=== PATIENT | female | born 1975 | race Hispanic/Latino ===

== ENCOUNTER 2019-11-17 19:01 | Inpatient (IN) | payer SELFPAY ==
--- NOTE | 2019-11-17 20:33 | RAD REPORT ---
EXAM DESCRIPTION: RAD - Chest Single View - 11/17/2019 8:23 pm CLINICAL HISTORY: Cough;Chest pain COMPARISON: None TECHNIQUE: AP portable chest image was obtained 11/17/2019 8:23 pm . FINDINGS: Lung volumes are relatively low. Scattered airspace opacities are present in both lung fie lds sparing each apex. Central vasculature is prominent. Heart size is upper normal. Small bilateral pleural effusions are evident. No acute bony abnormality seen. No acute aortic findings suspected. IMPRESSION: Scattered bilateral airspace opacities are present suspicious for pneumonia including CO VID-19 pneumonia. Patient has pleural effusions and vascular engorgement as well. Failure or volume overload are possib le but lesser considerations.
[2019-11-17] MEDS ORDERED: dexAMETHasone 10 MG/ML VIAL ONE (21:00)
[2019-11-17] MEDS ORDERED: CEFTRIAXONE/SWI 1gm 1 GM/10 ML SYR ONE (21:01)
[2019-11-17] MEDS ORDERED: AZITHROMYCIN 500 MG INJ IVPB ONE (21:01)
[2019-11-17] MEDS ORDERED: NA CHLORIDE 0.9% 250 ML ONE (21:01)
--- OUTSIDE RECORDS SUMMARY | 2019-11-17 21:06 | XMS REPORT | Continuity of Care Document ---
:1975 Author Organization [facility] t Address [address] [place] [address] Care Team Providers Name Role Phone Keila Bernstein Attending Clinician Problems This patient has no known problems. Allergies, Adverse Reactions, Alerts This patient has no known allergies or adverse reactions. Medications This patient has no known medications. Procedures This patient has no known procedures. Encounters Start End Encounter Admission Attending Care Care Encounter Source Date/Time Date/Time Type Type Clinicians Facility Department ID 2019-10-21 2019-10-21 Office ANT Villanueva [id number] 10:06:31 10:33:05 Visit Reynold Pedraza TEAM LEADER/RESEARCH PSYCHOLOGIST [id number] [facility] [id number] MATERNAL [id number] & CHILD [address] [place] [address] Results This patient has no known results.
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
--- OUTSIDE RECORDS SUMMARY | 2019-11-17 21:06 | XMS REPORT | Summary of Care ---
:1975 Author Organization [facility] Address [address] [place] [address] Care Team Providers Name Role Phone Ed Lopez DIONTE Primary Care Provider Reason for Visit Reason Comments NURSE VISIT DEPO Encounter Details Date Type Department Care Team Description 10/21/2019 Nurse Visit [facility]- [place] Villanueva R, MANGLE CATCHER [address] [place] [address] [facility] [place] [facility] [address] [facility] contracep tion ([address] Dx) [place] [address] Allergies No Known Allergiesdocumented as of this encounter (statuses as of 10/21/2019) Medications Medication Sig Dispensed Refills Start Date End Date Status clotrimazole 1 % Insert 1 Applicator 1 Tube 0 05/06/2019 Active vaginal into vagina at creamIndications: bedtime. Vaginal yeast infection Hospital, Clinic, or Other Ordered Dose Route Frequency Start Date End Date Status Facility Administered Medication medroxyPROGESTERone 150 mg IM [id number] 05/06/2019 0 Active (DEPO-PROVERA) injection 150 mgIndications: [...] infection 07/29/2017 02/12/2018 GDM (gestational diabetes mellitus) 07/15/201706/2019 Vaginal bleeding in patient at less than [...] Gestational diabetes mellitus, antepartum 09/29/2015 06/17/2017 Liveborn infant, of avilez , born in hospital by [...] without hematuria 02/14/2015 015 Overview: [facility] for ea rly usg and [...] examination 05/19/2013 02/14/2015 Overview: ICD10 Diagnosis Term Monotype Mechanic Utility Rubella immune 05/19/2013 02/14/2015 Lump or mass in breast 05/19/2013 03/11/2015 Overview: [facility]: /[id number]. Bilateral USG and m ammogram. USG- 1.1cm [...] Travel End No recent travel history available. COVID-19 Exposure Response Date Recorded In the last month, have you been in contact with No / Unsure 10/21/2019 10:17 AM CDT someone who was confirmed or suspected to have Coronavirus / COVID-19? documented as of this encounter Last Filed Vital Signs Vital Sign Reading Time Taken Comments Blood Pressure 137/88 10/21/2019 9:43 AM CDT Pulse 74 10/21/2019 9:43 AM CDT Temperature 36.6 C (97.8 F) 10/21/2019 9:43 AM CDT Respiratory Rate 16 10/21/2019 9:43 AM CDT Oxygen Saturation - - Inhaled Oxygen Concentration - - Weight 63.2 kg (139 lb 7 oz) 10/21/2019 9:43 AM CDT Height 152.4 cm (5') 10/21/2019 9:43 AM CDT Body Mass Index 27.23 10/21/2019 9:43 AM CDT documented in this encounter Progress Notes Gaurav Chávez RN - 10/21/2019 9:00 AM CDT44 year old female has been identified by and name. Verbal consent has been obtained by patientto have an injection of Depo Provera, as ordered by the provider. Date of last Depo Provera injection: 07/29/2019 Last WWE: 05/06/2019 Encounter Diagnosis: v25.49 The site was cleaned with an alcohol swab and given intramuscularly (IM) in the left deltoid. A band aid dressing was then applied to the injection site. The patient tolerated the procedure well . Advised patient on Calcium intake 500-1200 mg daily. ED warnings given. Patient to return to clinic in 12 weeks for next Depo. Patient verbalized understanding. GAURAV CHÁVEZ RN 10/21/2019 10:36 AM documented in this encounter Plan of Treatment Date Type Specialty Care Team Description 10/21/2019 Office Visit [facility] Reynold Villanueva, Vaginal yeast infection (Primary Dx); MANGLE CATCHER Screening examination for venereal disea [address] [place] [address] [phone] 01/13/2020 Office Visit [facility], [facility] Room 01/13/2020 Nurse Visit [facility] Visit, [facility] Nurse Health Maintenance Due Date Last Done Comments [...] this topic documented as of this encounter Results Not on filedocumented in this encounter Visit Diagnoses Diagnosis Encounter for Depo-Provera contraception - Primary Surveillance of other previously prescri bed contraceptive method documented in this encounter Administered Medications Medication Order MAR Action Action Date Dose Rate Site medroxyPROGESTERone Given 10/21/2019 10:35 150 mg Left Deltoid-IM (DEPO-PROVERA) injection 150 AM CDT mg 150 mg, Intramuscular, [id number], 4 doses, First dose on Traci 05/06/19 at 1015, Last dose on Traci 01/13/20 at 1015, Routine Given 07/29/2019 9:16 AM CDT 150 mg Left Deltoid-IM Given 05/06/2019 10:36 AM 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
[2019-11-17] MEDS ORDERED: IPRATROPIUM BROM 0.5MG/2.5ML ONE (21:07)
[2019-11-17] MEDS ORDERED: ALBUTEROL 2.5 MG/3 ML NEB SOL ONE (21:07)
--- OUTSIDE RECORDS SUMMARY | 2019-11-17 21:07 | XMS REPORT | Summary of Care ---
:1975 Author Organization [facility] Address [address] [place] [address] Care Team Providers Name Role Phone [facility] Provider Reason for Visit Reason Comments BLANKET WASHER problem Encounter Details Date Type Department Care Team Description 10/21/2019 Office Visit [facility]- Reynold Villanueva, [place] ginal yeast infection (Primary Dx); [facility] Screening examination for venereal disea se [address] [facility] [address] [place], [place] [phone] Allergies No Known Allergiesdocumented as of this encounter (statuses as of 10/21/2019) Medications Medication Sig Dispensed Refills Start Date End Date Status clotrimazole 1 % Insert 1 1 Tube 0 05/06/2019 Ac tive vaginal Applicator into creamIndications: vagina at bedtime. Vaginal yeast infection Miscellaneous Medical QHS X 7days 0 10/21/2019 Active Supply MiscIndications: Vaginal yeast infection Hospital, Clinic, or Other Ordered Dose Route Frequency Start Date End Date Status Facility Administered Medication medroxyPROGESTERone 150 mg IM [id number] 05/06/2019 0 Active (DEPO-PROVERA) injection 150 mgIndications: [...] without hematuria 02/14/2015 015 Overview: [facility]; ROR sent for ea rly usg and [...] examination 05/19/2013 02/14/2015 Overview: ICD10 Diagnosis Term Student Services Counselor Utility Rubella immune 05/19/2013 02/14/2015 Lump or mass in breast 05/19/2013 03/11/2015 Overview: [facility]: /[id number]. Bilateral USG and m ammogram. USG- 1.1cm fibroadenoma in the right breast is probably benign. F/U shayla mogram and USG in 6 months is recommended. Anemia 05/19/2013 05/19/2013 Family history of diabetes mellitus 05/19/20130 11/2014 Hemorrhoids 03/11/2015 documented as of this encounter [...] Time Taken Comments Blood Pressure 137/88 10/21/2019 10:18 AM CDT Pulse 74 10/21/2019 10:18 AM CDT Temperature 36.6 C (97.8 F) 10/21/2019 10:18 AM CDT Respiratory Rate 16 10/21/2019 10:18 AM CDT Oxygen Saturation - - Inhaled Oxygen Concentration - - Weight 63.2 kg (139 lb 7 oz) 10/21/2019 10:18 AM CDT Height 152.4 cm (5') 10/21/2019 10:18 AM CDT Body Mass Index 27.23 10/21/2019 10:18 AM CDT documented in this encounter Progress Notes Reynold Villanueva, RETIREMENT ADMINISTRATOR - 10/21/2019 1:45 PM CDT Chief complaint: Chief Complaint Patient presents with BLANKET WASHER problem HPI Patient complains of vaginal itching on and off for months. Patient report she tried OTC creams but with no relief. Patient is on Angelito Provera for BCM and is happy with method. Patient denies current or past physical, sexual or emotional abuse.] Histories OB History Para Term AB Living 8 6 5 1 2 6 SAB TAB Ectopic Multiple Live Births 2 1 6 # Outcome Date GA Lbr Sujit/2nd Weight Sex Delivery Anes PTL Lv 8A 8B Term 01/21/18 38w4d 5 lb 8.9 oz (2.52 kg) F VAGINAL EPI SANGEETHA Comments: Maternal Age: 42; :8; Parity:6 Mother's Blood Type:A pos Baby's Blood Type:not applicable Maternal Serological Test:normal Maternal Group B Strep Screening: positive Adequate Treatment: no Complications:yes - Gestational Diabetes 7 09/09/15 36w6d 4 lb 9.1 oz (2.072 kg) F VAGINAL EPI SANGEETHA 6 2012 11w0d 5 2010 9w0d 4 Term 01/17/07 40w0d 8 lb (3.629 kg) M NORMAL SPONT EPI N SANGEETHA 3 Term 01/21/01 40w0d 6 lb 9.8 oz (3 kg) M NORMAL SPONT EPI N SANGEETHA 2 Term 12/02/96 40w0d 8 lb 4.3 oz (3.75 kg) F NORMAL SPONT None Y SANGEETHA 1 Term 11/07/94 40w0d 7 lb (3.175 kg) M NORMAL SPONT EPI N SANGEETHA Past Medical History: Diagnosis Date Abnormal maternal glucose tolerance, antepartum 02/16/2015 Anemia resolved Bacterial vaginosis 05/29/2015 Blood transfusion, without reported diagnosis 12/02/1996 was given blood, but had a reaction to it-with childbirth Diabetes mellitus 2014 GDM Hemorrhoids Other depression 09/09/2017 Thrombocytopenia 01/22/2018 Family History Problem Relation Age of Onset Diabetes Mother Arthritis NoFHx Asthma NoFHx defects NoFHx Breast Cancer NoFHx Colon Cancer NoFHx Ovarian Cancer NoFHx Uterine Cancer NoFHx Depression NoFHx Cancer NoFHx Genetic NoFHx Heart NoFHx High cholesterol NoFHx Hypertension NoFHx Mental retardation NoFHx Neurological NoFHx Osteoporosis NoFHx Psychiatry NoFHx Other - see comments NoFHx Family Status Relation Name Status Mo (Not Specified) NoFHx (Not Specified) Past Surgical History: Procedure Laterality Date FACIAL LACERATION REPAIR lac above L eye sutured w/o anesthesia INSERT CERVICAL DILATOR 09/09/2015 Social History Socioeconomic History Marital status: Single Spouse name: Not on file Number of children: Not on file Years of education: Not on file Highest education level: Not on file Occupational History Not on file Social Needs Financial resource strain: Not on file Food insecurity: Worry: Not on file Inability: Not on file Transportation needs: Medical: Not on file Non-medical: Not on file Tobacco Use Smoking status: Former Smoker Smokeless tobacco: Never Used Substance and Sexual Activity Alcohol use: No Alcohol/week: 0.0 standard drinks Drug use: No Sexual activity: Yes Partners: Male control/protection: Injection Comment: last sexual intercourse 04/22/2019 Lifestyle Physical activity: Days per week: Not on file Minutes per session: Not on file Stress: Not on file Relationships Social connections: Talks on phone: Not on file Gets together: Not on file Attends confucianism service: Not on file Active member of club or organization: Not on file Attends meetings of clubs or organizations: Not on file Relationship status: Not on file Intimate partner violence: Fear of current or ex partner: Not on file Emotionally abused: Not on file Physically abused: Not on file Forced sexual activity: Not on file Other Topics Concern Not on file Social History Narrative Pt denies current or past physical, sexual or emotional abuse. Pt states she feels safe at home. Pt lives with family. Social History Substance and Sexual Activity Sexual Activity Yes Partners: Male control/protection: Injection Comment: last sexual intercourse 04/22/2019 Labs Labs are pending. Radiology No new radiology. Allergies Augustina has No Known Allergies. Medications Augustina has a current medication list which includes the following prescription(s): miscellaneous medical supply and clotrimazole, and the following Facility-Administered Medications: medroxyprogesterone. Review of Systems Genitourinary: Positive for vaginal bleeding. Vaginal itching BP 137/88 (BP Location: Right arm, Patient Position: Sitting, BP CUFF SIZE: Adult Medium) | Pulse 74 | Temp 36.6 C (97.8 F) (Oral) | Resp 16 | Ht 5' (1.524 m) | Wt 139 lb 7 oz (63.2 kg) | LMP10/17/2019 (Approximate) | BMI 27.23 kg/m Pregravid BMI: Could not be calculated Physical Exam Vagina:Vaginal discharge found. Patient on menses, bleeding noted Assessment/Plan Vaginal yeast infection (primary encounter diagnosis) Comment: see HPI Plan: Miscellaneous Medical Supply Misc Screening examination for venereal disease Comment: no test done since 2018 Plan: GC & CHLAMYDIA AMPLIFIED ASSAY Return to clinic in 05/2020 for WWE or PRN. Discussed treatment options. Medications as ordered. Reviewed patient instructions and provided printed copy. This visit did not involve counseling and coordination that comprised more than 50% of the visit time. EAMON Smith 10/21/2019 10:36 AM documented in this encounter Plan of Treatment Date Type Specialty Care Team Description 01/13/2020 Office Visit [facility], [facility] Room 01/13/2020 Nurse Visit [facility] Visit, [facility] Nurse Name Type Priority Associated Diagnoses Order S chedule GC & CHLAMYDIA AMPLIFIED LAB Routine Screening examin ation for Ordered: 10/21/2019 ASSAY venereal disease Health Maintenance Due Date Last Done Comments [...] filedocumented in this encounter Visit Diagnoses Diagnosis Vaginal yeast infection - Primary Candidiasis of vulva and vagina Screening examination for venereal disea se documented in this encounter Insurance Payer Benefit Plan / Subscriber ID Effective Dates Phone Addre ss Type Group [facility] FAMILY FAMILY PLANNING [id number] 2019-Pres [place] [employer] Agency PLANNING ISAI ISAI 0-100% ent [id number] [place] [address] documented as of this encounter Advance Directives Name Relationship Healthcare Agent Communication Relationship Julianne Bradford Child Primary healthcare agent "
--- OUTSIDE RECORDS SUMMARY | 2019-11-17 21:07 | XMS REPORT | Summary of Care ---
:1975 Author Organization [facility] Address [address] [place] [address] Care Team Providers Name Role Phone Jessica Ed [facility] Primary Care Provider Reason for Visit Reason Comments SCOOP FILLER problem Encounter Details Date Type Department Care Team Description 10/21/2019 Office Visit [facility]- Reynold Villanueva, [place] ginal yeast infection (Primary Dx); [facility] Screening examination for venereal disea se [address] [facility] [address] [place], [place] [phone] Allergies No Known Allergiesdocumented as of this [...] Facility Administered Medication medroxyPROGESTERone 150 mg IM [id number] 05/06/2019 0 Active (DEPO-PROVERA) injection 150 mgIndications: [...] without hematuria 02/14/2015 015 Overview: [facility] sent for ea rly usg and [...] examination 05/19/2013 02/14/2015 Overview: ICD10 Diagnosis Term 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 Bilateral USG and m ammogram. USG- 1.1cm [...] in this encounter Progress Notes Reynold Villanueva, SOUND EDITOR - 10/21/2019 1:45 PM CDT Chief complaint: Chief Complaint Patient presents with SCOOP FILLER problem HPI Patient complains of vaginal itching [...] file Gets together: Not on file Attends mormonism service: Not on file Active member of [...] Effective Dates Phone Addre ss Type Group [facility] FAMILY FAMILY PLANNING [id number] 2019-Pres [place] [employer] Agency PLANNING ISAI ISAI 0-100% ent [id number] [place] [address] documented as of this encounter Advance Directives Name Relationship Healthcare Agent Communication Relationship Julianne Bradford Child Primary healthcare agent "
--- OUTSIDE RECORDS SUMMARY | 2019-11-17 21:08 | XMS REPORT | Summary of Care ---
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 Screening examination for venereal disea se [address] [facility] [address] [place], [place] [phone] Allergies No Known Allergiesdocumented as of this [...] Facility Administered Medication medroxyPROGESTERone 150 mg IM [id number] 05/06/2019 0 Active (DEPO-PROVERA) injection 150 mgIndications: [...] without hematuria 02/14/2015 015 [facility] ROR sent for ea rly usg [...] examination 05/19/2013 02/14/2015 Overview: ICD10 Diagnosis Term Family Life Counselor Utility Rubella immune 05/19/2013 02/14/2015 Lump or mass in breast 05/19/2013 03/11/2015 Overview: [facility]: /[id number]. Bilateral USG and m ammogram. USG- 1.1cm [...] in this encounter Progress Notes Reynold Villanueva, DEVELOPMENT ARCHITECT - 10/21/2019 1:45 PM CDT Chief complaint: Chief Complaint Patient presents with CLINICAL INFORMATION SYSTEMS DIRECTOR problem HPI Patient complains of vaginal itching [...] file Gets together: Not on file Attends buddhist service: Not on file Active member of [...] Celeste Nurse Name Type Priority Associated Diagnoses Date/Ti me GC & CHLAMYDIA LAB Routine Screening examination for 10/21/2019 10:51 AM CDT AMPLIFIED ASSAY venereal disease Health Maintenance Due Date [...] Effective Dates Phone Addre ss Type Group [facility] FAMILY FAMILY PLANNING [id number] 2019-[place] LOAIZA Agency PLANNING ISAI ISAI 0-100% ent [id number] [place] [address] documented as of this encounter Advance Directives Name Relationship Healthcare Agent Communication Relationship Julianne Bradford Child Primary healthcare agent "
--- NOTE | 2019-11-17 21:20 | RAD REPORT ---
EXAM DESCRIPTION: CT - Chest For Pe Angio - 11/17/2019 9:03 pm CLINICAL HISTORY: Pain;SOB COMPARISON: Chest Single View dated 11/17/2019 TECHNIQUE: Dynamically enhanced 3 mm thick images of the chest were obtained during administration o f approximately 150mL Isovue 370 IV contrast. Coronal and oblique MIP reconstruction images were gene rated and reviewed. Exam utilizes a protocol to evaluate the pulmonary arterial tree. All CT scans are performed using dose optimization technique as appropriate and may include automated exposure control or mA/KV adjustment according to patient size. FINDINGS: No pulmonary emboli are identified. The aorta as imaged shows no acute or suspicious finding. No pericardial thickening or effusion. Ground-glass airspace opacification is scattered in all lobes. This is more peripheral than central i n distribution. This is a pattern commonly described in COVID-19 pneumonia. No pleural effusion or pl eural thickening. No mediastinal or hilar suspicious masses. No chest wall mass. Left axillary lymphadenopathy is prese nt most likely reactive. Largest lymph node is 14 mm. Limited abdomen imaging shows hepatomegaly with pronounced fatty infiltration. Liver is only partiall y imaged. IMPRESSION: No pulmonary emboli identified. Bilateral ground-glass opacification throughout all lobes, more peripheral than central, and without associated mass or cavitation. This lung parenchymal pattern is the most commonly described COVID-19 pneumonia pattern. Hepatomegaly and diffuse fatty infiltration of a partially imaged liver.
[2019-11-17] MEDS ORDERED: NA CHLORIDE 0.9% 1,000 ML ONE (22:48)
[2019-11-17 23:19] LABS: Absolute Lymphocytes (CBC) 0.8 K/uL (0.7-4.9); Basophils % 0.1 % (0-1.3); Hematocrit 36.9 % (36.0-45.0); Lymphocytes % 10.3 % (15.3-44.8); MPV 11.6 fL (7.6-11.3); RBC Red Blood Cell Count 3.99 M/uL (3.86-4.86)
[2019-11-17 23:54] LABS: BUN Blood Urea Nitrogen 6 mg/dL (7-18); Bicarbonate 21 mmol/L (21-32); Glucose Level 172 mg/dL (74-106); Potassium 3.1 mmol/L (3.5-5.1); Sodium Level 138 mmol/L (136-145)
[2019-11-18 00:03] LABS: Blood Morphology Comment NOT SEEN (NOT SEEN); Platelet Estimate ADEQ
[2019-11-18 00:18] LABS: NT PRO-BNP < 5 pg/mL (<125)
[2019-11-18] MEDS ORDERED: ACETAMINOPHEN 500 MG TAB PO PRN (00:33)
[2019-11-18] MEDS ORDERED: ONDANSETRON 4 MG/2 ML VIAL IV PRN (00:33)
--- NOTE | 2019-11-18 00:34 | ER ---
Nurse's Notes [facility] Name: Augustina Coe Age: 44 yrs Sex: Female : 1975 Arrival Date: 11/17/2019 Time: 19:02 Bed 30 Private MD: Diagnosis: Pneumonia, unspecified organism Presentation: 11/16 19:06 Chief complaint: Patient states: Cough, SOB, Chest tightness and body aches x 4 days. ca1 Coronavirus screen: Surgical mask placed on patient. Patient moved to private room, placed in contact and droplet isolation with eye protection until further assessment. Patient reports a cough. Patient reports shortness of breath or difficulty breathing. Patient denies measured and/or subjective temperature greater than 100.4F prior to today's visit. Patient denies travel on a cruise ship or to a country the [facility] currently lists as an affected area. Patient denies contact with known and/or suspected case of COVID-19. Tested negative for Covid-19 last week. Ebola Screen: Patient negative for fever greater than or equal to 101.5 degrees Fahrenheit, and additional compatible Ebola Virus Disease symptoms Patient denies exposure to infectious person. Patient denies travel to an Ebola-affected area in the 21 days before illness onset. No symptoms or risks identified at this time. Initial Sepsis Screen: Does the patient meet any 2 criteria? No. Patient's initial sepsis screen is negative. Does the patient have a suspected source of infection? No. Patient's initial sepsis screen is negative. Risk Assessment: Do you want to hurt yourself or someone else? Patient reports no desire to harm self or others. Onset of symptoms was November 17, 2019. 19:06 Method Of Arrival: Ambulatory ca1 19:06 Acuity: KAR 3 ca1 Triage Assessment: 19:31 General: Appears comfortable, Behavior is calm, cooperative. Respiratory: Reports rv shortness of breath at rest Onset: The symptoms/episode began/occurred gradually, the patient has mild shortness of breath. 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 - Social history:: Smoking status: Patient denies any tobacco usage or history of. Screenin:31 Abuse screen: Denies threats or abuse. Denies injuries from another. Nutritional rv screening: No deficits noted. Tuberculosis screening: No symptoms or risk factors identified. Fall Risk None identified. Assessment: 19:30 General: Appears comfortable, Behavior is calm, cooperative. Pain: Denies pain. Neuro: rv Level of Consciousness is awake, alert, obeys commands, Oriented to person, place, time, situation. Cardiovascular: Patient's skin is warm and dry. Rhythm is sinus tachycardia. Respiratory: Airway is patent Respiratory effort is even, unlabored, Breath sounds are coarse bilaterally. Derm: Skin is intact. 20:19 Reassessment: Patient appears in no apparent distress at this time. Patient and/or mg2 family updated on plan of care and expected duration. Pain level reassessed. Patient is alert, oriented x 3, equal unlabored respirations, skin warm/dry/pink. 21:00 Reassessment: PATIENT MOVED TO ROOM 30. rv 23:00 Reassessment: Patient and/or family updated on plan of care and expected duration. Pain rv level reassessed. Patient is alert, oriented x 3, equal unlabored respirations, skin warm/dry/pink. Patient states feeling better. Respiratory: Airway is patent Respiratory pattern is tachypnea Breath sounds are coarse bilaterally. Vital Signs: 19:06 BP 126 / 81; Pulse 105; Resp 20; Temp 98.4(TE); Pulse Ox 97% on R/A; Weight 68.04 kg ca1 (R); Height 5 ft. 2 in. (157.48 cm) (R); 19:57 BP 112 / 78; Pulse 102; Resp 25; Pulse Ox 97% on R/A; rv 20:30 BP 120 / 82; Pulse 101; Resp 25; Pulse Ox 97% on R/A; rv 21:41 BP 112 / 76; Pulse 122; Resp 23; Pulse Ox 98% on Nebulizer Mask; rv 22:30 BP 108 / 72; Pulse 105; Resp 30; Pulse Ox 96% on R/A; rv 23:00 BP 96 / 58; Pulse 102; Resp 27; Pulse Ox 96% on R/A; rv 23:30 BP 95 / 57; Pulse 102; Resp 22; Pulse Ox 95% on R/A; rv 11/17 00:00 BP 101 / 59; Pulse 97; Resp 22; Pulse Ox 96% on R/A; rv 01:00 BP 95 / 62; Pulse 91; Resp 27; Temp 98(O); Pulse Ox 96% ; rv 11/16 19:06 Body Mass Index 27.44 (68.04 kg, 157.48 cm) ca1 ED Course: 11/16 19:02 Patient arrived in ED. bp1 19:08 Triage completed. ca1 19:09 Balta Sotomayor RN is Primary Nurse. rv 19:09 Arm band placed on right wrist. ca1 19:10 Melanie Glover [facility]NP-C [facility]. kb 19:10 Phillip Ogden MD is Attending Physician. kb 19:30 COVID-19 Sent. rv 19:31 Patient has correct armband on for positive identification. Placed in gown. Bed in low rv position. Call light in reach. equipment monitor phototypesetting on. Pulse ox on. NIBP on. 20:23 Chest Single View XRAY In Process Unspecified. EDMS 20:55 Inserted saline lock: 20 gauge in right antecubital area, using aseptic technique. rv Blood collected. 20:55 Initial lab(s) drawn, by me, sent to lab. First set of blood cultures drawn by me. rv 21:04 CT Chest For PE Angio In Process Unspecified. EDMS 21:07 Second set of blood cultures drawn by me. rv 21:28 Notified Nurse Practitioner and/or Physician Crossbar Frame Wirer of a critical lab result(s), D sg Dimer 524. 11/17 00:03 Notified Nurse Practitioner and/or Physician Crossbar Frame Wirer of a critical lab result(s), sg Bands of 19 %. 00:33 Ang Page MD is Hospitalizing Provider. kb 01:27 No provider procedures requiring assistance completed. IV is patent, with fluids rv infusing freely, with good blood return, Patient admitted, IV remains in place. 07:49 Primary Nurse role handed off by Balta Sotomayor RN sv Administered Medications: 11/16 21:15 Drug: Decadron - Dexamethasone 6 mg Route: IVP; Site: right antecubital; rv 22:59 Follow up: Response: No adverse reaction rv 21:16 Drug: DuoNeb (3:1) (2.5 mg - 0.5 mg) 3 ml Route: Nebulizer; rv 22:59 Follow up: Response: No adverse reaction rv 21:16 Drug: Rocephin 1 grams Route: IV; Rate: calculated rate; Site: right antecubital; rv 21:20 Follow up: IV Status: Completed infusion rv :16 Drug: Zithromax 500 mg Route: IVPB; Infused Over: 1 hrs; Site: right antecubital; rv 22:59 Follow up: IV Status: Completed infusion; IV Intake: 250ml rv 22:59 Drug: NS 0.9% 500 ml Route: IV; Rate: bolus; Site: right antecubital; rv 23:30 Follow up: IV Status: Completed infusion; IV Intake: 500ml rv 11/17 01:08 Not Given (Physician Discretion): NS 0.9% with KCl 40 mEq/L 1000 ml IV at 125 ml/hr rv continuous 01:08 Drug: NS 0.9% with KCl 20 mEq/L 1000 ml Route: IV; Rate: 125 ml/hr; Site: right rv antecubital; 01:27 Follow up: IV Status: Infusion continued upon admission rv Intake: 11/16 22:59 IV: 250ml; Total: 250ml. rv 23:30 IV: 500ml; Total: 750ml. rv Outcome: 11/17 00:33 Decision to Hospitalize by Provider. kb 01:27 Admitted to ER Hold. Please see [facility] for further documentation. rv 01:27 Condition: good 01:27 Instructed on the need for admit. 09:12 Patient left the ED. eb Signatures: Dispatcher [employer] EDMS Melanie Glover, GLADYS ACCOUNTING OFFICER-Fátima Nicole RN RN sv Gay, Steven, RN RN sg Botello, Elizabeth Alberto Germain RN RN [facility] Balta Sotomayor RN RN Rosemary Barton RN [facility] Marilyn Solomon Corrections: (The following items were deleted from the chart) 11/16 21:17 21:17 Reassessment: PATIENT MOVED TO ROOM 30. rv rv 23:00 19:30 Respiratory: Airway is patent Respiratory effort is even, unlabored, Breath rv sounds are clear bilaterally. rv
--- NOTE | 2019-11-18 00:34 | EDPHYS ---
Physician Documentation [facility] Name: Augustina Coe Age: 44 yrs Sex: Female : 1975 Arrival Date: 11/17/2019 Time: 19:02 Bed 30 Private MD: ED Physician Phillip Ogden HPI: 11/16 20:22 This 44 yrs old Female presents to ER via Ambulatory with complaints of kb Breathing Difficulty, Cough. 20:22 The patient or guardian reports cough, that is constant, described as moderate, kb difficulty breathing. Onset: The symptoms/episode began/occurred 4 day(s) ago. Severity of symptoms: At their worst the symptoms were moderate, in the emergency department the symptoms are unchanged. Modifying factors: The symptoms are alleviated by nothing, the symptoms are aggravated by nothing. Associated signs and symptoms: Pertinent positives: chest pain, Pertinent negatives: diarrhea, ear ache, fever, nausea, rhinorrhea, sore throat, vomiting. The patient has not experienced similar symptoms in the past. The patient has not recently seen a physician. Pt reports "a lot of cough" that causes shortness of breath. States she has been coughing so much that it is now causing pain to her chest. . 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 - Social history:: Smoking status: Patient denies any tobacco usage or history of. ROS: 20:21 Constitutional: Negative for fever, chills, and weight loss, ENT: Negative for injury, kb pain, and discharge, Neck: Negative for injury, pain, and swelling, Abdomen/GI: Negative for abdominal pain, nausea, vomiting, diarrhea, and constipation, MS/Extremity: Negative for injury and deformity, Skin: Negative for injury, rash, and discoloration, Neuro: Negative for headache, weakness, numbness, tingling, and seizure. 20:21 Cardiovascular: Positive for chest pain, with cough, Negative for edema, orthopnea, palpitations, paroxysmal nocturnal dyspnea. 20:21 Respiratory: Positive for cough, shortness of breath, Negative for dyspnea on exertion, hemoptysis, orthopnea, pleurisy, sputum production, wheezing. Exam: 20:21 Constitutional: This is a well developed, well nourished patient who is awake, alert, kb and in no acute distress. Head/Face: Normocephalic, atraumatic. Chest/axilla: Normal chest wall appearance and motion. Nontender with no deformity. No lesions are appreciated. Cardiovascular: Regular rate and rhythm with a normal S1 and S2. No gallops, murmurs, or rubs. Normal PMI, no JVD. No pulse deficits. Respiratory: Lungs have equal breath sounds bilaterally, clear to auscultation and percussion. No rales, rhonchi or wheezes noted. No increased work of breathing, no retractions or nasal flaring. Abdomen/GI: Soft, non-tender, with normal bowel sounds. No distension or tympany. No guarding or rebound. No evidence of tenderness throughout. Skin: Warm, dry with normal turgor. Normal color with no rashes, no lesions, and no evidence of cellulitis. MS/ Extremity: Pulses equal, no cyanosis. Neurovascular intact. Full, normal range of motion. Neuro: Awake and alert, GCS 15, oriented to person, place, time, and situation. Cranial nerves II-XII grossly intact. Motor strength 5/5 in all extremities. Sensory grossly intact. Cerebellar exam normal. Normal gait. 20:21 ECG was reviewed by the Attending Physician. kb Vital Signs: 19:06 BP 126 / 81; Pulse 105; Resp 20; Temp 98.4(TE); Pulse Ox 97% on R/A; Weight 68.04 kg ca1 (R); Height 5 ft. 2 in. (157.48 cm) (R); 19:57 BP 112 / 78; Pulse 102; Resp 25; Pulse Ox 97% on R/A; rv 20:30 BP 120 / 82; Pulse 101; Resp 25; Pulse Ox 97% on R/A; rv 21:41 BP 112 / 76; Pulse 122; Resp 23; Pulse Ox 98% on Nebulizer Mask; rv 22:30 BP 108 / 72; Pulse 105; Resp 30; Pulse Ox 96% on R/A; rv 23:00 BP 96 / 58; Pulse 102; Resp 27; Pulse Ox 96% on R/A; rv 23:30 BP 95 / 57; Pulse 102; Resp 22; Pulse Ox 95% on R/A; rv 11/17 00:00 BP 101 / 59; Pulse 97; Resp 22; Pulse Ox 96% on R/A; rv 01:00 BP 95 / 62; Pulse 91; Resp 27; Temp 98(O); Pulse Ox 96% ; rv 11/16 19:06 Body Mass Index 27.44 (68.04 kg, 157.48 cm) ca1 MDM: 11/16 19:10 Patient medically screened. kb 20:19 Data reviewed: vital signs, nurses notes. Data interpreted: Pulse oximetry: on room air kb is 97 %. Interpretation: normal. 11/17 00:32 Counseling: I had a detailed discussion with the patient and/or guardian regarding: the kb historical points, exam findings, and any diagnostic results supporting the discharge/admit diagnosis, lab results, radiology results, the need for further work-up and treatment in the hospital. Physician consultation: Ang Page MD was contacted at 00:32, regarding admission, to the medical/surgical unit. patient's condition, and will see patient shortly. 11/16 19:15 Order name: COVID-19; Complete Time: 07:07 kb 11/16 20:37 Order name: CBC with Diff; Complete Time: 00:04 kb 11/16 20:37 Order name: Basic Metabolic Panel; Complete Time: 00:25 kb 11/16 20:37 Order name: Blood Culture Adult (2) kb 11/16 20:39 Order name: D-Dimer; Complete Time: 21:32 kb 11/16 20:53 Order name: NT PRO-BNP; Complete Time: 00:25 EDNH 11/16 23:21 Order name: Manual Differential; Complete Time: 00:04 EDNH 11/16 23:43 Order name: CREATININE WHOLE BLOOD; Complete Time: 23:44 EDMS 11/17 00:39 Order name: C-Reactive Protein EDMS 11/17 00:39 Order name: Comprehensive Metabolic Panel EDNH 11/17 00:39 Order name: Ferritin EDMS 11/17 00:39 Order name: Lactate; Complete Time: 07:07 EDMS 11/17 00:39 Order name: Lactic Dehydrogenase EDNH 11/16 19:15 Order name: Chest Single View XRAY; Complete Time: 20:35 kb 11/17 00:39 Order name: Lipid Profile EDMS 11/17 00:39 Order name: Magnesium EDMS 11/17 00:39 Order name: Procalcitonin EDMS 11/17 00:40 Order name: CBC with Automated Diff; Complete Time: 07:07 EDMS 11/17 00:40 Order name: D-Dimer; Complete Time: 07:07 EDMS 11/17 00:40 Order name: Hemoglobin A1c EDMS 11/17 00:40 Order name: NT PRO-BNP EDMS 11/17 00:40 Order name: Phosphorus EDNH 11/17 00:40 Order name: Troponin I EDNH 11/17 05:13 Order name: Urine Dipstick--Ancillary (enter results) 11/17 05:13 Order name: Urine --Ancillary (enter results) 11/17 06:38 Order name: Urinalysis EDNH 11/17 06:41 Order name: Urine --Ancillary; Complete Time: 07:07 EDMS 11/17 06:41 Order name: Urine Dipstick-Ancillary; Complete Time: 07:07 EDMS 11/17 07:25 Order name: Urine Microscopic Only EDNH 11/16 19:15 Order name: EKG; Complete Time: 19:16 kb 11/16 19:15 Order name: EKG - Nurse/Tech; Complete Time: 19:30 kb 11/16 20:37 Order name: IV Start; Complete Time: 21:16 kb 11/16 20:39 Order name: CT Chest For PE Angio; Complete Time: 21:24 kb 11/17 00:36 Order name: Regular EDMS EC/15 20:21 Rate is 104 beats/min. Rhythm is regular. QRS [place] is Normal. [place] interval is normal at kb 128 msec. QRS interval is normal at 82 msec. QT interval is normal at 324 msec. Administered Medications: 21:15 Drug: Decadron - Dexamethasone 6 mg Route: IVP; Site: right antecubital; rv 22:59 Follow up: Response: No adverse reaction rv 21:16 Drug: DuoNeb (3:1) (2.5 mg - 0.5 mg) 3 ml Route: Nebulizer; rv 22:59 Follow up: Response: No adverse reaction rv 21:16 Drug: Rocephin 1 grams Route: IV; Rate: calculated rate; Site: right antecubital; rv 21:20 Follow up: IV Status: Completed infusion rv 21:16 Drug: Zithromax 500 mg Route: IVPB; Infused Over: 1 hrs; Site: right antecubital; rv 22:59 Follow up: IV Status: Completed infusion; IV Intake: 250ml rv 22:59 Drug: NS 0.9% 500 ml Route: IV; Rate: bolus; Site: right antecubital; rv 23:30 Follow up: IV Status: Completed infusion; IV Intake: 500ml rv 11/17 01:08 Not Given (Physician Discretion): NS 0.9% with KCl 40 mEq/L 1000 ml IV at 125 ml/hr rv continuous 01:08 Drug: NS 0.9% with KCl 20 mEq/L 1000 ml Route: IV; Rate: 125 ml/hr; Site: right rv antecubital; 01:27 Follow up: IV Status: Infusion continued upon admission rv Disposition: 14:51 Co-signature as Attending Physician, Phillip Ogden MD. rn Disposition: 11/18/19 00:33 Hospitalization ordered by Ang Page for Observation. Preliminary diagnosis is Pneumonia, unspecified organism. - Bed requested for Telemetry/MedSurg (observation). - Status is Observation. eb - Condition is Stable. - Problem is new. - Symptoms are unchanged. Signatures: Dispatcher [employer] [facility] Melanie Glover, AUTOMATIC WHEEL LINE OPERATOR-C AUTOMATIC WHEEL LINE OPERATOR-Ckb Sarwat Jacques MD MD cha Nieto, Roman, MD MD rn Garcia, Cindy, RN RN cg Botello, Elizabeth eb Vicente, Ronaldo, RN RN rv AcobRosemary RN RN ca1 Corrections: (The following items were deleted from the chart) 11/16 20:53 20:48 PROBNP+C.LAB.BRZ ordered. [facility] 11/17 00:08 11/16 20:19 Counseling: I had a detailed discussion with the patient and/or guardian tamica regarding: the historical points, exam findings, and any diagnostic results supporting the discharge/admit diagnosis, radiology results, the need for outpatient follow up, a family practitioner, to return to the emergency department if symptoms worsen or persist or if there are any questions or concerns that arise at home, tamica 11/17 01:11 00:33 Hospitalization Ordered by Ang Page MD for Observation. Preliminary diagnosis is Pneumonia, unspecified organism. Bed requested for Telemetry/MedSurg (observation). Status is Observation. Condition is Stable. Problem is new. Symptoms are unchanged. kb 06:56 01:11 11/18/2019 00:33 Hospitalization Ordered by Ang Page MD for Observation. cg Preliminary diagnosis is Pneumonia, unspecified organism. Bed requested for [facility] ER HOLD. Status is Observation. Condition is Stable. Problem is new. Symptoms are unchanged. cg 09:12 06:56 11/18/2019 00:33 Hospitalization Ordered by Ang Page MD for Observation. eb Preliminary diagnosis is Pneumonia, unspecified organism. Bed requested for Telemetry/MedSurg (observation). Status is Observation. Condition is Stable. Problem is new. Symptoms are unchanged. cg
[2019-11-18] MEDS ORDERED: dexAMETHasone 10 MG/ML VIAL IV SCH (01:00)
[2019-11-18] MEDS ORDERED: NS KCL 20MEQ 1,000 ML IV ONE (01:10)
[2019-11-18 01:45] VITALS: O2SAT 97; BMI 12.4
[2019-11-18 06:23] LABS: Absolute Lymphocytes (CBC) 0.7 K/uL (0.7-4.9); Basophils % 0.3 % (0-1.3); Hematocrit 34.3 % (36.0-45.0); MPV 11.5 fL (7.6-11.3)
[2019-11-18 06:38] LABS: Urine Appearance CLEAR; Urine Bilirubin NEGATIVE (NEG); Urine Blood NEGATIVE (NEG); Urine Color YELLOW; Urine Glucose NEGATIVE (NEG); Urine Microscopic Reflex ORDER UMIC; Urine Protein TRACE (NEG); Urine Specific Gravity >=1.030 (1.005-1.030); Urine Urobilinogen 0.2 mg/dL (0.2-1.0)
[2019-11-18 06:40] LABS: Urine Blood NEGATIVE (NEG); Urine Glucose NEGATIVE (NEG); Urine Protein 1+ (NEG)
--- NOTE | 2019-11-18 07:24 | EKG ---
Test Date: 2019-11-17 Test Time: 19:26:50 Heading Repairer: RV MEASUREMENT RESULTS: Intervals: Rate: 104 GA: 128 QRSD: 82 QT: 324 QTc: 426 [place]: P: 3 GA: 128 QRS: 31 T: 1 INTERPRETIVE STATEMENTS: Sinus tachycardia Otherwise normal ECG No previous ECG available for comparison Electronically Signed On 11-18-19 07:22:56 CDT by Doc Guzman
[2019-11-18 07:25] LABS: Urine Bacteria <20 /HPF (<20); Urine Culture Reflex Order NOT NEEDED; Urine RBC NONE SEEN /HPF (NONE SEEN)
[2019-11-18 07:45] LABS: ALT/SGPT 54 U/L (12-78); AST/SGOT 28 U/L (15-37); Albumin 2.9 g/dL (3.4-5.0); Alkaline Phosphatase 70 U/L (45-117); BUN Blood Urea Nitrogen 7 mg/dL (7-18); Bicarbonate 22 mmol/L (21-32); Bilirubin Total 0.3 mg/dL (0.2-1.0); Ferritin 271.9 ng/mL (8-388); Glucose Level 212 mg/dL (74-106); HDL Cholesterol 31 mg/dL (40-60); LDL Cholesterol, Calculated 58 (<130); Magnesium 2.2 mg/dL (1.8-2.4); NT PRO-BNP 13 pg/mL (<125); Phosphorus 3.3 mg/dL (2.5-4.9); Potassium 3.6 mmol/L (3.5-5.1); Protein, Total 7.5 g/dL (6.4-8.2); Sodium Level 140 mmol/L (136-145); Troponin I < 0.02 ng/mL (0.0-0.045)
[2019-11-18] MEDS ORDERED: dexAMETHasone 4 MG/ML VIAL ONE (08:08)
[2019-11-18] MEDS ORDERED: ENOXAPARIN 40 MG/0.4 ML SQ ONE (08:09)
[2019-11-18] MEDS ORDERED: AZITHROMYCIN IV 250 MG in NA CHLORIDE 0.9% 250 ML IVPB SCH ×2 (09:00→21:00)
[2019-11-18] MEDS ORDERED: ENOXAPARIN 40 MG/0.4 ML SQ SCH (09:00)
[2019-11-18] MEDS ORDERED: ZINC SULFATE 220 MG CAP PO SCH (09:00)
[2019-11-18] MEDS ORDERED: dexAMETHasone 4 MG/ML VIAL IV SCH (09:00)
[2019-11-18] MEDS ORDERED: ASCORBIC ACID 500 MG TABLET PO SCH (09:00)
[2019-11-18] MEDS ORDERED: BENZONATATE 100 MG CAP PO PRN (12:06)
--- NOTE | 2019-11-18 12:22 | P.HP ---
Certification for Inpatient Patient admitted to: Inpatient With expected LOS: >2 Midnights Patient will require the following post-hospital care: None Practitioner: I am a practitioner with admitting privileges, knowledge of patient current condition, hospital course, and medical plan of care. Services: Services provided to patient in accordance with Admission requirements found in Title 42 Section 412.3 of the Code of Federal Regulations Patient History Date of Service: 11/18/19 Reason for admission: COVID-19 PNEUMONIA History of Present Illness: PATIENT IS A 44-YEAR-OLD FEMALE WHO CAME INTO THE EMERGENCY ROOM WITH SHORTNESS OF BREATH AND PERSISTENT COUGHING. PATIENT HAS BEEN HAVING FEVER, SHAKES, AND CHILLS. PATIENT HAD COVID TESTING DONE 1 WEEK PRIOR. AT THAT TIME HER TEST WAS NEGATIVE. SHE WAS STILL FEELING POORLY SO SHE CAME TO THE EMERGENCY ROOM YESTERDAY AFTERNOON. HER SYMPTOMS REVEALED BILATERAL PNEUMONIA. CT SCAN WAS SUGGESTED OF COVID-19 PNEUMONIA. AT THIS TIME, PATIENT WILL BE ADMITTED TO THE HOSPITAL FOR FURTHER EVALUATION. PATIENT WILL GET INFLAMMATORY MARKERS EVALUATED WELL. CONTINUE WITH ANTICOAGULATION ALONG WITH IV DEXAMETHASONE AND IVS ZITHROMYCIN. ALBUTEROL INHALER THE BEDSIDE. Allergies No Known Allergies Allergy (Unverified 11/18/19 07:18) Home Medications: NK [No Home Meds] 11/18/19 - Past Medical/Surgical History Has patient received pneumonia vaccine in the past: No Past Medical History: Patient denies medical history Past Surgical History: Patient denies surgical history - Family History Father Family History: Reviewed- Non-Contributory - Social History Smoking Status: Never smoker Place of Residence: Home Review of Systems 10-point ROS is otherwise unremarkable Physical Examination - Vital Signs Temperature: 98.0 F Blood Pressure: 104/66 Pulse: 96 Respirations: 19 Pulse Ox (%): 96 - Physical Exam General: Alert, In no apparent distress, Oriented x3 HEENT: Atraumatic, PERRLA, Mucous membr. moist/pink, EOMI, Sclerae nonicteric Neck: Supple, 2+ carotid pulse no bruit, No LAD, Without JVD or thyroid abnormality Respiratory: Normal air movement, Diminished, Expiratory wheezes, Rhonchi/gurgles Cardiovascular: Regular rate/rhythm, Normal S1 S2, Systolic murmur Gastrointestinal: Normal bowel sounds, Soft and benign, Non-distended, No tenderness Musculoskeletal: No clubbing, No swelling, No tenderness Integumentary: No rashes Neurological: Normal gait, Normal speech, Normal strength at 5/5 x4 extr, Normal tone, Sensation intact, Cranial nerves 3-12 intact, Normal affect Lymphatics: No axilla or inguinal lymphadenopathy - Studies Laboratory Data (last 24 hrs) 11/17/19 22:45: Sodium 138, Potassium 3.1 L, BUN 6 L, Creatinine 0.66, Glucose 172 H 11/17/19 22:45: WBC 7.8, Hgb 12.4, Hct 36.9, Plt Count 148 L Microbiology Data (last 24 hrs): 11/17/19 19:25 Nasopharnyx Coronavirus COVID-19 PCR - Final Assessment & Plan - Problems (Diagnosis) (1) Pneumonia due to COVID-19 virus Current Visit: Yes Status: Acute - Plan PLAN: 1. CHECK COVID-19 TEST RESULTS 2. DEXAMETHASONE 10 MG IVP DAILY 3. ZITHROMYCIN 250 MG IVPB DAILY 4. LOVENOX 40 MG SUBCU DAILY; IF HIGH RISK OF PE THEN WILL NEED TO DO FULL DOSE LOVENOX THERAPY 5. O2 PER PROTOCOL; HIGH-FLOW OXYGEN/BIPAP IF NECESSARY 6. CHECK LABS INCLUDING FERRITIN, CRP, D-DIMER, LACTIC ACID, LDH, PROCALCITONIN 7. GI PROPHYLAXIS Discharge Plan: Home Plan to discharge in: Greater than 2 days - Advance Directives Does patient have a Living Will: No Does patient have a Durable POA for Healthcare: No - Code Status/Comfort Care Code Status Assessed: Yes Code Status: Full Code Critical Care: No Time Spent Managing PTS Care (In Minutes): 45
--- NOTE | 2019-11-18 15:02 | P.DS ---
Admission Date: 11/18/19 Discharge Date: 11/18/19 Primary Care Provider: none Disposition: ROUTINE DISCHARGE Discharge Condition: GOOD Reason for Admission: COVID-19 PNEUMONIA Consultations: none Procedures: CT scan: FINDINGS: No pulmonary emboli are identified. The aorta as imaged shows no acute or suspicious finding. No pericardial thickening or effusion. Ground-glass airspace opacification is scattered in all lobes. This is more peripheral than central in distribution. This is a pattern commonly described in COVID-19 pneumonia. No pleural effusion or pleural thickening. No mediastinal or hilar suspicious masses. No chest wall mass. Left axillary lymphadenopathy is present most likely reactive. Largest lymph node is 14 mm. Limited abdomen imaging shows hepatomegaly with pronounced fatty infiltration. Liver is only partially imaged. IMPRESSION: No pulmonary emboli identified. Bilateral ground-glass opacification throughout all lobes, more peripheral than central, and without associated mass or cavitation. This lung parenchymal pattern is the most commonly described COVID-19 pneumonia pattern. Hepatomegaly and diffuse fatty infiltration of a partially imaged liver. Medical Problem list: Cough secondary to bilateral COVID-19 pneumonia DM Type 2, new diagnosis Brief History of Present Illness: 44-year-old female presented with cough. is positive for COVID. She came to the ER DN due to on control cough. CT scan revealed bilateral pneumonia.COVID suspected. Patient admitted for further evaluation. Hospital Course: Patient presented with cough. was positive for COVID. Patient evaluated in the emergency room. CT scan revealed bilateral pneumonia suspicious for COVID. Results are positive. Patient was monitored closely. Patient without significant shortness of breath. Room-air saturations within normal range. Patient has done well. Patient will be discharged home with prednisone 10 mg 1 pill twice daily for 7 days. Patient will also be provided Tessalon Perles 100 mg 3 times a day as needed for cough. Supplementation with vitamin-C, thiamine and zinc will be provided as well. Recommend quarantine at home for at least 14 days. Recommend CDC guidelines. Guidelines will be provided. Recommend to continue hand washing, face mask use and social distancing. Recommend follow up with PCP to further monitor and address. Health department will follow patient. Recommend to recheck testing in 14 days. Patient also found to have elevated blood sugar. A1c was 7.0. New diagnosis of diabetes noted. This was addressed in detail. Patient will be started on metformin 500 mg daily. Recommend to maintain blood sugars less 140 fasting and less than 200 after meals. Further adjustment in medication may be required. Recommend follow up with PCP to further address. 2000 ADA diet and diabetic ed ucation will be provided. Patient will need to buy a glucometer to monitor her blood sugars. Patient will be provided information on PCPs in the area to establish care and to further address. Vital Signs/Physical Exam: Temp Pulse Resp BP Pulse Ox 97.5 F 84 22 H 115/68 99 11/18/19 12:56 11/18/19 12:56 11/18/19 12:56 11/18/19 12:56 11/18/19 12:56 General: Alert, In no apparent distress, Oriented x3, Cooperative HEENT: Atraumatic Neck: Supple Respiratory: Clear to auscultation bilaterally, Normal air movement Cardiovascular: Normal pulses, Regular rate/rhythm Gastrointestinal: Normal bowel sounds, Soft and benign, Non-distended, No tenderness, No masses, No rebound, No guarding Integumentary: No tenderness/swelling, No erythema, No warmth, No cyanosis Neurological: Normal speech, Normal strength at 5/5 x4 extr, Normal tone, Normal affect Laboratory Data at Discharge: WBC 3.7 K/uL (4.3-10.9) L D 11/18/19 05:52 Hgb 11.6 g/dL (12.0-15.0) L 11/18/19 05:52 Hct 34.3 % (36.0-45.0) L 11/18/19 05:52 Plt Count 155 K/uL (152-406) 11/18/19 05:52 Sodium 140 mmol/L (136-145) 11/18/19 05:52 Potassium 3.6 mmol/L (3.5-5.1) 11/18/19 05:52 BUN 7 mg/dL (7-18) 11/18/19 05:52 Creatinine 0.59 mg/dL (0.55-1.3) 11/18/19 05:52 Glucose 212 mg/dL (74-106) H 11/18/19 05:52 Phosphorus 3.3 mg/dL (2.5-4.9) 11/18/19 05:52 Magnesium 2.2 mg/dL (1.8-2.4) 11/18/19 05:52 Total Bilirubin 0.3 mg/dL (0.2-1.0) 11/18/19 05:52 AST 28 U/L (15-37) 11/18/19 05:52 ALT 54 U/L (12-78) 11/18/19 05:52 Alkaline Phosphatase 70 U/L (45-117) 11/18/19 05:52 Troponin I < 0.02 ng/mL (0.0-0.045) 11/18/19 05:52 Triglycerides 53 mg/dL (<150) 11/18/19 05:52 Cholesterol 100 mg/dL (<200) 11/18/19 05:52 HDL Cholesterol 31 mg/dL (40-60) L 11/18/19 05:52 Cholesterol/HDL Ratio 3.23 11/18/19 05:52 Home Medications: Ascorbic Acid [Vitamin C*] 500 mg PO DAILY #30 tablet 11/18/19 Benzonatate [Tessalon Perle] 100 mg PO TID PRN #15 cap 11/18/19 Metformin HCl 500 mg PO DAILY #30 tablet 11/18/19 Zinc Sulfate [Zinc Sulfate*] 220 mg PO DAILY #30 cap 11/18/19 predniSONE [Deltasone*] 10 mg PO BID #14 tab 11/18/19 New Medications: predniSONE [Deltasone*] 10 mg PO BID #14 tab Metformin HCl 500 mg PO DAILY #30 tablet Benzonatate [Tessalon Perle] 100 mg PO TID PRN #15 cap PRN Reason: Cough Ascorbic Acid [Vitamin C*] 500 mg PO DAILY #30 tablet Zinc Sulfate [Zinc Sulfate*] 220 mg PO DAILY #30 cap Patient Discharge Instructions: 1. Recommend follow up with PCP in 1 week to follow up this hospitalization. 2. Patient presented with cough. was positive for COVID. Patient evaluated in the emergency room. CT scan revealed bilateral pneumonia suspicious for COVID. Results are positive. Patient was monitored closely. Patient without significant shortness of breath. Room-air saturations within normal range. Patient has done well. Patient will be discharged home with prednisone 10 mg 1 pill twice daily for 7 days. Patient will also be provided Tessalon Perles 100 mg 3 times a day as needed for cough. Supplementation with vitamin-C, thiamine and zinc will be provided as well. Recommend quarantine at home for at least 14 days. Recommend CDC guidelines. Guidelines will be provided. Recommend to continue hand washing, face mask use and social distancing. Recommend follow up with PCP to further monitor and address. Health department will follow patient. Recommend to recheck testing in 14 days. 3. Patient also found to have elevated blood sugar. A1c was 7.0. New diagnosis of diabetes noted. This was addressed in detail. Patient will be started on metformin 500 mg daily. Recommend to maintain blood sugars less 140 fasting and less than 200 after meals. Further adjustment in medication may be required. Recommend follow up with PCP to further address. 2000 ADA diet and diabetic education will be provided. Patient will need to buy a glucometer to monitor her blood sugars. Patient will be provided information on PCPs in the area to establish care and to further address. Diet: ADA Activity: Ad nohemy Time spent managing pt's care (in minutes): 55
[2019-11-18] MEDS ORDERED: GLUCERNA SHAKE 237 ML CAN PO SCH (21:00)
[2019-11-19 00:36] VITALS: BP 104/66; TEMP 98
== END 2019-11-18 17:30 | disposition home or self-care (01) | DRG 177 ==
LOC: ER 19:01 → ERHOLD 11-18 00:53 → 4TH 11-18 08:36
PROVIDERS: ADMIT Hospitalist; ATTEND Hospitalist
PROC: 8E0ZXY6 Isolation (ICD-10-PCS; principal; 2019-11-18)
DX: U07.1 COVID-19 (principal); J12.89 Other viral pneumonia; E11.9 Type 2 diabetes mellitus without complications
CPT/HCPCS: 36415; 71045; 71275; 80048; 80053; 80061; 81003; 81015; 81025; 82565; 82728; 83036; 83605; 83615; 83735; 83880; 84100; 84145; 84484; 85025; 85379; 86140; 87040; 93005; 96361; 96365; 96366; 96375; 99285; J0456; J0696; J1100; J1650; J7030; J7050; Q9967; U0002

== ENCOUNTER 2020-08-09 02:28 | Emergency (ER) | payer OTHER, SELFPAY ==
--- OUTSIDE RECORDS SUMMARY | 2020-08-09 02:31 | XMS REPORT | Continuity of Care Document ---
:1975 Author Organization [facility] t Address [address] [place] [address] Care Team Providers Name Role Phone Alfredito Snyder DO Attending Clinician Visit, Nurse Attending Clinician Unavailable Avinash KNUTSON, Lawrence Attending Clinician Problems This patient has no known problems. Allergies, Adverse Reactions, Alerts This patient has no known allergies or adverse reactions. Medications This patient has no known medications. Procedures This patient has no known procedures. Encounters Start End Encounter Admission Attending Care Care Encounter Source Date/Time Date/Time Type Type Clinicians Facility Department ID 2020-07-20 2020-07-20 Patient ANT Snyder [id number] 00:00:00 00:00:00 Outreach [facility] [id number] Alfredito [facility] [id number] [place] [id number] 2020-07-07 2020-07-07 Nurse Visit, [facility] [id number] 07:50:29 08:06:39 [facility] [id number] Nurse [facility] [id number] MATERNAL [id number] & CHILD 107 [facility] 2020-05-09 2020-05-09 Office ANT Da Silva [id number] 08:54:26 09:58:23 Visit Anamaria Bravo [employer]OTECTION OFFICER [id number] REGIONAL [id number] MATERNAL [id number] & CHILD 107 [facility] Results This patient has no known results.
[2020-08-09 05:07] LABS: Urine Blood Trace-intact (Negative); Urine Glucose Trace (Negative); Urine Protein 1+ (Negative); Urine Specific Gravity >=1.030 (1.005-1.030)
[2020-08-09] MEDS ORDERED: IBUPROFEN 400 MG TAB ONE (05:24)
[2020-08-09] MEDS ORDERED: IBUPROFEN 200 MG TAB PO ONE (05:24)
[2020-08-09] MEDS ORDERED: CIPROFLOXACIN HCL 500 MG TAB ONE (05:42)
[2020-08-09] MEDS ORDERED: CEFTRIAXONE 1000 MG/VIAL ONE (05:43)
[2020-08-09] MEDS ORDERED: WATER FOR INJ,STERILE 10 ML ONE (05:43)
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
== END 2020-08-09 06:38 | disposition home or self-care (01) ==
LOC: ER 02:28
DX: S00.80XA Unspecified superficial injury of other part of head, initial encounter (principal); S16.1XXA Strain of muscle, fascia and tendon at neck level, initial encounter; N39.0 Urinary tract infection, site not specified; V49.49XA Driver injured in collision with other motor vehicles in traffic accident, initial encounter; I95.9 Hypotension, unspecified
CPT/HCPCS: 70450; 72125; 81003; 96372; 99283

== ENCOUNTER 2020-09-30 13:01 | Emergency (ER) | payer SELFPAY ==
--- OUTSIDE RECORDS SUMMARY | 2020-09-30 13:03 | XMS REPORT | Continuity of Care Document ---
:1975 Author Organization [facility] t Address [address] [place] [address] Care Team Providers Name Role Phone Visit, Nurse Attending Clinician Unavailable Alfredito Snyder DO Attending Clinician Lawrence Conroy Attending Clinician Problems This patient has no known problems. Allergies, Adverse Reactions, Alerts This patient has no known allergies or adverse reactions. Medications This patient has no known medications. Procedures This patient has no known procedures. Encounters Start End Encounter Admission Attending Care Care Encounter Source Date/Time Date/Time Type Type Clinicians Facility Department ID 2020-09-29 2020-09-29 Nurse Visit, [facility] [id number] 09:52:51 10:25:[facility] [id number] Nurse [facility] [id number] MATERNAL [id number] & CHILD [address] [place] [address] 2020-07-20 2020-07-20 Patient ANT Snydre [id number] 00:00:00 00:00:00 [id number] Alfred[facility] [id number] PAVILLION [id number] 2020-07-07 2020-07-07 Nurse Visit, [facility] [id number] 07:50:29 08:06:39 Visit [facility] 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
[2020-09-30] MEDS ORDERED: HYDROCODONE/APAP 5/325 MG TAB ONE (13:57)
[2020-09-30] MEDS ORDERED: TETANUS & DIPHTHERIA TOX,ADULT 0.5 ML VIAL ONE (14:04)
[2020-09-30] MEDS ORDERED: LIDOCAINE 1% MPF 5 ML VIAL ONE (14:17)
--- NOTE | 2020-09-30 14:23 | ER ---
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 Bleeding ca1 controlled. Coronavirus screen: Client denies travel out of the [place] in the last 14 days. At this time, the client does not indicate any symptoms associated with coronavirus-19. Ebola Screen: Patient negative for fever greater than or equal to 101.5 degrees Fahrenheit, and additional compatible Ebola Virus Disease symptoms Patient denies exposure to infectious person. Patient denies travel to an Ebola-affected area in the 21 days before illness onset. No symptoms or risks identified at this time. Complicating Factors: There are no complicating factors for this patient. Initial Sepsis Screen: Does the patient meet any 2 criteria? No. Patient's initial sepsis screen is negative. Does the patient have a suspected source of infection? No. Patient's initial sepsis screen is negative. Risk Assessment: Do you want to hurt yourself or someone else? Patient reports no desire to harm self or others. Onset of symptoms was September 30, 2020. 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 Last tetanus immunization: unknown, Flu vaccine is not up to date. - Social history:: Smoking status: Patient denies any tobacco usage or history of. Screenin:21 Abuse screen: Denies threats or abuse. Denies injuries from another. Nutritional zb screening: No deficits noted. Tuberculosis screening: No symptoms or risk factors identified. Fall Risk None identified. Assessment: 13:50 General: Appears in no apparent distress. Behavior is anxious. Pain: Complains of pain zb in right hermosillo Pain does not radiate. Pain currently is 9 out of 10 on a pain scale. Quality of pain is described as throbbing, Pain began today Noted to be crying, grimacing, Also complains of no other associated symptoms. Neuro: Level of Consciousness is awake, alert, Oriented to person, place, time, situation. Cardiovascular: Patient's skin is warm and dry. Respiratory: Airway is patent. Derm: Skin is intact, is healthy with good turgor, Skin is dry, Skin is normal. Musculoskeletal: Circulation, motion, and sensation intact. Range of motion: intact in all extremities. Injury Description: Laceration sustained to right hermosillo is clean, 0.5 to 2.5 cm long, was sustained 2-4 hours ago. is bleeding a small amount. 14:22 Reassessment: Laceration repair completed. family remains at bedside. zb 14:41 Reassessment: d/c instructions given to patient and family. pt states she would like to zb be wheeled out. train crew member wheeled patient out. Vital Signs: 13:06 BP 123 / 81; Pulse 101; Resp 16 S; Temp 98(TE); Pulse Ox 99% on R/A; Weight 58.06 kg; ca1 Height 5 ft. 1 in. (154.94 cm) (R); Pain 9/10; 14:41 BP 121 / 80; Pulse 88; Resp 16; Pulse Ox 99% on R/A; zb 13:06 Body Mass Index 24.19 (58.06 kg, 154.94 cm) ca1 ED Course: 13:02 Patient arrived in ED. ds1 13:07 Triage completed. ca1 13:07 Arm band placed on right wrist. ca1 13:09 Fredo Finn NP is PHCP. pm1 13:09 Sarwat Jacques MD is Attending Physician. pm1 13:10 Adriana Hou RN is Primary Nurse. zb 13:47 Tib Fib Right XRAY In Process Unspecified. EDMS 14:20 Patient has correct armband on for positive identification. Bed in low position. Call zb light in reach. Adult w/ patient. Pulse ox on. NIBP on. Door closed. Noise minimized. 14:21 Assist provider with laceration repair on right hermosillo that was 2.5 cm. or less using zb sutures. Set up tray. Performed by Fredo Marinas DIAL MARKER Dressed with Neosporin, adryan Patient tolerated well. 14:32 Wound care: to laceration located on right hermosillo was dressed with Neosporin, band aid, mh5 Patient tolerated well. 14:41 Patient did not have IV access during this emergency room visit. zb Administered Medications: 13:51 Drug: [place] (HYDROcodone-acetaminophen) 5 mg-325 mg 1 tabs {Note: RASS 0.} Route: PO; zb 14:40 Follow up: Response: No adverse reaction; Marked relief of symptoms; Pain is decreased; zb RASS: Alert and Calm (0) 14:00 Drug: Tetanus-Diphtheria Toxoid Adult 0.5 ml {Night Custodian: Feebbo. Exp: zb 10/08/2021. Lot #: [id number]. } Route: IM; Site: right deltoid; 14:40 Follow up: Response: No adverse reaction zb Outcome: 14:22 Discharge ordered by . pm1 14:40 Discharged to home via wheelchair, with family. zb 14:40 Condition: good 14:40 Discharge instructions given to patient, Instructed on discharge instructions, follow up and referral plans. medication usage, Demonstrated understanding of instructions, follow-up care, medications, Prescriptions given X 1. 14:50 Patient left the ED. zb Signatures: Dispatcher [employer] EDMO Anastacia Martinez 1 Fredo Finn NP DIAL MARKER pm1 Sherley Downs 5 Rosemary Barton RN RN ca1 Brown, Zipporah, RN RN zb
--- NOTE | 2020-09-30 14:23 | EDPHYS ---
Physician Documentation [facility] Name: Augustina Coe Age: 45 yrs Sex: Female : 1975 Arrival Date: 09/30/2020 Time: 13:02 Bed 16 Private MD: ED Physician Sarwat Jacques HPI: 09/30 13:20 This 45 yrs old Female presents to ER via Wheelchair with complaints of pm1 Laceration To Leg. 13:20 The patient has a laceration related to: cooking, Broken carmen cookware, occurred at pm1 home, The injury was The broken handle from carmen pot cook mckeon dropped and cut her right hermosillo. 13:20 The laceration(s) is(are) located on the right hermosillo. Onset: The symptoms/episode pm1 began/occurred just prior to arrival. Associated signs and symptoms: The patient has no apparent associated signs or symptoms. The patient has not experienced similar symptoms in the past. The patient has not recently seen a physician. 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 Last tetanus immunization: unknown, Flu vaccine is not up to date. - Social history:: Smoking status: Patient denies any tobacco usage or history of. ROS: 13:20 Constitutional: Negative for fever, chills, and weight loss, Cardiovascular: Negative pm1 for chest pain, palpitations, and edema, Respiratory: Negative for shortness of breath, cough, wheezing, and pleuritic chest pain, Abdomen/GI: Negative for abdominal pain, nausea, vomiting, diarrhea, and constipation. 13:20 Neuro: Negative for headache, weakness, numbness, tingling, and seizure. 13:20 MS/extremity: Positive for laceration, of the right hermosillo, Negative for decreased range of motion, deformity. 13:20 Skin: Positive for laceration(s), of the right hermosillo. Exam: 13:20 Constitutional: This is a well developed, well nourished patient who is awake, alert, pm1 and in no acute distress. Head/Face: Normocephalic, atraumatic. 13:20 Eyes: Exam is negative for acute changes, Extraocular movements: intact throughout, Conjunctiva: normal, Corneas: no acute changes. 13:20 ENT: Mouth: no acute changes, Lips: normal, Oral mucosa: normal, pink and intact, moist. 13:20 Cardiovascular: Rate: normal, Rhythm: regular, Pulses: no pulse deficits are appreciated. 13:20 Respiratory: Exam negative for acute changes, respiratory distress, shortness of breath. 13:20 Skin: Appearance: normal except for affected area, injury, laceration(s), the wound is approximately 2 cm(s), of the right hermosillo, that can be described as clean, no foreign body, linear, without bleeding. 13:20 Neuro: Orientation: is normal, Mentation: is normal, Motor: is normal, moves all fours, Sensation: is normal, no obvious gross deficits. Vital Signs: 13:06 BP 123 / 81; Pulse 101; Resp 16 S; Temp 98(TE); Pulse Ox 99% on R/A; Weight 58.06 kg; ca1 Height 5 ft. 1 in. (154.94 cm) (R); Pain 9/10; 14:41 BP 121 / 80; Pulse 88; Resp 16; Pulse Ox 99% on R/A; zb 13:06 Body Mass Index 24.19 (58.06 kg, 154.94 cm) ca1 Laceration: 14:21 Wound Repair of 2cm ( 0.8in ) subcutaneous laceration to right hermosillo. Linear shaped.. pm1 Distal neuro/vascular/tendon intact. Anesthesia: Local anesthetic administered with 2 mls of 1% lidocaine. Wound prep: Extensive cleansing with hibiclenz by nurse, Wound irrigation with saline by nurse, Wound explored extensively, Copious irrigation. Skin closed with 6 4-0 Prolene using simple sutures and sterile technique. Dressed with Neosporin, 4x4's, Kerlix. Patient tolerated well. MDM: 13:12 Patient medically screened. pm1 13:25 Data reviewed: vital signs. Data interpreted: Pulse oximetry: on room air is 99 %. pm1 Interpretation: normal. 14:21 Counseling: I had a detailed discussion with the patient and/or guardian regarding: the pm1 historical points, exam findings, and any diagnostic results supporting the discharge/admit diagnosis, radiology results, the need for outpatient follow up, a family practitioner, to return to the emergency department if symptoms worsen or persist or if there are any questions or concerns that arise at home. 09/30 13:22 Order name: Tib Fib Right XRAY; Complete Time: 14:49 pm1 09/30 13:13 Order name: Prolene, Sutures; Complete Time: 14:17 pm1 09/30 13:13 Order name: Dressing - Wound; Complete Time: 14:17 pm1 09/30 13:13 Order name: Gloves, Sterile; Complete Time: 14:17 pm1 09/30 13:13 Order name: Setup Suture Tray; Complete Time: 14:17 pm1 Administered Medications: 13:51 Drug: [place] (HYDROcodone-acetaminophen) 5 mg-325 mg 1 tabs {Note: RASS 0.} Route: PO; zb 14:40 Follow up: Response: No adverse reaction; Marked relief of symptoms; Pain is decreased; zb RASS: Alert and Calm (0) 14:00 Drug: Tetanus-Diphtheria Toxoid Adult 0.5 ml {Svp: SCP Events. Exp: zb 10/08/2021. Lot #: [id number]. } Route: IM; Site: right deltoid; 14:40 Follow up: Response: No adverse reaction zb Disposition: 09/30/20 14:22 Discharged to Home. Impression: Laceration without foreign body, right lower leg. - Condition is Stable. - Discharge Instructions: Laceration Care, Adult. - Prescriptions for Keflex 500 mg Oral Capsule - take 1 capsule by ORAL route every 12 hours for 10 days; 20 capsule. - Medication Reconciliation Form, Thank You Letter, Antibiotic Education, Prescription Opioid Use form. - Follow up: Emergency Department; When: As needed; Reason: Worsening of condition. Follow up: Private Physician; When: 10 - 14 days; Reason: Recheck today's complaints, Continuance of care, Re-evaluation by your physician. - Problem is new. - Symptoms have improved. Addendum: 10/02/2020 07:13 Co-signature as Attending Physician, Sarwat Jacques MD I agree with the assessment and c dangelo plan of care. Signatures: Dispatcher [employer] Sarwat Serrato MD MD cha Marinas, Patrick, BACTERIOLOGIST SOIL BACTERIOLOGIST SOIL pm1 Acob, Rosemary, RN RN ca1 Brown, Adriana, RN RN zb Corrections: (The following items were deleted from the chart) 09/30 13:41 13:14 Tib Fib Left+RAD.RAD.BRZ ordered. EDPR EDMS 14:50 14:22 09/30/2020 14:22 Discharged to Home. Impression: Laceration without foreign body, zb right lower leg. Condition is Stable. Forms are Medication Reconciliation Form, Thank You Letter, Antibiotic Education, Prescription Opioid Use. Follow up: Emergency Department; When: As needed; Reason: Worsening of condition. Follow up: Private Physician; When: 10 - 14 days; Reason: Recheck today's complaints, Continuance of care, Re-evaluation by your physician. Problem is new. Symptoms have improved. pm1
--- NOTE | 2020-09-30 14:44 | RAD REPORT ---
EXAM DESCRIPTION: RAD - Tib Fib Right - 09/30/2020 1:47 pm CLINICAL HISTORY: Right leg pain FINDINGS: No fracture is seen. Anterior soft tissue laceration
[2020-09-30 14:57] VITALS: TEMP 98; O2SAT 99
[2020-09-30 14:58] VITALS: BP 121/80
== END 2020-09-30 14:50 | disposition home or self-care (01) ==
LOC: ER 13:01
PROC: 0HQKXZZ Repair Right Lower Leg Skin, External Approach (ICD-10-PCS; principal; 2020-09-30)
DX: S81.811A Laceration without foreign body, right lower leg, initial encounter (principal); W26.8XXA Contact with other sharp object(s), not elsewhere classified, initial encounter; Z23 Encounter for immunization
CPT/HCPCS: 90471; 90714; 99284

== ENCOUNTER 2022-03-16 20:57 | Emergency (ER) | payer SELFPAY ==
--- OUTSIDE RECORDS SUMMARY | 2022-03-16 21:03 | XMS REPORT | Continuity of Care Document ---
:1975 Author Organization [facility] t Address [address] [place] [address] Care Team Providers Name Role Phone Myriam Cornejo Primary Care Physician [phone] MYRIAM LOPEZ Attending Clinician Unavailable Visit, Celeste Nurse Attending Clinician Unavailable Myriam Cornejo Attending Clinician [phone] REYNOLD FRASER Attending Clinician Unavailable ALYSIA WORLEY Attending Clinician Unavailable ALYSIA WORLEY Attending Clinician Unavailable Provider, Celeste Temp Attending Clinician Unavailable Reynold Bernstein Attending Clinician ANAMARIA AVILA Attending Clinician Unavailable Pgy2 Attending Clinician Unavailable Ami Angel MD Attending Clinician AMI ANGEL Attending Clinician Unavailable Anamaria Conroy Attending Clinician Bhakti Talley MD Attending Clinician Daniella Vegas MD Attending Clinician Doctor Unassigned, [place] Attending Clinician Unavailable Jose Cruz Snyder DO Attending Clinician Ramin [facility] Resident Attending Clinician Unavailable Jose F SMITH, Chaitanya Attending Clinician [phone] Payers Payer Name Policy Type Policy Number Effective Date Expiration Date S [facility] [employer] [id number] 2022 ISAI 0-100% 00:00:00 Problems Condition Condition Condition Status Onset Resolution Last Treating Co mments Source Name Details Category Date Date Treatment Clinician Date 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 2-01 ity of 00:00: [place] [facility] Lichen of Lichen of Disease Active Uni vers skin skin 1-05 ity of 00:00: [place] [facility] Vulvar Vulvar Disease Active 2019-05 Univers itching itching 0-02 ity of 00:00: [place] [facility] Abnormal Abnormal Disease Active 2019-05 Unive rs appearance appearance 0-02 it y of of [place] [facility] Depot Depot Disease Active Univers contracept contracept 1- it y of ion ion 00:00: [place] [facility] Contracept Contracept Disease Active 2017-05 U michael tamera tamera 1-08 [place] [facility] History of History of Disease Active U michael depression depression 9-20 it y of 00:00: [place] [facility] Cervical Cervical Disease Active Unive rs polyp polyp 2-13 ity of 00:00: [place] [facility] Depo-Prove Depo-Prove Disease Active U michael ra ra 2-03 [place] of [place] [facility] Allergies, Adverse Reactions, Alerts Allergy Allergy Status Severity Reaction(s) Onset Inactive Treating Comm ents Source Name Type Date Date Clinician NO KNOWN Drug Active Univers ALLERGIE Class ity of S [facility] Social History Social Habit Start Date Stop Date Quantity Comments Source History SDOH University o f Alcohol Comment [place] [facility] ical [facility] History of Current smoker University of tobacco use [facility] Exposure to 2021-11-11 2021-11-21 Not sure University of SARS-CoV-2 00:00:00 13:30:00 [facility] (event) [place] Tobacco use and 2021-11-21 2021-11-21 Smokeless tobacco Un iversity of exposure 00:00:00 00:00:00 non-user [facility] Alcohol intake 2021-11-21 2021-11-21 Current drinker Unive rsity of 00:00:00 00:00:00 of alcohol [place] [facility] (finding) Branch History SDOH 2020-05-09 2020-05-09 2 University o f Alcohol Frequency 00:00:00 00:00:00 [place] M edical Branch History SDOH 2020-05-09 2020-05-09 1 University o f Alcohol Std 00:00:00 00:00:00 [place] [facility] Drinks Branch History SDOH 2020-05-09 2020-05-09 1 [place] o f Alcohol Binge 00:00:00 00:00:00 [place] [facility] al [facility] Sex [birth year] At [birth year] Universit y of 00:00:00 00:00:00 [facility] Smoking Status Start Date Stop Date Source Ex-smoker 2021-11-21 00:00:00 2021-11-21 [facility] [facility] Medical Branch Medications Ordered Filled Start Stop Current Ordering Indication Dosage Frequency Signature Comments Components Source Medication Medication Date Date Medication? Clinician (SIG) Name Name medroxyPROG 2021-05- Yes [id number] 150mg Univers ESTERone 007-31 ity of (DEPO-PROVE 15:45: 15:44 [facility]) syringe 00 :00 Medical 150 mg Branch medroxyPROG 2021-05- Yes [id number] 150mg 150 mg, Univers ESTERone 007-31 Intramuscu ity of (DEPO-PROVE 15:45: 15:44 [facility], [facility]) syringe 00 :00 [id number], Med ical 150 mg 2 doses, Branch First dose on Fri02/13/22 at 1045, Last dose on Fri05/08/22 at 1045, Routine Januvia 25 2021-0 No 1mg mg tablet 07-03 00:00: 00 Januvia 25 2021-0 No 1mg mg tablet 3- 00:00: 00 atorvastati 2021-0 No 1mg n 10 mg 3- tablet 00:00: 00 atorvastati 2021-0 No 1mg n 10 mg 3- tablet 00:00: 00 glipizide 2021-0 No 1mg 10 mg 2-28 tablet 00:00: 00 Dose 2021-0 No Unknown 2-28 00:00: 00 glipizide 2021-0 No 1mg 10 mg 2-28 tablet 00:00: 00 Dose 2022-0 No Unknown 2-28 00:00: 00 glipizide 2-0 No 1mg 10 mg 2-25 tablet 00:00: 00 glipizide 2-0 No 1mg 10 mg 2-25 tablet 00:00: 00 Nitrofurant 2-0 2- No [id number] 100mg Take 1 Univers oin&Nit. 06-12- capsule by ity of Macrocryst 00:00: 00:00 mouth 2 [place] as (MACROBID) 00 :00 (two) Medical 100 mg times Branch capsule daily. Nitrofurant 2-0 2021- No [id number] 100mg Take 1 Univers oin&Nit. 06-12- capsule by ity of Macrocryst 00:00: 00:00 mouth 2 [place] as (MACROBID) 00 :00 (two) Medical 100 mg times Branch capsule daily. medroxyPROG 2021-2022- No [id number] 150mg Univers ESTERone 06-06 ity of (DEPO-PROVE 16:15: 16:14 [facility]) 00 :00 Medical injection Branch 150 mg medroxyPROG 2021-2022- No [id number] 150mg 150 mg, Univers ESTERone 06-06 Intramuscu ity of (DEPO-PROVE 16:15: 16:14 [facility]) 00 :00 [id number], Medical injection 4 doses, Branch 150 mg First dose on Fri06/06/21 at 1015, Last dose on Fri02/13/22 at 1015, Routine medroxyPROG 2021-2022- No [id number] 150mg Univers ESTERone 06-06 ity of (DEPO-PROVE 16:15: 16:14 [facility]) 00 :00 Medical injection Branch 150 mg medroxyPROG 2021-2022- No [id number] 150mg 150 mg, Univers ESTERone 06-06 Intramuscu ity of (DEPO-PROVE 16:15: 16:14 [facility]) 00 :00 [id number], Medical injection 4 doses, Branch 150 mg First dose on Fri06/06/21 at 1015, Last dose on 10/12/22 at 1015, Routine medroxyPROG 2022- No [id number] 150mg Univers ESTERone 06-06 ity of (DEPO-PROVE 16:15: 16:14 [place] [facility]) 00 :00 Medical injection Branch 150 mg medroxyPROG 2022- No [id number] 150mg Univers ESTERone 06-06 ity of (DEPO-PROVE 16:15: 16:14 [place] [facility]) 00 :00 Medical injection Branch 150 mg Dose 2020-05 No Unknown 2-07 00:00: 00 Dose 2020-05 No Unknown 2-07 00:00: 00 Dose 2020-05 No Unknown 2-07 00:00: 00 Dose 2020-05 No Unknown 2-07 00:00: 00 clobetasoL 2020-05 Yes [id number] Apply to Univers 0.05 % 2-01 area(s) 2 ity of ointment 00:00: (two) [place] 00 times Medical daily. Branch clobetasoL 2020-05 Yes [id number] Apply to Univers 0.05 % 2-01 area(s) 2 ity of ointment 00:00: (two) [place] 00 times Medical daily. Branch clobetasoL 2020-05 Yes [id number] Apply to Univers 0.05 % 2-01 area(s) 2 ity of ointment 00:00: (two) [place] times Medical daily. Branch clobetasoL 2020-05 Yes [id number] Apply to Univers 0.05 % 2-01 area(s) 2 ity of ointment 00:00: (two) [place] times Medical daily. Branch glipizide 2020-05 No 1mg 10 mg 1-23 tablet 00:00: 00 Dose 2020-05 No Unknown 1-23 00:00: 00 glipizide 2020-05 No 1mg 10 mg 1-23 tablet 00:00: 00 Dose 2020-05 No Unknown 1-23 00:00: 00 Dose 2020-05 No Unknown 1-09 00:00: 00 Dose 2020-05 No Unknown 1-09 00:00: 00 Dose 2020-05 No Unknown 1-08 00:00: 00 Dose 2020-05 No Unknown 1-08 00:00: 00 metroNIDAZO 2021- No [id number] 500mg Take 1 Univers LE 500 mg 7-15 07-20 tablet by ity of tablet 00:00: 00:00 mouth [place] 00 :00 every 8 Medical (eight) Branch hours. metroNIDAZO 2020-0 2021- No [id number] 500mg Take 1 Univers LE 500 mg 7-15 07-20 tablet by ity of tablet 00:00: 00:00 mouth [place] 00 :00 every 8 Medical (eight) Branch hours. nystatin-tr 1-0 Yes [id number] Apply to Univers iamcinolone 7-12 area(s) 2 ity of cream 00:00: (two) [place] 00 times Medical daily. Branch Clobetasol 2020-0 Yes [id number] Apply to Univers Propionate 7-12 area(s) ity of 0.05 % 00:00: every [place] lotion 00 evening. Medical Branch nystatin-tr 2020-0 Yes [id number] Apply to Univers iamcinolone 7-12 area(s) 2 ity of cream 00:00: (two) [place] 00 times Medical daily. Branch Clobetasol 1-0 Yes [id number] Apply to Univers Propionate 7-12 area(s) ity of 0.05 % 00:00: every [place] lotion 00 evening. Medical Branch nystatin-tr 1-0 Yes [id number] Apply to Univers iamcinolone 7-12 area(s) 2 ity of cream 00:00: (two) [place] 00 times Medical daily. Branch Clobetasol 1-0 Yes [id number] Apply to Univers Propionate 7-12 area(s) ity of 0.05 % 00:00: every [place] lotion 00 evening. Medical Branch nystatin-tr 1-0 Yes [id number] Apply to Univers iamcinolone 7-12 area(s) 2 ity of cream 00:00: (two) [place] 00 times Medical daily. Branch Clobetasol 2021-0 Yes [id number] Apply to Univers Propionate 7-12 area(s) ity of 0.05 % 00:00: every [place] lotion 00 evening. Medical Branch clobetasoL 1-0 Yes [id number] Apply to Univers 0.05 % 6-15 area(s) 2 ity of ointment 00:00: (two) [place] 00 times Medical daily. Branch clobetasoL 1-0 Yes [id number] Apply to Univers 0.05 % 6-15 area(s) 2 ity of ointment 00:00: (two) [place] 00 times Medical daily. Branch clobetasoL 2021-0 Yes [id number] Apply to Univers 0.05 % 6-15 area(s) 2 ity of ointment 00:00: (two) [place] 00 times Medical daily. Branch clobetasoL 2021-0 Yes [id number] Apply to Univers 0.05 % 6-15 area(s) 2 ity of ointment 00:00: (two) [place] 00 times Medical daily. Branch Immunizations Ordered Filled Immunization Date Status Comments [facility] Immunization Name Name [facility] 2017-11-18 Completed University of 00:00:00 [facility] 2017-11-18 Completed University of 00:00:00 [facility] 2017-11-18 Completed University of 00:00:00 [facility] 2017-11-18 Completed University of 00:00:00 [facility] TDAP 2015-07-14 Completed University of 00:00:00 [facility] TDAP 2015-07-14 [facility] of 00:00:00 [facility] Rubella 2011-07-17 Completed University of 00:00:00 [facility] Varicella 2011-07-17 Completed University of (varivax)(chicken 00:00:00 [place] M edical pox) Branch Rubella 2011-07-17 Completed University of 00:00:00 [facility] Varicella 2011-07-17 Completed University of (varivax)(chicken 00:00:00 [place] M edical pox) Branch Rubella 2011-07-17 Completed University of 00:00:00 [facility] Varicella 2011-07-17 Completed University of (varivax)(chicken 00:00:00 [place] M edical pox) Branch Rubella 2011-07-17 Completed University of 00:00:00 [facility] Varicella 2011-07-17 Completed University of (varivax)(chicken 00:00:00 [place] M edical pox) Branch Td 2007-05-05 Completed University of 00:00:00 [facility] Td 2007-05-05 Completed University of 00:00:00 [facility] Td 2007-05-05 Completed University of 00:00:00 [facility] Branch Td 2007-05-05 Completed University of 00:00:00 [facility] Vital Signs Vital Name Observation Time Observation Value Comments Source Systolic blood 2022-02-13 14:37:00 122 mm[Hg] Univer sity of pressure [facility] Diastolic blood 2022-02-13 14:37:00 76 mm[Hg] Unive rsity of pressure [facility] Heart rate 2022-02-13 14:37:00 77 /min Universi ty of [facility] Body temperature 2022-02-13 14:37:00 36.5 Karen Univ ersity of [facility] Respiratory rate 2022-02-13 14:37:00 20 /min Univ ersity of [facility] Body height 2022-02-13 14:37:00 157.5 cm Universi ty of [facility] Body weight 2022-02-13 14:37:00 59.104 kg Universi ty of [facility] BMI 2022-02-13 14:37:00 23.83 kg/m2 Universi ty of [facility] Branch Systolic blood 2021-11-21 18:31:00 128 mm[Hg] Univer sity of pressure [facility] Diastolic blood 2021-11-21 18:31:00 85 mm[Hg] Unive rsity of pressure [facility] Heart rate 2021-11-21 18:31:00 80 /min Universi ty of [facility] Body temperature 2021-11-21 18:31:00 36.61 Karen Univ ersity of [facility] Branch Respiratory rate 2021-11-21 18:31:00 18 /min Univ ersity of [facility] Body height 2021-11-21 18:31:00 157.5 cm Universi ty of [facility] Body weight 2021-11-21 18:31:00 59.875 kg Universi ty of [facility] Branch BMI 2021-11-21 18:31:00 24.14 kg/m2 Universi ty of [facility] Branch BP Systolic 2022-02-27 08:10:00 119 mm[Hg] BP Diastolic 2022-02-27 08:10:00 81 mm[Hg] Weight Measured 2022-02-27 08:10:00 128.60 pounds Height Measured 2022-02-27 08:10:00 61.00 inches Body Temperature 2022-02-27 08:10:00 97.60 degrees Heart Rate 2022-02-27 08:10:00 77.00 /min Respiratory Rate 2022-02-27 08:10:00 24.00 /min BP Systolic 2022-02-13 16:25:00 119 mm[Hg] BP Diastolic 2022-02-13 16:25:00 77 mm[Hg] Weight Measured 2022-02-13 16:25:00 131.60 pounds Height Measured 2022-02-13 16:25:00 61.00 inches Body Temperature 2022-02-13 16:25:00 97.90 degrees Heart Rate 2022-02-13 16:25:00 87.00 /min Respiratory Rate 2022-02-13 16:25:00 24.00 /min BP Systolic 2021-07-02 10:21:00 125 mm[Hg] BP Diastolic 2021-07-02 10:21:00 83 mm[Hg] Weight Measured 2021-07-02 10:21:00 130.60 pounds Height Measured 2021-07-02 10:21:00 61.00 inches Body Temperature 2021-07-02 10:21:00 98.10 degrees Heart Rate 2021-07-02 10:21:00 85.00 /min Respiratory Rate 2021-07-02 10:21:00 18.00 /min BP Systolic 2021-04-10 15:47:00 143 mm[Hg] BP Diastolic 2021-04-10 15:47:00 92 mm[Hg] Weight Measured 2021-04-10 15:47:00 132.00 pounds Height Measured 2021-04-10 15:47:00 61.00 inches Body Temperature 2021-04-10 15:47:00 97.30 degrees Heart Rate 2021-04-10 15:47:00 80.00 /min Respiratory Rate 2021-04-10 15:47:00 BP Systolic 2021-04-10 15:43:00 143 mm[Hg] BP Diastolic 2021-04-10 15:43:00 92 mm[Hg] Weight Measured 2021-04-10 15:43:00 132.00 pounds Height Measured 2021-04-10 15:43:00 61.00 inches Body Temperature 2021-04-10 15:43:00 97.30 degrees Heart Rate 2021-04-10 15:43:00 80.00 /min Respiratory Rate 2021-04-10 15:43:00 BP Systolic 2021-03-27 10:55:00 121 mm[Hg] BP Diastolic 2021-03-27 10:55:00 68 mm[Hg] Weight Measured 2021-03-27 10:55:00 134.60 pounds Height Measured 2021-03-27 10:55:00 61.00 inches Body Temperature 2021-03-27 10:55:00 98.20 degrees Heart Rate 2021-03-27 10:55:00 82.00 /min Respiratory Rate 2021-03-27 10:55:00 21.00 /min BP Systolic 2021-03-13 14:06:00 129 mm[Hg] BP Diastolic 2021-03-13 14:06:00 85 mm[Hg] Weight Measured 2021-03-13 14:06:00 133.00 pounds Height Measured 2021-03-13 14:06:00 61.00 inches Body Temperature 2021-03-13 14:06:00 99.10 degrees Heart Rate 2021-03-13 14:06:00 85.00 /min Respiratory Rate 2021-03-13 14:06:00 BP Systolic 2021-03-12 13:59:00 139 mm[Hg] BP Diastolic 2021-03-12 13:59:00 83 mm[Hg] Weight Measured 2021-03-12 13:59:00 132.00 pounds Height Measured 2021-03-12 13:59:00 61.00 inches Body Temperature 2021-03-12 13:59:00 97.50 degrees Heart Rate 2021-03-12 13:59:00 79.00 /min Respiratory Rate 2021-03-12 13:59:00 BP Systolic 2015-11-01 14:35:00 115 mm[Hg] BP Diastolic 2015-11-01 14:35:00 78 mm[Hg] Weight Measured 2015-11-01 14:35:00 125.20 pounds Height Measured 2015-11-01 14:35:00 62.00 inches Body Temperature 2015-11-01 14:35:00 98.10 degrees Heart Rate 2015-11-01 14:35:00 79.00 /min Respiratory Rate 2015-11-01 14:35:00 17.00 /min Procedures This patient has no known procedures. Plan of Care Planned Activity Planned Date Details Comments Source Goal Plan of Care Note [code = 27895-4] Goal Plan of Care Note [code = 18475-5] Goal Plan of Care Note [code = 13193-7] Goal Plan of Care Note [code = 01244-6] Goal Plan of Care Note [code = 04965-6] Goal Plan of Care Note [code = 28933-8] Goal Plan of Care Note [code = 68519-5] Goal Plan of Care Note [code = 99516-0] Goal Plan of Care Note [code = 55197-2] Goal Plan of Care Note [code = 30825-1] Goal Plan of Care Note [code = 52389-6] Goal Plan of Care Note [code = 55238-2] Goal Plan of Care Note [code = 36325-3] Goal Plan of Care Note [code = 81727-2] Goal Plan of Care Note [code = 64620-8] Goal Plan of Care Note [code = 71699-7] Goal Plan of Care Note [code = 66863-4] Goal Plan of Care Note [code = 70828-9] Goal Plan of Care Note [code = 54828-4] Goal Plan of Care Note [code = 48418-8] Goal Plan of Care Note [code = 00363-7] Goal Plan of Care Note [code = 75973-0] Goal Plan of Care Note [code = 83266-3] Goal Plan of Care Note [code = 92926-4] Goal Plan of Care Note [code = 11100-3] Goal Plan of Care Note [code = 12421-2] Goal Plan of Care Note [code = 05471-6] Goal Plan of Care Note [code = 93335-3] Goal Plan of Care Note [code = 16415-2] Goal Plan of Care Note [code = 73860-2] Goal Plan of Care Note [code = 61411-7] Goal Plan of Care Note [code = 59602-6] Goal Plan of Care Note [code = 22943-0] Goal Plan of Care Note [code = 40334-7] Goal Plan of Care Note [code = 03091-1] Goal Plan of Care Note [code = 04796-5] Goal Plan of Care Note [code = 26544-8] Goal Plan of Care Note [code = 05772-5] Goal Plan of Care Note [code = 90157-9] Goal Plan of Care Note [code = 57060-7] Goal Plan of Care Note [code = 63958-2] Goal Plan of Care Note [code = 41079-7] Goal Plan of Care Note [code = 71042-2] Goal Plan of Care Note [code = 05371-2] Goal Plan of Care Note [code = 28496-8] Goal Plan of Care Note [code = 15481-1] Goal Plan of Care Note [code = 96025-7] Goal Plan of Care Note [code = 52924-7] Encounters Start End Encounter Admission Attending Care Care Encounter Source Date/Time Date/Time Type Type Clinicians Facility Department ID 2022-05-08 2022-05-08 Outpatient R [facility] [id number] Univers 09:00:00 09:00:00 ity of [facility] 2022-02-27 2022-02-27 Outpatient SFA SFA [id number] [place] 08:07:52 08:07:52 1026 F Pascual 2022-02-27 2022-02-27 Outpatient [id number] 00:00:00 00:00:00 Visit [id number] 2022-02-14 2022-02-14 Outpatient SFA SFA [id number] [place] 08:13:03 08:13:03 1013 F Pascual 2022-02-13 2022-02-13 Outpatient SFA SFA [id number] [place] 16:25:24 16:25:24 1012 F Pascual 2022-02-13 2022-02-13 Outpatient R JESSICA [facility] [id number] Univers 09:00:00 09:37:00 MYRIAM daigle o f [facility] 2022-02-13 2022-02-13 Nurse Visit, Celeste Nurse [facility] 1.2 .[id number] [facility] 09:00:00 09:37:00 Visit Myriam Lopez APPLIED MARINE PHYSICS PROFESSOR [id number]. 10 ity [facility] [id number] [place] as MATERNAL [id number] [facility] ical & CHILD [address] [place] [address] 2022-02-13 2022-02-13 Outpatient R [facility] [id number] Univers 09:00:00 09:00:00 ity [facility] 2022-02-13 2022-02-13 Outpatient R EVELIO [facility] [id number] Univers 08:30:00 08:30:00 NANNETTEJERRYJason salgueromadison o kathrin [facility] 2022-02-13 2022-02-13 Outpatient [id number] 00:00:00 00:00:00 Visit [id number] 2021-11-21 2021-11-21 Outpatient R ALYSIA WORLEY [facility] [id number] [facility] 12:45:00 14:08:58 ALYSIA WORLEY [facility] 2021-11-21 2021-11-21 Office Provider, Celeste Temp [facility] 1 .[id number] [id number] [facility] 12:45:00 14:08:58 Visit Myriam Loepz APPLIED MARINE PHYSICS PROFESSOR [id number]. 10 [facility] [id number] [place] MATERNAL [id number] [facility] & CHILD [address] [place] [address] 2021-11-21 2021-11-21 Nurse Visit, Celeste Nurse [facility] 1.2 .840.114 [id number] [facility] 13:30:00 13:45:00 Visit Myriam Lopez APPLIED MARINE PHYSICS PROFESSOR [id number]. 10 ity of [facility] [id number] [place] as MATERNAL [id number] [facility] & CHILD [address] [place] [address] 2021-08-29 2021-08-29 Outpatient R [facility] [id number] Univers 09:00:00 09:00:00 ity of [facility] 2021-08-29 2021-08-29 [facility] [id number] Univers 09:00:00 09:00:00 MYRIAM daigle o [facility] 2021-08-28 2021-08-28 Nurse Visit, Celeste Nurse [facility] 1.2 .840.114 [id number] Univers 14:30:00 14:30:00 Visit Myriam Lopez APPLIED MARINE PHYSICS PROFESSOR [id number]. 10 ity of [facility] [id number] [place] MATERNAL [phone] [facility] & [address] 2021-08-28 2021-08-28 Outpatient R JESSICA [facility] [id number] Univers 14:30:00 14:11:57 MYRIAM daigle o [facility] 2021-06-12 2021-06-12 Nurse Visit, Celeste Nurse [facility] 1.2 .840.114 [id number] Univers 14:00:00 14:05:07 Visit Reynold Fraser APPLIED MARINE PHYSICS PROFESSOR [id number] ity of [facility] [id number] [place] MATERNAL [phone] [facility] & CHILD [address] [place] [address] 2021-06-12 2021-06-12 Outpatient R EVELIO [facility] [id number] Univers 14:00:00 14:00:00 REYNOLD daigle o [facility] 2021-06-12 2021-06-12 Outpatient R EVELIO [facility] [id number] Univers 14:00:00 14:00:00 KEVINA jose my o [facility] 2021-06-11 2021-06-11 Telephone Jessica [facility] 1.2.840.114 [id number] Univers 00:00:00 00:00:00 Myriam Ward APPLIED MARINE PHYSICS PROFESSOR [id number] ity of [facility] [id number] [place] as MATERNAL [phone] [facility] & [address] 2021-06-06 2021-06-06 Outpatient R JESSICA [facility] [id number] Univers 09:00:00 10:37:33 MYRIAM waite [facility] 2021-06-06 2021-06-06 [facility] [id number] Univers 09:00:00 10:37:33 Visit [facility] APPLIED MARINE PHYSICS PROFESSOR [id number] ity of [facility] [id number] [place] MATERNAL [id number] [address] 2021-06-06 2021-06-06 Outpatient R JESSICA [facility] [id number] Univers 09:00:00 10:37:33 MYRIAM waite [facility] 2021-06-06 2021-06-06 [facility] [id number] Univers 09:00:00 09:00:00 MYRIAM waite [facility] 2021-05-10 2021-05-10 Outpatient [facility] [id number] Univers 13:00:00 13:00:00 ANAMARIA [facility] 2021-05-10 2021-05-10 Outpatient [facility] [id number] Univers 08:30:00 08:30:00 ANAMARIA [facility] 2021-04-04 2021-04-04 Office Pgy2 [facility]ERS[facility] [id number] Univers 14:47:20 16:11:04 Visit Ami Angel ADI [id number] ity of [facility] [id number] [place] [phone] [address] 2021-04-04 2021-04-04 Outpatient Keila ANGEL [facility] [id number] Univers 14:45:00 16:11:04 AMI daigle [facility] 2021-03-14 2021-03-14 Outpatient [facility] [id number] Univers 09:00:00 09:12:49 ANAMARIA itmadison [facility] 2021-03-14 2021-03-14 Nurse Visit, Celeste Nurse [facility] 1.2 .840.114 [id number] Univers 08:46:00 09:12:49 Visit Anamaria vAila APPLIED MARINE PHYSICS PROFESSOR [id number] ity of [facility] [id number] Deniz as MATERNAL [phone] [facility] & [address] 2020-12-25 2020-12-25 Outpatient R [facility] [id number] Univers 09:00:00 09:00:00 ity [facility] 2020-12-22 2020-12-22 Outpatient R [facility] [id number] Univers 10:00:00 10:00:00 ity [facility] 2020-12-20 2020-12-20 [facility] [place] [facility] 1.2 .840.114 [id number] [facility] 13:47:05 14:21:01 Visit Myriam Lopez APPLIED MARINE PHYSICS PROFESSOR [id number]. 10 ity of [facility] [id number] Deniz as MATERNAL [phone] [facility] & [address] 2020-12-20 2020-12-20 Outpatient [facility] [id number] Univers 13:30:00 13:30:00 MYRIAM daigle o f [facility] 2020-11-16 2020-11-16 Telephone Mayank UNIVERSIT 1.2.840.114 [id number] Univers 00:00:00 00:00:00 Bhakti Dejesus [facility] [id number] i ty of [id number] [phone] [address] 2020-11-13 2020-11-13 Office Pgy2 UNIVERSIT [id number] Univers 14:15:35 16:58:28 Visit Daniella Vegas [facility] 350.1.13. 10 ity [id number] [phone] [facility] [address] 2020-11-13 2020-11-13 Outpatient R [facility] [id number] Univers 15:30:00 15:30:00 ity of [facility] 2020-11-13 2020-11-13 Orders Doctor CLARENCE 1.2.840.114 [id number] Univers 00:00:00 00:00:00 Only Unassigned, OSCAR [id number] ity of [facility] [id number] Deniz as [phone] [facility] [address] 2020-10-18 2020-10-18 Telephone Jessica MIMANOHAR 1.2.840.114 [id number] Univers 00:00:00 00:00:00 Myriam Ward APPLIED MARINE PHYSICS PROFESSOR [id number] ity of [facility] [id number] [place] as MATERNAL [phone] [facility] & CHILD [address] [place] [address] 2020-10-17 2020-10-17 Office Jessica [facility] [id number] Univers 15:43:20 16:45:09 Visit Myriam Ward APPLIED MARINE PHYSICS PROFESSOR [id number] ity of [facility] [id number] Deniz as MATERNAL [phone] [facility] & [address] 2020-10-17 2020-10-17 Outpatient R JESSICA [facility] [id number] Univers 16:00:00 16:00:00 MYRIAM daigle o f [facility] 2020-09-29 2020-09-29 Nurse Visit, [facility] 1.2.840.114 [id number] 09:52:51 10:25:33 Visit Celeste APPLIED MARINE PHYSICS PROFESSOR [id number] Nurse [facility] [id number] MATERNAL [phone] & CHILD [address] [place] [address] 2020-09-29 2020-09-29 Nurse Visit, Celeste Nurse [facility] 1.2 .840.114 [id number] Univers 09:52:51 10:25:33 Visit Myriam Lopez APPLIED MARINE PHYSICS PROFESSOR 350.1.13. 10 ity of [facility] [id number] [place]iz as MATERNAL [phone] Med ical & CHILD 107 [facility] 2020-09-29 2020-09-29 Outpatient R [facility] [id number] Univers 10:00:00 10:00:00 ity [facility] 2020-09-29 2020-09-29 Outpatient [facility] [id number] Univers 10:00:00 10:00:00 MYRIAM ity o f [facility] 2020-09-29 2020-09-29 Outpatient R [facility] [id number] Univers 08:00:00 08:00:00 ity [facility] 2020-07-20 2020-07-20 [facility] 1.2.840.114 [id number] 00:00:00 00:00:00 Outreach Jose Cruz PRIMARY [id number] [facility] [id number] PAVILLION [id number] 388 2020-07-20 2020-07-20 Patient Claudio [facility] 1.2.840.114 [id number] Univers 00:00:00 00:00:00 Outreach Jose Cruz PRIMARY [id number] i ty of [facility] [id number] [phone] Co dical [address] [place] [address] 2020-07-07 2020-07-07 Outpatient R [facility] [id number] Univers 08:30:00 08:30:00 ity [facility] 2020-07-07 2020-07-07 Nurse Visit, [facility] 1.2.840.114 [id number] 07:50:29 08:06:39 Visit Celeste APPLIED MARINE PHYSICS PROFESSOR 350.1.13.10 Nurse [facility] [id number] MATERNAL [phone] & CHILD 107 [facility] 2020-07-07 2020-07-07 [facility] [place] [facility] 1.2 .840.114 [id number] Univers 07:50:29 08:06:39 Visit Myriam Lopez APPLIED MARINE PHYSICS PROFESSOR 350.1.13. 10 ity [facility] [id number] Deniz as MATERNAL [phone] [facility] ical & CHILD [address] [place] [address] 2020-05-09 2020-05-09 Office Margarita [facility] 1.2.999.422 [id number] 08:54:26 09:58:23 Visit Anamaria Bravo APPLIED MARINE PHYSICS PROFESSOR 350.1.13.10 REGIONAL [id number] MATERNAL [phone] & CHILD [address] [place] [address] 2020-05-09 2020-05-09 Office [facility] 1.2.317.279 [id number] Univers 08:54:26 09:58:23 Visit Anamaria Bravo APPLIED MARINE PHYSICS PROFESSOR 350.1.13.10 it y of [facility] [id number] Deniz as MATERNAL [phone] [facility] ical & CHILD [address] [place] [address] 2020-05-09 2020-05-09 Outpatient [facility] [id number] Univers 08:45:00 08:45:00 ANAMARIA ity [facility] 2020-04-14 2020-04-14 Nurse Visit, Ang-Rmchp Nurse [facility] 1.2 .840.114 [id number] Univers 07:58:01 08:13:01 Visit Myriam Lopez APPLIED MARINE PHYSICS PROFESSOR 350.1.13. 10 ity of [facility] [id number] Deniz as MATERNAL [phone] [facility] & CHILD [address] [place] [address] 2020-04-14 2020-04-14 Outpatient R [facility] [id number] Univers 08:00:00 08:00:00 ity of [facility] 2020-03-02 2020-03-02 Office [facility] Resident UNIVERSIT 1.2.8 40.114 [id number] Univers 13:10:37 14:21:28 Visit Ami Angel [facility] 350.1.13.10 ity of [facility] [id number] [phone] [address] 2020-03-02 2020-03-02 Outpatient R [facility] [id number] Univers 13:15:00 13:15:00 ity of [facility] 2020-02-17 2020-02-22 Office [facility] Resident UNIVERSIT 1.2.8 40.114 [id number] Univers 14:34:25 13:47:09 Visit Ami Angel Y [facility] [id number] ity of CL[id number] [phone] [facility] [address] 2020-02-22 2020-02-22 Telephone Eagle LIMA 1.2.840.114 [id number] Univers 00:00:00 00:00:00 d, OSCAR 350.1.13.10 it y of [facility] [id number] [place] l [phone] [facility] [address] 2020-02-20 2020-02-20 Telephone Eagle LIM[place] 1.2.840.114 [id number] Univers 00:00:00 00:00:00 d, OSCAR 350.1.13.10 it y of [facility] [id number] [place] l [phone] [address] 2020-02-17 2020-02-17 Outpatient R [facility] [id number] Univers 15:00:00 15:00:00 ity of [facility] 2020-02-17 2020-02-17 Orders Doctor CLARENCE 1.2.840.114 [id number] Univers 00:00:00 00:00:00 Only Unassigned, OSCAR 350.1.13.10 ity of [facility] 4.2.7.2.686 Deniz as [phone] [address] 2020-02-04 2020-02-04 Office [facility] 1.2.832.740 [id number] Univers 10:36:03 13:02:32 Visit Anamaria Bravo APPLIED MARINE PHYSICS PROFESSOR 350.1.13.10 it y of [facility] [id number] Deniz as MATERNAL [phone] Med ical & CHILD [address] [place] [address] 2020-02-04 2020-02-04 Outpatient [facility] [id number] Univers 11:00:00 11:00:00 ANAMARIA daigle of [facility] 2020-01-14 2020-01-14 [facility] 1.2 .840.114 [id number] Univers 13:34:04 13:49:04 Visit Myriam Lopez APPLIED MARINE PHYSICS PROFESSOR 350.1.13. 10 ity of [facility] [id number] Deniz as MATERNAL [phone] [facility] ical & CHILD [address] [place] [address] 2020-01-14 2020-01-14 Outpatient R [facility] [id number] Univers 13:30:00 13:30:00 ity of [facility] 2020-01-13 2020-01-13 Outpatient R [facility] [id number] Univers 09:00:00 09:00:00 ity [facility] 2019-12-09 2019-12-09 Outpatient COH COH PDPFEJP CPU COH 00:00:00 00:00:00 [id number] 2019-10-21 2019-10-21 Office Evelio MIMANOHAR 1.2.840.114 [id number] Univers 10:06:31 10:33:05 Visit Reynold Pedraza APPLIED MARINE PHYSICS PROFESSOR 350.1.13.10 ity of [facility] [id number] Deniz as MATERNAL [phone] [address] 2019-10-21 2019-10-21 Nurse Visit, Marlomillicent Nurse [facility] 1.2 .840.114 [id number] Univers 09:37:55 09:52:13 Visit Reynold Fraser APPLIED MARINE PHYSICS PROFESSOR 350.1.13.10 ity of [facility] [id number] Deniz as MATERNAL [phone] [facility] & CHILD [address] [place] [address] 2019-10-21 2019-10-21 Outpatient R [facility] [id number] Univers 09:00:00 09:00:00 ity [facility] 2019-10-21 2019-10-21 Orders Doctor LIMA 1.2.840.114 [id number] Univers 00:00:00 00:00:00 Only Unassigned, OSCAR 350.1.13.10 ity of [place] [facility] 4.2.7.2.686 Deniz as [phone] [address] 2019-07-29 2019-07-29 Nurse Visit, Ang-Rmchp Nurse [facility] 1.2 .840.114 [id number] Univers 08:36:21 08:58:19 Visit Myriam Lopez APPLIED MARINE PHYSICS PROFESSOR 350.1.13. 10 ity [facility] [id number] Deniz as MATERNAL [phone] Med ical & CHILD [address] [place] [address] 2019-07-29 2019-07-29 Outpatient R [facility] [id number] Univers 08:30:00 08:30:00 ity [facility] Results Test Description Test Time Test Comments Results Result Comments Source CULTURE, URINE 2022-02-16 SPECIMEN NUMBER: 13:54:11 [id number] CULTURE, URINE SPECIMEN NUMBER: [id number] SPECIMEN COMMENT: URINE SOURCE: URINE REPORT STATUS: FINAL ISOLATE NUMBER 1: ORGANISM: 02/15/2022 >100,000 CFU/ML GRAM NEGATIVE BACILLI IDENTIFICATION: 02/16/2022 ESCHERICHIA COLI E. COLI AMOX ICILLIN/CA SENSITIVE <=8/4AMPICILLIN SENSITIVE <=8CEFAZOLIN SENSITIVE <=2CEFTRIAXONE SENSITIVE <=1CIPROFLOXACIN SENSITIVE <=1LEVOFLOXACIN SENSITIVE <=2NITROFURANTOIN RESISTANT >64PIP/TAZOBAC SENSITIVE <=16TETRACYCLINE SENSITIVE <=4TOBRAMYCIN SENSITIVE <=4TRIMETH/SULFA SENSITIVE <=2/38 NOTE: NUMBERS DISPLAYED REPRESENT MINIMUM INHIBITORY CONCENTRATION (JUAN M) WHICH IS EXPRESSED IN MCG/ML. CULTURE, URINE 2022-02-16 00:00:00 Test Item Value Reference Range Interpretation Comme nts CULTURE, URINE (test code = 60594) SPECIMEN NUMBER: [id number] CULTURE, [id number] 00:00:00 Test Item Value Reference Range Interpretation Comments CULTURE, URINE (test SPECIMEN NUMBER: code = 79543) [id number] 06:53:07 Test Item Value Reference Range Interpretation Comments AMYLASE (test code = 2205) 34 U/L 28-100 [id number] 06:53:07 Test Item Value Reference Range Interpretation Comments LIPASE (test code = 26 U/L 13-60 UNLESS OTHERWISE 2058) INDICATED, ALL TESTING PERFORMED [facility] PATHOLOGY [employer] [address] [place] [address] [facility] DIRECTOR: DAVID KRAFT M.D. CLIA NUMBER [id number] CAP ACCREDITATION N O. [id number] COMPREHENSIVE METABOLIC [id number] 06:52:53 Test Item Value Reference Range Interpretation Comments GLUCOSE (test code = 188 MG/DL 70-99 H 2216) BUN (test code = 8 MG/DL 6-20 2207) CREATININE (test 0.48 MG/DL 0.60-1.30 L code = 221) eGFR (2020 CKD-EPI) 118 >60 (test code = 99334) ML/MIN/1.73 CALC BUN/CREAT (test 17 RATIO 6-28 code = 223) SODIUM (test code = 141 MEQ/L 645-964 1099) POTASSIUM (test code 4.6 MEQ/L 3.5-5.4 = 2227) CHLORIDE (test code 107 MEQ/L 95-107 = 2214) CARBON DIOXIDE (test 23 MEQ/L 19-31 code = 220) CALCIUM (test code = 9.9 MG/DL 8.5-10.5 2208) PROTEIN, TOTAL (test 7.6 G/DL 6.1-8.3 code = 222) ALBUMIN (test code = 4.4 G/DL 3.5-5.2 2200) CALC GLOBULIN (test 3.2 G/DL 1.9-3.7 code = 2240) CALC A/G RATIO (test 1.4 RATIO 1.0-2.6 code = 2234) BILIRUBIN, TOTAL 0.2 MG/DL See_Comment [Automated message] (test code = 2207) The syste m which generated this result transmit pauline reference range : <=1.2. The refe rence range was not u sed to interpret th is result as normal/abnormal . ALKALINE PHOSPHATASE 91 U/L 40-118 (test code = 2204) AST (test code = 39 U/L 9-40 2217) ALT (test code = 95 U/L 5-40 H 2218) LIPID [id number] 06:52:53 Test Item Value Reference Range Interpretation Comments CHOLESTEROL (test 194 MG/DL <200 code = 2210) TRIGLYCERIDES (test 137 MG/DL <150 code = 2232) HDL CHOLESTEROL (test 49 MG/DL >39 code = 2220) CALC LDL CHOL (test 120 MG/DL <100 H NOTE: C ALCULATED LDL code = 2237) IS BASED ON MARCUS-BUTLER METHOD WHICHINCLUDES ADJUSTABLE TRIGLYCERIDE:VL DL CHOLESTEROL RAT IO.THIS FACTOR VARIES B Y MEASURED TRIGLY CERIDE AND NON-HDLCHOL ESTEROL CONCENTRATIONS WITH INCREASED CALCU LATED LDL SEENIN HIGH ER TRIGLYCERIDE OR LOWER NON-HDL SPECIME NS. FOR MOREINFORMATION , SEE CLIENT ANNOUNCE MENT AT [email or web address] RISK RATIO LDL/HDL 2.45 RATIO <3.22 (test code = 2238) HEMOGLOBIN [id number] 04:51:02 Test Item Value Reference Range Interpretation Comments HEMOGLOBIN A1c (test 7.5 % 4.2-5.6 H AMERIC AN DIABETES code = 89972) ASSOCIATION IDELINES FOR HGB A1C: PREDIABETES/INC REASED RISK . . . . . . . 5.7 -6.4% DIAGNOSIS OF DI ABETES . . . . . . . . . >=6 .5% WITH CONFIRMATION OR APPROPRIATE SYMPTOMS NOTE: ASSAY MAY BE AFFECTED BY HEMOGLOBINOPATH IES (SICKLE CELL ANEMIA, S- C DISEASE, OTHERS) OR JEFF FICIALLY LOWERED BY DECR EASED RED CELL SURVIVAL ( HEMOLYTIC ANEMIAS, BLOOD LOSS, ETC.). CONSIDER ALTERN ATE TESTING OR LABORATORY C ONSULTATION. COMPREHENSIVE METABOLIC [id number] 00:00:00 Test Item Value Reference Range Interpretation Comments GLUCOSE (test code = 2217) 188 MG/DL BUN (test code = 2208) 8 MG/DL CREATININE (test code = 2214) 0.48 MG/DL eGFR (2020 CKD-EPI) (test 118 ML/MIN/1.73 code = 81591) CALC BUN/CREAT (test code = 17 RATIO 2235) SODIUM (test code = 2231) 141 MEQ/L POTASSIUM (test code = 2228) 4.6 MEQ/L CHLORIDE (test code = 2215) 107 MEQ/L CARBON DIOXIDE (test code = 23 MEQ/L 2205) CALCIUM (test code = 2209) 9.9 MG/DL PROTEIN, TOTAL (test code = 7.6 G/DL 2228) ALBUMIN (test code = 2201) 4.4 G/DL CALC GLOBULIN (test code = 3.2 G/DL 2240) CALC A/G RATIO (test code = 1.4 RATIO 2234) BILIRUBIN, TOTAL (test code = 0.2 MG/DL 2206) ALKALINE PHOSPHATASE (test 91 U/L code = 2204) AST (test code = 2218) 39 U/L ALT (test code = 2219) 95 U/L COMPREHENSIVE METABOLIC [id number] 00:00:00 Test Item Value Reference Range Interpretation Comments GLUCOSE (test code = 2217) 188 MG/DL BUN (test code = 2208) 8 MG/DL CREATININE (test code = 2214) 0.48 MG/DL eGFR (2020 CKD-EPI) (test 118 ML/MIN/1.73 code = 65018) CALC BUN/CREAT (test code = 17 RATIO 2235) SODIUM (test code = 2231) 141 MEQ/L POTASSIUM (test code = 2228) 4.6 MEQ/L CHLORIDE (test code = 2215) 107 MEQ/L CARBON DIOXIDE (test code = 23 MEQ/L 2205) CALCIUM (test code = 2209) 9.9 MG/DL PROTEIN, TOTAL (test code = 7.6 G/DL 2228) ALBUMIN (test code = 2201) 4.4 G/DL CALC GLOBULIN (test code = 3.2 G/DL 2240) CALC A/G RATIO (test code = 1.4 RATIO 2234) BILIRUBIN, TOTAL (test code = 0.2 MG/DL 2206) ALKALINE PHOSPHATASE (test 91 U/L code = 2204) AST (test code = 2218) 39 U/L ALT (test code = 2219) 95 U/L LIPID [id number] 00:00:00 Test Item Value Reference Range Interpretation Comments CHOLESTEROL (test code = 2210) 194 MG/DL TRIGLYCERIDES (test code = 2232) 137 MG/DL HDL CHOLESTEROL (test code = 2220) 49 MG/DL CALC LDL CHOL (test code = 2237) 120 MG/DL RISK RATIO LDL/HDL (test code = 2.45 RATIO 2238) LIPID [id number] 00:00:00 Test Item Value Reference Range Interpretation Comments CHOLESTEROL (test code = 2210) 194 MG/DL TRIGLYCERIDES (test code = 2232) 137 MG/DL HDL CHOLESTEROL (test code = 2220) 49 MG/DL CALC LDL CHOL (test code = 2237) 120 MG/DL RISK RATIO LDL/HDL (test code = 2.45 RATIO 2238) HEMOGLOBIN [id number] 00:00:00 Test Item Value Reference Range Interpretation Comments HEMOGLOBIN A1c (test code = 84093) 7.5 % HEMOGLOBIN [id number] 00:00:00 Test Item Value Reference Range Interpretation Comments HEMOGLOBIN A1c (test code = 49342) 7.5 % HEMOGLOBIN [id number] 00:00:00 Test Item Value Reference Range Interpretation Comments HEMOGLOBIN A1c (test code = 94802) 7.5 % [id number] 00:00:00 Test Item Value Reference Range Interpretation Comments AMYLASE (test code = 2205) 34 U/L [id number] 00:00:00 Test Item Value Reference Range Interpretation Comments AMYLASE (test code = 2205) 34 U/L [id number] 00:00:00 Test Item Value Reference Range Interpretation Comments LIPASE (test code = 8) 26 U/L [id number] 00:00:00 Test Item Value Reference Range Interpretation Comments LIPASE (test code = 8) 26 U/L [id number] 00:00:00 Test Item Value Reference Range Interpretation Comments LIPASE (test code = 2058) 26 U/L [id number] 07:50:25 Test Item Value Reference Range Interpretation Comments FERRITIN (test code 327 NG/ML 13-200 H UNLESS OTHERWISE = 2075) INDICATED, ALL TESTING PERFORMED [facility] PATHOLOGY [facility]. [address] [place] [address] 4 LABORATORY DIRE CTOR: DAVID ORTIZ M.D. CLIA NUMBER [id number] [place] [id number] HEMOGLOBIN [id number] 04:46:25 Test Item Value Reference Range Interpretation Comments HEMOGLOBIN A1c (test 7.6 % 4.2-5.6 H AMERIC AN DIABETES code = 50564) ASSOCIATION IDELINES FOR HGB A1C: PREDIABETES/INC REASED RISK . . . . . . . 5.7 -6.4% DIAGNOSIS OF DI ABETES . . . . . . . . . >=6 .5% WITH CONFIRMATION OR APPROPRIATE SYMPTOMS NOTE: ASSAY MAY BE AFFECTED BY HEMOGLOBINOPATH IES (SICKLE CELL ANEMIA, S- C DISEASE, OTHERS) OR JEFF FICIALLY LOWERED BY DECR EASED RED CELL SURVIVAL ( HEMOLYTIC ANEMIAS, BLOOD LOSS, ETC.). CONSIDER ALTERN ATE TESTING OR LABORATORY C ONSULTATION. COMPREHENSIVE METABOLIC [id number] 03:56:37 Test Item Value Reference Range Interpretation Comments GLUCOSE (test code = 149 MG/DL 70-99 H 2216) BUN (test code = 11 MG/DL 6-20 2207) CREATININE (test 0.52 MG/DL 0.60-1.30 L code = 221) eGFR (2020 CKD-EPI) 117 >60 (test code = 00619) ML/MIN/1.73 CALC BUN/CREAT (test 21 RATIO 6-28 code = 223) SODIUM (test code = 138 MEQ/L 378-456 5139) POTASSIUM (test code 4.7 MEQ/L 3.5-5.4 = 2227) CHLORIDE (test code 101 MEQ/L 95-107 = 2214) CARBON DIOXIDE (test 23 MEQ/L 19-31 code = 220) CALCIUM (test code = 10.0 MG/DL 8.5-10.5 2208) PROTEIN, TOTAL (test 8.2 G/DL 6.1-8.3 code = 2228) ALBUMIN (test code = 4.8 G/DL 3.5-5.2 2200) CALC GLOBULIN (test 3.4 G/DL 1.9-3.7 code = 2240) CALC A/G RATIO (test 1.4 RATIO 1.0-2.6 code = 2234) BILIRUBIN, TOTAL 0.4 MG/DL See_Comment [Automated message] (test code = 220) The syste m which generated this result transmit pauline reference range : <=1.2. The refe rence range was not u sed to interpret th is result as normal/abnormal . ALKALINE PHOSPHATASE 93 U/L 40-116 (test code = 2204) AST (test code = 33 U/L 9-40 2217) ALT (test code = 52 U/L 5-40 H 2218) LIPID [id number] 03:56:37 Test Item Value Reference Range Interpretation Comments CHOLESTEROL (test 200 MG/DL <200 H code = 2210) TRIGLYCERIDES (test 95 MG/DL <150 code = 2232) HDL CHOLESTEROL (test 51 MG/DL >39 code = 2220) CALC LDL CHOL (test 129 MG/DL <100 H NOTE: C ALCULATED LDL code = 2237) IS BASED ON MARCUS-BUTLER METHOD WHICHINCLUDES ADJUSTABLE TRIGLYCERIDE:VL DL CHOLESTEROL RAT IO.THIS FACTOR VARIES B Y MEASURED TRIGLY CERIDE AND NON-HDLCHOL ESTEROL CONCENTRATIONS WITH INCREASED CALCU LATED LDL SEENIN HIGH ER TRIGLYCERIDE OR LOWER NON-HDL SPECIME NS. FOR MOREINFORMATION , SEE CLIENT ANNOUNCE MENT AT [email or web address] RISK RATIO LDL/HDL 2.53 RATIO <3.22 (test code = 2238) COMPREHENSIVE METABOLIC [id number] 00:00:00 Test Item Value Reference Range Interpretation Comments GLUCOSE (test code = 2217) 149 MG/DL BUN (test code = 2208) 11 MG/DL CREATININE (test code = 2214) 0.52 MG/DL eGFR (2020 CKD-EPI) (test 117 ML/MIN/1.73 code = 15442) CALC BUN/CREAT (test code = 21 RATIO 2234) SODIUM (test code = 2231) 138 MEQ/L POTASSIUM (test code = 2228) 4.7 MEQ/L CHLORIDE (test code = 2215) 101 MEQ/L CARBON DIOXIDE (test code = 23 MEQ/L 2205) CALCIUM (test code = 2209) 10.0 MG/DL PROTEIN, TOTAL (test code = 8.2 G/DL 2228) ALBUMIN (test code = 2201) 4.8 G/DL CALC GLOBULIN (test code = 3.4 G/DL 2240) CALC A/G RATIO (test code = 1.4 RATIO 2233) BILIRUBIN, TOTAL (test code = 0.4 MG/DL 2206) ALKALINE PHOSPHATASE (test 93 U/L code = 2204) AST (test code = 2218) 33 U/L ALT (test code = 2219) 52 U/L COMPREHENSIVE METABOLIC [id number] 00:00:00 Test Item Value Reference Range Interpretation Comments GLUCOSE (test code = 2217) 149 MG/DL BUN (test code = 2208) 11 MG/DL CREATININE (test code = 2214) 0.52 MG/DL eGFR (2020 CKD-EPI) (test 117 ML/MIN/1.73 code = 29837) CALC BUN/CREAT (test code = 21 RATIO 2235) SODIUM (test code = 2231) 138 MEQ/L POTASSIUM (test code = 2228) 4.7 MEQ/L CHLORIDE (test code = 2215) 101 MEQ/L CARBON DIOXIDE (test code = 23 MEQ/L 2206) CALCIUM (test code = 2209) 10.0 MG/DL PROTEIN, TOTAL (test code = 8.2 G/DL 2228) ALBUMIN (test code = 2201) 4.8 G/DL CALC GLOBULIN (test code = 3.4 G/DL 2240) CALC A/G RATIO (test code = 1.4 RATIO 2234) BILIRUBIN, TOTAL (test code = 0.4 MG/DL 2206) ALKALINE PHOSPHATASE (test 93 U/L code = 2204) AST (test code = 2218) 33 U/L ALT (test code = 2219) 52 U/L COMPREHENSIVE METABOLIC [id number] 00:00:00 Test Item Value Reference Range Interpretation Comments GLUCOSE (test code = 2217) 149 MG/DL BUN (test code = 2208) 11 MG/DL CREATININE (test code = 2214) 0.52 MG/DL eGFR (2020 CKD-EPI) (test 117 ML/MIN/1.73 code = 28709) CALC BUN/CREAT (test code = 21 RATIO 2235) SODIUM (test code = 2231) 138 MEQ/L POTASSIUM (test code = 2228) 4.7 MEQ/L CHLORIDE (test code = 2215) 101 MEQ/L CARBON DIOXIDE (test code = 23 MEQ/L 6) CALCIUM (test code = 2209) 10.0 MG/DL PROTEIN, TOTAL (test code = 8.2 G/DL 2228) ALBUMIN (test code = 2201) 4.8 G/DL CALC GLOBULIN (test code = 3.4 G/DL 2240) CALC A/G RATIO (test code = 1.4 RATIO 2234) BILIRUBIN, TOTAL (test code = 0.4 MG/DL 2206) ALKALINE PHOSPHATASE (test 93 U/L code = 2204) AST (test code = 2218) 33 U/L ALT (test code = 2219) 52 U/L LIPID [id number] 00:00:00 Test Item Value Reference Range Interpretation Comments CHOLESTEROL (test code = 2210) 200 MG/DL TRIGLYCERIDES (test code = 2232) 95 MG/DL HDL CHOLESTEROL (test code = 2220) 51 MG/DL CALC LDL CHOL (test code = 2237) 129 MG/DL RISK RATIO LDL/HDL (test code = 2.53 RATIO 2238) LIPID [id number] 00:00:00 Test Item Value Reference Range Interpretation Comments CHOLESTEROL (test code = 2210) 200 MG/DL TRIGLYCERIDES (test code = 2232) 95 MG/DL HDL CHOLESTEROL (test code = 2220) 51 MG/DL CALC LDL CHOL (test code = 2237) 129 MG/DL RISK RATIO LDL/HDL (test code = 2.53 RATIO 2238) HEMOGLOBIN [id number] 00:00:00 Test Item Value Reference Range Interpretation Comments HEMOGLOBIN A1c (test code = 14026) 7.6 % HEMOGLOBIN [id number] 00:00:00 Test Item Value Reference Range Interpretation Comments HEMOGLOBIN A1c (test code = 62481) 7.6 % HEMOGLOBIN [id number] 00:00:00 Test Item Value Reference Range Interpretation Comments HEMOGLOBIN A1c (test code = 21301) 7.6 % [id number] 00:00:00 Test Item Value Reference Range Interpretation Comments FERRITIN (test code = 2075) 327 NG/ML [id number] 00:00:00 Test Item Value Reference Range Interpretation Comments FERRITIN (test code = 2075) 327 NG/ML COMPREHENSIVE METABOLIC [id number] 00:00:00 Test Item Value Reference Range Interpretation Comments GLUCOSE (test code = 2217) 149 MG/DL BUN (test code = 2208) 11 MG/DL CREATININE (test code = 2214) 0.52 MG/DL eGFR (2020 CKD-EPI) (test 117 ML/MIN/1.73 code = 79723) CALC BUN/CREAT (test code = 21 RATIO 2235) SODIUM (test code = 2231) 138 MEQ/L POTASSIUM (test code = 2228) 4.7 MEQ/L CHLORIDE (test code = 2215) 101 MEQ/L CARBON DIOXIDE (test code = 23 MEQ/L 2205) CALCIUM (test code = 2209) 10.0 MG/DL PROTEIN, TOTAL (test code = 8.2 G/DL 2228) ALBUMIN (test code = 220) 4.8 G/DL CALC GLOBULIN (test code = 3.4 G/DL 2240) CALC A/G RATIO (test code = 1.4 RATIO 2234) BILIRUBIN, TOTAL (test code = 0.4 MG/DL 2207) ALKALINE PHOSPHATASE (test 93 U/L code = 2204) AST (test code = 2218) 33 U/L ALT (test code = 2219) 52 U/L LIPID [id number] 00:00:00 Test Item Value Reference Range Interpretation Comments CHOLESTEROL (test code = 2210) 200 MG/DL TRIGLYCERIDES (test code = 2232) 95 MG/DL HDL CHOLESTEROL (test code = 2220) 51 MG/DL CALC LDL CHOL (test code = 2237) 129 MG/DL RISK RATIO LDL/HDL (test code = 2.53 RATIO 2238) LIPID [id number] 00:00:00 Test Item Value Reference Range Interpretation Comments CHOLESTEROL (test code = 2210) 200 MG/DL TRIGLYCERIDES (test code = 2232) 95 MG/DL HDL CHOLESTEROL (test code = 2220) 51 MG/DL CALC LDL CHOL (test code = 2237) 129 MG/DL RISK RATIO LDL/HDL (test code = 2.53 RATIO 2238) HEMOGLOBIN [id number] 00:00:00 Test Item Value Reference Range Interpretation Comments HEMOGLOBIN A1c (test code = 81409) 7.6 % HEMOGLOBIN [id number] 00:00:00 Test Item Value Reference Range Interpretation Comments HEMOGLOBIN A1c (test code = 36323) 7.6 % HEMOGLOBIN [id number] 00:00:00 Test Item Value Reference Range Interpretation Comments HEMOGLOBIN A1c (test code = 64259) 7.6 % [id number] 00:00:00 Test Item Value Reference Range Interpretation Comments FERRITIN (test code = 2075) 327 NG/ML [id number] 00:00:00 Test Item Value Reference Range Interpretation Comments FERRITIN (test code = 2075) 327 NG/ML [id number] 00:00:00 Test Item Value Reference Range Interpretation Comments TSH, THIRD GENERATION (test code 1.150 UIU/ML = 2821) [id number] 00:00:00 Test Item Value Reference Range Interpretation Comments TSH, THIRD GENERATION (test code 1.150 UIU/ML = 2821) [id number] 00:00:00 Test Item Value Reference Range Interpretation Comments TSH, THIRD GENERATION (test code 1.150 UIU/ML = 2821) [id number] 00:00:00 Test Item Value Reference Range Interpretation Comments TSH, THIRD GENERATION (test code 1.150 UIU/ML = 2821) [id number] 00:00:00 Test Item Value Reference Range Interpretation Comments TSH, THIRD GENERATION (test code 1.150 UIU/ML = 2821) [id number] 00:00:00 Test Item Value Reference Range Interpretation Comments TSH, THIRD GENERATION (test code 1.150 UIU/ML = 2821) HEMOGLOBIN [id number] 00:00:00 Test Item Value Reference Range Interpretation Comments HEMOGLOBIN A1c (test code = 59736) 11.1 % HEMOGLOBIN [id number] 00:00:00 Test Item Value Reference Range Interpretation Comments HEMOGLOBIN A1c (test code = 83121) 11.1 % HEMOGLOBIN [id number] 00:00:00 Test Item Value Reference Range Interpretation Comments HEMOGLOBIN A1c (test code = 57562) 11.1 % COMPREHENSIVE METABOLIC [id number] 00:00:00 Test Item Value Reference Range Interpretation Comments GLUCOSE (test code = 2217) 253 MG/DL BUN (test code = 2208) 11 MG/DL CREATININE (test code = 2214) 0.63 MG/DL eGFR AMER. (test code 126 ML/MIN/1.73 = 80647) eGFR NON- AMER. (test 108 ML/MIN/1.73 code = 43377) CALC BUN/CREAT (test code = 17 RATIO 2235) SODIUM (test code = 2231) 140 MEQ/L POTASSIUM (test code = 2228) 4.4 MEQ/L CHLORIDE (test code = 2215) 101 MEQ/L CARBON DIOXIDE (test code = 27 MEQ/L 2205) CALCIUM (test code = 2209) 10.3 MG/DL PROTEIN, TOTAL (test code = 8.3 G/DL 2228) ALBUMIN (test code = 2201) 4.6 G/DL CALC GLOBULIN (test code = 3.7 G/DL 2239) CALC A/G RATIO (test code = 1.2 RATIO 2233) BILIRUBIN, TOTAL (test code = 0.4 MG/DL 2206) ALKALINE PHOSPHATASE (test 149 U/L code = 2204) AST (test code = 2218) 82 U/L ALT (test code = 2219) 96 U/L COMPREHENSIVE METABOLIC [id number] 00:00:00 Test Item Value Reference Range Interpretation Comments GLUCOSE (test code = 2217) 253 MG/DL BUN (test code = 2208) 11 MG/DL CREATININE (test code = 2214) 0.63 MG/DL eGFR AMER. (test code 126 ML/MIN/1.73 = 21738) eGFR NON- AMER. (test 108 ML/MIN/1.73 code = 09769) CALC BUN/CREAT (test code = 17 RATIO 2235) SODIUM (test code = 2231) 140 MEQ/L POTASSIUM (test code = 2228) 4.4 MEQ/L CHLORIDE (test code = 2215) 101 MEQ/L CARBON DIOXIDE (test code = 27 MEQ/L 2205) CALCIUM (test code = 2209) 10.3 MG/DL PROTEIN, TOTAL (test code = 8.3 G/DL 2228) ALBUMIN (test code = 2201) 4.6 G/DL CALC GLOBULIN (test code = 3.7 G/DL 2239) CALC A/G RATIO (test code = 1.2 RATIO 4) BILIRUBIN, TOTAL (test code = 0.4 MG/DL 2206) ALKALINE PHOSPHATASE (test 149 U/L code = 2204) AST (test code = 2218) 82 U/L ALT (test code = 2219) 96 U/L CBC W/AUTO [id number] 00:00:00 Test Item Value Reference Range Interpretation Comments WBC (test code = 1001) 10.6 K/UL RBC (test code = 1002) 4.43 M/UL HEMOGLOBIN (test code = 1003) 14.3 G/DL HEMATOCRIT (test code = 1004) 41.9 % MCV (test code = 1005) 94.6 fL MCH (test code = 1006) 32.3 PG MCHC (test code = 1007) 34.1 G/DL RDW (test code = 1038) 11.9 % NEUTROPHILS (test code = 1008) 66.7 % LYMPHOCYTES (test code = 1010) 27.4 % MONOCYTES (test code = 1011) 5.1 % EOSINOPHILS (test code = 1012) 0.2 % BASOPHILS (test code = 1013) 0.2 % IMMATURE GRANULOCYTES (test 0.4 % code = 1036) NUCLEATED RBCS (test code = 0.0 /100WBC'S 1065) PLATELET COUNT (test code = 239 K/UL 1015) ABSOLUTE NEUTROPHILS (test code 7.08 K/UL = 1066) ABSOLUTE LYMPHOCYTES (test code 2.91 K/UL = 1067) ABSOLUTE MONOCYTES (test code = 0.54 K/UL 1068) ABSOLUTE EOSINOPHILS (test code 0.02 K/UL = 1040) ABSOLUTE BASOPHILS (test code = 0.02 K/UL 1069) ABS IMMATURE GRANULOCYTES (test 0.04 K/UL code = 1020) ABS NUCLEATED RBCS (test code = 0.00 K/UL 49107) CBC W/AUTO [id number] 00:00:00 Test Item Value Reference Range Interpretation Comments WBC (test code = 1001) 10.6 K/UL RBC (test code = 1002) 4.43 M/UL HEMOGLOBIN (test code = 1003) 14.3 G/DL HEMATOCRIT (test code = 1004) 41.9 % MCV (test code = 1005) 94.6 fL MCH (test code = 1006) 32.3 PG MCHC (test code = 1007) 34.1 G/DL RDW (test code = 1038) 11.9 % NEUTROPHILS (test code = 1008) 66.7 % LYMPHOCYTES (test code = 1010) 27.4 % MONOCYTES (test code = 1011) 5.1 % EOSINOPHILS (test code = 1012) 0.2 % BASOPHILS (test code = 1013) 0.2 % IMMATURE GRANULOCYTES (test 0.4 % code = 1036) NUCLEATED RBCS (test code = 0.0 /100WBC'S 1065) PLATELET COUNT (test code = 239 K/UL 1015) ABSOLUTE NEUTROPHILS (test code 7.08 K/UL = 1066) ABSOLUTE LYMPHOCYTES (test code 2.91 K/UL = 1067) ABSOLUTE MONOCYTES (test code = 0.54 K/UL 1068) ABSOLUTE EOSINOPHILS (test code 0.02 K/UL = 1040) ABSOLUTE BASOPHILS (test code = 0.02 K/UL 1069) ABS IMMATURE GRANULOCYTES (test 0.04 K/UL code = 1020) ABS NUCLEATED RBCS (test code = 0.00 K/UL 62468) HEMOGLOBIN [id number] 00:00:00 Test Item Value Reference Range Interpretation Comments HEMOGLOBIN A1c (test code = 75319) 11.1 % CBC W/AUTO [id number] 00:00:00 Test Item Value Reference Range Interpretation Comments WBC (test code = 1001) 10.6 K/UL RBC (test code = 1002) 4.43 M/UL HEMOGLOBIN (test code = 1003) 14.3 G/DL HEMATOCRIT (test code = 1004) 41.9 % MCV (test code = 1005) 94.6 fL MCH (test code = 1006) 32.3 PG MCHC (test code = 1007) 34.1 G/DL RDW (test code = 1038) 11.9 % NEUTROPHILS (test code = 1008) 66.7 % LYMPHOCYTES (test code = 1010) 27.4 % MONOCYTES (test code = 1011) 5.1 % EOSINOPHILS (test code = 1012) 0.2 % BASOPHILS (test code = 1013) 0.2 % IMMATURE GRANULOCYTES (test 0.4 % code = 1036) NUCLEATED RBCS (test code = 0.0 /100WBC'S 1065) PLATELET COUNT (test code = 239 K/UL 1015) ABSOLUTE NEUTROPHILS (test code 7.08 K/UL = 1066) ABSOLUTE LYMPHOCYTES (test code 2.91 K/UL = 1067) ABSOLUTE MONOCYTES (test code = 0.54 K/UL 1068) ABSOLUTE EOSINOPHILS (test code 0.02 K/UL = 1040) ABSOLUTE BASOPHILS (test code = 0.02 K/UL 1069) ABS IMMATURE GRANULOCYTES (test 0.04 K/UL code = 1020) ABS NUCLEATED RBCS (test code = 0.00 K/UL 37347) [id number] 00:00:00 Test Item Value Reference Range Interpretation Comments FERRITIN (test code = 2075) 532 NG/ML [id number] 00:00:00 Test Item Value Reference Range Interpretation Comments FERRITIN (test code = 2075) 532 NG/ML HEMOGLOBIN [id number] 00:00:00 Test Item Value Reference Range Interpretation Comments HEMOGLOBIN A1c (test code = 58089) 11.1 % HEMOGLOBIN [id number] 00:00:00 Test Item Value Reference Range Interpretation Comments HEMOGLOBIN A1c (test code = 77882) 11.1 % COMPREHENSIVE METABOLIC [id number] 00:00:00 Test Item Value Reference Range Interpretation Comments GLUCOSE (test code = 2217) 253 MG/DL BUN (test code = 2208) 11 MG/DL CREATININE (test code = 2214) 0.63 MG/DL eGFR AMER. (test code 126 ML/MIN/1.73 = 90784) eGFR NON- AMER. (test 108 ML/MIN/1.73 code = 04886) CALC BUN/CREAT (test code = 17 RATIO 2235) SODIUM (test code = 2231) 140 MEQ/L POTASSIUM (test code = 2228) 4.4 MEQ/L CHLORIDE (test code = 2215) 101 MEQ/L CARBON DIOXIDE (test code = 27 MEQ/L 220) CALCIUM (test code = 2209) 10.3 MG/DL PROTEIN, TOTAL (test code = 8.3 G/DL 2228) ALBUMIN (test code = 2201) 4.6 G/DL CALC GLOBULIN (test code = 3.7 G/DL 2240) CALC A/G RATIO (test code = 1.2 RATIO 2233) BILIRUBIN, TOTAL (test code = 0.4 MG/DL 2206) ALKALINE PHOSPHATASE (test 149 U/L code = 2204) AST (test code = 2218) 82 U/L ALT (test code = 2219) 96 U/L COMPREHENSIVE METABOLIC [id number] 00:00:00 Test Item Value Reference Range Interpretation Comments GLUCOSE (test code = 2217) 253 MG/DL BUN (test code = 2208) 11 MG/DL CREATININE (test code = 2214) 0.63 MG/DL eGFR AMER. (test code 126 ML/MIN/1.73 = 90196) eGFR NON- AMER. (test 108 ML/MIN/1.73 code = 55997) CALC BUN/CREAT (test code = 17 RATIO 2235) SODIUM (test code = 2231) 140 MEQ/L POTASSIUM (test code = 2228) 4.4 MEQ/L CHLORIDE (test code = 2215) 101 MEQ/L CARBON DIOXIDE (test code = 27 MEQ/L 2206) CALCIUM (test code = 2209) 10.3 MG/DL PROTEIN, TOTAL (test code = 8.3 G/DL 2228) ALBUMIN (test code = 2201) 4.6 G/DL CALC GLOBULIN (test code = 3.7 G/DL 2240) CALC A/G RATIO (test code = 1.2 RATIO 2234) BILIRUBIN, TOTAL (test code = 0.4 MG/DL 2207) ALKALINE PHOSPHATASE (test 149 U/L code = 2204) AST (test code = 2218) 82 U/L ALT (test code = 2219) 96 U/L CBC W/AUTO [id number] 00:00:00 Test Item Value Reference Range Interpretation Comments WBC (test code = 1001) 10.6 K/UL RBC (test code = 1002) 4.43 M/UL HEMOGLOBIN (test code = 1003) 14.3 G/DL HEMATOCRIT (test code = 1004) 41.9 % MCV (test code = 1005) 94.6 fL MCH (test code = 1006) 32.3 PG MCHC (test code = 1007) 34.1 G/DL RDW (test code = 1038) 11.9 % NEUTROPHILS (test code = 1008) 66.7 % LYMPHOCYTES (test code = 1010) 27.4 % MONOCYTES (test code = 1011) 5.1 % EOSINOPHILS (test code = 1012) 0.2 % BASOPHILS (test code = 1013) 0.2 % IMMATURE GRANULOCYTES (test 0.4 % code = 1036) NUCLEATED RBCS (test code = 0.0 /100WBC'S 1065) PLATELET COUNT (test code = 239 K/UL 1015) ABSOLUTE NEUTROPHILS (test code 7.08 K/UL = 1066) ABSOLUTE LYMPHOCYTES (test code 2.91 K/UL = 1067) ABSOLUTE MONOCYTES (test code = 0.54 K/UL 1068) ABSOLUTE EOSINOPHILS (test code 0.02 K/UL = 1040) ABSOLUTE BASOPHILS (test code = 0.02 K/UL 1069) ABS IMMATURE GRANULOCYTES (test 0.04 K/UL code = 1020) ABS NUCLEATED RBCS (test code = 0.00 K/UL 09925) CBC W/AUTO [id number] 00:00:00 Test Item Value Reference Range Interpretation Comments WBC (test code = 1001) 10.6 K/UL RBC (test code = 1002) 4.43 M/UL HEMOGLOBIN (test code = 1003) 14.3 G/DL HEMATOCRIT (test code = 1004) 41.9 % MCV (test code = 1005) 94.6 fL MCH (test code = 1006) 32.3 PG MCHC (test code = 1007) 34.1 G/DL RDW (test code = 1038) 11.9 % NEUTROPHILS (test code = 1008) 66.7 % LYMPHOCYTES (test code = 1010) 27.4 % MONOCYTES (test code = 1011) 5.1 % EOSINOPHILS (test code = 1012) 0.2 % BASOPHILS (test code = 1013) 0.2 % IMMATURE GRANULOCYTES (test 0.4 % code = 1036) NUCLEATED RBCS (test code = 0.0 /100WBC'S 1065) PLATELET COUNT (test code = 239 K/UL 1015) ABSOLUTE NEUTROPHILS (test code 7.08 K/UL = 1066) ABSOLUTE LYMPHOCYTES (test code 2.91 K/UL = 1067) ABSOLUTE MONOCYTES (test code = 0.54 K/UL 1068) ABSOLUTE EOSINOPHILS (test code 0.02 K/UL = 1040) ABSOLUTE BASOPHILS (test code = 0.02 K/UL 1069) ABS IMMATURE GRANULOCYTES (test 0.04 K/UL code = 1020) ABS NUCLEATED RBCS (test code = 0.00 K/UL 02341) CBC W/AUTO [id number] 00:00:00 Test Item Value Reference Range Interpretation Comments WBC (test code = 1001) 10.6 K/UL RBC (test code = 1002) 4.43 M/UL HEMOGLOBIN (test code = 1003) 14.3 G/DL HEMATOCRIT (test code = 1004) 41.9 % MCV (test code = 1005) 94.6 fL MCH (test code = 1006) 32.3 PG MCHC (test code = 1007) 34.1 G/DL RDW (test code = 1038) 11.9 % NEUTROPHILS (test code = 1008) 66.7 % LYMPHOCYTES (test code = 1010) 27.4 % MONOCYTES (test code = 1011) 5.1 % EOSINOPHILS (test code = 1012) 0.2 % BASOPHILS (test code = 1013) 0.2 % IMMATURE GRANULOCYTES (test 0.4 % code = 1036) NUCLEATED RBCS (test code = 0.0 /100WBC'S 1065) PLATELET COUNT (test code = 239 K/UL 1015) ABSOLUTE NEUTROPHILS (test code 7.08 K/UL = 1066) ABSOLUTE LYMPHOCYTES (test code 2.91 K/UL = 1067) ABSOLUTE MONOCYTES (test code = 0.54 K/UL 1068) ABSOLUTE EOSINOPHILS (test code 0.02 K/UL = 1040) ABSOLUTE BASOPHILS (test code = 0.02 K/UL 1069) ABS IMMATURE GRANULOCYTES (test 0.04 K/UL code = 1020) ABS NUCLEATED RBCS (test code = 0.00 K/UL 64101) [id number] 00:00:00 Test Item Value Reference Range Interpretation Comments FERRITIN (test code = 2074) 532 NG/ML [id number] 00:00:00 Test Item Value Reference Range Interpretation Comments FERRITIN (test code = 2074) 532 NG/ML
[2022-03-16 22:25] LABS: Urine Blood 3+ (Negative); Urine Glucose Negative (Negative); Urine Protein 3+ (Negative); Urine Specific Gravity >=1.030 (1.005-1.030); Urine pH 5.5 (5.0-7.0)
[2022-03-16 22:34] LABS: Absolute Lymphocytes (CBC) 2.6 K/uL (0.7-4.9); Hematocrit 38.4 % (36.0-45.0); Lymphocytes % 17.8 % (15.3-44.8); MCV 96.2 fL (80-100); MPV 9.9 fL (7.6-11.3); RBC Red Blood Cell Count 3.99 M/uL (3.86-4.86)
[2022-03-16 22:35] LABS: Urine Specific Gravity/Preg >1.030 (1.005-1.030)
[2022-03-16 22:41] LABS: Urine Bacteria 20-50 /HPF (<20); Urine Mucus 2+ /HPF (None Seen); Urine RBC >50 /HPF (None Seen)
[2022-03-16 22:47] LABS: Albumin 3.5 g/dL (3.4-5.0); Potassium 4.1 mmol/L (3.5-5.1)
[2022-03-16 22:51] LABS: Bilirubin Total 0.4 mg/dL (0.2-1.0); Protein, Total 8.4 g/dL (6.4-8.2)
[2022-03-16] MEDS ORDERED: NA CHLORIDE 0.9% 1,000 ML ONE (23:32)
[2022-03-16] MEDS ORDERED: KETOROLAC 30 MG/ML INJ ONE (23:32)
[2022-03-17] MEDS ORDERED: CEFTRIAXONE 1000 MG/VIAL ONE (00:05)
--- NOTE | 2022-03-17 01:02 | ER ---
Nurse's Notes [facility] Name: Augustina Coe Age: 47 yrs Sex: Female : 1975 Arrival Date: 03/16/2022 Time: 20:58 Bed 10 Private MD: Diagnosis: Calculus of kidney with calculus of ureter-right Presentation: 03/16 21:30 Chief complaint:. Chief complaint: Patient states: Pt reports RLQ pain and blood in kb3 urine since this afternoon with associated nausea. Reports mild vaginal pain with urination. Denies vomiting and diarrhea. Coronavirus screen: Vaccine status: Patient reports being unvaccinated. Client denies travel out of the [place] in the last 14 days. Ebola Screen: Patient negative for fever greater than or equal to 101.5 degrees Fahrenheit, and additional compatible Ebola Virus Disease symptoms Patient denies exposure to infectious person. Patient denies travel to an Ebola-affected area in the 21 days before illness onset. Initial Sepsis Screen: Does the patient meet any 2 criteria? No. Patient's initial sepsis screen is negative. Does the patient have a suspected source of infection? No. Patient's initial sepsis screen is negative. Risk Assessment: Do you want to hurt yourself or someone else? Patient reports no desire to harm self or others. Onset of symptoms was March 16, 2022 at 12:00. 21:30 Method Of Arrival: Ambulatory kb3 21:30 Acuity: KAR 3 kb3 Triage Assessment: 21:34 General: Appears in no apparent distress. Behavior is calm, cooperative. Pain: kb3 Complains of pain in right femoral area and right inguinal area Pain does not radiate. Pain currently is 8 out of 10 on a pain scale. GI: Reports upper abdominal pain, nausea. 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 Last tetanus immunization: unknown. - Social history:: Smoking status: Patient denies any tobacco usage or history of. Screenin:27 Abuse screen: Denies threats or abuse. Denies injuries from another. Nutritional tp1 screening: No deficits noted. Tuberculosis screening: No symptoms or risk factors identified. Fall Risk None identified. Assessment: 22:27 General: Appears in no apparent distress. uncomfortable, Behavior is calm, cooperative. tp1 Pain: Complains of pain in right lower quadrant Pain radiates to groin Pain currently is 10 out of 10 on a pain scale. Quality of pain is described as sharp, Pain began 1 month ago Is intermittent. Neuro: Level of Consciousness is awake, alert, obeys commands, Oriented to person, place, time, situation. Cardiovascular: Patient's skin is warm and dry. Respiratory: Airway is patent Respiratory effort is even, unlabored. GI: Abdomen is obese, Abd is soft and non tender X 4 quads. Reports nausea, Patient currently denies diarrhea, vomiting. : Reports burning with urination, blood in urine. EENT: No signs and/or symptoms were reported regarding the EENT system. Derm: Skin is pink, warm \T\ dry. Musculoskeletal: Circulation, motion, and sensation intact. 23:42 Reassessment: Patient is alert, oriented x 3, equal unlabored respirations, skin bb warm/dry/pink. awaiting diagnostic results, IV site intact, family at bedside. 03/17 00:10 Reassessment: Patient is alert, oriented x 3, equal unlabored respirations, skin bb warm/dry/pink. the pain has decreased. Patient states feeling better. 01:19 Reassessment: Patient is alert, oriented x 3, equal unlabored respirations, skin bb warm/dry/pink. discussed need for transfer pt verbalized understanding of and agrees to plan of care family at bedside. 02:22 Reassessment: eyes closed, resp unlabored, IV site intact, patent with fluids infusing, bb awaiting transfer. 03:01 Reassessment: Patient is alert, oriented x 3, equal unlabored respirations, skin bb warm/dry/pink. pt signed transfer form report called to Mouna ALVARADO for transfer to [facility]. Vital Signs: 03/16 21:30 BP 122 / 73; Pulse 73; Resp 20; Temp 98.6; Pulse Ox 100% ; Weight 59.87 kg; Height 5 kb3 ft. 1 in. (154.94 cm); Pain 8/10; 23:44 BP 123 / 72; Pulse 92; Resp 18 S; Pulse Ox 98% on R/A; Pain 9/10; bb 03/17 01:13 BP 125 / 77; Pulse 85; Resp 16; Pulse Ox 100% on R/A; mw2 01:19 BP 125 / 77; Pulse 85; Resp 16 S; Pulse Ox 100% on R/A; bb 02:22 BP 111 / 73; Pulse 75; Resp 16 S; Pulse Ox 98% on R/A; bb 03:03 Temp 98.5(O); bb 03/16 21:30 Body Mass Index 24.94 (59.87 kg, 154.94 cm) kb3 ED Course: 03/16 20:58 Patient arrived in ED. as 21:22 Sarwat Mehta PA is PHCP. cp 21:22 Lauro Juan DO is Attending Physician. cp 21:30 Zainab Chacko, CHRISTIANO is Primary Nurse. kb3 21:34 Triage completed. kb3 21:34 Arm band placed on right wrist. kb3 22:26 Patient has correct armband on for positive identification. Bed in low position. Call tp1 light in reach. Adult w/ patient. Pulse ox on. NIBP on. 22:26 Inserted saline lock: 20 gauge in right antecubital area, using aseptic technique. tp1 Blood collected. 23:55 CT Stone Protocol In Process Unspecified. EDMS 03/17 00:58 initiated a transfer with Sandra Sam from [facility] Transfer [facility]. mw2 01:06 [facility] is at capacity. Transfer canceled. Patient wants to go to [address] 01:08 initiated a transfer with Ba from [facility]. mw2 02:04 Connected Sarwat Horner with the Doctor from [facility]. mw2 02:39 administrative approval given by Ba Muniz/ patient has been accepted to [address] to bed 1650/ Dr. España accepted the patient in transfer/report to be called to [phone]. 03:42 No provider procedures requiring assistance completed. Patient transferred, IV remains bb in place. Administered Medications: 03/16 23:35 Drug: NS 0.9% 1000 ml Route: IV; Rate: 1 bolus; Site: right antecubital; bb 03/17 01:18 Follow up: IV Status: Completed infusion; IV Intake: 950ml bb 03/16 23:35 Drug: Ketorolac 15 mg Route: IVP; Site: right antecubital; bb 03/17 00:10 Follow up: Response: Pain is decreased bb 00:10 Drug: Rocephin (cefTRIAXone) 1 grams Route: IV; Rate: calculated rate; Site: right bb antecubital; 00:15 Follow up: IV Status: Completed infusion; IV Intake: 10ml bb 01:19 Drug: NS 0.9% 1000 ml Route: IV; Rate: 125 ml/hr; Site: right antecubital; bb Medication: 03/16 22:26 VIS not applicable for this client. tp1 Intake: 03/17 00:15 IV: 10ml; Total: 10ml. bb 01:18 IV: 950ml; Total: 960ml. bb Outcome: 01:02 ER care complete, transfer ordered by . darius 03:42 Transferred by ground EMS to [facility], Transfer form completed. bb X-rays sent w/ patient. 03:42 Condition: stable 03:42 Instructed on the need for transfer. 03:42 Patient left the ED. bb Signatures: Dispatcher [employer] EDMS Anabela Downs Brenda RN RN bb Sarwat Mehta PA PA cp Maddy Goldstein mw2 Linsey Childress RN RN tp1 Zainab Chacko, CHRISTIANO RN kb3 Corrections: (The following items were deleted from the chart) 03/16 21:36 21:30 Chief complaint: Patient states: Pt reports RLQ pain and blood in urine since kb3 this afternoon with associated nausea. Denies vomiting and diarrhea kb3
--- NOTE | 2022-03-17 01:02 | EDPHYS ---
Physician Documentation [facility] Name: Augustina Coe Age: 47 yrs Sex: Female : 1975 Arrival Date: 03/16/2022 Time: 20:58 Bed 10 Private MD: ED Physician Lauro Juan HPI: 03/16 23:00 This 47 yrs old Female presents to ER via Ambulatory with complaints of cp Abdominal Pain, Urinary Problem. 23:00 The patient presents with abdominal pain in the right upper quadrant, times 1 month, cp started having RLQ pain yesterday. Associated signs and symptoms: Pertinent positives: chest pain, hematuria, nausea, radiating pain to vagina, Pertinent negatives: blood in stools, constipation, diarrhea, dysuria, fever, vomiting. The symptoms are described as achy. Severity of pain: in the emergency department the pain is unchanged despite home interventions. 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 Last tetanus immunization: unknown. - Social history:: Smoking status: Patient denies any tobacco usage or history of. ROS: 23:05 Constitutional: Negative for body aches, chills, fever, poor PO intake. cp 23:05 Eyes: Negative for injury, pain, redness, and discharge. cp 23:05 ENT: Negative for drainage from ear(s), ear pain, sore throat, difficulty swallowing, difficulty handling secretions. 23:05 Cardiovascular: Positive for chest pain, Negative for edema, palpitations. 23:05 Respiratory: Negative for cough, shortness of breath, wheezing. 23:05 Abdomen/GI: Positive for abdominal pain, nausea, of the right lower quadrant, Negative for vomiting, diarrhea, constipation. 23:05 Back: Negative for pain at rest, pain with movement. 23:05 : Positive for hematuria, radiating pain to vagina, Negative for burning with urination. 23:05 Skin: Negative for cellulitis, rash. 23:05 Neuro: Negative for altered mental status, headache, weakness. 23:05 All other systems are negative. Exam: 23:15 Constitutional: The patient appears in no acute distress, alert, awake, non-toxic, well cp developed, well nourished, uncomfortable. 23:15 Head/Face: Normocephalic, atraumatic. cp 23:15 Eyes: Periorbital structures: appear normal, Conjunctiva: normal, no exudate, no injection, Sclera: no appreciated abnormality, Lids and lashes: appear normal, bilaterally. 23:15 ENT: External ear(s): are unremarkable, Nose: is normal, Mouth: Lips: moist, Oral mucosa: moist, Posterior pharynx: Airway: no evidence of obstruction, patent. 23:15 Chest/axilla: Inspection: normal. 23:15 Cardiovascular: Rate: normal, Rhythm: regular. 23:15 Respiratory: the patient does not display signs of respiratory distress, Respirations: normal, no use of accessory muscles, no retractions, labored breathing, is not present, Breath sounds: are clear throughout, no decreased breath sounds, no stridor, no wheezing. 23:15 Abdomen/GI: Inspection: abdomen appears normal, Bowel sounds: active, all quadrants, Palpation: soft, in all quadrants, moderate abdominal tenderness, in the right lower quadrant, rebound tenderness, is not appreciated, involuntary guarding, is not appreciated. 23:15 Back: CVA tenderness, is absent. 23:15 Skin: cellulitis, is not appreciated, no rash present. 23:15 Neuro: Orientation: to person, place \T\ time. Mentation: is normal, Motor: moves all fours, strength is normal, Sensation: is normal. Vital Signs: 21:30 BP 122 / 73; Pulse 73; Resp 20; Temp 98.6; Pulse Ox 100% ; Weight 59.87 kg; Height 5 kb3 ft. 1 in. (154.94 cm); Pain 8/10; 23:44 BP 123 / 72; Pulse 92; Resp 18 S; Pulse Ox 98% on R/A; Pain 9/10; bb 11/13 01:13 BP 125 / 77; Pulse 85; Resp 16; Pulse Ox 100% on R/A; mw2 01:19 BP 125 / 77; Pulse 85; Resp 16 S; Pulse Ox 100% on R/A; bb 02:22 BP 111 / 73; Pulse 75; Resp 16 S; Pulse Ox 98% on R/A; bb 03:03 Temp 98.5(O); bb 03/16 21:30 Body Mass Index 24.94 (59.87 kg, 154.94 cm) kb3 MDM: 03/16 22:08 Patient medically screened. 23:00 Differential diagnosis: appendicitis, Pyelonephritis, Ureterolithiasis, urinary tract cp infection, sepsis. 03/17 01:00 Data reviewed: vital signs, nurses notes, lab test result(s), radiologic studies, CT cp scan, I have discussed the patient's presentation/case with the attending Emergency Department Physician;. 01:00 Counseling: I had a detailed discussion with the patient and/or guardian regarding: the historical points, exam findings, and any diagnostic results supporting the discharge/admit diagnosis, lab results, radiology results, the need to transfer to another facility, [facility] does not immediately have the required specialist. Response to treatment: the patient's symptoms have mildly improved after treatment. 02:05 Physician consultation: was contacted at 02:00, regarding regarding transfer, to [facility]. patient's condition, accepting physician will be DR España. 03/16 22:10 Order name: CBC with Diff; Complete Time: 23:26 03/16 23:27 Interpretation: Normal except: WBC 14.70; ANG% 75.4; NEUT A 11.1. 03/16 22:10 Order name: CMP; Complete Time: 23:26 03/17 00:56 Interpretation: Reviewed. 03/16 22:10 Order name: Lipase; Complete Time: 23:26 03/16 22:10 Order name: Urine Microscopic Only; Complete Time: 23:26 03/16 23:27 Interpretation: Abnormal: UWBC 10-20; URBC >50; UBACT 20-50. 03/16 22:24 Order name: CK; Complete Time: 00:55 03/16 22:25 Order name: Urine Dipstick-Ancillary; Complete Time: 23:26 [facility] 03/16 22:30 Order name: Urine --Ancillary (enter results); Complete Time: 23:26 mw2 03/16 22:57 Order name: Urine Culture [facility] 03/16 23:28 Order name: CT Stone Protocol 03/17 00:56 Order name: SARS RAPID; Complete Time: 02:06 cp 03/17 02:10 Order name: Blood Culture Adult (2) cp 03/17 02:10 Order name: Lactate cp 03/17 02:10 Order name: Procalcitonin cp 03/16 22:10 Order name: IV Saline Lock; Complete Time: 22:26 cp 03/16 22:10 Order name: Labs collected and sent; Complete Time: 22:26 cp 03/16 22:10 Order name: Urine Dipstick-Ancillary (obtain specimen); Complete Time: 22:26 cp 03/16 22:10 Order name: Urine Test (obtain specimen); Complete Time: 22:14 cp Administered Medications: 03/16 23:35 Drug: NS 0.9% 1000 ml Route: IV; Rate: 1 bolus; Site: right antecubital; 03/17 01:18 Follow up: IV Status: Completed infusion; IV Intake: 950ml 03/16 23:35 Drug: Ketorolac 15 mg Route: IVP; Site: right antecubital; 03/17 00:10 Follow up: Response: Pain is decreased 00:10 Drug: Rocephin (cefTRIAXone) 1 grams Route: IV; Rate: calculated rate; Site: right bb antecubital; 00:15 Follow up: IV Status: Completed infusion; IV Intake: 10ml 01:19 Drug: NS 0.9% 1000 ml Route: IV; Rate: 125 ml/hr; Site: right antecubital; Disposition: 04:38 Co-signature as Attending Physician, Lauro MYERS was immediately available on-site ms3 in the Emergency Department for consultation in the care of the patient. Disposition Summary: 03/17/22 01:02 Transfer Ordered Transfer Location: [facility] cp Reason: Higher level of care cp Condition: Stable cp Problem: new cp Symptoms: have improved cp Accepting Physician: DR España(03/17/22 03:42) bb Diagnosis - Calculus of kidney with calculus of ureter - right cp Forms: - Medication Reconciliation Form cp - SBAR form cp Signatures: Dispatcher [employer] [place] Fischer RN RN bb Page, Corey, PA PA cp Lauro Juan DO DO ms3 Zainab Chacko RN RN kb3 Corrections: (The following items were deleted from the chart) 02:04 03/16 23:00 Associated signs and symptoms: Pertinent positives: chest pain, nausea, cp Pertinent negatives: blood in stools, constipation, diarrhea, dysuria, fever, vomiting, cp 03/17 02:11 01:02 Doctor cp cp 03:42 02:11 DR Taco mccoy bb
[2022-03-17] MEDS ORDERED: NA CHLORIDE 0.9% 1,000 ML ONE (01:15)
[2022-03-17 01:38] LABS: SARS-CoV-2 Antigen Rapid Res Negative (Negative)
[2022-03-17 04:11] VITALS: BP 111/73; O2SAT 98
[2022-03-17 04:12] VITALS: TEMP 98.5
--- NOTE | 2022-03-18 12:33 | RAD REPORT ---
EXAM DESCRIPTION: CT - Stone Protocol - 03/17/2022 6:30 am CLINICAL HISTORY: The patient is 47 years old and is Female; hematuria, right lower abdomen pain TECHNIQUE: Axial computed tomography images of the abdomen and pelvis without intravenous contrast. Sagittal and coronal reformatted images were created and reviewed. This CT exam was performed usi ng one or more of the following dose reduction techniques: automated exposure control, adjustment o f the mA and/or kV according to patient size, and/or use of iterative reconstruction technique. DLP: 458 mGy*cm COMPARISON: None. FINDINGS: LUNG BASES: Lung bases are clear. HEART: Visualized heart is normal. ABDOMEN: LIVER: Advanced hepatic steatosis. GALLBLADDER AND BILE DUCTS: Contracted gallbladder. No calcified stones. No ductal dilation. PANCREAS: Unremarkable. No ductal dilation. SPLEEN: Unremarkable. No splenomegaly. ADRENALS: Unremarkable. No mass. KIDNEYS AND URETERS: Obstructive proximal right ureteral stone measuring up to 7.7 mm. Severe hydro nephrosis, hydroureter and enlargement of the right kidney. Enlargement of the right kidney with 1.9 cm hypodensity as well as additional nonobstructive stone measuring 8 m. Bilateral renal cysts. Addit ional punctate nonobstructive left renal stone. STOMACH AND BOWEL: Moderate stool burden. No obstruction. No mucosal thickening. PELVIS: APPENDIX: The appendix is seen and is within normal limits. BLADDER: Unremarkable. No stones. REPRODUCTIVE: Unremarkable as visualized. ABDOMEN and PELVIS: INTRAPERITONEAL SPACE: Unremarkable. No free air. No significant fluid collection. BONES/JOINTS: No acute fracture. No dislocation. SOFT TISSUES: Fat-containing ventral hernia. VASCULATURE: Unremarkable. No abdominal aortic aneurysm. LYMPH NODES: Unremarkable. No enlarged lymph nodes. IMPRESSION: 1. Obstructive proximal right ureteral stone measuring up to 7.7 mm. Severe hydronephr osis, hydroureter and enlargement of the right kidney. Enlargement of the right kidney . Correlate wi th urinalysis for superimposed infectious process. 2. Additional bilateral nonobstructive stones measuring up to 8 mm. 3. Moderate stool burden. Correlate for constipation. 4. Advanced hepatic steatosis. Electronically signed by: Anand Iverson DO 03/17/2022 12:39 AM WINCHMAN/CRANE OPERATOR Due to temporary technical issues with the PACS/Fluency reporting system, reports are being signed by the in house radiologists without review as a courtesy to insure prompt reporting. The interpreting radiologist is fully responsible for the content of the report.
== END 2022-03-17 03:42 | disposition short-term general hospital (02) ==
LOC: ER 20:57
DX: N20.2 Calculus of kidney with calculus of ureter (principal)
CPT/HCPCS: 36415; 74176; 76377; 80053; 81003; 81015; 81025; 82550; 83605; 83690; 84145; 85025; 87040; 87077; 87086; 87088; 87186; 87811; 96361; 96374; 96375; 99285; J7030

== ENCOUNTER 2022-03-19 20:16 | Emergency (ER) | payer SELFPAY ==
--- OUTSIDE RECORDS SUMMARY | 2022-03-19 20:21 | XMS REPORT | Continuity of Care Document ---
:1975 Author Organization [facility] t Address [address] [place] [address] Care Team Providers Name Role Phone Turdy Garcia Primary Care Physician [phone] Taco SMITH, Fabrizio Matos Attending Clinician Hans Nichols MD Attending Clinician HANS NICHOLS Attending Clinician Unavailable Seymour Yi MD Attending Clinician Radha Martinez MD Attending Clinician Jayson Sidhu CRNA Attending Clinician [phone] FABRIZIO MOORE Attending Clinician Unavailable KLAUDIA LOPEZ Attending Clinician Unavailable Visit, Celeste Nurse Attending Clinician Unavailable Jessica Klaudia RAPP Attending Clinician [phone] REYNOLD FRASER Attending Clinician Unavailable MICHELLE WORLEY Attending Clinician Unavailable MICHELLE WORLEY Attending Clinician Unavailable Provider, Celeste Temp Attending Clinician Unavailable Reynold Bernstein Attending Clinician JES AVILA Attending Clinician Unavailable Pgy2 Attending Clinician Unavailable Ami Angel MD Attending Clinician AMI ANGEL Attending Clinician Unavailable Jes Conroy Attending Clinician Bhakti Talley MD Attending Clinician Daniella Vegas MD Attending Clinician Doctor Unassigned, Mahomet Attending Clinician Unavailable Claudio CAMPBELL Jose Cruzrichard Glaser Attending Clinician [facility]ending Clinician Unavailable Jose F SMITH, Chaitanya Attending Clinician [phone] FABRIZIO MOORE Admitting Clinician Unavailable Payers Payer Name Policy Type Policy Number Effective Date Expiration Date S nafisa [employer] [id number] 2022 ISAI 0-100% 00:00:00 Problems Condition Condition Condition Status Onset Resolution Last Treating Co mments Source Name Details Category Date Date Treatment Clinician Date Nephrolith Nephrolith Disease Active 2021-[address] [facility] iasis 1-13 [facility]: [address] 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 2-01 ity of 00:00: [address] Branch Lichen of Lichen of Disease Active Uni vers skin skin 1-05 ity of 00:00: [address] Branch Vulvar Vulvar Disease Active 2019- Univers itching itching 0-02 ity of 00:00: [address] Branch Abnormal Abnormal Disease Active 2019- Unive rs appearance appearance 0-02 it y of of [place] [facility] Depot Depot Disease Active 2020-0 Univers contracept contracept 1-02 it y of ion ion 00:00: [address] Branch Contracept Contracept Disease Active 2018- U nivers tamera tamera 1-08 [place] [facility] History of History of Disease Active 2018- U javiders depression depression 9-20 it y of 00:00: [place] [facility] Cervical Cervical Disease Active 2018- Unive rs polyp polyp 2-13 ity of 00:00: [address] Branch Depo-Prove Depo-Prove Disease Active 2017-0 U javiders ra ra 2-03 [place]y of contrace[place] tamera status 00 [facility] Branch Allergies, Adverse Reactions, Alerts Allergy Allergy Status Severity Reaction(s) Onset Inactive Treating Comm ents Source Name Type Date Date Clinician NO KNOWN [facility] Drug Active [facility] ity [facility] Social History Social Habit Start Date Stop Date Quantity Comments Source History of Current smoker University of tobacco use [facility] History SDOH [facility] Alcohol Binge Medical Ricardo [facility] History SDOH [facility] Alcohol Comment Medical C enter History SDOH [facility] Transport Non-Med Medical Center History SDOH [facility] Alcohol Std Medical Cente r Drinks Alcohol intake 2022-03-18 2022-03-[address] [facility] 00:[facility]:00 00:00:00 non-drinker Medical Cente r (finding) History [facility] 2022-03-17 2022-03-[address] [facility] Transport Med 00:00:00 00:00:[address] History [facility] 2022-03-17 2022-03-[address] [facility] Housing Unable to 00:00:00 00:00:00 Medical Center Pay History [facility] 2022-03-17 2022-03-[address] [facility] Housing Places 00:00:00 00:00:00 Medical Ce nter Lived History [facility] 2022-03-17 2022-03-[address] [facility] Housing Homeless 00:00:00 00:00:00 Medical Center Last Year Tobacco use and 2022-03-17 2022-03-[address] [facility] exposure 00:00:00 00:00:00 Medical Center History [facility] 2022-03-17 2022-03-[address] [facility] Alcohol Frequency 00:00:00 00:00:00 Medical Center Exposure to 2021-11-11 2021-11-21 Not sure University SARS-CoV-2 00:00:00 13:30:00 [facility] (event) Branch Sex Assigned At [address] [facility] 00:00:00 00:00:00 Medical Center Smoking Status Start Date Stop Date Source Never smoker [facility] Ex-smoker 2021-11-21 00:00:00 2021-11-21 00:00:00 [facility] Medications Ordered Filled Start Stop Current Ordering Indication Dosage Frequency Signature Comments Components Source Medication Medication Date Date Medication? Clinician (SIG) Name Name tamsulosin 2021-05- Yes .4mg QD Take [address] (FLOMAX) 05-19-15 capsule [facility] 0.4 mg Cap 00:00: 23:59 (0.4 mg Med ical 24 hr 00 :00 total) by Center capsule mouth daily for 30 days. oxybutynin 2021-05- Yes 15mg QD Take [address] (DITROPAN 05-19-15 tablet (15 Liv es XL) 15 MG 00:00: 23:59 mg total) Me dical 24 hr 00 :00 by mouth Center tablet daily for 30 days. traMADoL 2021-05- Yes 50mg Take [address] [facility] (ULTRAM) 50 05-19 tablet (50 L ukes mg tablet 00:00: 23:59 mg total) Me dical 00 :00 by mouth Center every 6 (six) hours as needed for Pain for up to 10 days. Max Daily Amount: 200 mg levoFLOXaci 2021-05- Yes 500mg QD Take [address] n 05-19 tablet [facility] (LEVAQUIN) 00:00: 23:59 (500 mg Med ical 500 MG 00 :00 total) by Center tablet mouth daily for 7 days. phenazopyri 2021-05- Yes 100mg Take [address] dine 05-1918 tablet [facility] (PYRIDIUM) 00:00: 23:59 (100 mg Med ical 100 MG 00 :00 total) by Center tablet mouth 3 (three) times daily as needed for Pain for up to 3 days. medroxyPROG 2021-05- Yes [id number] 150mg Univers ESTERone 0-12 - ity of (DEPO-PROVE 15:45: 15:44 [place] [facility]) syringe 00 :00 Medical 150 mg Branch medroxyPROG 2021-05- Yes [id number] 150mg 150 mg, Univers ESTERone 0-12 - Intramuscu ity of (DEPO-PROVE 15:45: 15:44 [facility], [facility]) syringe 00 :00 [id number], Med ical 150 mg 2 doses, Branch First dose on Fri02/13/22 at 1045, Last dose on Fri05/08/22 at 1045, Routine Januvia 25 2021-0 No 1mg mg tablet 3- 00:00: 00 Januvia 25 2021-0 No 1mg mg tablet 3 00:00: 00 atorvastati 2-0 No 1mg n 10 mg 3-01 tablet 00:00: 00 atorvastati 2-0 No 1mg n 10 mg 3- tablet 00:00: 00 glipizide 2022-0 No 1mg 10 mg 2-28 tablet 00:00: 00 Dose 2-0 No Unknown 2-28 00:00: 00 glipizide 2022-0 No 1mg 10 mg 2-28 tablet 00:00: 00 Dose 2-0 No Unknown 2-28 00:00: 00 glipizide 2-0 No 1mg 10 mg 2-25 tablet 00:00: 00 glipizide 2-0 No 1mg 10 mg 2-25 tablet 00:00: 00 Nitrofurant 2021-0 2021- No [id number] 100mg Take 1 Univers oin&Nit. 2-20 capsule by ity of Macrocryst 00:00: 00:00 mouth 2 Deniz as (MACROBID) 00 :00 (two) Medical 100 mg times Branch capsule daily. Nitrofurant 2021-0 2021- No [id number] 100mg Take 1 Univers oin&Nit. 06-12-20 capsule by ity of Macrocryst 00:00: 00:00 mouth 2 Deniz as (MACROBID) 00 :00 (two) Medical 100 mg times Branch capsule daily. medroxyPROG 2021-2022- No [id number] 150mg Univers ESTERone 06-06 ity of (DEPO-PROVE 16:15: 16:14 [place] [facility]) 00 :00 Medical injection Branch 150 mg medroxyPROG 2021-2022- No [id number] 150mg 150 mg, Univers ESTERone 06-06 Intramuscu ity of (DEPO-PROVE 16:15: 16:14 [facility], [place] [facility]) 00 :00 [id number], Medical injection 4 doses, Branch 150 mg First dose on Fri06/06/21 at 1015, Last dose on Fri02/13/22 at 1015, Routine medroxyPROG 2021-2022- No [id number] 150mg Univers ESTERone 06-06 ity of (DEPO-PROVE 16:15: 16:14 [facility]) 00 :00 Medical injection Branch 150 mg medroxyPROG 2021-2022- No [id number] 150mg 150 mg, Univers ESTERone 06-06 Intramuscu ity of (DEPO-PROVE 16:15: 16:14 [place], [facility]) 00 :00 [id number], Medical injection 4 doses, Branch 150 mg First dose on Fri06/06/21 at 1015, Last dose on Fri02/13/22 at 1015, Routine medroxyPROG 2021-2022- No [id number] 150mg Univers ESTERone 06-06 ity of (DEPO-PROVE 16:15: 16:14 [facility]) 00 :00 Medical injection Branch 150 mg medroxyPROG 2022- No [id number] 150mg Univers ESTERone 06-06 ity of (DEPO-PROVE 16:15: 16:14 [facility]) 00 :00 Medical injection Branch 150 mg Dose 2020-05 No Unknown 2-07 00:00: 00 Dose 2020-05 No Unknown 2-07 00:00: 00 Dose 2020-05 No Unknown 2-07 00:00: 00 Dose 2020-05 No Unknown 2-07 00:00: 00 clobetasoL 2020-05 Yes [id number] Apply to Univers 0.05 % 2-01 area(s) 2 ity of ointment 00:00: (two) [place] 00 times Medical daily. Branch clobetasoL 2020-05 Yes [id number] Apply to Univers 0.05 % 2-01 area(s) 2 ity of ointment 00:00: (two) [place] 00 times Medical daily. Branch clobetasoL 2020-05 Yes [id number] Apply to Univers 0.05 % 2-01 area(s) 2 ity of ointment 00:00: (two) [place] 00 times Medical daily. Branch clobetasoL 2020-05 Yes [id number] Apply to Univers 0.05 % 2-01 area(s) 2 ity of ointment 00:00: (two) [place] 00 times Medical daily. Branch glipizide 2020-05 No 1mg 10 mg 1-23 tablet 00:00: 00 Dose 2020-05 No Unknown 1-23 00:00: 00 glipizide 2020-1 No 1mg 10 mg 1-23 tablet 00:00: 00 Dose 2020- No Unknown 1- 00:00: 00 Dose 2020- No Unknown 1- 00:00: 00 Dose 2020- No Unknown 1- 00:00: 00 Dose 2020- No Unknown 1-08 00:00: 00 Dose 2020- No Unknown - 00:00: 00 metroNIDAZO 2020-0 2021- No [id number] 500mg Take 1 Univers LE 500 mg 7-15 07-20 tablet by ity of tablet 00:00: 00:00 mouth [place] 00 :00 every 8 Medical (eight) Branch hours. metroNIDAZO 2020-0 2021- No [id number] 500mg Take 1 Univers LE 500 mg 7-15 07-20 tablet by ity of tablet 00:00: 00:00 mouth [place] 00 :00 every 8 Medical (eight) Branch hours. nystatin-tr 2020-0 Yes [id number] Apply to Univers iamcinolone 7-12 area(s) 2 ity of cream 00:00: (two) [place] 00 times Medical daily. Branch Clobetasol 2020-0 Yes [id number] Apply to Univers Propionate 7-12 area(s) ity of 0.05 % 00:00: every [place] lotion 00 evening. Medical Branch nystatin-tr 1-0 Yes [id number] Apply to Univers iamcinolone 7-12 area(s) 2 ity of cream 00:00: (two) [place] 00 times Medical daily. Branch Clobetasol 1-0 Yes [id number] Apply to Univers Propionate 7-12 area(s) ity of 0.05 % 00:00: every [place] lotion 00 evening. Medical Branch nystatin-tr 1-0 Yes [id number] Apply to Univers iamcinolone 7-12 area(s) 2 ity of cream 00:00: (two) [place] 00 times Medical daily. Branch Clobetasol 2021-0 Yes [id number] Apply to Univers Propionate 7-12 area(s) ity of 0.05 % 00:00: every [place] lotion 00 evening. Medical Branch nystatin-tr 2020-0 Yes [id number] Apply to Univers iamcinolone 7-12 area(s) 2 ity of cream 00:00: (two) [place] 00 times Medical daily. Branch Clobetasol 2020-0 Yes [id number] Apply to Univers Propionate 7-12 area(s) ity of 0.05 % 00:00: every [place] lotion 00 evening. Medical Branch clobetasoL 2020-0 Yes [id number] Apply to Univers 0.05 % 6-15 area(s) 2 ity of ointment 00:00: (two) [place] 00 times Medical daily. Branch clobetasoL 2020-0 Yes [id number] Apply to Univers 0.05 % 6-15 area(s) 2 ity of ointment 00:00: (two) [place] 00 times Medical daily. Branch clobetasoL 2020-0 Yes [id number] Apply to Univers 0.05 % 6-15 area(s) 2 ity of ointment 00:00: (two) [place] 00 times Medical daily. Branch clobetasoL 2020-0 Yes [id number] Apply to Univers 0.05 % 6-15 area(s) 2 ity of ointment 00:00: (two) [place] 00 times Medical daily. Branch Immunizations Ordered Filled Immunization Date Status Comments [facility] e Immunization Name Name [facility] 2017-11-18 Completed University of 00:00:00 [facility] TDAP 2017-11-18 Completed University of 00:00:00 [facility] TDAP 2017-11-18 Completed University of 00:00:00 [facility] TDAP 2017-11-18 Completed University of 00:00:00 [facility] TDAP 2015-07-14 Completed University of 00:00:00 [facility] TDAP 2015-07-14 Completed University of 00:00:00 [facility] TDAP 2015-07-14 Completed University of 00:00:00 [facility] TDAP 2015-07-14 Completed University of 00:00:00 [facility] Rubella 2011-07-17 Completed University of 00:00:00 [facility] Varicella 2011-07-17 Completed University of (varivax)(chicken 00:00:00 [place] M edical pox) Branch Rubella 2011-07-17 Completed University of 00:00:00 [facility] Varicella 2011-07-17 Completed University of (varivax)(chicken 00:00:00 [place] M edical pox) Branch Rubella 2011-07-17 Completed University of 00:00:00 [facility] Varicella 2011-07-17 Completed University of (varivax)(chicken 00:00:00 [place] M edical pox) Branch Rubella 2011-07-17 Completed University of 00:00:00 [facility] Varicella 2011-07-17 Completed University of (varivax)(chicken 00:00:00 [place] M edical pox) Branch Td 2007-05-05 Completed University of 00:00:00 [facility] Td 2007-05-05 Completed University of 00:00:00 [facility] Td 2007-05-05 Completed University of 00:00:00 [facility] Td 2007-05-05 Completed University of 00:00:00 [facility] Vital Signs Vital Name Observation Time Observation Value Comments Source Systolic blood 2022-02-13 14:37:00 122 mm[Hg] Univer sity of pressure [facility] Diastolic blood 2022-02-13 14:37:00 76 mm[Hg] Unive rsity of [facility] Heart rate 2022-02-13 14:37:00 77 /min [facility] Body temperature 2022-02-13 14:37:00 36.5 Karen [facility] Respiratory rate 2022-02-13 14:37:00 20 /min [facility] Body height 2022-02-13 14:37:00 157.5 cm [facility] Body weight 2022-02-13 14:37:00 59.104 kg [facility] BMI 2022-02-13 14:37:00 23.83 kg/m2 [facility] Systolic blood 2021-11-21 18:31:00 128 mm[Hg] Univer sity of pressure [facility] Diastolic blood 2021-11-21 18:31:00 85 mm[Hg] Unive rsity of [facility] Heart rate 2021-11-21 18:31:00 80 /min [facility] Body temperature 2021-11-21 18:31:00 36.61 Karen [facility] Respiratory rate 2021-11-21 18:31:00 18 /min [facility] Body height 2021-11-21 18:31:00 157.5 cm [facility] Body weight 2021-11-21 18:31:00 59.875 kg [facility] BMI 2021-11-21 18:31:00 24.14 kg/m2 [facility] Systolic blood 2022-03-19 11:00:00 106 mm[Hg] [facility] Diastolic blood 2022-03-19 11:00:00 76 mm[Hg] [facility] Heart rate 2022-03-19 11:00:00 72 /min [facility] Body temperature 2022-03-19 11:00:00 36.61 Karen [facility] Respiratory rate 2022-03-19 11:00:00 18 /min [facility] Oxygen saturation in 2022-03-19 11:00:00 99 /min [facility] Arterial blood by Medical Ce nter Pulse oximetry BP Systolic 2022-02-27 08:10:00 119 mm[Hg] BP [...] Respiratory Rate 2015-11-01 14:35:00 17.00 /min Procedures Procedure Date / Time Performed Performing Clinician Sour e POCT-GLUCOSE METER 2022-03-19 11:28:00 Hans Nichols [facility] POCT-GLUCOSE METER 2022-03-19 06:37:00 Hans Nichols [facility] POCT-GLUCOSE METER 2022-03-19 00:22:00 Hans Nichols [facility] POCT-GLUCOSE METER 2022-03-18 17:24:00 [facility] 2022-[facility]-18 15:48:00 [facility] ABD[facility] 2022-03-18 13:46:00 Denise [facility] POCT-GLUCOSE METER 2022-03-18 06:19[facility] 2022-03-18 04:16[facility]22-03-18 04:16[facility] PHOSPH[facility]US 2022-03-18 04:16:00 [facility] CBC W/PLT COUNT & AUTO 2022-03-18 04:16:00 [facility] HEPATIC FUNCTION PANEL 2022-03-18 04:16:00 Hans Nichols [facility] CBC W/PLT COUNT & AUTO 2022-03-18 04:16:00 [facility] PO[facility]UCOSE METER 2022-03-17 21:09[facility]00 [facility] 2022-03-17 16:17[facility] 2022-03-17 12:19:00 [facility] 2022-03-17 10:57:00 [facility] [place] FLUORO NON-SPECIFIC 2022-03-17 10:33:[address] [facility] UP TO 1 HOUR [facility] [employer] CULTURE + SMEAR 2022-03-17 10:32:53 Yi, [facility] (NON-SPUTUM) [facility] FUNGUS CULTURE + SMEAR 2022-03-17 10:32:53 [facility] SURGICALLY OBTAINED 2022-03-17 10:32:53 Kd [facility] CULTURE + GRAM STAIN Medical Ricardo ter SPIN/CONCENTRATION 2022-03-17 10:32:00 Yi Seymour [facility] L ukes CHARGE [facility] CYSTOSCOPY, WITH 2022-03-17 09:57:00 Seymour Yi [facility] es URETERAL STENT INSERTION [facility] ABORH, MANUAL 2022-03-17 07:18:00 Sarita Flores [facility] SARS-COV2/RT-PCR ([facility] & 2022-03-17 06:27:00 Clarence Jolly [facility] REF LABS) [facility] POCT-GLUCOSE METER 2022-03-17 05:52:00 Fabrizio Moore [facility] BASIC METABOLIC PANEL 2022-03-17 05:46:00 Fabrizio Moore [facility] CBC W/PLT COUNT & AUTO 2022-03-17 05:46:00 Fabrizio Moore [facility] DIFFERENTIAL [facility] MAGNESIUM 2022-03-17 05:46:00 Fabrizio Moore [facility] PHOSPHORUS 2022-03-17 05:46:00 [facility] 2022-03-17 05:46:00 Taco [facility] TYPE AND SCREEN, 2022-03-17 05:46:00 Fabrizio Moore [facility] AUTOMATED [facility] CBC W/PLT COUNT & AUTO 2022-03-17 05:46:[address] [facility] Plan of Care Planned Activity Planned Date Details Comments Source Future Scheduled 2027-11-19 DTAP/TDAP/TD VACCINES [facility] Test 00:00:00 (3 - Td or Tdap) [code Medic al Center = DTAP/TDAP/TD VACCINES (3 - Td or Tdap)] Future Scheduled 2022-03-17 Hemoglobin A1c [facility] Test 00:00:00 measurement (procedure) [facility] [code = 84091885] Future Scheduled 2022-01-03 INFLUENZA VACCINE (#1) [facility] Test 00:00:00 [code = INFLUENZA Medical Ce nter VACCINE (#1)] Future Scheduled 2021-01-17 Lipid panel (procedure) [facility] Test 00:00:00 [code = 53618511] Medical Ce nter Future Scheduled 1997-01-17 Screening for malignant [facility] Test 00:00:00 neoplasm of cervix Medical C enter (procedure) [code = 846071244] Future Scheduled 1994-01-17 HEPATITIS C SCREENING [facility] Test 00:00:00 [code = HEPATITIS C Medical Center SCREENING] Future Scheduled [address] [facility] Test 00:00:00 Counseling and Medical Cente r Screening (12+) [code = Tobacco Cessation Counseling and Screening (12+)] Future Scheduled 1986-01-17 DIABETIC EYE EXAM [code [facility] Test 00:00:00 = DIABETIC EYE EXAM] Medical Center Future Scheduled 1986-01-[address] [facility] Test 00:[facility]:00 examination Medical Center (regime/therapy) [code = 356748203] Future Scheduled 1986-01-17 Urine screening for [facility] Test 00:00:00 protein (procedure) Medical Center [code = 034246735] Future Scheduled 1982-01-[address] [facility] Test 00:00:00 0-64 YRS (1 - PCV) Medical C enter [code = PNEUMOCOCCAL VACCINE 0-64 YRS (1 - PCV)] Future Scheduled 1976 COVID-19 VACCINE (#1) [facility] Test 00:00:00 [code = COVID-[address] VACCINE (#1)] Future Scheduled 1976 CT Colonography (combo) [facility] Test 00:00:00 [code = CT Colonography [facility] (combo)] Future Scheduled 1976 Screening for malignant [facility] Test 00:00:00 neoplasm of colon Medical Ce nter (procedure) [code = 442304798] Future Scheduled 1976 Screening for malignant [facility] Test 00:00:00 neoplasm of colon Medical Ce nter (procedure) [code = 992098505] Future Scheduled 1976 Screening for malignant [facility] Test 00:00:00 neoplasm of colon Medical Ce nter (procedure) [code = 199897001] Future Scheduled 1976 Screening for malignant [facility] Test 00:00:00 neoplasm of colon Medical Ce nter (procedure) [code = 418944354] Future Scheduled 1975 Sigmoidoscopy [code = [facility] Test 00:00:00 Sigmoidoscopy] Medical Donavon r Goal Plan of Care Note [code = 13849-3] Goal Plan of Care Note [code = 72759-8] Goal Plan of Care Note [code = 76659-8] Goal Plan of Care Note [code = 82945-9] Goal Plan of Care Note [code = 25181-5] Goal Plan of Care Note [code = 81074-7] Goal Plan of Care Note [code = 01985-4] Goal Plan of Care Note [code = 08558-8] Goal Plan of Care Note [code = 48453-5] Goal Plan of Care Note [code = 57209-9] Goal Plan of Care Note [code = 18061-4] Goal Plan of Care Note [code = 01859-9] Goal Plan of Care Note [code = 21127-1] Goal Plan of Care Note [code = 20912-0] Goal Plan of Care Note [code = 85515-5] Goal Plan of Care Note [code = 96144-5] Goal Plan of Care Note [code = 36767-0] Goal Plan of Care Note [code = 67022-8] Goal Plan of Care Note [code = 31223-7] Goal Plan of Care Note [code = 62616-9] Goal Plan of Care Note [code = 44613-1] Goal Plan of Care Note [code = 97335-1] Goal Plan of Care Note [code = 49898-2] Goal Plan of Care Note [code = 00782-1] Goal Plan of Care Note [code = 65261-4] Goal Plan of Care Note [code = 50127-7] Goal Plan of Care Note [code = 52495-6] Goal Plan of Care Note [code = 32984-8] Goal Plan of Care Note [code = 40937-0] Goal Plan of Care Note [code = 92762-2] Goal Plan of Care Note [code = 60423-3] Goal Plan of Care Note [code = 19268-8] Goal Plan of Care Note [code = 02157-7] Goal Plan of Care Note [code = 98363-5] Goal Plan of Care Note [code = 61506-0] Goal Plan of Care Note [code = 96020-7] Goal Plan of Care Note [code = 78446-0] Goal Plan of Care Note [code = 83035-0] Goal Plan of Care Note [code = 58885-2] Goal Plan of Care Note [code = 18353-7] Goal Plan of Care Note [code = 63117-3] Goal Plan of Care Note [code = 24418-9] Goal Plan of Care Note [code = 96442-0] Goal Plan of Care Note [code = 34298-8] Goal Plan of Care Note [code = 38267-9] Goal Plan of Care Note [code = 47112-6] Goal Plan of Care Note [code = 84801-8] Goal Plan of Care Note [code = 01570-8] Encounters Start End Encounter Admission Attending Care Care Encounter Source Date/Time Date/Time Type Type Clinicians Facility Department ID 2022-05-08 2022-05-08 Outpatient R [facility] [id number] Univers 09:00:00 09:00:00 [facility] 2022-03-17 2022-03-19 [facility] Fabrizio Moore [facility] [id number] [facility] 04:22:00 14:00:00 [facility] 2022-03-17 2022-03-19 Outpatient ER JOSIAH NICHOLS [facility] [id number] [facility] 04:22:00 14:00:00 HANS 2022-03-17 2022-03-17 Outpatient [facility] [id number] [facility] 04:22:00 23:59:00 Michael ferrell of Medicin e 2022-03-17 2022-03-17 Surgery Kd, [facility] [id number] 09:34:00 11:08:00 [facility] 2022-03-17 2022-03-17 Anesthesia Radha Martinez [facility] [id number] 09:57:00 10:46:00 Event Jayson Sidhu [facility] 2022-02-27 2022-02-27 Outpatient SFA SFA [id number] Regulo 08:07:52 08:07:52 1026 F Pascual 2022-02-27 2022-02-27 Outpatient [id number] 00:00:00 00:00:00 Visit [id number] [id number] [id number] 454bea 2022-02-14 2022-02-14 Outpatient SFA [id number] Regulo 08:13:03 08:13:03 1013 F Pascual 2022-02-13 2022-02-13 Outpatient SFA [id number] [place]ulo 16:25:24 16:25:24 [address] [place] 2022-02-13 2022-02-13 Outpatient R JESSICA [facility] [id number] Univers 09:00:00 09:37:00 KLAUDIA pinon [facility] 2022-02-13 2022-02-13 Nurse Visit, Ang-Rmchp Nurse [facility] 1.2 .840.114 [id number] [facility] 09:00:00 09:37:00 Visit Klaudia Lopez NANOSCIENCE TECHNICIAN 350.1.13. 10 [facility] 4.2.7.2.686 Deniz as MATERNAL [phone] Med ical & CHILD [address] [place] [address] 2022-02-13 2022-02-13 Outpatient R [facility] [id number] Univers 09:00:00 09:00:00 ity [facility] 2022-02-13 2022-02-13 Outpatient R EVELIO [facility] [id number] Univers 08:30:00 08:30:00 REYNOLD daigle o [facility] 2022-02-13 2022-02-13 Outpatient [id number] 00:00:00 00:00:00 Visit [id number] [id number] 2021-11-21 2021-11-21 Outpatient R MICHELLE WORLEY [facility] [id number] Univers 12:45:00 14:08:58 MICHELLE WORLEY itmadison [facility] 2021-11-21 2021-11-21 Office Provider, Celeste Lehman UTMANOHAR 1 .2.840.114 [id number] [facility] 12:45:00 14:08:58 Visit Klaudia Lopez NANOSCIENCE TECHNICIAN 350.1.13. 10 [facility] Michelle Worley [facility] 4.2.7.2.686 [place] MATERNAL [phone] [facility] ical & CHILD [address] [place] [address] 2021-11-21 2021-11-21 Nurse Visit, Celeste Nurse [facility] 1.2 .840.114 [id number] [facility] 13:30:00 13:45:00 Visit Klaudia Lopez NANOSCIENCE TECHNICIAN 350.1.13. 10 [facility] 4.2.7.2.686 [place] as MATERNAL [phone] 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 10 [facility] 4.2.7.2.686 [place] as MATERNAL [phone] [facility] & CHILD [address] [place] [address] 2021-08-28 2021-08-28 Outpatient R JESISCA [facility] [id number] Univers 14:30:00 14:11:57 KLAUDIA daigle o f [facility] 2021-06-12 2021-06-12 Nurse Visit, Celeste Nurse [facility] 1.2 .840.114 [id number] [facility] 14:00:00 14:05:07 Visit Reynold Fraser Keila NANOSCIENCE TECHNICIAN 350.1.13.10 ity of [facility] 4.2.7.2.686 [place] as MATERNAL [phone] [address] 2021-06-12 2021-06-12 Outpatient Keila FRASER [facility] [id number] Univers 14:00:00 14:00:00 REYNOLD waite [facility] 2021-06-12 2021-06-12 Outpatient Keila FRASER [facility] [id number] Univers 14:00:00 14:00:00 REYNOLD salgueromadison ravindra [facility] 2021-06-11 2021-06-11 Telephone [facility] 1.2.840.114 [id number] Univers 00:00:00 00:00:00 Klaudia Ward NANOSCIENCE TECHNICIAN 350.1.13.10 ity of [facility] 4.2.7.2.686 [place] as MATERNAL [phone] [address] 2021-06-06 2021-06-06 Outpatient [facility] [id number] Univers 09:00:00 10:37:33 KLAUDIA waite [facility] 2021-06-06 2021-06-06 [facility] 1.2.104.961 [id number] Univers 09:00:00 10:37:33 Visit Klaudia Ward NANOSCIENCE TECHNICIAN 350.1.13.10 ity of [facility] 4.2.7.2.686 [place] as MATERNAL [phone] [address] 2021-06-06 2021-06-06 Outpatient R [facility] [id number] Univers 09:00:00 10:37:33 KLAUDIA waite [facility] 2021-06-06 2021-06-06 Outpatient R [facility] [id number] Univers 09:00:00 09:00:00 KLAUDIA waite [facility] 2021-05-10 2021-05-10 Outpatient Keila AVILA [facility] [id number] Univers 13:00:00 13:00:00 JES daigle [facility] 2021-05-10 2021-05-10 Outpatient R [facility]ITATHE [facility] [id number] Univers 08:30:00 08:30:00 JES daigle [facility] 2021-04-04 2021-04-04 Office Pgy2 UNIVERSIT 1.2.936.248 [id number] Univers 14:47:20 16:11:04 Visit Ami Angel [facility] 350.1.13.10 ity of [facility] 4.2.7.2.[place] [phone] [address] 2021-04-04 2021-04-04 Outpatient R JEANNE [facility] [id number] Univers 14:45:00 16:11:04 AMI salgueromadison [facility] 2021-03-14 2021-03-14 Outpatient R [facility] [id number] Univers 09:00:00 09:12:49 JES daigle [facility] 2021-03-14 2021-03-14 Nurse [facility] 1.2 .840.114 [id number] Univers 08:46:00 09:12:49 Visit Jes Avila NANOSCIENCE TECHNICIAN 350.1.13.10 ity of [facility] 4.2.7.2.686 [place] as MATERNAL [phone] [facility] ical & CHILD [address] [place] [address] 2020-12-25 2020-12-25 Outpatient R [facility] [id number] Univers 09:00:00 09:00:00 ity [facility] 2020-12-22 2020-12-22 Outpatient R [facility] [id number] Univers 10:00:00 10:00:00 [facility] 2020-12-20 2020-12-20 Nurse Visit, [facility] 1.2 .840.114 [id number] Univers 13:47:05 14:21:01 Visit Klaudia Lopez NANOSCIENCE TECHNICIAN 350.1.13. 10 ity of [facility] 4.2.7.2.686 Deniz as MATERNAL [phone] [facility] ical & CHILD [address] [place] [address] 2020-12-20 2020-12-20 Outpatient R [facility]ICATHE [facility] [id number] Univers 13:30:00 13:30:00 KLAUDIA ity o f [facility] 2020-11-16 2020-11-16 Telephone SHAILESH Talley 1.2.840.114 [id number] Univers 00:00:00 00:00:00 Bhakti [facility] 350.1.13.10 i ty of CL[place] [phone] [address] 2020-11-13 2020-11-13 Office Pgy2 UNIVERSIT 1.2.061.976 [id number] Univers 14:15:35 16:58:28 Visit Daniella Vegas [facility] 350.1.13. 10 ity of CL[place] [id number] [address] 2020-11-13 2020-11-13 Outpatient R [facility] [id number] Univers 15:30:00 15:30:00 ity of [facility] 2020-11-13 2020-11-13 Orders Doctor CLARENCE 1.2.840.114 [id number] Univers 00:00:00 00:00:00 Only Unassigned, OSCAR 350.1.13.10 ity of [place] [facility] 4.2.7.2.686 Deniz as [phone] [address] 2020-10-18 2020-10-18 Telephone [facility] 1.2.840.114 [id number] Univers 00:00:00 00:00:00 Klaudia Ward NANOSCIENCE TECHNICIAN 350.1.13.10 ity of [facility] 4.2.7.2.686 Deniz as MATERNAL [phone] Med ical & CHILD [address] [place] [address] 2020-10-17 2020-10-17 Office [facility] 1.2.784.301 [id number] Univers 15:43:20 16:45:09 Visit Klaudia Ward NANOSCIENCE TECHNICIAN 350.1.13.10 ity of [facility] 4.2.7.2.686 [place] as MATERNAL [phone] Med ical & CHILD [address] [place] [address] 2020-10-17 2020-10-17 Outpatient R KANDACECAMERON [facility] [id number] Univers 16:00:00 16:00:00 KLAUDIA oxana ravindra pinon [facility] 2020-09-29 2020-09-29 Nurse [facility] 1.2 .840.114 [id number] Univers 09:52:51 10:25:33 Visit Klaudia Lopez NANOSCIENCE TECHNICIAN 350.1.13. 10 ity [facility] 4.2.7.2.686 Deniz as MATERNAL [phone] [facility] & CHILD [address] [place] [address] 2020-09-29 2020-09-29 Nurse Visit, [facility] 1.2.840.114 [id number] 09:52:51 10:25:33 Visit Celeste NANOSCIENCE TECHNICIAN 350.1.13.10 Nurse [facility] 4.2.7.2.686 MATERNAL [phone] & CHILD [address] [place] [address] 2020-09-29 2020-09-29 Outpatient R [facility] [id number] Univers 10:00:00 10:00:00 [facility] 2020-09-29 2020-09-29 Outpatient R [facility] [id number] Univers 10:00:00 10:00:00 KLAUDIA jose mmadison ravindra kathrin [facility] 2020-09-29 2020-09-29 Outpatient R [facility] [id number] Univers 08:00:00 08:00:00 [facility] 2020-07-20 2020-07-20 [facility] 1.2.840.114 [id number] Univers 00:00:00 00:00:00 Outreach Jose Cruz PRIMARY 350.1.13.10 i ty of [facility] 4.2.7.2.[place] [phone] [address] 2020-07-20 2020-07-20 Patient Claudio [facility] 1.2.840.114 [id number] 00:00:00 00:00:00 Outreach Jose Cruz PRIMARY 350.1.13.10 [facility] 4.2.7.2.686 [place] [id number] [id number] 2020-07-07 2020-07-07 Outpatient R [facility] [id number] Univers 08:30:00 08:30:00 ity [facility] 2020-07-07 2020-07-07 Nurse Visit, Celeste Nurse [facility] 1.2 .840.114 [id number] Univers 07:50:29 08:06:39 Visit Klaudia Lopez NANOSCIENCE TECHNICIAN 350.1.13. 10 [facility] 4.2.7.2.686 [place] as MATERNAL [phone] [facility] [address] [place] [address] 2020-07-07 2020-07-07 Nurse Visit, [facility] 1.2.840.114 [id number] 07:50:29 08:06:39 Visit Celeste NANOSCIENCE TECHNICIAN 350.1.13.10 [facility] 4.2.7.2.686 MATERNAL [phone] & CHILD [address] [place] [address] 2020-05-09 2020-05-09 Office Margarita [facility] 1.2.135.168 [id number] Univers 08:54:26 09:58:23 Visit Jes Bravo NANOSCIENCE TECHNICIAN 350.1.13.10 it y [facility] 4.2.7.2.686 Deniz as MATERNAL [phone] [facility] & CHILD [address] [place] [address] 2020-05-09 2020-05-09 Office Margarita [facility] 1.2.807.467 [id number] 08:54:26 09:58:23 Visit Jes Bravo NANOSCIENCE TECHNICIAN 350.1.13.10 [facility] 4.2.7.2.686 MATERNAL [phone] & CHILD [address] [place] [address] 2020-05-09 2020-05-09 Outpatient R MARGARITA [facility] [id number] Univers 08:45:00 08:45:00 JES daigle [facility] 2020-04-14 2020-04-14 Nurse Visit, Celeste Nurse [facility] 1.2 .840.114 [id number] Univers 07:58:01 08:13:01 Visit Klaudia Lopez NANOSCIENCE TECHNICIAN 350.1.13. 10 ity of REGIONAL 4.2.7.2.686 Deniz as MATERNAL [phone] Med ical & CHILD [address] [place] [address] 2020-04-14 2020-04-14 Outpatient R [facility] [id number] Univers 08:00:00 08:00:00 ity of [facility] 2020-03-02 2020-03-02 Office Pool, [place] Resident UNIVERSIT 1.2.8 40.114 [id number] Univers 13:10:37 14:21:28 Visit Ami Angel [employer] 350.1.13.10 ity of [facility] 4.2.7.2.[place] [id number] [address] 2020-03-02 2020-03-02 Outpatient R [facility] [id number] Univers 13:15:00 13:15:00 ity of [facility] 2020-02-17 2020-02-22 Office [place], [place] Resident UNIVERSIT 1.2.8 40.114 [id number] Univers 14:34:25 13:47:09 Visit Ami Angel [employer] 350.1.13.10 ity of [facility] 4.2.7.2.[place] [phone] [address] 2020-02-22 2020-02-22 Telephone [place] 1.2.840.114 [id number] Univers 00:00:00 00:00:00 d, OSCAR 350.1.13.10 it y of [facility] 4.2.7.2.686 [place] l [phone] [address] 2020-02-20 2020-02-20 Telephone [place] 1.2.840.114 [id number] Univers 00:00:00 00:00:00 d, OSCAR 350.1.13.10 it y of [facility] 4.2.7.2.686 [place] l [phone] [address] 2020-02-17 2020-02-17 Outpatient R [facility] [id number] Univers 15:00:00 15:00:00 ity of [facility] 2020-02-17 2020-02-17 Orders Doctor [place] 1.2.840.114 [id number] Univers 00:00:00 00:00:00 Only Unassigned, OSCAR 350.1.13.10 ity of [place] [facility] 42.7.2.686 Deniz as [phone] [address] 2020-02-04 2020-02-04 Office Margarita [facility] 1.2.719.748 [id number] Univers 10:36:03 13:02:32 Visit Jes Bravo NANOSCIENCE TECHNICIAN 350.1.13.10 it y of [address]686 [place] as MATERNAL [phone] Med ical & CHILD [address] [place] [address] 2020-02-04 2020-02-04 Outpatient [facility] [id number] Univers 11:00:00 11:00:00 JES ity [facility] 2020-01-14 2020-01-14 Nurse [facility] 1.2 .840.114 [id number] Univers 13:34:04 13:49:04 Visit Klaudia Lopez NANOSCIENCE TECHNICIAN 350.1.13. 10 ity of [address]686 [place] as MATERNAL [phone] [facility] & CHILD [address] [place] [address] 2020-01-14 2020-01-14 Outpatient R [facility] [id number] Univers 13:30:00 13:30:00 ity [facility] 2020-01-13 2020-01-13 Outpatient R [facility] [id number] Univers 09:00:00 09:00:00 ity [facility] 2019-12-09 2019-12-09 Outpatient COH COH PDPFEJP CPU COH 00:00:00 00:00:00 [id number] 2019-10-21 2019-10-21 Office Evelio [facility] 1.2.840.114 [id number] Univers 10:06:31 10:33:05 Visit Reynold Pedraza NANOSCIENCE TECHNICIAN 350.1.13.10 ity of [address]686 [place] as MATERNAL [phone] [facility] ica & CHILD [address] [place] [address] 2019-10-21 2019-10-21 Nurse [facility] 1.2 .840.114 [id number] Univers 09:37:55 09:52:13 Visit Reynold Fraser NANOSCIENCE TECHNICIAN 350.1.13.10 ity [facility] 4.2.7.2.686 Deniz as MATERNAL [phone] [facility] ical & CHILD [address] [place] [address] 2019-10-21 2019-10-21 Outpatient R [facility] [id number] Univers 09:00:00 09:00:00 ity [facility] 2019-10-21 2019-10-21 Orders Doctor CLARENCE 1.2.840.114 [id number] Univers 00:00:00 00:00:00 Only Unassigned, OSCAR 350.1.13.10 ity of [place] [address].2.7.2.686 Deniz as [phone] [address] 2019-07-29 2019-07-29 Nurse Visit, Dale-Rmchp Nurse [facility] 1.2 .840.114 [id number] Univers 08:36:21 08:58:19 Visit Klaudia Lopez NANOSCIENCE TECHNICIAN 350.1.13. 10 ity [facility] 4.2.7.2.686 Deniz as MATERNAL [phone] [facility] & CHILD [address] [place] [address] 2019-07-29 2019-07-29 Outpatient R [facility] [id number] Univers 08:30:00 08:30:00 [facility] Results Test Description Test Time Test Comments Results Result Comments Source POC-Glucose meter 2022-03-19 11:41:27 Test Item Value Reference Range Interpretation Comme nts POC-Glucose Meter (test code = 193 mg/dL 70-110 H : TESTED AT [facility] [address] [facility] 1538) [facility], 770 30: Uniform Attendant/Techni della ID = [id number] for Salma Toro Lab Interpretation (test code = Abnormal 49645-9) [facility] [id number] 11:41:27 Test Item Value Reference Range Interpretation Comments POC-GLUCOSE METER 193 mg/dL 70-110 H : TESTED A T [facility] 6720 (BEAKER) (test code = JESSICA Pedraza [facility], 1538) 41497: Uniform Attendant/Techni della ID = [id number] for Salma Castano POCT-GLUCOSE [id number] 06:50:01 Test Item Value Reference Range Interpretation Comments POC-GLUCOSE METER 216 mg/dL 70-110 H : TESTED A T [facility] 6720 (BEAKER) (test code [facility], = 1538) 88277: Uniform Attendant/Techni della ID = [id number] for OZZ, CJ POCT-GLUCOSE [id number] 00:40:50 Test Item Value Reference Range Interpretation Comments POC-GLUCOSE METER 234 mg/dL 70-110 H : TESTED A T [facility] 6720 (BEAKER) (test code [facility], = 1538) 81187: Uniform Attendant/Techni della ID = [id number] for OZZ, CJ POCT-GLUCOSE [id number] 17:36:34 Test Item Value Reference Range Interpretation Comments POC-GLUCOSE METER 196 mg/dL 70-110 H : TESTED A T [facility] 6720 (BEAKER) (test code = JESSICA Pedraza [facility], 1538) 70349: Uniform Attendant/Techni della ID = [id number] for ELENA CALIXTO [id number] 16:28:40 Test Item Value Reference Range Interpretation Comments LIPASE (DANGELOAKER) (test code = 749) 48 U/L 8 Uniform Attendant ID - JOSE MU/S, ABDOMINAL, [id number] 14:22:00Abdomen limited area? Add comment if clarification is needed.->GallbladderReason for exam:->RUQ abdominal painShould this be performed at the bedside?->Yes [facility] : 1975 Sex: FFINAL REPORT Right upper quadrant abdominal ultrasound Clinical History: Right upper quadrant pain Discussion: Sonographic evaluation of the right upper quadrant of the abdomen is performed. The liver has normal size and measures 18.7 cm in length. The liver echotexture is normal, withoutfocal mass. There is no intra or extrahepatic biliary dilatation. The common bile duct measures 6 mm. The gallbladder has normal appearance, without wall thickening, stones, or pericholecystic fluid. The main portal vein diameter is normal, measuring 12 mm. The pancreatic head, body, and proximal taildemonstrate no abnormality. There is no ascites. The right kidney measures 12.0 cm in length and is normal in size. There is no renal mass or hydronephrosis. In the interpolar region right kidney, a 9 mm stone is noted. Segments of the inferior vena cava and aorta visualized demonstrate no abnormality. Impression: 1. There is a 9 mm nonobstructive right nephrolithiasis. Otherwise, unremarkable right upper quadrant ultrasound. Signed: Catarino Heath MDReport Verified Date/Time: 03/18/2022 14:22:12 El ectronically signed by: CATARINO HEATH M.D. on 03/18/2022 02:22 PMHEPATIC FUNCTION [id number] 09:46:49 Test Item Value Reference Range Interpretation Comments TOTAL PROTEIN (BEAKER) (test code = 6.4 gm/dL 6.0-8.3 770) ALBUMIN (BEAKER) (test code = 1145) 3.2 g/dL 3.5-5.0 L BILIRUBIN TOTAL (BEAKER) (test code 0.2 mg/dL 0.2-1.2 = 377) BILIRUBIN DIRECT (BEAKER) (test 0.1 mg/dL 0.1-0.5 code = 706) ALKALINE PHOSPHATASE (BEAKER) (test 64 U/L 40-150 code = 346) AST (SGOT) (BEAKER) (test code = 19 U/L 5-34 353) ALT (SGPT) (BEAKER) (test code = 43 U/L 6-55 347) Uniform Attendant ID - MITCHSPIN/CONCENTRATION [id number] 08:58:43 Test Item Value Reference Range Interpretation Comments Concentration charged (test code = Done 5077) [facility] [id number] 08:58:43 Test Item Value Reference Range Interpretation Comments CONCENTRATION CHARGED (BEAKER) (test Done code = 3308) POCT-GLUCOSE [id number] 06:30:59 Test Item Value Reference Range Interpretation Comments POC-GLUCOSE METER 152 mg/dL 70-110 H : TESTED A T [facility] 6720 (BEAKER) (test code = JAYDEJONNY SHERIFF [place], 1538) 639[address]: Uniform Attendant/Techni della ID = [id number] for EUNICE JAQUEZ [id number] 05:11:41 Test Item Value Reference Range Interpretation Comments MAGNESIUM (BEAKER) (test code = 2.0 mg/dL 1.6-2.6 627) Uniform Attendant ID - JOSE [id number] 05:11:41 Test Item Value Reference Range Interpretation Comments PHOSPHORUS (BEAKER) (test code = 2.5 mg/dL 2.3-4.7 604) Uniform Attendant ID - JOSE MBASIC METABOLIC [id number] 05:11:40 Test Item Value Reference Range Interpretation Comments SODIUM (BEAKER) 138 meq/L 136-145 (test code = 381) POTASSIUM 3.7 meq/L 3.5-5.1 (BEAKER) (test code = 379) CHLORIDE (BEAKER) 113 meq/L 98-107 H (test code = 382) CO2 (BEAKER) 18 meq/L 22-29 L (test code = 355) BLOOD UREA 7 mg/dL 7-21 NITROGEN (BEAKER) (test code = 354) CREATININE 0.64 mg/dL 0.57-1.25 (BEAKER) (test code = 358) GLUCOSE RANDOM 217 mg/dL 70-105 H (BEAKER) (test code = 652) CALCIUM (BEAKER) 8.5 mg/dL 8.4-10.2 (test code = 697) EGFR (BEAKER) 110 Interpretatio n of eGFR (test code = mL/min/1.73 values Stage De scription 1092) sq m Result G1 [place] l or high >=90 G2 Mildly decreased 60-89 G3a Mildl y to moderately 45-5 9 G3b Moderately to s everely 30-44 G4 Severl y decreased 15-29 G5 Kidne y failure <15Reported eGF R is based on the CKD-EPI 2020 equation that d oes not use a race coefficientEsti mated GFR is not as accur ate as Creatinine Arpita sonya in predicting glom erular filtration rate . Estimated GFR is not appl icable for dialysis patien ts Uniform Attendant ID - JOSE [facility] W/PLT COUNT & AUTO [id number] 04:49:27 Test Item Value Reference Range Interpretation Comments WHITE BLOOD CELL COUNT (BEAKER) 12.2 K/ L 3.5-10.5 H (test code = 775) RED BLOOD CELL COUNT (BEAKER) 3.30 M/ L 3.93-5.22 L (test code = 761) HEMOGLOBIN (BEAKER) (test code = 10.6 GM/DL 11.2-15.7 L 410) HEMATOCRIT (BEAKER) (test code = 32.1 % 34.1-44.9 L 411) MEAN CORPUSCULAR VOLUME (BEAKER) 97 fL 79-95 H (test code = 753) MEAN CORPUSCULAR HEMOGLOBIN 32.1 pg 25.6-32.2 (BEAKER) (test code = 751) MEAN CORPUSCULAR HEMOGLOBIN CONC 33.0 GM/DL 32.2-35.5 (BEAKER) (test code = 752) RED CELL DISTRIBUTION WIDTH 12.1 % 11.7-14.4 (BEAKER) (test code = 412) PLATELET COUNT (BEAKER) (test 213 K/CU MM 150-450 code = 756) MEAN PLATELET VOLUME (BEAKER) 11.9 fL 9.4-12.3 (test code = 754) NUCLEATED RED BLOOD CELLS 0 /100 WBC 0-0 (BEAKER) (test code = 413) NEUTROPHILS RELATIVE PERCENT 69 % (BEAKER) (test code = 429) LYMPHOCYTES RELATIVE PERCENT 24 % (BEAKER) (test code = 430) MONOCYTES RELATIVE PERCENT 6 % (BEAKER) (test code = 431) EOSINOPHILS RELATIVE PERCENT 0 % (BEAKER) (test code = 432) BASOPHILS RELATIVE PERCENT 0 % (BEAKER) (test code = 437) NEUTROPHILS ABSOLUTE COUNT 8.47 K/ L 1.56-6.13 H (BEAKER) (test code = 670) LYMPHOCYTES ABSOLUTE COUNT 2.98 K/ L 1.18-3.74 (BEAKER) (test code = 414) MONOCYTES ABSOLUTE COUNT (BEAKER) 0.72 K/ L 0.24-0.36 H (test code = 415) EOSINOPHILS ABSOLUTE COUNT 0.01 K/ L 0.04-0.36 L (BEAKER) (test code = 416) BASOPHILS ABSOLUTE COUNT (BEAKER) 0.01 K/ L 0.01-0.08 (test code = 417) IMMATURE GRANULOCYTES-RELATIVE 0.40 % 0.00-1.00 PERCENT (BEAKER) (test code = 2801) POCT-GLUCOSE [id number] 21:22:30 Test Item Value Reference Range Interpretation Comments POC-GLUCOSE METER 252 mg/dL 70-110 H : TESTED A T [facility] 6720 (BEAKER) (test code = [facility], 1538) [address]: Uniform Attendant/Techni della ID = [id number] for [facility] [place] PATRICIAE POCT-GLUCOSE [id number] 16:28:50 Test Item Value Reference Range Interpretation Comments POC-GLUCOSE METER 265 mg/dL 70-110 H : TESTED A T [facility] 6720 (BEAKER) (test code = [facility], 1538) 25005: Uniform Attendant/Techni della ID = [id number] for Al roly, Terrie POCT-GLUCOSE [id number] 12:31:05 Test Item Value Reference Range Interpretation Comments POC-GLUCOSE METER 141 mg/dL 70-110 H : TESTED A T [facility] 6720 (BEAKER) (test code = [facility], 1538) 70206: Uniform Attendant/Techni della ID = [id number] for Al roly, Terrie POCT-GLUCOSE [id number] 11:08:28 Test Item Value Reference Range Interpretation Comments POC-GLUCOSE METER 101 mg/dL 70-110 : TESTED A T [facility] 6720 (BEAKER) (test code = [facility], 1538) 78210: Uniform Attendant/Techni della ID = [id number] for PU A, LI FL, FLUORO, NON-SPECIFIC, UP TO 1 [id number] 10:33:00Reason for exam:- >stent placement [facility] CENTERName: ANI MCKENZIE : 1975 Sex: FAn imaging unit was utilized for this procedure. No radiologist interpretation was requested. Refer to the EMR for findings. Refer to PACS for any patient radiation dose information.BASIC METABOLIC [id number] 07:31:32 Test Item Value Reference Range Interpretation Comments SODIUM (BEAKER) 138 meq/L 136-145 (test code = 381) POTASSIUM 3.7 meq/L 3.5-5.1 (BEAKER) (test code = 379) CHLORIDE (BEAKER) 110 meq/L 98-107 H (test code = 382) CO2 (BEAKER) 20 meq/L 22-29 L (test code = 355) BLOOD UREA 12 mg/dL 7-21 NITROGEN (BEAKER) (test code = 354) CREATININE 0.66 mg/dL 0.57-1.25 (BEAKER) (test code = 358) GLUCOSE RANDOM 134 mg/dL 70-105 H (BEAKER) (test code = 652) CALCIUM (BEAKER) 8.7 mg/dL 8.4-10.2 (test code = 697) EGFR (BEAKER) 109 Interpretatio n of eGFR (test code = mL/min/1.73 values Stage De scription 1092) sq m Result G1 [place] l or high >=90 G2 Mildly decreased 60-89 G3a Mildl y to moderately 45-5 9 G3b Moderately to s everely 30-44 G4 Severl y decreased 15-29 G5 Kidney failure <15Reported eGF R is based on the CKD-EPI 2021 equation that d oes not use a race coefficientEsti mated GFR is not as accur ate as Creatinine Arpita sonya in predicting glom erular filtration rate . Estimated GFR is not appl icable for dialysis patien ts Uniform Attendant ID - PIAYA [id number] 07:31:32 Test Item Value Reference Range Interpretation Comments MAGNESIUM (BEAKER) (test code = 1.9 mg/dL 1.6-2.6 627) Uniform Attendant ID - VEENA [id number] 07:31:32 Test Item Value Reference Range Interpretation Comments PHOSPHORUS (BEAKER) (test code = 3.1 mg/dL 2.3-4.7 604) Uniform Attendant ID - VEENA LSARS-CoV2/RT-PCR (Asymptomatic ONLY)2022-03-17 07:29:22 Test Item Value Reference Interpretation Comments Range SARS-COV2/RT-PCR Negative Negative The SARS-Co V-2 (test code = target nucleic 70542-0) acids are not detected in thi s specimen. Negat tamera results do not preclude SARS-C oV-2 infection and should not be u sed as the sole bas is for patient management decisions. Nega tive results must be combined with clinical observations, patient history , and epidemiolog ical information. A false negative result may occu r if a specimen is improperly collected, transported or handled. This S ARS CoV-2 test is a rapid, real-tamela e RT-PCR test intended for th e qualitative detection of nucleic acid fr om SARS-CoV-2 in a nasopharyngeal swab specimen collec pauline from individual s suspected of COVID-19 by the ir healthcare provider. ZACKARY (test code = This test has been ZACKARY) authorized by FDA under an EUA for use by authorized laboratories. This test is only authorized for the duration of the declaration that circumstances exist justifying the authorization of emergency use of in vitro diagnostic tests for detection and/or diagnosis of COVID-19 under Section 564(b)(1) of the Federal Food, Drug and Cosmetic Act, 21 U.S.C. 360bbb-3(b)(1), unless the authorization is terminated or revoked sooner. Fact Sheet for Healthcare Providers: https://www.[employer]/Documents/Xp ert%20Xpress%20SAR S%20CoV-2/Fact%20S heets/302-5663%20S ARS-COV-2%20HEALTH CARE%20PROVIDERS%2 0FACT%20SHEET.pdf Fact Sheet for Healthcare Patients: https://www.[employer]/Documents/Xp ert%20Xpress%20SAR S%20CoV-2/Fact%20S heets/302-3801%20S ARS-COV-2%20PATIEN T%20FACT%20SHEET.p df Lab Interpretation Normal (test code = 16454-0) [facility]F [facility])2022-03-17 07:29:22 Test Item Value Reference Range Interpretation Comments SARS-COV2/RT-PCR Negative Negative The SARS-Co V-2 target (test code = nucleic acids a re not 8082975) detected in thi s specimen. Negative result s do not preclude SARS-C oV-2 infection and s hould not be used as the darrin e basis for patient managem ent decisions. Nega tive results must be combine d with clinical observ ations, patient history , and epidemiological information. A false negativ e result may occur if a spec imen is improperly oleksandr ected, transported or handled. This SARS CoV-2 test is a rapid, real-time RT-PC R test intended for th e qualitative detection of nu cleic acid from SARS-CoV-2 in a nasopharyngeal swab specimen collected from individuals suspected of CO VID-19 by their healthcar e provider. This test has been authorized by FDA under an EUA for use by authorized laboratories. This test is only authorized for the duration of the declaration that circumstances exist justifying the authorization of emergency use of in vitro diagnostic tests for detection and/or diagnosis of COVID-19 under Section 564(b)(1) of the Federal Food, Drug and Cosmetic Act, 21 U.S.C. 360bbb-3(b)(1), unless the authorization is terminated or revoked sooner. Fact Sheet for Healthcare Providers: https://www.[employer] m/Documents/Xpert%20Xpress%20SARS%20CoV-2/Fact%20Sheets/302-3802%92OPWF-ZFC-7%20 HEALTHCARE%20PROVIDERS%20FACT%20SHEET.pdf Fact Sheet for Healthcare Patients: https://www.[employer]Documents/Xpert%20Xp ress%20SARS%20CoV-2/Fact%20Sheets/302-3801%56GQPK-RFH-0%20PATIENT%20FACT%20SHEET .pdfPT/[id number] 06:26:14 Test Item Value Reference Range Interpretation Comments PROTIME (BEAKER) (test 15.8 seconds 11.9-14.2 H code = 759) INR (BEAKER) (test 1.35 See_Comment [Automat ed code = 370) message] The sy stem which generated this result transmitted reference range : <=5.90. The reference range was not used to interpret this result as normal/abnormal . PARTIAL THROMBOPLASTIN 30.7 seconds 22.5-36.0 TIME (BEAKER) (test code = 760) RECOMMENDED COUMADIN/WARFARIN INR THERAPY RANGESSTANDARD DOSE: 2.0 - 3.0 Includes: PROPHYLAXIS for venous thrombosis, systemic embolization; TREATMENT for venous thrombosis and/or pulmonary embolus.HIGH RISK: Target INR is 2.5-3.5 for patients with mechanical heart valves.CBC W/PLT COUNT & AUTO [id number] 06:05:49 Test Item Value Reference Range Interpretation Comments WHITE BLOOD CELL COUNT (BEAKER) 9.8 K/ L 3.5-10.5 (test code = 775) RED BLOOD CELL COUNT (BEAKER) 3.59 M/ L 3.93-5.22 L (test code = 761) HEMOGLOBIN (BEAKER) (test code = 11.5 GM/DL 11.2-15.7 410) HEMATOCRIT (BEAKER) (test code = 34.9 % 34.1-44.9 411) MEAN CORPUSCULAR VOLUME (BEAKER) 97 fL 79-95 H (test code = 753) MEAN CORPUSCULAR HEMOGLOBIN 32.0 pg 25.6-32.2 (BEAKER) (test code = 751) MEAN CORPUSCULAR HEMOGLOBIN CONC 33.0 GM/DL 32.2-35.5 (BEAKER) (test code = 752) RED CELL DISTRIBUTION WIDTH 12.6 % 11.7-14.4 (BEAKER) (test code = 412) PLATELET COUNT (BEAKER) (test 219 K/CU MM 150-450 code = 756) MEAN PLATELET VOLUME (BEAKER) 11.9 fL 9.4-12.3 (test code = 754) NUCLEATED RED BLOOD CELLS 0 /100 WBC 0-0 (BEAKER) (test code = 413) NEUTROPHILS RELATIVE PERCENT 56 % (BEAKER) (test code = 429) LYMPHOCYTES RELATIVE PERCENT 35 % (BEAKER) (test code = 430) MONOCYTES RELATIVE PERCENT 8 % (BEAKER) (test code = 431) EOSINOPHILS RELATIVE PERCENT 1 % (BEAKER) (test code = 432) BASOPHILS RELATIVE PERCENT 0 % (BEAKER) (test code = 437) NEUTROPHILS ABSOLUTE COUNT 5.53 K/ L 1.56-6.13 (BEAKER) (test code = 670) LYMPHOCYTES ABSOLUTE COUNT 3.38 K/ L 1.18-3.74 (BEAKER) (test code = 414) MONOCYTES ABSOLUTE COUNT (BEAKER) 0.75 K/ L 0.24-0.36 H (test code = 415) EOSINOPHILS ABSOLUTE COUNT 0.08 K/ L 0.04-0.36 (BEAKER) (test code = 416) BASOPHILS ABSOLUTE COUNT (BEAKER) 0.03 K/ L 0.01-0.08 (test code = 417) IMMATURE GRANULOCYTES-RELATIVE 0.30 % 0.00-1.00 PERCENT (BEAKER) (test code = 2801) POCT-GLUCOSE [id number] 06:04:38 Test Item Value Reference Range Interpretation Comments POC-GLUCOSE METER 141 mg/dL 70-110 H : TESTED A T [facility] 6720 (BEAKER) (test code = [facility] [place], 1538) 71332: Uniform Attendant/Techni della ID = [id number] for EUNICE JAQUEZ CULTURE, [id number] 13:54:11SPECIMEN NUMBER: [id number] CULTURE, URINE SPECIMEN NUMBER: [id number] SPECIMEN COMMENT: URINE SOURCE:URINE REPORT STATUS: FINAL ISOLATE NUMBER 1: ORGANISM: 02/15/2022 >100,000 CFU/ML GRAM NEGATIVE BA CILLI IDENTIFICATION: 02/16/2022 ESCHERICHIA COLI E. COLI AMOXICILLIN/CA SENSITIVE <=8/4AMPICILLIN SENSITIVE <=8CEFAZOLIN SENSITIVE <=2CEFTRIAXONE SENSITIVE <=1CIPROFLOXACIN SENSITIVE <=1LEVOFLOXACIN SENSITIVE <=2NITROFURANTOIN RESISTANT >64PIP/TAZOBAC SENSITIVE <=16TETRACYCLINE SENSITIVE <=4TOBRAMYCIN SENSITIVE <=4TRIMETH/SULFA SENSITIVE <=2/38 NOTE:NUMBERS DISPLAYED REPRESENT MINIMUM INHIBITORY CONCENTRATION (JUAN M) WHICH IS EXPRESSED IN MCG/ML. CULTURE, [id number] 00:00:00 Test Item Value Reference Range Interpretation Comments CULTURE, URINE (test SPECIMEN NUMBER: code = 34976) [id number] CULTURE, [id number] 00:00:00 Test Item Value Reference Range Interpretation Comments CULTURE, URINE (test SPECIMEN NUMBER: code = 98656) [id number] 06:53:07 Test Item Value Reference Range Interpretation Comments AMYLASE (test code = 2205) 34 U/L 28-100 [id number] 06:53:07 Test Item Value Reference Range Interpretation Comments LIPASE (test code = 26 U/L 13-60 UNLESS OTHERWISE 205) INDICATED, ALL TESTING PERFORMED [facility], [facility]. [address] [place] [id number] [place] [address] DIRECTOR: DAVID KRAFT M.D. CLIA NUMBER [id number] CAP ACCREDITATION N O. [id number] COMPREHENSIVE METABOLIC [id number] 06:52:53 Test Item Value Reference Range Interpretation Comments GLUCOSE (test code = 188 MG/DL 70-99 H 2216) BUN (test code = 8 MG/DL -20 2207) CREATININE (test 0.48 MG/DL 0.60-1.30 L code = 2214) eGFR (2020 CKD-EPI) 118 >60 (test code = 15707) ML/MIN/1.73 CALC BUN/CREAT (test 17 RATIO 6-28 code = 2235) SODIUM (test code = 141 MEQ/L 612-729 0525) POTASSIUM (test code 4.6 MEQ/L 3.5-5.4 = 2227) CHLORIDE (test code 107 MEQ/L 95-107 = 2215) CARBON DIOXIDE (test 23 MEQ/L 19-31 code = 2206) CALCIUM (test code = 9.9 MG/DL 8.5-10.5 2208) PROTEIN, TOTAL (test 7.6 G/DL 6.1-8.3 code = 2229) ALBUMIN (test code = 4.4 G/DL 3.5-5.2 [...] PHOSPHATASE 91 U/L 40-118 (test code = 2203) AST (test code = 39 U/L 9-40 2217) ALT (test code = 95 U/L 5-40 H 2218) LIPID [id number] 06:52:53 Test Item Value Reference Range Interpretation [...] MOREINFORMATION , SEE CLIENT ANNOUNCE MENT AT [email or web address] /[email or web address] RISK RATIO LDL/HDL 2.45 RATIO <3.22 (test code = 2237) HEMOGLOBIN [id number] 04:51:02 Test Item Value Reference Range Interpretation Comments HEMOGLOBIN A1c (test 7.5 % 4.2-5.6 H AMERIC AN DIABETES code = 22688) ASSOCIATION IDELINES FOR HGB A1C: PREDIABETES/INC REASED [...] TESTING OR LABORATORY C ONSULTATION. COMPREHENSIVE METABOLIC [id number] 00:00:00 Test Item Value Reference Range Interpretation Comments GLUCOSE (test code = 2217) 188 MG/DL BUN (test code = 2208) 8 MG/DL CREATININE (test code = 2214) 0.48 MG/DL eGFR (2020 CKD-EPI) (test 118 ML/MIN/1.73 code = 19087) CALC BUN/CREAT (test code = 17 RATIO 2235) SODIUM (test code = 2231) 141 MEQ/L POTASSIUM (test code = 2228) 4.6 MEQ/L CHLORIDE (test code = 2215) 107 MEQ/L CARBON DIOXIDE (test code = 23 MEQ/L 220) CALCIUM (test code = 2209) 9.9 MG/DL PROTEIN, TOTAL (test code = 7.6 G/DL 2228) ALBUMIN (test code = 2201) 4.4 G/DL CALC GLOBULIN (test code = 3.2 G/DL 2240) CALC A/G RATIO (test code = 1.4 RATIO 223) BILIRUBIN, TOTAL (test code = 0.2 MG/DL 2206) ALKALINE PHOSPHATASE (test 91 U/L code = 2204) AST (test code = 2218) 39 U/L ALT (test code = 2219) 95 U/L COMPREHENSIVE METABOLIC [id number] 00:00:00 Test Item Value Reference Range Interpretation Comments GLUCOSE (test code = 2217) 188 MG/DL BUN (test code = 2208) 8 MG/DL CREATININE (test code = 2214) 0.48 MG/DL eGFR (2020 CKD-EPI) (test 118 ML/MIN/1.73 code = 47295) CALC BUN/CREAT (test code = 17 RATIO 2235) SODIUM (test code = 2231) 141 MEQ/L POTASSIUM (test code = 2228) 4.6 MEQ/L CHLORIDE (test code = 2215) 107 MEQ/L CARBON DIOXIDE (test code = 23 MEQ/L 220) CALCIUM (test code = 2209) 9.9 MG/DL [...] (test code = 2219) 95 U/L LIPID [id number] 00:00:00 Test Item Value Reference Range Interpretation Comments CHOLESTEROL (test code = 2210) 194 MG/DL TRIGLYCERIDES (test code = 2232) 137 MG/DL HDL CHOLESTEROL (test code = 2220) 49 MG/DL CALC LDL CHOL (test code = 2237) 120 MG/DL RISK RATIO LDL/HDL (test code = 2.45 RATIO 2238) LIPID [id number] 00:00:00 Test Item Value Reference Range Interpretation Comments CHOLESTEROL (test code = 2210) 194 MG/DL TRIGLYCERIDES (test code = 2232) 137 MG/DL HDL CHOLESTEROL (test code = 2220) 49 MG/DL CALC LDL CHOL (test code = 2237) 120 MG/DL RISK RATIO LDL/HDL (test code = 2.45 RATIO 2238) HEMOGLOBIN [id number] 00:00:00 Test Item Value Reference Range Interpretation Comments HEMOGLOBIN A1c (test code = 60663) 7.5 % HEMOGLOBIN [id number] 00:00:00 Test Item Value Reference Range Interpretation Comments HEMOGLOBIN A1c (test code = 09364) 7.5 % HEMOGLOBIN [id number] 00:00:00 Test Item Value Reference Range Interpretation Comments HEMOGLOBIN A1c (test code = 66975) 7.5 % [id number] 00:00:00 Test Item Value Reference Range Interpretation Comments AMYLASE (test code = 2205) 34 U/L [id number] 00:00:00 Test Item Value Reference Range Interpretation Comments AMYLASE (test code = 2205) 34 U/L [id number] 00:00:00 Test Item Value Reference Range Interpretation Comments LIPASE (test code = 2057) 26 U/L [id number] 00:00:00 Test Item Value Reference Range Interpretation Comments LIPASE (test code = 2057) 26 U/L [id number] 00:00:00 Test Item Value Reference Range Interpretation Comments LIPASE (test code = 2057) 26 U/L [id number] 07:50:25 Test Item Value Reference Range Interpretation Comments FERRITIN (test code 327 NG/ML 13-200 H UNLESS OTHERWISE = 2074) INDICATED, ALL TESTING PERFORMED [facility] PATHOLOGY [facility] [address] [place], [place] [address] LABORATORY DIRE CTOR: DAVID ORTIZ M.D. CLIA NUMBER [id number] [facility] [id number] HEMOGLOBIN [id number] 04:46:25 Test Item Value Reference Range Interpretation Comments HEMOGLOBIN A1c (test 7.6 % 4.2-5.6 H [employer] DIABETES code = 81845) ASSOCIATION IDELINES FOR HGB A1C: PREDIABETES/INC REASED [...] TESTING OR LABORATORY C ONSULTATION. COMPREHENSIVE METABOLIC [id number] 03:56:37 Test Item Value Reference Range Interpretation Comments GLUCOSE (test code = 149 MG/DL 70-99 H 2216) BUN (test code = 11 MG/DL 6-20 2207) CREATININE (test 0.52 MG/DL 0.60-1.30 L code = 2214) eGFR (2020 CKD-EPI) 117 >60 (test code = 32603) ML/MIN/1.73 CALC BUN/CREAT (test 21 RATIO 6-28 code = 2235) SODIUM (test code = 138 MEQ/L 519-582 4033) POTASSIUM (test code 4.7 MEQ/L 3.5-5.4 = 2227) CHLORIDE (test code 101 MEQ/L 95-107 = 221) CARBON DIOXIDE (test 23 MEQ/L 19-31 code = 2206) CALCIUM (test code = 10.0 MG/DL 8.5-10.5 2208) PROTEIN, TOTAL (test 8.2 G/DL 6.1-8.3 code = 2229) ALBUMIN (test code = 4.8 G/DL 3.5-5.2 [...] PHOSPHATASE 93 U/L 40-116 (test code = 220) AST (test code = 33 U/L 9-40 2217) ALT (test code = 52 U/L 5-40 H 2218) LIPID [id number] 03:56:37 Test Item Value Reference Range Interpretation [...] MOREINFORMATION , SEE CLIENT ANNOUNCE MENT AT [email or web address] /CalcLDL-C RISK RATIO LDL/HDL 2.53 RATIO <3.22 (test code = 2238) COMPREHENSIVE METABOLIC [id number] 00:00:00 Test Item Value Reference Range Interpretation Comments GLUCOSE (test code = 2217) 149 MG/DL BUN (test code = 2208) 11 MG/DL CREATININE (test code = 2214) 0.52 MG/DL eGFR (2020 CKD-EPI) (test 117 ML/MIN/1.73 code = 05731) CALC BUN/CREAT (test code = 21 RATIO 2234) SODIUM (test code = 223) 138 MEQ/L POTASSIUM (test code = 2228) 4.7 MEQ/L CHLORIDE (test code = 2215) 101 MEQ/L CARBON DIOXIDE (test code = 23 MEQ/L 2205) CALCIUM (test code = 2209) 10.0 MG/DL PROTEIN, TOTAL (test code = 8.2 G/DL 2229) ALBUMIN (test code = 2201) 4.8 G/DL CALC GLOBULIN (test code = 3.4 G/DL 2240) CALC A/G RATIO (test code = 1.4 RATIO 2234) BILIRUBIN, TOTAL (test code = 0.4 MG/DL 220) ALKALINE PHOSPHATASE (test 93 U/L code = 2204) AST (test code = 2218) 33 U/L ALT (test code = 2219) 52 U/L COMPREHENSIVE METABOLIC [id number] 00:00:00 Test Item Value Reference Range Interpretation Comments GLUCOSE (test code = 2217) 149 MG/DL BUN (test code = 2208) 11 MG/DL CREATININE (test code = 2214) 0.52 MG/DL eGFR (2020 CKD-EPI) (test 117 ML/MIN/1.73 code = 18246) CALC BUN/CREAT (test code = 21 RATIO 2235) SODIUM (test code = 2231) 138 MEQ/L POTASSIUM (test code = 2228) 4.7 MEQ/L CHLORIDE (test code = 2215) 101 MEQ/L CARBON DIOXIDE (test code = 23 MEQ/L 2206) CALCIUM (test code = 2209) 10.0 MG/DL PROTEIN, TOTAL (test code = 8.2 G/DL 9) ALBUMIN (test code = 2201) 4.8 G/DL CALC GLOBULIN (test code = 3.4 G/DL 2240) CALC A/G RATIO (test code = 1.4 RATIO 2234) BILIRUBIN, TOTAL (test code = 0.4 MG/DL 7) ALKALINE PHOSPHATASE (test 93 U/L code = 2204) AST (test code = 2218) 33 U/L ALT (test code = 2219) 52 U/L COMPREHENSIVE METABOLIC [id number] 00:00:00 Test Item Value Reference Range Interpretation Comments GLUCOSE (test code = 2217) 149 MG/DL BUN (test code = 2208) 11 MG/DL CREATININE (test code = 2214) 0.52 MG/DL eGFR (2020 CKD-EPI) (test 117 ML/MIN/1.73 code = 59910) CALC BUN/CREAT (test code = 21 RATIO [...] CALC GLOBULIN (test code = 3.4 G/DL 2239) CALC A/G RATIO (test code = 1.4 RATIO 4) BILIRUBIN, TOTAL (test code = 0.4 MG/DL 2206) ALKALINE PHOSPHATASE (test 93 U/L code = 2204) AST (test code = 2218) 33 U/L ALT (test code = 2219) 52 U/L LIPID [id number] 00:00:00 Test Item Value Reference Range Interpretation Comments CHOLESTEROL (test code = 2210) 200 MG/DL TRIGLYCERIDES (test code = 2232) 95 MG/DL HDL CHOLESTEROL (test code = 2220) 51 MG/DL CALC LDL CHOL (test code = 2237) 129 MG/DL RISK RATIO LDL/HDL (test code = 2.53 RATIO 2238) LIPID [id number] 00:00:00 Test Item Value Reference Range Interpretation Comments CHOLESTEROL (test code = 2210) 200 MG/DL TRIGLYCERIDES (test code = 2232) 95 MG/DL HDL CHOLESTEROL (test code = 2220) 51 MG/DL CALC LDL CHOL (test code = 2237) 129 MG/DL RISK RATIO LDL/HDL (test code = 2.53 RATIO 2238) HEMOGLOBIN [id number] 00:00:00 Test Item Value Reference Range Interpretation Comments HEMOGLOBIN A1c (test code = 83526) 7.6 % HEMOGLOBIN [id number] 00:00:00 Test Item Value Reference Range Interpretation Comments HEMOGLOBIN A1c (test code = 72432) 7.6 % HEMOGLOBIN [id number] 00:00:00 Test Item Value Reference Range Interpretation Comments HEMOGLOBIN A1c (test code = 85112) 7.6 % [id number] 00:00:00 Test Item Value Reference Range Interpretation Comments FERRITIN (test code = 2075) 327 NG/ML [id number] 00:00:00 Test Item Value Reference Range Interpretation Comments FERRITIN (test code = 5) 327 NG/ML COMPREHENSIVE METABOLIC [id number] 00:00:00 Test Item Value Reference Range Interpretation Comments GLUCOSE (test code = 2217) 149 MG/DL BUN (test code = 2208) 11 MG/DL CREATININE (test code = 2214) 0.52 MG/DL eGFR (2020 CKD-EPI) (test 117 ML/MIN/1.73 code = 35187) CALC BUN/CREAT (test code = 21 RATIO 2235) SODIUM (test code = 2231) 138 MEQ/L POTASSIUM (test code = 2228) 4.7 MEQ/L CHLORIDE (test code = 2215) 101 MEQ/L CARBON DIOXIDE (test code = 23 MEQ/L 2205) CALCIUM (test code = 220) 10.0 MG/DL PROTEIN, TOTAL (test code = 8.2 G/DL 2228) ALBUMIN (test code = 220) 4.8 G/DL CALC GLOBULIN (test code = 3.4 G/DL 2239) CALC A/G RATIO (test code = 1.4 RATIO 2233) BILIRUBIN, TOTAL (test code = 0.4 MG/DL 2206) ALKALINE PHOSPHATASE (test 93 U/L code = 2204) AST (test code = 2218) 33 U/L ALT (test code = 2219) 52 U/L LIPID [id number] 00:00:00 Test Item Value Reference Range Interpretation Comments CHOLESTEROL (test code = 2210) 200 MG/DL TRIGLYCERIDES (test code = 2232) 95 MG/DL HDL CHOLESTEROL (test code = 2220) 51 MG/DL CALC LDL CHOL (test code = 2237) 129 MG/DL RISK RATIO LDL/HDL (test code = 2.53 RATIO 2238) LIPID [id number] 00:00:00 Test Item Value Reference Range Interpretation Comments CHOLESTEROL (test code = 2210) 200 MG/DL TRIGLYCERIDES (test code = 2232) 95 MG/DL HDL CHOLESTEROL (test code = 2220) 51 MG/DL CALC LDL CHOL (test code = 2237) 129 MG/DL RISK RATIO LDL/HDL (test code = 2.53 RATIO 2238) HEMOGLOBIN [id number] 00:00:00 Test Item Value Reference Range Interpretation Comments HEMOGLOBIN A1c (test code = 13672) 7.6 % HEMOGLOBIN [id number] 00:00:00 Test Item Value Reference Range Interpretation Comments HEMOGLOBIN A1c (test code = 48637) 7.6 % HEMOGLOBIN [id number] 00:00:00 Test Item Value Reference Range Interpretation Comments HEMOGLOBIN A1c (test code = 62267) 7.6 % [id number] 00:00:00 Test Item Value Reference Range Interpretation Comments FERRITIN (test code = 2075) 327 NG/ML [id number] 00:00:00 Test Item Value Reference Range Interpretation Comments FERRITIN (test code = 2075) 327 NG/ML [id number] 00:00:00 Test Item Value Reference Range Interpretation Comments TSH, THIRD GENERATION (test code 1.150 UIU/ML = 2821) [id number] 00:00:00 Test Item Value Reference Range Interpretation Comments TSH, THIRD GENERATION (test code 1.150 UIU/ML = 2821) [id number] 00:00:00 Test Item Value Reference Range Interpretation Comments TSH, THIRD GENERATION (test code 1.150 UIU/ML = 2821) [id number] 00:00:00 Test Item Value Reference Range Interpretation Comments TSH, THIRD GENERATION (test code 1.150 UIU/ML = 2821) [id number] 00:00:00 Test Item Value Reference Range Interpretation Comments TSH, THIRD GENERATION (test code 1.150 UIU/ML = 2821) [id number] 00:00:00 Test Item Value Reference Range Interpretation Comments TSH, THIRD GENERATION (test code 1.150 UIU/ML = 2821) HEMOGLOBIN [id number] 00:00:00 Test Item Value Reference Range Interpretation Comments HEMOGLOBIN A1c (test code = 53882) 11.1 % HEMOGLOBIN [id number] 00:00:00 Test Item Value Reference Range Interpretation Comments HEMOGLOBIN A1c (test code = 91892) 11.1 % HEMOGLOBIN [id number] 00:00:00 Test Item Value Reference Range Interpretation Comments HEMOGLOBIN A1c (test code = 88329) 11.1 % COMPREHENSIVE METABOLIC [id number] 00:00:00 Test Item Value Reference Range Interpretation Comments GLUCOSE (test code = 2217) 253 MG/DL BUN (test code = 2208) 11 MG/DL CREATININE (test code = 2214) 0.63 MG/DL eGFR AMER. (test code 126 ML/MIN/1.73 = 21321) eGFR NON- AMER. (test 108 ML/MIN/1.73 code = 67610) CALC BUN/CREAT (test code = 17 RATIO [...] code = 2219) 96 U/L COMPREHENSIVE METABOLIC [id number] 00:00:00 Test Item Value Reference Range Interpretation Comments GLUCOSE (test code = 2217) 253 MG/DL BUN (test code = 2208) 11 MG/DL CREATININE (test code = 2214) 0.63 MG/DL eGFR AMER. (test code 126 ML/MIN/1.73 = 14678) eGFR NON- AMER. (test 108 ML/MIN/1.73 code = 99821) CALC BUN/CREAT (test code = 17 RATIO [...] code = 2219) 96 U/L CBC W/AUTO [id number] 00:00:00 Test Item Value Reference Range Interpretation [...] NUCLEATED RBCS (test code = 0.00 K/UL 92480) CBC W/AUTO [id number] 00:00:00 Test Item Value Reference Range Interpretation [...] NUCLEATED RBCS (test code = 0.00 K/UL 30320) HEMOGLOBIN [id number] 00:00:00 Test Item Value Reference Range Interpretation Comments HEMOGLOBIN A1c (test code = 00042) 11.1 % CBC W/AUTO [id number] 00:00:00 Test Item Value Reference Range Interpretation [...] NUCLEATED RBCS (test code = 0.00 K/UL 61666) [id number] 00:00:00 Test Item Value Reference Range Interpretation Comments FERRITIN (test code = 2075) 532 NG/ML [id number] 00:00:00 Test Item Value Reference Range Interpretation Comments FERRITIN (test code = 2075) 532 NG/ML HEMOGLOBIN [id number] 00:00:00 Test Item Value Reference Range Interpretation Comments HEMOGLOBIN A1c (test code = 40670) 11.1 % HEMOGLOBIN [id number] 00:00:00 Test Item Value Reference Range Interpretation Comments HEMOGLOBIN A1c (test code = 94666) 11.1 % COMPREHENSIVE METABOLIC [id number] 00:00:00 Test Item Value Reference Range Interpretation Comments GLUCOSE (test code = 2217) 253 MG/DL BUN (test code = 2208) 11 MG/DL CREATININE (test code = 2214) 0.63 MG/DL eGFR AMER. (test code 126 ML/MIN/1.73 = 08227) eGFR NON- AMER. (test 108 ML/MIN/1.73 code = 78646) CALC BUN/CREAT (test code = 17 RATIO [...] code = 2219) 96 U/L COMPREHENSIVE METABOLIC [id number] 00:00:00 Test Item Value Reference Range Interpretation Comments GLUCOSE (test code = 2217) 253 MG/DL BUN (test code = 2208) 11 MG/DL CREATININE (test code = 2214) 0.63 MG/DL eGFR AMER. (test code 126 ML/MIN/1.73 = 81116) eGFR NON- AMER. (test 108 ML/MIN/1.73 code = 40274) CALC BUN/CREAT (test code = 17 RATIO [...] CALC GLOBULIN (test code = 3.7 G/DL 0) CALC A/G RATIO (test code = 1.2 RATIO 2233) BILIRUBIN, TOTAL (test code = 0.4 MG/DL 2206) ALKALINE PHOSPHATASE (test 149 U/L code = 2204) AST (test code = 2218) 82 U/L ALT (test code = 2219) 96 U/L CBC W/AUTO [id number] 00:00:00 Test Item Value Reference Range Interpretation [...] NUCLEATED RBCS (test code = 0.00 K/UL 83782) CBC W/AUTO [id number] 00:00:00 Test Item Value Reference Range Interpretation [...] NUCLEATED RBCS (test code = 0.00 K/UL 82802) CBC W/AUTO [id number] 00:00:00 Test Item Value Reference Range Interpretation [...] NUCLEATED RBCS (test code = 0.00 K/UL 26117) [id number] 00:00:00 Test Item Value Reference Range Interpretation Comments FERRITIN (test code = 2075) 532 NG/ML [id number] 00:00:00 Test Item Value Reference Range Interpretation Comments FERRITIN (test code = 2075) 532 NG/ML SARS-COV2/RT-PCR ([facility])2019-11-18 12:12:00 Test Item Value Reference Range Interpretation Comments SARS-COV2/RT-PCR (test code = Positive Not Detected, Negative A A [id number]) SARS-COV-2 PERFORMING LAB [facility] (test code = 9937593) Results are for the detection of SARS-CoV-2 RNA. The SARS-CoV-2 RNA is generally detectable in nasopharyngeal swab specimens during the acute phase of infection. Positive results are indicative of active infection with SARS-CoV-2; clinical correlation with patient history and other diagnostic information is necessary to determine patient infection status. Positive results do not rule out bacterial infection or co-infection with other viruses. The agent detected may not be the definite cause of disease. The limit of detection for this assay is 250 copies/mL.This SARS CoV-2 test is a rapid, ncmr-jzbmPR-NEB test intended for the qualitative detection of nucleic acid from SARS-CoV-2 in a nasopharyngeal swab specimen collected from individuals suspected of COVID-19 by their healthcare provider.This test has not been Food and Drug Administration (FDA) cleared or approved and has been authorized by FDA under an Emergency Use Authorization (EUA). This EUA will be effective until the declaration that ci rcumstances exist justifying the authorization of the emergency use of in vitro diagnostic tests fordetection and/or diagnosis of COVID-19 is terminated under Section 564(b)(2) of the Act or the EUA is revoked under Section 564(g) of the Act.Fact Sheet for Healthcare Providers:https://www.[employer] Documents/Xpert%20Xpress%20SARS%20CoV-2/Fact%20Sheets/3023802%63FRXN-ZKH-0%20HE ALTHCARE%20PROVIDERS%20FACT%20SHEET.pdfFact Sheet for Healthcare Patients:https://www.[employer]Documents/Xpert%20Xpress %20SARS%20CoV-2/Fact%20Sheets/3023801%28ENPJ-MXQ-8%20PATIENT%20FACT%20SHEET.pdf Performing Laboratory:[facility] [place] [address]
[2022-03-19] MEDS ORDERED: MORPHINE 4 MG/ML SYR ONE (20:51)
[2022-03-19] MEDS ORDERED: KETOROLAC 30 MG/ML INJ ONE (20:52)
[2022-03-19] MEDS ORDERED: ONDANSETRON 4 MG/2 ML VIAL ONE (20:52)
[2022-03-19 21:27] LABS: Absolute Lymphocytes (CBC) 3.3 K/uL (0.7-4.9); Hematocrit 36.7 % (36.0-45.0); Lymphocytes % 31.7 % (15.3-44.8); MCV 95.8 fL (80-100); MPV 10.5 fL (7.6-11.3); RBC Red Blood Cell Count 3.83 M/uL (3.86-4.86)
[2022-03-19 21:42] LABS: Specific Gravity 1.015 (1.005-1.030); Urine Bilirubin NEGATIVE (Negative); Urine Blood 3+ (OVER) (Negative); Urine Clarity Turbid (Clear); Urine Color Light-Brown (Yellow); Urine Glucose NEGATIVE (Negative); Urine Protein 2+ (Negative); Urine RBC >50 /HPF (None Seen); Urine Urobilinogen Normal (Normal); Urine pH 6.5 (5.0-7.0)
[2022-03-19 21:44] LABS: Albumin 3.2 g/dL (3.4-5.0); Bilirubin Total 0.2 mg/dL (0.2-1.0); Potassium 3.4 mmol/L (3.5-5.1); Protein, Total 7.7 g/dL (6.4-8.2)
--- NOTE | 2022-03-19 22:50 | RAD REPORT ---
EXAM DESCRIPTION: CT - Abdomen Pelvis W Contrast - 03/19/2022 10:07 pm CLINICAL HISTORY: Abdominal pain, acute, nonlocalized COMPARISON: Stone Protocol dated 03/16/2022 TECHNIQUE: Biphasic, helical CT imaging of the abdomen and pelvis was performed following 100 ml non -ionic IV contrast. Oral contrast: No. All CT scans are performed using dose optimization technique as appropriate and may include automated exposure control or mA/KV adjustment according to patient size. FINDINGS: Posterior lung base stranding is present. This is believed be atelectasis not infiltrate. The liver, spleen, and pancreas show no suspicious findings. Liver attenuation indicates mild diffuse fatty infiltration. Gallbladder and biliary tree are also without suspicious finding. Renal function is symmetric. No significant asymmetry in function identifiable. No left-sided hydrone phrosis calculi seen. Pigtail stent is in place in the right collecting system, well-positioned. Coar se calcification in the lateral upper pole right kidney is not clearly different from comparison. A 6 millimeter calcification is present in the lower pole calyx on the right. This is new from March 16. This may be stone or stone fragment from the obstructing UPJ calculus seen on the March [address] No pyelonephritis or acute parenchymal process. No bladder calculi or acute bladder finding. No a drenal abnormalities. Uterus and ovaries show no suspicious findings. No dilated bowel loops or bowel wall thickening. No appendicitis finding. No free air, free fluid or inflammatory stranding. No hernia, mass or bulky lymphadenopathy. No suspicious bony findings. IMPRESSION: Double pigtail stent is well positioned in the right collecting system. Hydronephrosis h as improved since March 16. A 6 mm stone is seen in the lower pole calyx on the right. This is this the stone or a stone fragment that was present in the right UPJ on of March 16 exam.
--- NOTE | 2022-03-19 23:30 | ER ---
Nurse's Notes [facility] Name: Augustina Coe Age: 47 yrs Sex: Female : 1975 Arrival Date: 03/19/2022 Time: 20:18 Bed 18 Private MD: Diagnosis: Calculus of kidney with calculus of ureter Presentation: 03/19 20:34 Chief complaint: Patient states: I just came out of the hospital in [place] - "Put tube ld1 in kidney." Pt holding right groin in pain. "Was told if Kidney stone moves it would be very painful." Pt reports being at this ER Friday night - transferred to [facility]. Coronavirus screen: At this time, the client does not indicate any symptoms associated with coronavirus-19. Ebola Screen: No symptoms or risks identified at this time. Initial Sepsis Screen: Does the patient meet any 2 criteria? No. Patient's initial sepsis screen is negative. Does the patient have a suspected source of infection? No. Patient's initial sepsis screen is negative. Risk Assessment: Do you want to hurt yourself or someone else? Patient reports no desire to harm self or others. Onset of symptoms was March 19, 2022. 20:34 Method Of Arrival: Ambulatory ld1 20:34 Acuity: KAR 3 ld1 Triage Assessment: 20:37 General: Appears in no apparent distress. uncomfortable, Behavior is cooperative, ld1 crying. Pain: Complains of pain in right femoral area Pain does not radiate. Pain currently is 10 out of 10 on a pain scale. Quality of pain is described as throbbing, Pain began suddenly. EENT: No signs and/or symptoms were reported regarding the EENT system. Neuro: Level of Consciousness is awake, alert, obeys commands, Oriented to person, place, time, situation. Cardiovascular: Capillary refill < 3 seconds Patient's skin is warm and dry. Respiratory: Airway is patent Respiratory effort is even, unlabored. GI: Abdomen is round non-distended. : No signs and/or symptoms were reported regarding the genitourinary system. Derm: No signs and/or symptoms reported regarding the dermatologic system. Musculoskeletal: No signs and/or symptoms reported regarding the musculoskeletal system. 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 - Social history:: Smoking status: Patient denies any tobacco usage or history of. Patient/guardian denies using alcohol. - Family history:: not pertinent. Screenin:38 Abuse screen: Denies threats or abuse. Denies injuries from another. ha1 20:38 Nutritional screening: No deficits noted. Tuberculosis screening: No symptoms or risk ha1 factors identified. Fall Risk None identified. Assessment: 20:38 General: Appears uncomfortable, Behavior is cooperative, crying. Pain: Complains of ha1 pain in right lower quadrant of abdomen Pain does not radiate. Pain currently is 10 out of 10 on a pain scale. 20:38 Neuro: Level of Consciousness is awake, alert, obeys commands, Oriented to person, ha1 place, time, situation. Cardiovascular: Patient's skin is warm and dry. Respiratory: Airway is patent Trachea midline Respiratory effort is even, unlabored, Respiratory pattern is regular, symmetrical. GI: No signs and/or symptoms were reported involving the gastrointestinal system. Abdomen is flat, Bowel sounds present X 4 quads. 21:25 Reassessment: Patient and/or family updated on plan of care and expected duration. Pain ha1 level reassessed. Patient is alert, oriented x 3, equal unlabored respirations, skin warm/dry/pink. Patient states feeling better. 22:01 Reassessment: Patient is alert, oriented x 3, equal unlabored respirations, skin ha1 warm/dry/pink. Patient is alert/active/playful, equal unlabored respirations, skin warm/dry/pink. going to CT. 22:55 Reassessment: Patient and/or family updated on plan of care and expected duration. Pain ha1 level reassessed. Patient is alert, oriented x 3, equal unlabored respirations, skin warm/dry/pink. pain 4/10. at bedside. 23:51 Reassessment: Patient and/or family updated on plan of care and expected duration. Pain ha1 level reassessed. Patient is alert, oriented x 3, equal unlabored respirations, skin warm/dry/pink. pain 3/10 Patient states feeling better. 23:53 GI:. ha1 Vital Signs: 20:34 BP 152 / 78; Pulse 70; Resp 18; Temp 98.1(O); Pulse Ox 100% on R/A; Weight 58.97 kg; ld1 Height 5 ft. 4 in. (162.56 cm); Pain 10/10; 20:38 BP 152 / 78; Pulse 70; Resp 18; Pulse Ox 100% on R/A; ha1 21:25 BP 114 / 60; Pulse 76; Resp 16 S; Pulse Ox 100% on R/A; ha1 22:00 BP 104 / 65; Pulse 69; Resp 15 S; Pulse Ox 97% on R/A; ha1 22:55 BP 116 / 61; Pulse 75; Resp 16 S; Pulse Ox 100% on R/A; ha1 23:52 BP 110 / 61; Pulse 74; Resp 16 S; Pulse Ox 100% ; ha1 20:34 Body Mass Index 22.31 (58.97 kg, 162.56 cm) ld1 ED Course: 20:18 Patient arrived in ED. dt4 20:37 Triage completed. ld1 20:37 Arm band placed on right wrist. ld1 20:38 Patient has correct armband on for positive identification. Placed in gown. Bed in low ha1 position. Call light in reach. Side rails up X 1. 20:39 [place] Marvin MD is Attending Physician. rt 20:49 Anna Marie Uriostegui, CHRISTIANO is Primary Nurse. ha1 20:51 Inserted saline lock: 20 gauge in right antecubital area, using aseptic technique. ha1 Blood collected. 22:09 CT Abd/Pelvis - IV Contrast Only In Process Unspecified. EDMS 23:52 No provider procedures requiring assistance completed. IV discontinued, intact, ha1 bleeding controlled, No redness/swelling at site. Pressure dressing applied. Administered Medications: 19:59 Drug: Ketorolac 30 mg Route: IVP; Site: right antecubital; ha1 21:25 Follow up: Response: No adverse reaction; Pain is decreased ha1 20:55 Drug: Zofran (Ondansetron) 4 mg Route: IVP; Site: right antecubital; ha1 21:25 Follow up: Response: No adverse reaction ha1 20:57 Drug: morphine 4 mg Route: IVP; Infused Over: 4 mins; Site: right antecubital; ha1 21:25 Follow up: Response: No adverse reaction; Pain is decreased; RASS: Alert and Calm (0) ha1 Medication: 23:53 VIS not applicable for this client. ha1 Outcome: 23:29 Discharge ordered by . rt 23:53 Discharged to home via wheelchair, with family. ha1 23:53 Condition: stable 23:53 Discharge instructions given to patient, family, Instructed on discharge instructions, follow up and referral plans. 23:54 Patient left the ED. ha1 Signatures: Dispatcher [employer] EDMirtha Veliz RN RN ld1 Anna Marie Uriostegui RN RN ha1 Sapphire Tesfaye dt4 Berlin aMrvin MD MD rt
--- NOTE | 2022-03-19 23:30 | EDPHYS ---
Physician Documentation [facility] Name: Augustina Coe Age: 47 yrs Sex: Female : 1975 Arrival Date: 03/19/2022 Time: 20:18 Bed 18 Private MD: ED Physician Berlin Marvin HPI: 03/19 22:19 This 47 yrs old Female presents to ER via Ambulatory with complaints of rt Abdominal Pain. 22:19 The patient complains of pain in the right mid back. The pain radiates to the abdomen. rt Onset: The symptoms/episode began/occurred 1 hour(s) ago. Modifying factors: The symptoms are alleviated by nothing. the symptoms are aggravated by movement. Associated signs and symptoms: Pertinent positives: hematuria. Severity of pain: At its worst the pain was severe. Patient was recently transferred [facility] infected ureterolithiasis, had a stent that was placed, was in the hospital for about 3 days, subsequently discharged today at about 4 PM. The patient states that she was feeling well at the time of discharge. She states that she had an acute onset of severe right flank pain rating to the suprapubic region starting at 1 hour prior to arrival. Denies other acute complaints at this time. Symptoms are moderate severity, no other aggravating alleviating factors.. 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 - Social history:: Smoking status: Patient denies any tobacco usage or history of. Patient/guardian denies using alcohol. - Family history:: not pertinent. ROS: 22:19 Constitutional: Negative for fever, chills, and weight loss, Eyes: Negative for injury, rt pain, redness, and discharge, ENT: Negative for injury, pain, and discharge, Neck: Negative for injury, pain, and swelling, Cardiovascular: Negative for chest pain, palpitations, and edema, Respiratory: Negative for shortness of breath, cough, wheezing, and pleuritic chest pain, Back: Negative for injury and pain, MS/Extremity: Negative for injury and deformity, Skin: Negative for injury, rash, and discoloration, Neuro: Negative for headache, weakness, numbness, tingling, and seizure, Psych: Negative for depression, anxiety, suicide ideation, homicidal ideation, and hallucinations. 22:19 Abdomen/GI: Positive for abdominal pain, Negative for nausea and vomiting. 22:19 : Positive for flank pain, hematuria. Exam: 22:19 Constitutional: This is a well developed, well nourished patient who is awake, alert, rt and in moderate acute distress. Head/Face: Normocephalic, atraumatic. Eyes: Pupils equal round and reactive to light, extra-ocular motions intact. Lids and lashes normal. Conjunctiva and sclera are non-icteric and not injected. Cornea within normal limits. Periorbital areas with no swelling, redness, or edema. Neck: Trachea midline, no thyromegaly or masses palpated, and no cervical lymphadenopathy. Supple, full range of motion without nuchal rigidity, or vertebral point tenderness. No Meningismus. Chest/axilla: Normal chest wall appearance and motion. Nontender with no deformity. No lesions are appreciated. Cardiovascular: Regular rate and rhythm with a normal S1 and S2. No gallops, murmurs, or rubs. Normal PMI, no JVD. No pulse deficits. Respiratory: Lungs have equal breath sounds bilaterally, clear to auscultation and percussion. No rales, rhonchi or wheezes noted. No increased work of breathing, no retractions or nasal flaring. Skin: Warm, dry with normal turgor. Normal color with no rashes, no lesions, and no evidence of cellulitis. MS/ Extremity: Pulses equal, no cyanosis. Neurovascular intact. Full, normal range of motion. Neuro: Awake and alert, GCS 15, oriented to person, place, time, and situation. Cranial nerves II-XII grossly intact. Motor strength 5/5 in all extremities. Sensory grossly intact. Cerebellar exam normal. Normal gait. Psych: Awake, alert, with orientation to person, place and time. Behavior, mood, and affect are within normal limits. 22:19 Abdomen/GI: Right CVAT, mild suprapubic tenderness without rebound, guarding, distention. Vital Signs: 20:34 BP 152 / 78; Pulse 70; Resp 18; Temp 98.1(O); Pulse Ox 100% on R/A; Weight 58.97 kg; ld1 Height 5 ft. 4 in. (162.56 cm); Pain 10/10; 20:38 BP 152 / 78; Pulse 70; Resp 18; Pulse Ox 100% on R/A; ha1 21:25 BP 114 / 60; Pulse 76; Resp 16 S; Pulse Ox 100% on R/A; ha1 22:00 BP 104 / 65; Pulse 69; Resp 15 S; Pulse Ox 97% on R/A; ha1 22:55 BP 116 / 61; Pulse 75; Resp 16 S; Pulse Ox 100% on R/A; ha1 23:52 BP 110 / 61; Pulse 74; Resp 16 S; Pulse Ox 100% ; ha1 20:34 Body Mass Index 22.31 (58.97 kg, 162.56 cm) ld1 MDM: 20:39 Patient medically screened. rt 23:32 Differential diagnosis: nephrolithiasis, pyelonephritis. Data reviewed: vital signs, rt nurses notes, old medical records, lab test result(s), radiologic studies. ED course: Presents to the ED with postprocedural right flank pain. I believe this pain is due to the stent. The CT scan shows significant improvement of the hydronephrosis. The patient is not septic, labs are benign. Patient has significant symptomatic improvement with pain medications in the ED, she is stable for outpatient care with her urologist, return precautions discussed.. 03/19 20:52 Order name: CBC with Diff; Complete Time: 21:45 rt 03/19 20:52 Order name: CMP; Complete Time: 21:45 rt 03/19 20:52 Order name: UA MICROSCOPIC rt 03/19 20:52 Order name: UA; Complete Time: 21:45 rt 03/19 20:52 Order name: CT Abd/Pelvis - IV Contrast Only; Complete Time: 22:52 rt Administered Medications: 19:59 Drug: Ketorolac 30 mg Route: IVP; Site: right antecubital; ha1 21:25 Follow up: Response: No adverse reaction; Pain is decreased ha1 20:55 Drug: Zofran (Ondansetron) 4 mg Route: IVP; Site: right antecubital; ha1 21:25 Follow up: Response: No adverse reaction ha1 20:57 Drug: morphine 4 mg Route: IVP; Infused Over: 4 mins; Site: right antecubital; ha1 21:25 Follow up: Response: No adverse reaction; Pain is decreased; RASS: Alert and Calm (0) ha1 Disposition Summary: 03/19/22 23:29 Discharge Ordered Location: Home rt Problem: an ongoing problem rt Symptoms: have improved rt Condition: Stable rt Diagnosis - Calculus of kidney with calculus of ureter rt Followup: rt - With: Private Physician - When: 2 - 3 days - Reason: Discharge Instructions: - Discharge Summary Sheet rt - Renal Colic rt Forms: - Medication Reconciliation Form rt - Thank You Letter rt - Antibiotic Education rt - Prescription Opioid Use rt Signatures: Dispatcher [employer] Mirtha Patrick RN RN ld1 Anna Marie Uriostegui RN RN ha1 [place] Marvin MD MD rt
[2022-03-20 00:16] VITALS: TEMP 98.1
[2022-03-20 00:30] VITALS: O2SAT 100
[2022-03-20 00:31] VITALS: BP 110/61
== END 2022-03-19 23:54 | disposition home or self-care (01) ==
LOC: ER 20:16
DX: N20.2 Calculus of kidney with calculus of ureter (principal); I10 Essential (primary) hypertension
CPT/HCPCS: 36415; 74177; 80053; 81001; 81015; 85025; 96374; 96375; 99284; J2405; Q9967

== ENCOUNTER 2022-06-22 01:43 | Emergency (ER) | payer SELFPAY ==
--- OUTSIDE RECORDS SUMMARY | 2022-06-22 01:53 | XMS REPORT | Continuity of Care Document ---
:1975 Author Organization [facility] t Address [address] [place] [address] Care Team Providers Name Role Phone Trudy Garcia Primary Care Physician [phone] ROSALINE PERALTA Attending Clinician Unavailable Rosaline Chavez Attending Clinician KELSEY MARTINEZ Attending Clinician Unavailable [facility] Attending Clinician Unavailable Klaudia Cornejo Attending Clinician [phone] KLAUDIA LOPEZ Attending Clinician Unavailable REGULO AVILA Attending Clinician Unavailable ARSALAN MONTOYA Attending Clinician Unavailable Arsalan Montoya MD Attending Clinician , Adc Surg Spec Procedure Attending Clinician Unavailable HILDA LEZAMA S Attending Clinician Unavailable Hilda Law S Attending Clinician HANS NICHOLS Attending Clinician Unavailable FABRIZIO MOORE Attending Clinician Unavailable Fabrizio Moore MD Attending Clinician Hans Nichols MD Attending Clinician Seymour Yi MD Attending Clinician Radha Martinez MD Attending Clinician Thea HUI Jayson Ordonez Attending Clinician [phone] REYNOLD FRASER Attending Clinician Unavailable MICHELLE WORLEY Attending Clinician Unavailable MICHELLE WORLEY Attending Clinician Unavailable Provider, Ang-Rmchp Temp Attending Clinician Unavailable Evelio OBSTETRICS GYNECOLOGY MD, Reynold Pedraza Attending Clinician JES AVILA Attending Clinician Unavailable Pgy2 Attending Clinician Unavailable Ami Angel MD Attending Clinician AMI ANGEL Attending Clinician Unavailable Margarita OBSTETRICS GYNECOLOGY MD, Jes Bravo Attending Clinician Bhakti Talley MD Attending Clinician Daniella Vegas MD Attending Clinician Doctor Unassigned, [place] Attending Clinician Unavailable Jose Cruz Snyder DO Attending Clinician [facility] Attending Clinician Unavailable Chaitanya Kohler MD Attending Clinician [phone] HILDA LEZAMA Admitting Clinician Unavailable FABRIZIO MOORE Admitting Clinician Unavailable Payers Payer Name Policy Type Policy Number Effective Date Expiration Date S ource MEDICAID HARPREET PENDING 2022 PENDING 00:00:00 Problems Condition Condition Condition Status Onset Resolution Last Treating Co mments Source Name Details Category Date Date Treatment Clinician Date Nephrolith Nephrolith Disease Active 2021-[address] [facility] iasis 1-13 [facility]: [address] 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 2- ity of 00:00: [address] Lichen of Lichen of Disease Active Uni vers skin skin 1-05 ity of 00:: [address] Vulvar Vulvar Disease Active 2019-05 Univers itching itching 0-02 ity of 00:00: [address] Abnormal Abnormal Disease Active 2019-05 Unive rs appearance appearance 0-02 it y of [place] [address] [place] [address] Depot Depot Disease Active Univers contracept contracept 1- it y of ion ion 00:00: [place] [address] [facility] Contracept Contracept Disease Active 2017- U nivers tamera tamera 1-08 ity of [place] [facility] Branch History of History of Disease Active U michael depression depression 9-20 it y of 00:00: [place] 00 [facility] Cervical Cervical Disease Active Unive rs polyp polyp 2-13 ity of 00:00: [address] Branch Depo-Prove Depo-Prove Disease Active U michael ra ra 2-03 ity of contracept contracept [place] tamera status tamera status 00 Ok dical Branch Allergies, Adverse Reactions, Alerts Allergy Allergy Status Severity Reaction(s) Onset Inactive Treating Comm ents Source Name Type Date Date Clinician NO KNOWN Allergy Active [facility] St ALLERGIE [facility] NO KNOWN Drug Active Univers ALLERGIE Class ity of [facility] Social History Social Habit Start Date Stop Date Quantity Comments Source History of Current smoker University of tobacco use [facility] History SDOH [facility] Alcohol Binge Medical Ricardo [facility] History SDSD [facility] Alcohol Comment Medical C enter History SDSD [facility] Transport Non-Med Medical Center History SDOH [facility] Alcohol Std Medical Cente r Drinks Exposure to 2022-04-28 2022-05-08 Not sure University SARS-CoV-2 00:00:00 09:02:00 [facility] (event) Branch Alcohol intake 2022-03-18 2022-03-[address] [facility] 00:00:00 00:00:00 non-drinker Medical Cente r (finding) History SDSD 2022-03-17 2022-03-[address] [facility] Transport Med 00:00:00 00:00:[address] History SDSD 2022-03-17 2022-03-[address] [facility] Housing Unable to 00:00:00 00:00:00 Medical Center Pay History SDSD 2022-03-17 2022-03-[address] [facility] Housing Places 00:00:00 00:00:00 Medical Ce nter Lived History [facility] 2022-03-17 2022-03-[address] [facility] Housing Homeless 00:00:00 00:00:00 Medical Center Last Year Tobacco use and 2022-03-17 2022-03-[address] [facility] kes exposure 00:00:00 00:00:00 Medical Center History SDOH 2022-03-17 2022-03-[address] [facility] Alcohol Frequency 00:00:00 00:00:00 Medical Center Sex [birth year] At [birth year] F DAKOTA Juarez 00:00:00 00:00:00 Medical Center Smoking Status Start Date Stop Date Source Never smoker [facility] Ex-smoker 2021-11-21 00:00:00 2021-11-21 00:00:00 [facility] Medical Branch Medications Ordered Filled Start Stop Current Ordering Indication Dosage Frequency Signature Comments Components Source Medication Medication Date Date Medication? Clinician (SIG) Name Name cephALEXin 2021-05- Yes [id number] 500mg Take 2 Univers 250 mg 06-0205 capsules ity of capsule 00:00: 05:59 by mouth [place] 00 :00 every 12 Medical (twelve) Branch hours for 5 days. cephALEXin 2021-05- Yes [id number] 500mg Take 2 Univers 250 mg 06-02-05 capsules ity of capsule 00:00: 05:59 by mouth [place] 00 :00 every 12 Medical (twelve) Branch hours for 5 days. cephALEXin 2021-05- Yes [id number] 500mg Take 2 Univers 250 mg 06-02-05 capsules ity of capsule 00:00: 05:59 by mouth [place] 00 :00 every 12 Medical (twelve) Branch hours for 5 days. cefTRIAXone 2021-05- No [id number] 1000mg Univers (ROCEPHIN) 06-01 ity of injection 21:45: 20:59 [place] 1,000 mg 00 :00 [facility] Branch cefTRIAXone 2021-05- No [id number] 1000mg Univers (ROCEPHIN) 06-01 ity of injection 21:45: 20:59 [place] 1,000 mg 00 :00 [facility] Branch cefTRIAXone 2021-05- No [id number] 1000mg 1,000 mg, Univers (ROCEPHIN) 06-01 Intramuscu it y of injection 21:45: 20:59 [place], [place]CE, [place] 1,000 mg 00 :00 1 dose, On Medic al Mon Branch 04/01/22 at 1545, JORGE
Re ason for Anti-Infec tive: Surgical Prophylaxi s
Surgi jo-ann Prophylaxi s: Genitourin prema
Dur ation of therapy: within 24 hours of surgery cefTRIAXone 2021-05- No [id number] 1000mg 1,000 mg, Univers (ROCEPHIN) 06-01 Intramuscu it y of injection 21:45: 20:59 [place]CE, [place] 1,000 mg 00 :00 1 dose, On [facility] 04/01/22 at 1545, JORGE
Re ason for Anti-Infec tive: Surgical Prophylaxi s
Surgi jo-ann Prophylaxi s: Genitourin prema
Dur ation of therapy: within 24 hours of surgery cefTRIAXone 2021-05- No [id number] 1000mg 1,000 mg, Univers (ROCEPHIN) 06-01 Intramuscu it y of injection 21:45: 20:59 [place], [place]CE, [place] 1,000 mg 00 :00 1 dose, On [facility] 04/01/22 at 1545, JORGE
Re ason for Anti-Infec tive: Surgical Prophylaxi s
Surgi jo-ann Prophylaxi s: Genitourin prema
Dur ation of therapy: within 24 hours of surgery cefTRIAXone 2021-05- No [id number] 1000mg Univers (ROCEPHIN) 06-01 ity of injection 21:45: 20:59 [place] 1,000 mg 00 :00 Medical Branch tamsulosin 2021-05- Yes [id number] .4mg Take 1 Univers (FLOMAX) 06-01 12-13 capsule by ity of 0.4 mg 24 00:00: 05:59 mouth [place] hr capsule 00 :00 daily for Medi jo-ann 14 days. Branch tamsulosin 2021-05- Yes [id number] .4mg Take 1 Univers (FLOMAX) 06-01 12-13 capsule by ity of 0.4 mg 24 00:00: 05:59 mouth [place] hr capsule 00 :00 daily for Medi j-oann 14 days. Branch tamsulosin 2021-05- Yes [id number] .4mg Take 1 Univers (FLOMAX) 06-01-13 capsule by ity of 0.4 mg 24 00:00: 05:59 mouth [place] hr capsule 00 :00 daily for Medi jo-ann 14 days. [place] glipiZIDE 2021-05 Yes 5mg 5 mg, Univers (GLUCOTROL) 05-27 Oral, ity of tablet 5 mg 15:00: [place] First dose Medical on Fri [place] 03/27/22 at 0900, Until Discontinu ed, Routine NaCl 0.9% 2021-05- No 1000mL at 999 Uni vers (NS) bolus 05-27 mL/hr, ity of infusion 01:00: 01:40 1,000 mL, [place] 1,000 mL 00 :00 IV Medical Infusion, [place] ONCE, 1 dose, On 03/26/22 at 1900, STAT ketorolac 2021-05- No 30mg 30 mg, Unive rs (TORADOL) 05-27 Slow IV ity of injection 01:00: 00:36 Push, [place] 30 mg 00 :00 ONCE, 1 Medical dose, On [facility] 03/26/22 at 1900, JORGE ondansetron 2021-05- No 4mg 4 mg, Slow Univers (ZOFRAN 05-27 IV Push, ity of (PF)) 00:15: 00:36 ONCE, 1 [place] injection 4 00 :00 dose, On Medi jo-ann mg [facility] 03/26/22 at 1815, JORGE cefTRIAXone 2021-05- No 1000mg 1,000 mg, Univers (ROCEPHIN) 05-27 IV ity of 1,000 mg in 00:00: 00:57 Piggyback, [place] NaCl 0.9% 00 :00 ONCE, 1 Medical (NS) 50 mL dose, On Bran h MINI-BAG 03/26/22 at 1800, Administer over 30 Minutes, 50 mL
Reas on for Anti-Infec tive: Empiric Therapy for Suspected Infection< br>Empiric Therapy Site: Urine
D uration of therapy: 72 hours ketorolac 2021-05 Yes [id number] 10mg Take 1 Un tracy 10 mg 1-22 tablet by ity of tablet 00:00: mouth [place] 00 every 6 Medical (six) Branch hours as needed for Pain (scale 4-6). ketorolac 2021-05 Yes [id number] 10mg Take 1 Un tracy 10 mg 1-22 tablet by ity of tablet 00:00: mouth [place] 00 every 6 Medical (six) Branch hours as needed for Pain (scale 4-6). ketorolac 2021-05 Yes [id number] 10mg Take 1 Un tracy 10 mg 1-22 tablet by ity of tablet 00:00: mouth [place] 00 every 6 Medical (six) Branch hours as needed for Pain (scale 4-6). ketorolac 2021-05 Yes [id number] 10mg Take 1 Un tracy 10 mg 1-22 tablet by ity of tablet 00:00: mouth [place] 00 every 6 Medical (six) Branch hours as needed for Pain (scale 4-6). ketorolac 2021-05 Yes [id number] 10mg Take 1 Un tracy 10 mg 1-22 tablet by ity of tablet 00:00: mouth [place] 00 every 6 Medical (six) Branch hours as needed for Pain (scale 4-6). ketorolac 2021-05 Yes [id number] 10mg Take 1 Un tracy 10 mg 1-22 tablet by ity of tablet 00:00: mouth [place] 00 every 6 Medical (six) Branch hours as needed for Pain (scale 4-6). ketorolac 2021-05 Yes [id number] 10mg Take 1 Un tracy 10 mg 1-22 tablet by ity of tablet 00:00: mouth [place] 00 every 6 Medical (six) Branch hours as needed for Pain (scale 4-6). ketorolac 2021-05 Yes [id number] 10mg Take 1 Un tracy 10 mg 1-22 tablet by ity of tablet 00:00: mouth [place] 00 every 6 Medical (six) Branch hours as needed for Pain (scale 4-6). ketorolac 2021-1 Yes [id number] 10mg Take 1 Un tracy 10 mg 1-22 tablet by ity of tablet 00:00: mouth [place] 00 every 6 Medical (six) Branch hours as needed for Pain (scale 4-6). ketorolac 2021-1 Yes [id number] 10mg Take 1 Un tracy 10 mg 1-22 tablet by ity of tablet 00:00: mouth [place] 00 every 6 Medical (six) Branch hours as needed for Pain (scale 4-6). ketorolac 2021-05 Yes [id number] 10mg Take 1 Un tracy 10 mg 1-22 tablet by ity of tablet 00:00: mouth [place] 00 every 6 Medical (six) Branch hours as needed for Pain (scale 4-6). ketorolac 2021-05 Yes [id number] 10mg Take 1 Un tracy 10 mg 1-22 tablet by ity of tablet 00:00: mouth [place] 00 every 6 Medical (six) Branch hours as needed for Pain (scale 4-6). ketorolac 2021-05 Yes [id number] 10mg Take 1 Un tracy 10 mg 1-22 tablet by ity of tablet 00:00: mouth [place] 00 every 6 Medical (six) Branch hours as needed for Pain (scale 4-6). sulfamethox 2021-05- Yes [id number] 1{tbl} Take 1 Univers azole-trime 1-22 11-28 tablet by it y of thoprim 00:00: 05:59 mouth [place] 800-160 mg 00 :00 every 12 Medic al per tablet (twelve) Branc h hours for 5 days. phenazopyri 2021-05 Yes TAKE 1 Univ ers dine 100 mg 1-15 TABLET BY ity of tablet 00:00: MOUTH [place] 00 THREE Medical TIMES Branch DAILY NEEDED FOR PAIN FOR 3 DAYS phenazopyri 2021-05 Yes TAKE 1 Univ ers dine 100 mg 1-15 TABLET BY ity of tablet 00:00: MOUTH 00 THREE Medical TIMES Branch DAILY NEEDED FOR PAIN FOR 3 DAYS phenazopyri 2021-05 Yes TAKE 1 Univ ers dine 100 mg 1-15 TABLET BY ity of tablet 00:00: MOUTH [place] 00 THREE Medical TIMES Branch DAILY NEEDED FOR PAIN FOR 3 DAYS phenazopyri 2021-05 Yes TAKE 1 Univ ers dine 100 mg 1-15 TABLET BY ity of tablet 00:00: MOUTH [place] 00 THREE Medical TIMES Branch DAILY NEEDED FOR PAIN FOR 3 DAYS phenazopyri 2021-05 Yes TAKE 1 Univ ers dine 100 mg 1-15 TABLET BY ity of tablet 00:00: MOUTH 00 THREE Medical TIMES Branch DAILY NEEDED FOR PAIN FOR 3 DAYS phenazopyri 2021-05 Yes TAKE 1 Univ ers dine 100 mg 1-15 TABLET BY ity of tablet 00:00: [facility] 00 THREE Medical TIMES Branch DAILY NEEDED FOR PAIN FOR 3 DAYS phenazopyri 2021-05 Yes TAKE 1 Univ ers dine 100 mg 1-15 TABLET BY ity of tablet 00:00: MOUTH [place] 00 THREE Medical TIMES Branch DAILY NEEDED FOR PAIN FOR 3 DAYS phenazopyri 2021-05 Yes TAKE 1 Univ ers dine 100 mg 1-15 TABLET BY ity of tablet 00:00: MOUTH [place] 00 THREE Medical TIMES Branch DAILY NEEDED FOR PAIN FOR 3 DAYS phenazopyri 2021-05 Yes TAKE 1 Univ ers dine 100 mg 1-15 TABLET BY ity of tablet 00:00: [facility] 00 THREE Medical TIMES Branch DAILY NEEDED FOR PAIN FOR 3 DAYS phenazopyri 2021-05 Yes TAKE 1 Univ ers dine 100 mg 1-15 TABLET BY ity of tablet 00:00: [facility] 00 THREE Medical TIMES Branch DAILY NEEDED FOR PAIN FOR 3 DAYS phenazopyri 2021-05 Yes TAKE 1 Univ ers dine 100 mg 1-15 TABLET BY ity of tablet 00:00: [facility] 00 THREE Medical TIMES Branch DAILY NEEDED FOR PAIN FOR 3 DAYS phenazopyri 2021-05 Yes TAKE 1 Univ ers dine 100 mg 1-15 TABLET BY ity of tablet 00:00: [facility] 00 THREE Medical TIMES Branch DAILY NEEDED FOR PAIN FOR 3 DAYS tamsulosin 2021-05- No .4mg Take 0.4 Un tracy 0.4 mg 24 1-15 12-16 mg by ity of hr capsule 00:00: 05:59 mouth. [place] 00 :00 Medical Branch oxybutynin 2021-05- No 15mg Take 15 mg Univers 15 mg 24 hr 1-15 12-16 by mouth. it y of tablet 00:00: 05:59 [place] 00 :00 Medical Branch oxybutynin 2021-05- No 15mg Take 15 mg Univers 15 mg 24 hr 1-15 12-16 by mouth. it y of tablet 00:00: 05:59 [place] 00 :00 Medical Branch oxybutynin 2021-05- No 15mg Take 15 mg Univers 15 mg 24 hr -15 12-16 by mouth. it y of tablet 00:00: 05:59 [place] 00 :00 Medical Branch oxybutynin 2021-2021- No 15mg Take 15 mg Univers 15 mg 24 hr 15 12-16 by mouth. it y of tablet 00:00: 05:59 [place] 00 :00 Medical Branch oxybutynin 2021-2021- No 15mg Take 15 mg Univers 15 mg 24 hr 15 12-16 by mouth. it y of tablet 00:00: 05:59 [place] 00 :00 Medical Branch oxybutynin 2021-2021- No 15mg Take 15 mg Univers 15 mg 24 hr 15 12-16 by mouth. it y of tablet 00:00: 05:59 [place] 00 :00 Medical Branch oxybutynin 2021-2021- No 15mg Take 15 mg Univers 15 mg 24 hr 15 12-16 by mouth. it y of tablet 00:00: 05:59 [place] 00 :00 Medical Branch tamsulosin 2021-2021- No .4mg QD Take [address] [facility] (FLOMAX) 1-15 12-15 capsule [facility] 0.4 mg Cap 00:00: 23:59 (0.4 mg Med ical 24 hr 00 :00 total) by Center capsule mouth daily for 30 days. oxybutynin 2021-05- No 15mg QD Take [address] [facility] (DITROPAN 1-15 12-15 tablet (15 Liv es XL) 15 MG 00:00: 23:59 mg total) Me dical 24 hr 00 :00 by mouth Center tablet daily for 30 days. tamsulosin 2021-05- No .4mg QD Take [address] [facility] (FLOMAX) 1-15 12-15 capsule [facility] 0.4 mg Cap 00:00: 23:59 (0.4 mg Med ical 24 hr 00 :00 total) by Center capsule mouth daily for 30 days. oxybutynin 2021-05- No 15mg QD Take [address] [facility] (DITROPAN 1-15 12-15 tablet (15 Liv es XL) 15 MG 00:00: 23:59 mg total) Me dical 24 hr 00 :00 by mouth Center tablet daily for 30 days. tamsulosin 2021-2021- No .4mg Take 0.4 Un tracy 0.4 mg 24 1-15 11-28 mg by ity of hr capsule 00:00: 00:[place] :[place] Medical Branch tamsulosin 2021-05- No .4mg Take 0.4 Un tracy 0.4 mg 24 1-15 11-28 mg by ity of hr capsule 00:00: 00:00 mouth. [place] 00 :00 Medical Branch tamsulosin 2021-05- No .4mg Take 0.4 Un tracy 0.4 mg 24 1-15 11-28 mg by ity of hr capsule 00:00: 00:00 mouth. [place] 00 :00 Medical Branch tamsulosin 2021-05- No .4mg Take 0.4 Un tracy 0.4 mg 24 1-15 11-28 mg by ity of hr capsule 00:00: 00:00 mouth. [place] 00 :00 Medical Branch tamsulosin 2021-05- No .4mg Take 0.4 Un tracy 0.4 mg 24 1-15 11-28 mg by ity of hr capsule 00:00: 00:00 mouth. [place] 00 :00 Medical Branch tamsulosin 2021-05- No .4mg Take 0.4 Un tracy 0.4 mg 24 1-15 11-28 mg by ity of hr capsule 00:00: 00:00 mouth. [place] 00 :00 Medical Branch traMADoL 50 2021-05- No 50mg Take 50 mg Univers mg tablet 05-19- by mouth. ity of 00:00: 05:59 [place] 00 :00 Medical Branch traMADoL 2021-05- No 50mg Take [address] [facility] (ULTRAM) 50 1-15 11-25 tablet (50 L ukes mg tablet 00:00: 23:59 mg total) Me dical 00 :00 by mouth Center every 6 (six) hours as needed for Pain for up to 10 days. Max Daily Amount: 200 mg traMADoL 2021-05- No 50mg Take [address] [facility] [address] (ULTRAM) 50 1-15 11-25 tablet (50 L ukes mg tablet 00:00: 23:59 mg total) Me dical 00 :00 by mouth Center every 6 (six) hours as needed for Pain for up to 10 days. Max Daily Amount: 200 mg levoFLOXaci 2021-05- No 500mg Take 500 Univers n 500 mg 05-19 mg by ity of tablet 00:00: 05:59 mouth. [place] 00 :00 Medical Branch levoFLOXaci 2021-05- No 500mg QD Take [address] [facility] 05-19 tablet [facility] (LEVAQUIN) 00:00: 23:59 (500 mg Med ical 500 MG 00 :00 total) by Center tablet mouth daily for 7 days. levoFLOXaci 2021-05- No 500mg QD Take [address] [facility] 05-19 tablet [facility] (LEVAQUIN) 00:00: 23:59 (500 mg Med ical 500 MG 00 :00 total) by Center tablet mouth daily for 7 days. phenazopyri 2021-05- No 100mg Take [address] dine 05-1918 tablet [facility] (PYRIDIUM) 00:00: 23:59 (100 mg Med ical 100 MG 00 :00 total) by Center tablet mouth 3 (three) times daily as needed for Pain for up to 3 days. phenazopyri 2021-05- No 100mg Take [address] dine 05-19-18 tablet [facility] (PYRIDIUM) 00:00: 23:59 (100 mg Med ical 100 MG 00 :00 total) by Center tablet mouth 3 (three) times daily as needed for Pain for up to 3 days. medroxyPROG 2021-05- No [id number] 150mg Univers ESTERone 0-12 -29 ity of (DEPO-PROVE 15:45: 15:44 [place] RA) syringe 00 :00 Medical 150 mg Branch medroxyPROG 2021-05- No [id number] 150mg Univers ESTERone 0-12 -29 ity of (DEPO-PROVE 15:45: 15:44 [place] RA) syringe 00 :00 Medical 150 mg Branch medroxyPROG 2021-05- No [id number] 150mg Univers ESTERone 0-12 -29 ity of (DEPO-PROVE 15:45: 15:44 [place] RA) syringe 00 :00 Medical 150 mg Branch medroxyPROG 2021-05- No [id number] 150mg Univers ESTERone 0-12 - ity of (DEPO-PROVE 15:45: 15:44 [place] RA) syringe 00 :00 Medical 150 mg Branch medroxyPROG 2021-05- No [id number] 150mg Univers ESTERone 0-12 07-31 ity of (DEPO-PROVE 15:45: 15:44 [place] RA) syringe 00 :00 Medical 150 mg Branch medroxyPROG 2021-05- No [id number] 150mg Univers ESTERone 0-07-31 ity of (DEPO-PROVE 15:45: 15:44 [place] RA) syringe 00 :00 Medical 150 mg Branch medroxyPROG 2021-05- No [id number] 150mg Univers ESTERone 0-07-31 ity of (DEPO-PROVE 15:45: 15:44 [place] RA) syringe 00 :00 Medical 150 mg Branch medroxyPROG 2021-05- No [id number] 150mg 150 mg, Univers ESTERone 007-31 Intramuscu ity of (DEPO-PROVE 15:45: 15:44 lar, [place] RA) syringe 00 :00 [id number], Med ical 150 mg 2 doses, Branch First dose on Fri02/13/22 at 1045, Last dose on Fri05/08/22 at 1045, Routine medroxyPROG 2021-05- No [id number] 150mg Univers ESTERone 0-07-31 ity of (DEPO-PROVE 15:45: 15:44 [place] RA) syringe 00 :00 Medical 150 mg Branch medroxyPROG 2021-05- No [id number] 150mg Univers ESTERone 0-05-08 ity of (DEPO-PROVE 15:45: 15:05 [place] RA) syringe 00 :00 Medical 150 mg Branch medroxyPROG 2021-05- No [id number] 150mg 150 mg, Univers ESTERone 0-12 05-08 Intramuscu ity of (DEPO-PROVE 15:45: 15:05 lar, [place] RA) syringe 00 :00 [id number], Med ical 150 mg 2 doses, Branch First dose on Fri02/13/22 at 1045, Last dose on 1/4/23 at 1045, Routine Januvia 25 2021-0 No 1mg mg tablet 3 00:00: 00 Januvia 25 2021-0 No 1mg mg tablet 07-03 00:00: 00 atorvastati 2-0 No 1mg n 10 mg 3- tablet 00:00: 00 atorvastati 2-0 No 1mg n 10 mg 3- tablet 00:00: 00 glipizide 2022-0 No 1mg 10 mg 2-28 tablet 00:00: 00 Dose 2022-0 No Unknown 2-28 00:00: 00 glipizide 2022-0 No 1mg 10 mg 2-28 tablet 00:00: 00 Dose 2-0 No Unknown 2-28 00:00: 00 glipizide 2-0 No 1mg 10 mg 2-25 tablet 00:00: 00 glipizide 2-0 No 1mg 10 mg 2-25 tablet 00:00: 00 Nitrofurant 2021-0 2021- No [id number] 100mg Take 1 Univers oin&Nit. 06-12-20 capsule by ity of Macrocryst 00:00: 00:00 mouth 2 [place] (MACROBID) 00 :00 (two) Medical 100 mg times Branch capsule daily. Nitrofurant 2021-0 2021- No [id number] 100mg Take 1 Univers oin&Nit. 06-12-20 capsule by ity of Macrocryst 00:00: 00:00 mouth 2 [place] (MACROBID) 00 :00 (two) Medical 100 mg times Branch capsule daily. medroxyPROG 2021-0 3- No [id number] 150mg Univers ESTERone 06-06 ity of (DEPO-PROVE 16:15: 16:14 [place] RA) 00 :00 Medical injection Branch 150 mg medroxyPROG 2-0 3- No [id number] 150mg Univers ESTERone 06-06 ity of (DEPO-PROVE 16:15: 16:14 [place] RA) 00 :00 Medical injection Branch 150 mg medroxyPROG 2-0 3- No [id number] 150mg Univers ESTERone 06-06 ity of (DEPO-PROVE 16:15: 16:14 [place] RA) 00 :00 Medical injection Branch 150 mg medroxyPROG 2022-0 2023- No [id number] 150mg Univers ESTERone -05-08 ity of (DEPO-PROVE 16:15: 16:14 [place] RA) 00 :00 Medical injection Branch 150 mg medroxyPROG 2022-0 3- No [id number] 150mg Univers ESTERone 2-05-08 ity of (DEPO-PROVE 16:15: 16:14 [place] RA) 00 :00 Medical injection Branch 150 mg medroxyPROG 2022-0 2023- No [id number] 150mg Univers ESTERone -05-08 ity of (DEPO-PROVE 16:15: 16:14 [place] RA) 00 :00 Medical injection Branch 150 mg medroxyPROG 2022-0 3- No [id number] 150mg Univers ESTERone -05-08 ity of (DEPO-PROVE 16:15: 16:14 [place] RA) 00 :00 Medical injection Branch 150 mg medroxyPROG 2022-0 3- No [id number] 150mg Univers ESTERone 06-06 ity of (DEPO-PROVE 16:15: 16:14 [place] RA) 00 :00 Medical injection Branch 150 mg medroxyPROG 2022-0 3- No [id number] 150mg 150 mg, Univers ESTERone 06-06 Intramuscu ity of (DEPO-PROVE 16:15: 16:14 lar, [place] RA) 00 :00 [id number], Medical injection 4 doses, Branch 150 mg First dose on Fri06/06/21 at 1015, Last dose on Fri02/13/22 at 1015, Routine medroxyPROG 2022-0 3- No [id number] 150mg Univers ESTERone 06-06 ity of (DEPO-PROVE 16:15: 16:14 [place] RA) 00 :00 Medical injection Branch 150 mg medroxyPROG 2022-0 2023- No [id number] 150mg 150 mg, Univers ESTERone 06-06 Intramuscu ity of (DEPO-PROVE 16:15: 16:14 lar, [place] RA) 00 :00 [id number], Medical injection 4 doses, Branch 150 mg First dose on Fri06/06/21 at 1015, Last dose on Fri02/13/22 at 1015, Routine medroxyPROG 2021-0 3- No [id number] 150mg Univers ESTERone 06-06- ity of (DEPO-PROVE 16:15: 16:14 [place] RA) 00 :00 Medical injection Branch 150 mg medroxyPROG 2021-0 2022- No [id number] 150mg Univers ESTERone 06-06 ity of (DEPO-PROVE 16:15: 16:14 [place] RA) 00 :00 Medical injection Branch 150 mg medroxyPROG 2021-0 2022- No [id number] 150mg Univers ESTERone 06-06 ity of (DEPO-PROVE 16:15: 16:14 [place] RA) 00 :00 Medical injection Branch 150 mg Dose 2020-05 No Unknown 2-07 00:00: 00 Dose 2020-05 No Unknown 2-07 00:00: 00 Dose 2020-05 No Unknown 2-07 00:00: 00 Dose 2020-05 No Unknown 2-07 00:00: 00 clobetasoL 2020- Yes [id number] Apply to Univers 0.05 % 2-01 area(s) 2 ity of ointment 00:00: (two) [place] 00 times Medical daily. Branch clobetasoL 2020-05 Yes [id number] Apply to Univers 0.05 % 2-01 area(s) 2 ity of ointment 00:00: (two) [place] 00 times Medical daily. Branch clobetasoL 2020- Yes [id number] Apply to Univers 0.05 % 2-01 area(s) 2 ity of ointment 00:00: (two) [place] 00 times Medical daily. Branch clobetasoL 2020- Yes [id number] Apply to Univers 0.05 % 2-01 area(s) 2 ity of ointment 00:00: (two) [place] 00 times Medical daily. Branch clobetasoL 2020- Yes [id number] Apply to Univers 0.05 % 2-01 area(s) 2 ity of ointment 00:00: (two) [place] 00 times Medical daily. Branch clobetasoL 2020- Yes [id number] Apply to Univers 0.05 % 2-01 area(s) 2 ity of ointment 00:00: (two) [place] 00 times Medical daily. Branch clobetasoL 1-1 Yes [id number] Apply to Univers 0.05 % 2-01 area(s) 2 ity of ointment 00:00: (two) [place] 00 times Medical daily. Branch clobetasoL 1-1 Yes [id number] Apply to Univers 0.05 % 2-01 area(s) 2 ity of ointment 00:00: (two) [place] 00 times Medical daily. Branch clobetasoL 1-1 Yes [id number] Apply to Univers 0.05 % 2-01 area(s) 2 ity of ointment 00:00: (two) [place] 00 times Medical daily. Branch clobetasoL 1-1 Yes [id number] Apply to Univers 0.05 % 2-01 area(s) 2 ity of ointment 00:00: (two) [place] 00 times Medical daily. Branch clobetasoL 1-1 Yes [id number] Apply to Univers 0.05 % 2-01 area(s) 2 ity of ointment 00:00: (two) [place] 00 times Medical daily. Branch clobetasoL 1-1 Yes [id number] Apply to Univers 0.05 % 2-01 area(s) 2 ity of ointment 00:00: (two) [place] 00 times Medical daily. Branch clobetasoL 1-1 Yes [id number] Apply to Univers 0.05 % 2-01 area(s) 2 ity of ointment 00:00: (two) [place] 00 times Medical daily. Branch clobetasoL 1-1 Yes [id number] Apply to Univers 0.05 % 2-01 area(s) 2 ity of ointment 00:00: (two) [place] 00 times Medical daily. Branch clobetasoL 2021-1 Yes [id number] Apply to Univers 0.05 % 2-01 area(s) 2 ity of ointment 00:00: (two) [place] 00 times Medical daily. Branch clobetasoL 2021-1 Yes [id number] Apply to Univers 0.05 % 2-01 area(s) 2 ity of ointment 00:00: (two) [place] 00 times Medical daily. Branch clobetasoL 2021-1 Yes [id number] Apply to Univers 0.05 % 2-01 area(s) 2 ity of ointment 00:00: (two) [place] 00 times Medical daily. Branch glipizide 2020-05 No 1mg 10 mg 1-23 tablet 00:00: 00 Dose 2020-05 No Unknown 1-23 00:00: 00 glipizide 2020-05 No 1mg 10 mg 1-23 tablet 00:00: 00 Dose 2020-05 No Unknown 1- 00:00: 00 Dose 2020-05 No Unknown 1- 00:00: 00 Dose 2020-05 No Unknown 1- 00:00: 00 Dose 2020-05 No Unknown - 00:00: 00 Dose 2020-05 No Unknown - 00:00: 00 metroNIDAZO 0 2021- No [id number] 500mg Take 1 Univers LE 500 mg 7-15 07-20 tablet by ity of tablet 00:00: 00:00 mouth [place] 00 :00 every 8 Medical (eight) Branch hours. metroNIDAZO 0 2021- No [id number] 500mg Take 1 Univers LE 500 mg 7-15 07-20 tablet by ity of tablet 00:00: 00:00 mouth [place] 00 :00 every 8 Medical (eight) Branch hours. nystatin-tr 0 Yes [id number] Apply to Univers iamcinolone 7-12 area(s) 2 ity of cream 00:00: (two) [place] 00 times Medical daily. Branch Clobetasol 0 Yes [id number] Apply to Univers Propionate 7-12 area(s) ity of 0.05 % 00:00: every [place] lotion 00 evening. Medical Branch nystatin-tr 2020-0 Yes [id number] Apply to Univers iamcinolone 7-12 area(s) 2 ity of cream 00:00: (two) [place] 00 times Medical daily. Branch Clobetasol 0 Yes [id number] Apply to Univers Propionate 7-12 area(s) ity of 0.05 % 00:00: every [place] lotion 00 evening. Medical Branch nystatin-tr 2020-0 Yes [id number] Apply to Univers iamcinolone 7-12 area(s) 2 ity of cream 00:00: (two) [place] 00 times Medical daily. Branch Clobetasol 2021-0 Yes [id number] Apply to Univers Propionate 7-12 area(s) ity of 0.05 % 00:00: every [place] lotion 00 evening. Medical Branch nystatin-tr 2021-0 Yes [id number] Apply to Univers iamcinolone 7-12 area(s) 2 ity of cream 00:00: (two) [place] 00 times Medical daily. Branch Clobetasol 2021-0 Yes [id number] Apply to Univers Propionate 7-12 area(s) ity of 0.05 % 00:00: every [place] lotion 00 evening. Medical Branch nystatin-tr 2021-0 Yes [id number] Apply to Univers iamcinolone 7-12 area(s) 2 ity of cream 00:00: (two) [place] 00 times Medical daily. Branch Clobetasol 2021-0 Yes [id number] Apply to Univers Propionate 7-12 area(s) ity of 0.05 % 00:00: every [place] lotion 00 evening. Medical Branch nystatin-tr 2021-0 Yes [id number] Apply to Univers iamcinolone 7-12 area(s) 2 ity of cream 00:00: (two) [place] 00 times Medical daily. Branch Clobetasol 2021-0 Yes [id number] Apply to Univers Propionate 7-12 area(s) ity of 0.05 % 00:00: every [place] lotion 00 evening. Medical Branch nystatin-tr 2021-0 Yes [id number] Apply to Univers iamcinolone 7-12 area(s) 2 ity of cream 00:00: (two) [place] 00 times Medical daily. Branch Clobetasol 2021-0 Yes [id number] Apply to Univers Propionate 7-12 area(s) ity of 0.05 % 00:00: every [place] lotion 00 evening. Medical Branch nystatin-tr 2021-0 Yes [id number] Apply to Univers iamcinolone 7-12 area(s) 2 ity of cream 00:00: (two) [place] 00 times Medical daily. Branch Clobetasol 2021-0 Yes [id number] Apply to Univers Propionate 7-12 area(s) ity of 0.05 % 00:00: every [place] lotion 00 evening. Medical Branch nystatin-tr 2021-0 Yes [id number] Apply to Univers iamcinolone 7-12 area(s) 2 ity of cream 00:00: (two) [place] 00 times Medical daily. Branch Clobetasol 2021-0 Yes [id number] Apply to Univers Propionate 7-12 area(s) ity of 0.05 % 00:00: every [place] lotion 00 evening. Medical Branch nystatin-tr 2021-0 Yes [id number] Apply to Univers iamcinolone 7-12 area(s) 2 ity of cream 00:00: (two) [place] 00 times Medical daily. Branch Clobetasol 2021-0 Yes [id number] Apply to Univers Propionate 7-12 area(s) ity of 0.05 % 00:00: every [place] lotion 00 evening. Medical Branch nystatin-tr 2021-0 Yes [id number] Apply to Univers iamcinolone 7-12 area(s) 2 ity of cream 00:00: (two) [place] 00 times Medical daily. Branch Clobetasol 2021-0 Yes [id number] Apply to Univers Propionate 7-12 area(s) ity of 0.05 % 00:00: every [place] lotion 00 evening. Medical Branch nystatin-tr 2021-0 Yes [id number] Apply to Univers iamcinolone 7-12 area(s) 2 ity of cream 00:00: (two) [place] 00 times Medical daily. Branch Clobetasol 2021-0 Yes [id number] Apply to Univers Propionate 7-12 area(s) ity of 0.05 % 00:00: every [place] lotion 00 evening. Medical Branch nystatin-tr 2021-0 Yes [id number] Apply to Univers iamcinolone 7-12 area(s) 2 ity of cream 00:00: (two) [place] 00 times Medical daily. Branch Clobetasol 2021-0 Yes [id number] Apply to Univers Propionate 7-12 area(s) ity of 0.05 % 00:00: every [place] lotion 00 evening. Medical Branch nystatin-tr 2021-0 Yes [id number] Apply to Univers iamcinolone 7-12 area(s) 2 ity of cream 00:00: (two) [place] 00 times Medical daily. Branch Clobetasol 2021-0 Yes [id number] Apply to Univers Propionate 7-12 area(s) ity of 0.05 % 00:00: every [place] lotion 00 evening. Medical Branch nystatin-tr 2021-0 Yes [id number] Apply to Univers iamcinolone 7-12 area(s) 2 ity of cream 00:00: (two) [place] 00 times Medical daily. Branch Clobetasol 2021-0 Yes [id number] Apply to Univers Propionate 7-12 area(s) ity of 0.05 % 00:00: every [place] lotion 00 evening. Medical Branch nystatin-tr 2021-0 Yes [id number] Apply to Univers iamcinolone 7-12 area(s) 2 ity of cream 00:00: (two) [place] 00 times Medical daily. Branch Clobetasol 2021-0 Yes [id number] Apply to Univers Propionate 7-12 area(s) ity of 0.05 % 00:00: every [place] lotion 00 evening. Medical Branch nystatin-tr 2021-0 Yes [id number] Apply to Univers iamcinolone 7-12 area(s) 2 ity of cream 00:00: (two) [place] 00 times Medical daily. Branch Clobetasol 2021-0 Yes [id number] Apply to Univers Propionate 7-12 area(s) ity of 0.05 % 00:00: every [place] lotion 00 evening. Medical Branch clobetasoL 2021-0 Yes [id number] Apply to Univers 0.05 % 6-15 area(s) 2 ity of ointment 00:00: (two) [place] 00 times Medical daily. Branch clobetasoL 2021-0 Yes [id number] Apply to Univers 0.05 % 6-15 area(s) 2 ity of ointment 00:00: (two) [place] 00 times Medical daily. Branch clobetasoL 2021-0 Yes [id number] Apply to Univers 0.05 % 6-15 area(s) 2 ity of ointment 00:00: (two) [place] 00 times Medical daily. Branch clobetasoL 2021-0 Yes [id number] Apply to Univers 0.05 % 6-15 area(s) 2 ity of ointment 00:00: (two) [place] 00 times Medical daily. Branch clobetasoL 2021-0 Yes [id number] Apply to Univers 0.05 % 6-15 area(s) 2 ity of ointment 00:00: (two) [place] 00 times Medical daily. Branch clobetasoL 2021-0 Yes [id number] Apply to Univers 0.05 % 6-15 area(s) 2 ity of ointment 00:00: (two) [place] times Medical daily. Branch clobetasoL 2021-0 Yes [id number] Apply to Univers 0.05 % 6-15 area(s) 2 ity of ointment 00:00: (two) [place] times Medical daily. Branch clobetasoL 2021-0 Yes [id number] Apply to Univers 0.05 % 6-15 area(s) 2 ity of ointment 00:00: (two) [place] times Medical daily. Branch clobetasoL 2021-0 Yes [id number] Apply to Univers 0.05 % 6-15 area(s) 2 ity of ointment 00:00: (two) [place] times Medical daily. Branch clobetasoL 2021-0 Yes [id number] Apply to Univers 0.05 % 6-15 area(s) 2 ity of ointment 00:00: (two) [place] times Medical daily. Branch clobetasoL 2021-0 Yes [id number] Apply to Univers 0.05 % 6-15 area(s) 2 ity of ointment 00:00: (two) [place] times Medical daily. Branch clobetasoL 2021-0 Yes [id number] Apply to Univers 0.05 % 6-15 area(s) 2 ity of ointment 00:00: (two) [place] times Medical daily. Branch clobetasoL 2021-0 Yes [id number] Apply to Univers 0.05 % 6-15 area(s) 2 ity of ointment 00:00: (two) [place] times Medical daily. Branch clobetasoL 2021-0 Yes [id number] Apply to Univers 0.05 % 6-15 area(s) 2 ity of ointment 00:00: (two) [place] times Medical daily. Branch clobetasoL 2021-0 Yes [id number] Apply to Univers 0.05 % 6-15 area(s) 2 ity of ointment 00:00: (two) [place] 00 times Medical daily. Branch clobetasoL 2020-0 Yes [id number] Apply to Univers 0.05 % 6-15 area(s) 2 ity of ointment 00:00: (two) [place] 00 times Medical daily. Branch clobetasoL 2020-0 Yes [id number] Apply to Univers 0.05 % 6-15 area(s) 2 ity of ointment 00:00: (two) [place] 00 times Medical daily. Branch metFORMIN 2020-0 Yes DAILY Univers 500 mg 7-16 ity of tablet 00:00: [address] metFORMIN 2020-0 Yes DAILY Univers 500 mg 7-16 ity of tablet 00:00: [address] metFORMIN 2020-0 Yes DAILY Univers 500 mg 7-16 ity of tablet 00:00: [address] metFORMIN 2020-0 Yes DAILY Univers 500 mg 7-16 ity of tablet 00:00: [address] metFORMIN 2020-0 Yes DAILY Univers 500 mg 7-16 ity of tablet 00:00: [address] metFORMIN 2020-0 Yes DAILY Univers 500 mg 7-16 ity of tablet 00:00: [address] metFORMIN 2020-0 Yes DAILY Univers 500 mg 7-16 ity of tablet 00:00: [address] metFORMIN 2020-0 Yes DAILY Univers 500 mg 7-16 ity of tablet 00:00: [address] metFORMIN 2020-0 Yes DAILY Univers 500 mg 7-16 ity of tablet 00:00: [address] metFORMIN 2020-0 Yes DAILY Univers 500 mg 7-16 ity of tablet 00:00: [address] metFORMIN 2020-0 Yes DAILY Univers 500 mg 7-16 ity of tablet 00:00: [address] metFORMIN 2020-0 Yes DAILY Univers 500 mg 7-16 ity of tablet 00:00: [address] metFORMIN 2020-0 Yes DAILY Univers 500 mg 7-16 ity of tablet 00:00: [address] Immunizations Ordered Filled Immunization Date Status Comments Sour e Immunization Name Name [facility] 2017-11-18 Completed [facility] 00:00:00 [facility] 2017-11-18 Completed [facility] 00:00:00 [facility] 2017-11-18 Completed [facility] 00:00:00 [place] [facility] TDAP 2017-11-18 Completed [facility] 00:00:00 [place] [facility] TDAP 2017-11-18 Completed [facility] of 00:00:00 [place] [facility] TDAP 2017-11-18 Completed [facility] of 00:00:00 [place] [facility] TDAP 2017-11-18 Completed [facility] of 00:00:00 [place] [facility] TDAP 2017-11-18 Completed [facility] of 00:00:00 [place] [facility] TDAP 2017-11-18 Completed [facility] of 00:00:00 [place] [facility] TDAP 2017-11-18 Completed [facility] of 00:00:00 [place] [facility] TDAP 2017-11-18 Completed [facility] of 00:00:00 [place] [facility] TDAP 2017-11-18 Completed [facility] of 00:00:00 [place] [facility] TDAP 2017-11-18 Completed [facility] of 00:00:00 [place] [facility] TDAP 2017-11-18 Completed [facility] of 00:00:00 [place] [facility] TDAP 2017-11-18 Completed [facility] of 00:00:00 [place] [facility] TDAP 2017-11-18 Completed [facility] of 00:00:00 [place] [facility] TDAP 2017-11-18 Completed [facility] of 00:00:00 [place] [facility] TDAP 2015-07-14 Completed [facility] of 00:00:00 [place] [facility] TDAP 2015-07-14 Completed [facility] of 00:00:00 [place] [facility] TDAP 2015-07-14 Completed [facility] of 00:00:00 [place] [facility] TDAP 2015-07-14 Completed [facility] of 00:00:00 [place] [facility] TDAP 2015-07-14 Completed [facility] of 00:00:00 [place] [facility] TDAP 2015-07-14 Completed [facility] of 00:00:00 [place] [facility] TDAP 2015-07-14 Completed [facility] of 00:00:00 [place] [facility] TDAP 2015-07-14 Completed [facility] of 00:00:00 [place] [facility] TDAP 2015-07-14 Completed [facility] of 00:00:00 [place] [facility] TDAP 2015-07-14 Completed University of 00:00:00 [place] [facility] TDAP 2015-07-14 Completed [facility] of 00:00:00 [place] [facility] TDAP 2015-07-14 Completed [facility] of 00:00:00 [place] [facility] TDAP 2015-07-14 Completed University of 00:00:[address] [facility] TDAP 2015-07-14 Completed University of 00:00:[address] [facility] TDAP 2015-07-14 Completed University of 00:00:[address] [facility] TDAP 2015-07-14 Completed University of 00:00:[address] [facility] TDAP 2015-07-14 Completed University of 00:00:[address] [facility] Rubella 2011-07-17 Completed University of 00:00:[address] [facility] Varicella 2011-07-17 Completed University of (varivax)(chicken 00:00:00 [place] [facility] pox) Branch Rubella 2011-07-17 Completed University of 00:00:[address] [facility] Varicella 2011-07-17 Completed University of (varivax)(chicken 00:00:00 [place] [facility] pox) Branch Rubella 2011-07-17 Completed University of 00:00:[address] [facility] Varicella 2011-07-17 Completed University of (varivax)(chicken 00:00:00 [place] [facility] pox) Branch Rubella 2011-07-17 Completed University of 00:00:[address] [facility] Varicella 2011-07-17 Completed University of (varivax)(chicken 00:00:00 [place] [facility] pox) Branch Rubella 2011-07-17 Completed University of 00:00:[address] [facility] Varicella 2011-07-17 Completed University of (varivax)(chicken 00:00:00 [place] [facility] pox) Branch Rubella 2011-07-17 Completed University of 00:00:[address] [facility] Varicella 2011-07-17 Completed University of (varivax)(chicken 00:00:00 [place] [facility] pox) Branch Rubella 2011-07-17 Completed University of 00:00:[address] [facility] Varicella 2011-07-17 Completed University of (varivax)(chicken 00:00:00 [place] M [facility] pox) Branch Rubella 2011-07-17 Completed University of 00:00:[address] [facility] Varicella 2011-07-17 Completed University of (varivax)(chicken 00:00:00 [place] M edical pox) Branch Rubella 2011-07-17 Completed University of 00:00:[address] [facility] Varicella 2011-07-17 Completed University of (varivax)(chicken 00:00:00 [place] M edical pox) Branch Rubella 2011-07-17 Completed University of 00:00:[address] [facility] Varicella 2011-07-17 Completed University of (varivax)(chicken 00:00:00 [place] M edical pox) Branch Rubella 2011-07-17 Completed University of 00:00:[address] [facility] Varicella 2011-07-17 Completed University of (varivax)(chicken 00:00:00 [place] M edical pox) Branch Rubella 2011-07-17 Completed University of 00:00:[address] [facility] Varicella 2011-07-17 Completed University of (varivax)(chicken 00:00:00 [place] M [facility]ical pox) Branch Rubella 2011-07-17 Completed University of 00:00:[address] [facility] Varicella 2011-07-17 Completed University of (varivax)(chicken 00:00:00 [place] M [facility]ical pox) Branch Rubella 2011-07-17 Completed University of 00:00:[address] [facility] Varicella 2011-07-17 Completed University of (varivax)(chicken 00:00:00 [place] M edical pox) Branch Rubella 2011-07-17 Completed University of 00:00:[address] [facility] Varicella 2011-07-17 Completed University of (varivax)(chicken 00:00:00 [place] M edical pox) Branch Rubella 2011-07-17 Completed University of 00:00:[address] [facility] Varicella 2011-07-17 Completed University of (varivax)(chicken 00:00:00 [place] M edical pox) Branch Rubella 2011-07-17 Completed University of 00:00:[address] [facility] Varicella 2011-07-17 Completed University of (varivax)(chicken 00:00:00 [place] M edical pox) Branch Td 2007-05-05 Completed University of 00:00:[address] [facility] Td 2007-05-05 Completed University of 00:00:[address] [facility] Td 2007-05-05 Completed University of 00:00:[address] [facility] Td 2007-05-05 Completed University of 00:00:[address] [facility] Td 2007-05-05 Completed University of 00:00:[address] [facility] Td 2007-05-05 Completed University of 00:00:[address] [facility] Td 2007-05-05 Completed University of 00:00:[address] [facility] TD, NOS 2007-05-05 Completed University of 00:00:[address] [facility] TD, NOS 2007-05-05 Completed University of 00:00:00 [facility] TD, NOS 2007-05-05 Completed University of 00:00:00 [facility] TD, NOS 2007-05-05 Completed University of 00:00:00 [facility] TD, NOS 2007-05-05 Completed University of 00:00:00 [facility] TD, NOS 2007-05-05 Completed University of 00:00:00 [place] [facility] Td 2007-05-05 Completed University of 00:00:00 [place] [facility] Td 2007-05-05 Completed University of 00:00:00 [place] [facility] Td 2007-05-05 Completed University of 00:00:00 [facility] Td 2007-05-05 Completed University of 00:00:[address] [facility] Vital Signs Vital Name Observation Time Observation Value Comments Source Systolic blood 2022-05-15 17:12:00 131 mm[Hg] Univer sity of pressure [facility] Diastolic blood 2022-05-15 17:12:00 80 mm[Hg] Unive rsity of [facility] Heart rate 2022-05-15 17:12:00 90 /min [facility] Body temperature 2022-05-15 17:12:00 37.28 Karen [facility] Respiratory rate 2022-05-15 17:12:00 16 /min [facility] Body weight 2022-05-15 17:12:00 57.788 kg [facility] BMI 2022-05-15 17:12:00 23.30 kg/m2 [facility] Oxygen saturation in 2022-05-15 17:12:00 98 /min [facility] Arterial blood by [facility] Pulse oximetry Branch Systolic blood 2022-05-08 15:03:00 128 mm[Hg] Univer sity of pressure [facility] Diastolic blood 2022-05-08 15:03:00 79 mm[Hg] Unive rsity of pressure [facility] Heart rate 2022-05-08 15:03:00 76 /min [facility] Body temperature 2022-05-08 15:03:00 36.61 Karen [facility] Respiratory rate 2022-05-08 15:03:00 16 /min [facility] Body height 2022-05-08 15:03:00 157.5 cm [facility] [place] [facility] Body weight 2022-05-08 15:03:00 57.38 kg [facility] [place] [facility] BMI 2022-05-08 15:03:00 23.14 kg/m2 [facility] [place] [facility] Systolic blood 2022-04-01 20:05:00 106 mm[Hg] Univer sity of pressure [place] [facility] Diastolic blood 2022-04-01 20:05:00 72 mm[Hg] Unive rsity of pressure [place] [facility] Heart rate 2022-04-01 20:05:00 80 /min [facility] [place] [facility] Body temperature 2022-04-01 20:05:00 36.83 Karen [facility] ers[facility] [place] [facility] Respiratory rate 2022-04-01 20:05:00 18 /min [facility] ers[facility] [place] [facility] Body height 2022-04-01 20:05:00 157.5 cm [facility] [place] [facility] Body weight 2022-04-01 20:05:00 56.155 kg [facility] [place] [facility] BMI 2022-04-01 20:05:00 22.64 kg/m2 [facility] [place] [facility] Oxygen saturation in 2022-04-01 20:05:00 95 /min University of Arterial blood by [facility] Pulse oximetry Branch Systolic blood 2022-03-27 03:00:00 108 mm[Hg] Univer sity of pressure [place] [facility] Diastolic blood 2022-03-27 03:00:00 63 mm[Hg] Unive rsity of pressure [place] [facility] Heart rate 2022-03-27 03:00:00 95 /min [facility] [place] [facility] Respiratory rate 2022-03-27 03:00:00 20 /min Univ ers[facility] [place] [facility] Oxygen saturation in 2022-03-27 03:00:00 97 /min University of Arterial blood by [facility] Pulse oximetry Branch Body temperature 2022-03-26 23:16:00 37.78 Karen [facility] [place] [facility] Body weight 2022-03-26 23:16:00 58.968 kg [facility] [place] [facility] BMI 2022-03-26 23:16:00 23.78 kg/m2 [facility] [place] [facility] Systolic blood 2022-02-13 14:37:00 122 mm[Hg] Univer sity of pressure [place] [facility] Diastolic blood 2022-02-13 14:37:00 76 mm[Hg] Unive rsity of pressure [place] [facility] Heart rate 2022-02-13 14:37:00 77 /min [facility] [place] [facility] Body temperature 2022-02-13 14:37:00 36.5 Karen [facility] [place] [facility] Respiratory rate 2022-02-13 14:37:00 20 /min [facility] [place] [facility] Body height 2022-02-13 14:37:00 157.5 cm [facility] [place] [facility] Body weight 2022-02-13 14:37:00 59.104 kg [facility] [place] [facility] BMI 2022-02-13 14:37:00 23.83 kg/m2 Universi ty of [facility] Systolic blood 2021-11-21 18:31:00 128 mm[Hg] Univer sity of pressure [place] [facility] Diastolic blood 2021-11-21 18:31:00 85 mm[Hg] Unive rsity of pressure [place] [facility] Heart rate 2021-11-21 18:31:00 80 /min [facility] [place] [facility] Body temperature 2021-11-21 18:31:00 36.61 Karen Univ ersity of [facility] Respiratory rate 2021-11-21 18:31:00 18 /min Univ ers[facility] [place] [facility] Body height 2021-11-21 18:31:00 157.5 cm [facility] [place] [facility] Body weight 2021-11-21 18:31:00 59.875 kg [facility] [place] [facility] BMI 2021-11-21 18:31:00 24.14 kg/m2 [facility]i [facility] of [facility] Systolic blood 2022-03-19 11:00:00 106 mm[Hg] [facility] Diastolic blood 2022-03-19 11:00:00 76 mm[Hg] [facility] S [facility] Heart rate 2022-03-19 11:00:00 72 /min [facility] Body temperature 2022-03-19 11:00:00 36.61 Karen [facility] Respiratory rate 2022-03-19 11:00:00 18 /min [facility] Oxygen saturation in 2022-03-19 11:00:00 99 /min [facility] Arterial blood by Medical Ce nter Pulse [...] 17.00 /min Procedures Procedure Date / Time Performing Clinician Source Performed POCT URINALYSIS AUTO 2022-05-15 17:20:00 Rosaline Peralta [facility] POCT URINALYSIS AUTO 2022-04-01 20:08:00 Arsalan Montoya [facility] POCT TEST 2022-03-27 00:56:00 Hilda Lezama [facility] COVID-19 (ID NOW RAPID 2022-03-27 00:48:00 Hilda Lezama [facility] TESTING) [facility] LACTIC ACID WHOLE BLOOD 2022-03-27 00:40:00 Hilda Lezama [facility] COMP. METABOLIC PANEL 2022-03-27 00:39:00 Hilda Lezama [facility] ([id number]) Medical [place] CBC WITH DIFF 2022-03-27 00:39:00 Hilda Lezama [place] [facility] URINALYSIS 2022-03-27 00:39:00 Hilda Lezama [facility] CT ABDOMEN PELVIS WO 2022-03-27 00:14:00 Hilda Lezama [facility] CONSENT/REFUSAL FOR 2022-03-26 23:03:11 Doctor Unassigned, No Un [facility] DIAGNOSIS AND TREATMENT Name Medical Branch POCT-GLUCOSE METER 2022-03-19 11:28:00 Hans Nichols [facility] POCT-GLUCOSE METER 2022-03-19 06:37:00 [facility] POCT-GLUCOSE METER 2022-03-19 [facility] 2022-03-18 17:24[facility]22-[facility]-18 [facility] 2022-03-18 13:46[facility]00 [facility] 2022-03-18 11:59:00 [facility] POCT-GLUCOSE METER 2022-03-18 06:19:00 [facility] [facility] BASIC METABOLIC PANEL 2022-03-18 04:16:00 [facility] MAGNESIUM 2022-03-18 04:16:00 [facility] PHOSPHORUS 2022-03-18 04:16:00 [facility] CBC W/PLT COUNT & AUTO 2022-03-18 04:16:00 [facility] DIFFERENTIAL [place] HEPATIC FUNCTION PANEL 2022-03-18 04:16:00 [facility] CBC W/PLT COUNT & AUTO 2022-03-18 04:16:00 [facility] POCT-GLUCOSE METER 2022-03-17 21:09:00 [facility] POCT-GLUCOSE METER 2022-03-17 16:17:00 [facility] POCT-GLUCOSE METER 2022-03-17 12:19:00 [facility] POCT-GLUCOSE METER 2022-03-17 10:57[facility]00 [facility] [place] FLU[facility] NON-SPECIFIC 2022-03-17 10:33:00 Rik, [facility]rence [facility] HOUR Center AFB CULTURE + SMEAR 2022-03-17 10:32:53 [facility] (NON-SPUTUM) [place] FUNGUS CULTURE + SMEAR 2022-03-17 10:32:53 [facility] SURGICALLY OBTAINED 2022-03-17 10:32:53 [facility] CULTURE + GRAM STAIN Center ANAEROBIC CULTURE 2022-03-17 10:32:53 [facility] SPIN/CONCENTRATION 2022-03-17 10:32:00 [facility] CHARGE Center CYSTOSCOPY, WITH 2022-03-17 09:57:00 [facility] URETERAL STENT Center INSERTION ABORH, MANUAL 2022-03-17 07:18:00 Sarita Flores [facility] SARS-COV2/RT-PCR ([facility] 2022-03-17 06:27:00 Clarence Jolly [facility] & REF LABS) Center POCT-GLUCOSE METER 2022-03-17 05:52:00 Fabrizio Moore [facility] BASIC METABOLIC PANEL 2022-03-17 05:46:00 Fabrizio Moore [facility] CBC W/PLT COUNT & AUTO 2022-03-17 05:46:00 Fabrizio Moore [facility] DIFFERENTIAL Center MAGNESIUM 2022-03-17 05:46:00 Fabrizio Moore [facility] PHOSPHORUS 2022-03-17 05:46:00 Fabrizio Moore [facility] PT/APTT 2022-03-17 05:46:00 Fabrizio Moore [facility] TYPE AND SCREEN, 2022-03-17 05:46:00 [facility] CBC W/PLT COUNT & AUTO 2022-03-17 05:46:00 Fabrizio Moore [facility] DIFFERENTIAL Center Plan of Care Planned Activity Planned Date Details Comments Source Future Scheduled 2027-11-19 DTAP/TDAP/TD VACCINES [facility] 00:[facility]00 (3 - Td or Tdap) [code Medic al Center = DTAP/TDAP/TD VACCINES (3 - Td or Tdap)] Future Scheduled 2027-11-19 DTAP/TDAP/TD VACCINES [facility] 00:00:00 (3 - Td or Tdap) [code Medic al Center = DTAP/TDAP/TD VACCINES (3 - Td or Tdap)] Future Scheduled 2023-03-[address] [facility] 00:00:00 Counseling and Medical Cente r Screening (12+) [code = Tobacco Cessation Counseling and Screening (12+)] Future Scheduled 2022-05-[address] [facility] 00:00:00 (12+) [code = Medical Center DEPRESSION SCREENING (12+)] Future Scheduled 2022-03-[address] 00:[facility]:00 measurement (procedure) [facility] [code = 17128666] Future Scheduled 2022-03-[address] [facility] 00:00:00 measurement (procedure) [facility] [code = 58073942] Future Scheduled 2022-01-03 INFLUENZA VACCINE (#1) [facility]00 [code = INFLUENZA Medical Ce nter VACCINE (#1)] Future Scheduled 2022-01-03 INFLUENZA VACCINE (#1) [facility] 00:00:00 [code = INFLUENZA Medical Ce nter VACCINE (#1)] Future Scheduled 2021-01-17 Lipid panel (procedure) [facility] 00:00:00 [code = 43098274] Medical Ce nter Future Scheduled 2021-01-17 Lipid panel (procedure) [facility] 00:00:00 [code = 47549076] Medical Ce nter Future Scheduled 1997-01-17 Screening for malignant [facility] 00:00:00 neoplasm of cervix Medical C enter (procedure) [code = 015385653] Future Scheduled 1997-01-17 Screening for malignant [facility] 00:00:00 neoplasm of cervix Medical C enter (procedure) [code = 180826938] Future Scheduled 1994-01-17 HEPATITIS C SCREENING [facility] 00:00:00 [code = HEPATITIS C Medical Center SCREENING] Future Scheduled 1994-01-17 HEPATITIS C SCREENING CH [...] 00:00:00 examination Medical Center (regime/therapy) [code = 342462883] Future Scheduled 1986-01-17 Urine screening for [facility] 00:00:00 protein (procedure) Medical Center [code = 623367634] Future Scheduled 1986-01-17 DIABETIC EYE EXAM [code [facility] 00:00:00 = DIABETIC EYE EXAM] Medical Center Future Scheduled 1986-01-[address] [facility] 00:[facility]:00 examination Medical Center (regime/therapy) [code = 875473189] Future Scheduled 1986-01-17 Urine screening for [facility] 00:00:00 protein (procedure) Medical Center [code = 473394427] Future Scheduled 1982-01-[address] [facility] 00:00:00 0-64 YRS (1 - PCV) Medical C enter [code = PNEUMOCOCCAL VACCINE 0-64 YRS (1 - PCV)] Future Scheduled 1982-01-[address] [facility] 00:00:00 0-64 YRS (1 - PCV) Medical C enter [code = PNEUMOCOCCAL VACCINE 0-64 YRS (1 - PCV)] Future Scheduled 1976 COVID-19 VACCINE (#1) [facility] 00:00:00 [code = COVID-[address] VACCINE (#1)] Future Scheduled 1976 COVID-19 VACCINE (#1) [facility] 00:00:00 [code = COVID-[address] VACCINE (#1)] Future Scheduled 1976 Screening for malignant [facility] 00:00:00 neoplasm of colon Medical Ce nter (procedure) [code = 287620678] Future Scheduled 1976 Screening for malignant [facility] 00:00:00 neoplasm of colon Medical Ce nter (procedure) [code = 072137423] Future Scheduled 1976 Screening for malignant [facility] 00:00:00 neoplasm of colon Medical Ce nter (procedure) [code = 438351160] Future Scheduled 1976 Sigmoidoscopy [code = [facility]:00 Sigmoidoscopy] [facility] r Future Scheduled 1976 CT Colonography (combo) [facility] 00:00:00 [code = CT Colonography [facility] (combo)] Future Scheduled 1976 Screening for malignant [facility] 00:00:00 neoplasm of colon Medical Ce nter (procedure) [code = 349872476] Future Scheduled 1976 CT Colonography (combo) [facility] 00:00:00 [code = CT Colonography Medi [facility] Center (combo)] Future Scheduled 1976 Screening for malignant [facility] 00:00:00 neoplasm of colon Medical Ce nter (procedure) [code = 925134902] Future Scheduled 1976 Screening for malignant [facility] 00:00:00 neoplasm of colon Medical Ce nter (procedure) [code = 677076558] Future Scheduled 1976 Screening for malignant [facility] 00:00:00 neoplasm of colon Medical Ce nter (procedure) [code = 133431780] Future Scheduled 1976 Screening for malignant [facility] 00:00:00 neoplasm of colon Medical Ce nter (procedure) [code = 647539243] Future Scheduled 1976 Sigmoidoscopy [code = [facility]oidoscopy] [facility] Goal Plan of Care Note [code = 25436-7] Goal Plan of Care Note [code = 76623-4] Goal Plan of Care Note [code = 68537-3] Goal Plan of Care Note [code = 50722-5] Goal Plan of Care Note [code = 19913-5] Goal Plan of Care Note [code = 41306-9] Goal Plan of Care Note [code = 40326-0] Goal Plan of Care Note [code = 28627-1] Goal Plan of Care Note [code = 83332-1] Goal Plan of Care Note [code = 11214-6] Goal Plan of Care Note [code = 87191-6] Goal Plan of Care Note [code = 64463-7] Goal Plan of Care Note [code = 15573-3] Goal Plan of Care Note [code = 24199-9] Goal Plan of Care Note [code = 31539-1] Goal Plan of Care Note [code = 54755-8] Goal Plan of Care Note [code = 46307-2] Goal Plan of Care Note [code = 07404-8] Goal Plan of Care Note [code = 66819-4] Goal Plan of Care Note [code = 63721-6] Goal Plan of Care Note [code = 76523-7] Goal Plan of Care Note [code = 72312-4] Goal Plan of Care Note [code = 70506-7] Goal Plan of Care Note [code = 28436-0] Goal Plan of Care Note [code = 81320-5] Goal Plan of Care Note [code = 53254-3] Goal Plan of Care Note [code = 61605-0] Goal Plan of Care Note [code = 65067-3] Goal Plan of Care Note [code = 18577-3] Goal Plan of Care Note [code = 67431-3] Goal Plan of Care Note [code = 70406-4] Goal Plan of Care Note [code = 83671-1] Goal Plan of Care Note [code = 29087-8] Goal Plan of Care Note [code = 35947-5] Goal Plan of Care Note [code = 78014-0] Goal Plan of Care Note [code = 54853-6] Goal Plan of Care Note [code = 14233-4] Goal Plan of Care Note [code = 06481-5] Goal Plan of Care Note [code = 51244-8] Goal Plan of Care Note [code = 14417-6] Goal Plan of Care Note [code = 68538-5] Goal Plan of Care Note [code = 91248-2] Goal Plan of Care Note [code = 18317-3] Goal Plan of Care Note [code = 28768-2] Goal Plan of Care Note [code = 29722-3] Goal Plan of Care Note [code = 57523-5] Goal Plan of Care Note [code = 12104-0] Goal Plan of Care Note [code = 52201-4] Encounters Start End Encounter Admission Attending Care Care Encounter Source Date/Time Date/Time Type Type Clinicians Facility Department ID 2022-07-31 2022-07-[address] [facility] [id number] Univers 08:30:00 08:30:[address] [facility] 2022-06-06 2022-06-06 [facility] 1.2.840.114 [id number] Univers 00:00:00 00:00:00 Management Rosaline BURGESS 350.1.13.10 ity of [place] [id number] [address] 2022-05-17 2022-05-[address] [facility] [id number] Univers 12:15:00 12:15:00 KELSEY ity [facility] 2022-05-17 2022-05-17 Telephone [facility] 1..840.114 [id number] Univers 00:00:00 00:00:00 Rosaline BURGESS 350.1.13.10 ity of [place] [phone] [address] 2022-05-15 2022-05-15 [facility] [id number] Univers 11:30:00 12:31:[address] o f [facility] 2022-05-15 2022-05-15 Office [facility] 1..840.114 [id number] Univers 11:30:00 12:31:20 Visit Rosaline BURGESS 350.1.13.10 it[place] of [place] [id number] [address] 2022-05-08 2022-05-08 Nurse Visit, Dale[facility] Nurse [facility] 1. .840.114 [id number] Univers 09:00:00 09:14:35 Visit Klaudia Lopez LINESPERSON 350.1.13. 10 ity of [facility] 4.2.7.2.686 Deniz as MATERNAL [phone] Med ical & CHILD [address] [place] [address] 2022-05-08 2022-05-[address] [facility] [id number] Univers 09:00:00 09:14:[address] daigle o f [facility] 2022-04-01 2022-04-[address] [facility] [id number] Univers 16:00:00 16:53:08 ARSALAN oxana [facility] 2022-04-01 2022-04-[address] [facility] 1.2.840.114 [id number] Univers 16:00:00 16:53:08 Visit Rm, Adc Surg Spec Procedure [place] 3 50.1.13.10 ity of [place] [phone] [address] 2022-04-01 2022-04-01 Office [facility] 1.2.840.114 [id number] Univers 13:30:00 15:52:47 Visit Arsalan ADITYA 350.1.13.10 i ty of [place] [id number] [address] 2022-03-26 2022-03-26 Emergency [facility] ERT [id number] Univers 17:17:00 21:19:00 [facility] 2022-03-26 2022-03-[address] [facility] 1.2.811.574 [id number] Univers 17:17:00 21:19:00 Hilda Kathrine ADITYA 350.1.13.10 i ty [place] [id number] [address] 2022-03-17 2022-03-19 Outpatient ER JOSIAH NICHOLS [facility] Med [id number] [facility] 04:22:00 14:00:00 HANS 2022-03-17 2022-03-19 [facility] Fabrizio Moore [facility] [id number] [facility] 04:22:00 14:00:00 Encounter Hans Nichols [facility] 2022-03-17 2022-03-17 Outpatient [facility] [id number] [facility] 04:22:00 23:59:00 Jeyson 2022-03-17 2022-03-17 Surgery Kd, [facility] [id number] 09:34:00 11:08:00 [facility] 2022-03-17 2022-03-17 Surgery Kd, [facility] [id number] 09:34:00 11:08:00 [facility] 2022-03-17 2022-03-17 Anesthesia Radha Martinez [facility] [id number] 09:57:00 10:46:00 Event [facility] 2022-03-17 2022-03-17 Anesthesia Radha Martinez [facility] [id number] 09:57:00 10:46:00 Event [facility] 2022-02-27 2022-02-27 Outpatient SFA SFA [id number] Regulo 08:07:52 08:07:52 1026 F Pascual 2022-02-27 2022-02-27 Outpatient [id number] 00:00:00 00:00:00 Visit [id number] 454bea 2022-02-14 2022-02-14 Outpatient SFA SFA [id number] [place]ulo 08:13:03 08:13:03 1013 F Pascual 2022-02-13 2022-02-13 Outpatient SFA SFA [id number] Regulo 16:25:24 16:25:24 1012 F Pascual 2022-02-13 2022-02-[address] [facility] [id number] Univers 09:00:00 09:37:[address] [facility] 2022-02-13 2022-02-13 Nurse Visit, Celeste Nurse [facility] 1.[id number] [facility] 09:00:00 09:37:00 Visit Klaudia Lopez LINESPERSON 350.1.13. 10 ity [facility] 4.2.7.2.686 Deniz as MATERNAL [phone] [facility] ical & CHILD [address] [place] [address] 2022-02-13 2022-02-[address] [facility] [id number] Univers 09:00:00 09:00:00 [facility] 2022-02-13 2022-02-[address] [facility] [id number] [facility] 08:30:00 08:30:00 JUSTUSSHITALJason daigle o [facility] 2022-02-13 2022-02-13 Outpatient [id number] 00:00:00 00:00:00 Visit [id number] 2021-11-21 2021-11-21 Outpatient [address] MICHELLE WORLEY [facility] [id number] [facility] 12:45:00 14:08:58 MICHELLE WORLEY [facility] 2021-11-21 2021-11-21 Office Provider, Celeste Temp [facility] [id number] [facility] 12:45:00 14:08:58 Visit Klaudia Lopez LINESPERSON 350.1.13. 10 [facility] 4.2.7.2.686 [place] MATERNAL [phone] [facility] ical & CHILD [address] [place] [address] 2021-11-21 2021-11-21 Nurse Visit, Celeste Nurse [facility] 1.[id number] [facility] 13:30:00 13:45:00 Visit Klaudia Lopez LINESPERSON 350.1.13. 10 ity [facility] 4.2.7.2.686 Deniz as MATERNAL [phone] [facility] & CHILD [address] [place] [address] 2021-08-29 2021-08-[address] [facility] [id number] Univers 09:00:00 09:00:[address] [facility] 2021-08-29 2021-08-29 Outpatient R JESSICA, [facility] [id number] Univers 09:00:00 09:00:00 KLAUDIA daigle o [facility] 2021-08-28 2021-08-28 [facility] 1.2 .840.114 [id number] Univers 14:30:00 14:30:00 Visit Klaudia Lopez LINESPERSON 350.1.13. 10 ity [facility] 4.2.7.2.686 Deniz as MATERNAL [phone] [facility] & [address] 2021-08-28 2021-08-[address] [facility] [id number] Univers 14:30:00 14:11:57 KLAUDIA daigle o [facility] 2021-06-12 2021-06-12 Nurse Visit, Celeste Nurse [facility] 1.2 .840.114 [id number] Univers 14:00:00 14:05:07 Visit Reynold Fraser LINESPERSON 350.1.13.10 ity [facility] 4.2.7.2.686 [place] as MATERNAL [id number] [facility] & [address] 2021-06-12 2021-06-[address] [facility] [id number] Univers 14:00:00 14:00:00 REYNOLD daigle o [facility] 2021-06-12 2021-06-[address] [facility] [id number] Univers 14:00:00 14:00:00 KEVINA jose my o [facility] 2021-06-11 2021-06-11 Telephone Jessica [facility] 1.2.840.114 [id number] Univers 00:00:00 00:00:00 Klaudia Ward LINESPERSON 350.1.13.10 ity of [facility] 4.2.7.2.686 [place] as MATERNAL [phone] [facility] & CHILD [address] [place] [address] 2021-06-06 2021-06-[address] [facility] [id number] Univers 09:00:00 10:37:[address] [facility] 2021-06-06 2021-06-06 Office [facility] 1.2.147.283 [id number] Univers 09:00:00 10:37:33 Visit Klaudia Ward LINESPERSON 350.1.13.10 ity of [facility] 4.2.7.2.686 Deniz as MATERNAL [id number] [facility] & CHILD [address] [place] [address] 2021-06-06 2021-06-[address] [facility] [id number] Univers 09:00:00 10:37:33 KLAUDIA jose mmadison waite [facility] 2021-06-06 2021-06-06 [facility] [id number] Univers 09:00:00 09:00:00 KLAUDIA oxana ravindra [facility] 2021-05-10 2021-05-10 Outpatient Keila [facility] [id number] Univers 13:00:00 13:00:00 JES madison [facility] 2021-05-10 2021-05-10 Outpatient Keila [facility] [id number] Univers 08:30:00 08:30:00 JES [facility] 2021-04-04 2021-04-04 Office Pgy2 UNIVERSIT [id number] [id number] Univers 14:47:20 16:11:04 Visit Ami Angel [facility] 350.1.13.10 ity of [facility] [place] [id number] [address] 2021-04-04 2021-04-[address] [facility] [id number] Univers 14:45:00 16:11:04 AMI daigle [facility] 2021-03-14 2021-03-14 Outpatient Keila [facility] [id number] Univers 09:00:00 09:12:49 JES ity [facility] 2021-03-14 2021-03-14 Nurse Visit, Celeste Nurse [facility] 1.2 .840.114 [id number] Univers 08:46:00 09:12:49 Visit Jes Avila LINESPERSON 350.1.13.10 ity of REGIONAL 4.2.7.2.686 [place]iz as MATERNAL [phone] [facility] & CHILD [address] [place] [address] 2020-12-25 2020-12-[address] [facility] [id number] Univers 09:00:00 09:00:00 ity [facility] 2020-12-22 2020-12-[address] [facility] [id number] Univers 10:00:00 10:00:00 [facility] 2020-12-20 2020-12-20 Nurse Visit, Celeste Nurse [facility] 1.2 .840.114 [id number] Univers 13:47:05 14:21:01 Visit Klaudia Lopez LINESPERSON 350.1.13. 10 ity of REGIONAL 4.2.7.2.686 [place] as MATERNAL [phone] [facility] & [address] 2020-12-20 2020-12-[address] [facility] [id number] Univers 13:30:00 13:30:[address] [facility] 2020-11-16 2020-11-16 Telephone SANJEEV TalleyIT 1.2.840.114 [id number] Univers 00:00:00 00:00:00 [facility] 350.1.13.10 i ty of [place] [id number] [address] 2020-11-13 2020-11-13 Office Pgy2 UNIVERSIT [id number] [id number] Univers 14:15:35 16:58:28 Visit Daniella [place] [facility] 350.1.13. 10 it[place] of [place] [id number] [address] 2020-11-13 2020-11-[address] [facility] [id number] Univers 15:30:00 15:30:[address] [facility] 2020-11-13 2020-11-13 Orders Doctor CLARENCE 1.2.840.114 [id number] Univers 00:00:00 00:00:00 Only Unassigned, OSCAR 350.1.13.10 ity of [place] [facility] 4.2.7.2.686 Deniz as [id number] [facility] [address] [place] 2020-10-18 2020-10-18 Telephone Jessica [facility] 1.2.840.114 [id number] Univers 00:00:00 00:00:00 Klaudia Ward LINESPERSON 350.1.13.10 ity of [facility] 4.2.7.2.686 Deniz as MATERNAL [phone] Med ical & CHILD [address] [place] [address] 2020-10-17 2020-10-17 Office Jessica [facility] 1.2.774.841 [id number] Univers 15:43:20 16:45:09 Visit Klaudia Ward LINESPERSON 350.1.13.10 ity of [facility] 4.2.7.2.686 Deniz as MATERNAL [id number] [facility] ical & CHILD [address] [place] [address] 2020-10-17 2020-10-[address] [facility] [id number] Univers 16:00:00 16:00:[address] [facility] 2020-09-29 2020-09-29 Nurse Visit, [facility] 1.2.840.114 [id number] 09:52:51 10:25:33 Visit Celeste LINESPERSON 350.1.13.10 Nurse REGIONAL 4.2.7.2.686 MATERNAL [id number] & CHILD [address] [place] [address] 2020-09-29 2020-09-29 Nurse Visit, Celeste Nurse [facility] 1.2 .840.114 [id number] Univers 09:52:51 10:25:33 Visit Klaudia Lopez LINESPERSON 350.1.13. 10 ity of [facility] 4.2.7.2.686 Deniz as MATERNAL [id number] Med ical & CHILD 107 [facility] 2020-09-29 2020-09-[address] [facility] [id number] Univers 10:00:00 10:00:00 ity [facility] 2020-09-29 2020-09-29 [facility] [id number] Univers 10:00:00 10:00:00 [address] daigle o f [facility] 2020-09-29 2020-09-[address] [facility] [id number] Univers 08:00:00 08:00:00 ity [facility] 2020-07-20 2020-07-20 [facility] 1.2.840.114 [id number] 00:00:00 00:00:00 Outreach Jose Cruz [facility] 350.1.13.10 [facility] 4.2.7.2.686 PAVILLION [id number] 388 2020-07-20 2020-07-20 Patient Claudio [facility] 1.2.840.114 [id number] Univers 00:00:00 00:00:00 Outreach [facility] 350.1.13.10 i ty of [facility] [place]AV[place] [id number] Ok dical [address] [place] [address] 2020-07-07 2020-07-[address] [facility] [id number] Univers 08:30:00 08:30:00 [facility] 2020-07-07 2020-07-07 Nurse Visit, [facility] 1.2.840.114 [id number] 07:50:29 08:06:39 Visit Marlomillicent LINESPERSON 350.1.13.10 Nurse REGIONAL 4.2.7.2.686 MATERNAL [phone] & CHILD [address] [place] [address] 2020-07-07 2020-07-07 Nurse Visit, [facility] Nurse [facility] 1.2 .[id number] Univers 07:50:29 08:06:39 Visit Klaudia Lopez LINESPERSON [id number]. 10 ity [facility] [id number] Deniz as MATERNAL [phone] Med ical & CHILD [address] [place] [address] 2020-05-09 2020-05-09 Office Margarita [facility] [id number] 08:54:26 09:58:23 Visit Jes Bravo LINESPERSON [id number] REGIONAL [id number] MATERNAL [phone] & CHILD [address] [place] [address] 2020-05-09 2020-05-09 Office Margarita [facility] [id number] Univers 08:54:26 09:58:23 Visit Jes Bravo LINESPERSON [id number] it y of [facility] [id number] Deniz as MATERNAL [phone] [facility] ical & CHILD [address] [place] [address] 2020-05-09 2020-05-[address] [facility] [id number] Univers 08:45:00 08:45:00 [facility] 2020-04-14 2020-04-14 Nurse Visit, [facility] Nurse [facility] 1.2 .840.114 [id number] Univers 07:58:01 08:13:01 Visit Klaudia Lopez LINESPERSON 350.1.13. 10 ity of [facility] 4.2.7.2.686 Deniz as MATERNAL [phone] [facility] ical & CHILD [address] [place] [address] 2020-04-14 2020-04-[address] [facility] [id number] Univers 08:00:00 08:00:[address] [facility] 2020-03-02 2020-03-02 Office Mangham, [facility] Resident UNIVERSIT 1.2.8 40.114 [id number] Univers 13:10:37 14:21:28 Visit Ami Angel [facility] 350.1.13.10 ity of [facility] 4.2.[place].2.[place] [phone] [address] 2020-03-02 2020-03-[address] [facility] [id number] Univers 13:15:00 13:15:00 ity [facility] 2020-02-17 2020-02-22 [facility] UNIVERSIT 1.2.8 40.114 [id number] Univers 14:34:25 13:47:09 Visit Ami Angel [facility] 350.1.13.10 ity [place] [phone] [facility] [address] 2020-02-22 2020-02-22 Telephone Bernardme [place] 1.2.840.114 [id number] Univers 00:00:00 00:00:00 d, OSCAR 350.1.13.10 it y of [facility] 4.2.7.2.686 [place] l [phone] [address] 2020-02-20 2020-02-20 Telephone CharFreedomme [place] 1.2.840.114 [id number] Univers 00:00:00 00:00:00 d, OSCAR 350.1.13.10 it y of [facility] 4.2.7.2.686 [place] [phone] [address] 2020-02-17 2020-02-[address] [facility] [id number] Univers 15:00:00 15:00:[address] [facility] 2020-02-17 2020-02-17 Orders Doctor CLARENCE 1.2.840.114 [id number] Univers 00:00:00 00:00:00 Only Unassigned, OSCAR 350.1.13.10 ity of [place] [facility] 4.2.7.2.686 Deniz as [phone] [address] 2020-02-04 2020-02-04 [facility] 1.2.445.670 [id number] Univers 10:36:03 13:02:32 Visit Jes Bravo LINESPERSON 350.1.13.10 it y of [facility] 4.2.7.2.686 Deniz as MATERNAL [phone] Med ical & CHILD [address] [place] [address] 2020-02-04 2020-02-[address] [facility] [id number] Univers 11:00:00 11:00:[address] [facility] 2020-01-14 2020-01-14 Nurse Visit, Dale-Rmchp Nurse [facility] 1.2 .840.114 [id number] Univers 13:34:04 13:49:04 Visit Jessica Klaudia Ward LINESPERSON 350.1.13. 10 ity of [facility] 4.2.7.2.686 Deniz as MATERNAL [phone] [facility] & CHILD [address] [place] [address] 2020-01-14 2020-01-[address] [facility] [id number] Univers 13:30:00 13:30:[address] [facility] 2020-01-13 2020-01-[address] [facility] [id number] Univers 09:00:00 09:00:[address] [facility] 2019-12-09 2019-12-09 Outpatient [facility] PDPFEJP CPU COH 00:00:00 00:00:00 [id number] 2019-10-21 2019-10-21 Office ANT Fraser 1.2.840.114 [id number] Univers 10:06:31 10:33:05 Visit Reynold Pedraza LINESPERSON 350.1.13.10 ity of [facility] 4.2.7.2.686 Deniz as MATERNAL [phone] [facility] & CHILD [address] [place] [address] 2019-10-21 2019-10-21 [facility] 1.2 .840.114 [id number] Univers 09:37:55 09:52:13 Visit Reynold Fraser LINESPERSON 350.1.13.10 ity of [facility] 4.2.7.2.686 Deniz as MATERNAL [phone] [facility] & CHILD [address] [place] [address] 2019-10-21 2019-10-[address] [facility] [id number] Univers 09:00:00 09:00:[address] [facility] 2019-10-21 2019-10-21 Orders Doctor [place] 1.2.840.114 [id number] Univers 00:00:00 00:00:00 Only Unassigned, OSCAR 350.1.13.10 ity of [place] [facility] 4.2.7.2.686 Deniz as [phone] [address] 2019-07-29 2019-07-29 [facility] 1.2 .840.114 [id number] Univers 08:36:21 08:58:19 Visit Klaudia Lopez LINESPERSON 350.1.13. 10 [facility] 4.2.7.2.686 Deniz as MATERNAL [phone] Med ical & CHILD [address] [place] [address] 2019-07-29 2019-07-[address] [facility] [id number] Univers 08:30:00 08:30:00 [facility] Results Test Description Test Time Test Comments Results Result Comments Source POCT URINALYSIS, INSTRUMENT 2022-05-15 17:20:00 Test Item Value Reference Range Interpretation Comme nts POCT U SP GRAV (test code = 3255) 1.030 mg/dl 1.005-1.025 A POCT PH U (test code = 3254) 5.5 mg/dl 5-8 POCT U LEUK EST (test code = 3263) Negative Negative - Negative POCT U NIT (test code = 3262) Negative Negative - Negative POCT U PROT (test code = 3259) Trace Negative - Negative POCT U GLU (test code = 3256) Negative - Negative A POCT U KETONE (test code = 3258) Negative Negative - Negative POCT U UROBILI (test code = 3260) 0.2 mg/dl 0.2-1 POCT U BILI (test code = 3261) Negative Negative - Negative POCT U BLD (test code = 3257) Negative Negative - Negative POCT U COLOR (test code = 3266) Yellow POCT U APPEAR (test code = 3267) Clear Lab Interpretation (test code = 96487-8) [facility]normal [facility] [id number] 17:20:00 Test Item Value Reference Range Interpretation Comments POCT U SP GRAV (test code = 1.030 mg/dl 1.005-1.025 A 3255) POCT PH U (test code = 3254) 5.5 mg/dl 5-8 POCT U LEUK EST (test code = Negative Negative - Negative 3263) POCT U NIT (test code = 3262) Negative Negative - Negative POCT U PROT (test code = Trace Negative - Negative 3259) POCT U GLU (test code = 3256) Negative - Negative A POCT U KETONE (test code = Negative Negative - Negative 3258) POCT U UROBILI (test code = 0.2 mg/dl 0.2-1 3260) POCT U BILI (test code = Negative Negative - Negative 3261) POCT U BLD (test code = 3257) Negative Negative - Negative POCT U COLOR (test code = Yellow 3266) POCT U APPEAR (test code = Clear 3267) Lab Interpretation (test code Abnormal = 62151-8) [facility], [id number] 17:20:00 Test Item Value Reference Range Interpretation Comments POCT U SP GRAV (test code = 1.030 mg/dl 1.005-1.025 A 3255) POCT PH U (test code = 3254) 5.5 mg/dl 5-8 POCT U LEUK EST (test code = Negative Negative - Negative 3263) POCT U NIT (test code = 3262) Negative Negative - Negative POCT U PROT (test code = Trace Negative - Negative 3259) POCT U GLU (test code = 3256) Negative - Negative A POCT U KETONE (test code = Negative Negative - Negative 3258) POCT U UROBILI (test code = 0.2 mg/dl 0.2-1 3260) POCT U BILI (test code = Negative Negative - Negative 3261) POCT U BLD (test code = 3257) Negative Negative - Negative POCT U COLOR (test code = Yellow 3266) POCT U APPEAR (test code = Clear 3267) Lab Interpretation (test code Abnormal = 52368-2) [facility] (non-sputum)2022-05-02 08:54:18 Test Item Value Reference Range Interpretation Comments Result (test code = No acid-fast bacilli 6463-4) isolated in 42 days AFB Smear (test code = No acid fast bacilli 92472-1) seen [facility]NON-SPUTUM)2022-05-02 08:54:18 Test Item Value Reference Range Interpretation Comments CULTURE (BEAKER) (test No acid-fast bacilli code = 1095) isolated in 42 days AFB SMEAR (BEAKER) No acid fast bacilli (test code = 994) seen Fungus culture + [id number] 00:04:22 Test Item Value Reference Range Interpretation Comments Result (test code = No fungus isolated in 6463-4) 28 days Fungus Smear (test No fungi seen code = 1406) [facility] + [id number] 00:04:22 Test Item Value Reference Range Interpretation Comments CULTURE (BEAKER) (test No fungus isolated in code = 1095) 28 days FUNGUS SMEAR (BEAKER) No fungi seen (test code = 1406) POCT URINALYSIS, [id number] 20:08:00 Test Item Value Reference Range Interpretation Comments POCT U SP GRAV (test code = 1.025 mg/dl 1.005-1.025 3255) POCT PH U (test code = 3254) 5.5 mg/dl 5-8 POCT U LEUK EST (test code = large Negative - Negative 3263) POCT U NIT (test code = 3262) negative Negative - Negative POCT U PROT (test code = Negative - Negative 3259) POCT U GLU (test code = 3256) negative Negative - Negative POCT U KETONE (test code = trace Negative - Negative 3258) POCT U UROBILI (test code = 1 mg/dl 0.2-1 0) POCT U BILI (test code = moderate Negative - Negative 3261) POCT U BLD (test code = 3257) large Negative - Negative POCT U COLOR (test code = brown 3266) POCT U APPEAR (test code = cloudy 3267) Lab Interpretation (test code Normal = 30101-5) [facility] URINALYSIS, [id number] 20:08:00 Test Item Value Reference Range Interpretation Comments POCT U SP GRAV (test code = 1.025 mg/dl 1.005-1.025 3255) POCT PH U (test code = 3254) 5.5 mg/dl 5-8 POCT U LEUK EST (test code = large Negative - Negative 3263) POCT U NIT (test code = 3262) negative Negative - Negative POCT U PROT (test code = Negative - Negative 3259) POCT U GLU (test code = 3256) negative Negative - Negative POCT U KETONE (test code = trace Negative - Negative 3258) POCT U UROBILI (test code = 1 mg/dl 0.2-1 3260) POCT U BILI (test code = moderate Negative - Negative 3261) POCT U BLD (test code = 3257) large Negative - Negative POCT U COLOR (test code = brown 3266) POCT U APPEAR (test code = cloudy 3267) Lab Interpretation (test code Normal = 89951-1) [facility], [id number] 20:08:00 Test Item Value Reference Range Interpretation Comments POCT U SP GRAV (test code = 1.025 mg/dl 1.005-1.025 3255) POCT PH U (test code = 3254) 5.5 mg/dl 5-8 POCT U LEUK EST (test code = large Negative - Negative 3263) POCT U NIT (test code = 3262) negative Negative - Negative POCT U PROT (test code = Negative - Negative 3259) POCT U GLU (test code = 3256) negative Negative - Negative POCT U KETONE (test code = trace Negative - Negative 3258) POCT U UROBILI (test code = 1 mg/dl 0.2-1 3260) POCT U BILI (test code = moderate Negative - Negative 3261) POCT U BLD (test code = 3257) large Negative - Negative POCT U COLOR (test code = brown 3266) POCT U APPEAR (test code = cloudy 3267) Lab Interpretation (test code Normal = 10230-8) [facility]. METABOLIC PANEL (95449)2022-03-27 01:14:34 Test Item Value Reference Range Interpretation Comments NA (test code = 137 mmol/L 135-145 8085174628) K (test code = 3.8 mmol/L 3.5-5.0 3182373233) CL (test code = 106 mmol/L 98-108 2682035485) CO2 TOTAL (test code = 19 mmol/L 23-31 L 8007893653) AGAP (test code = 2-16 2306181231) BUN (test code = 12 mg/dL 7-23 0316905808) GLUCOSE (test code = 191 mg/dL 70-110 H 3070975373) CREATININE (test code = 0.66 mg/dL 0.50-1.04 6328776075) TOTAL BILI (test code = 0.5 mg/dL 0.1-1.7 0541565299) CALCIUM (test code = 9.4 mg/dL 8.6-10.6 7020142445) T PROTEIN (test code = 7.5 g/dL 6.3-8.2 7811316538) ALBUMIN (test code = 4.5 g/dL 3.5-5.0 4428655346) ALK PHOS (test code = 66 U/L 34-122 9308616254) ALTv (test code = 64 U/L 5-35 H 1742-6) AST(SGOT) (test code = 59 U/L 13-40 H 3004460938) eGFR (test code = mL/min/1.73m2 4508134115) ZACKARY (test code = ZACKARY) Association of Glomerular Filtration Rate (GFR) and Staging of Kidney Disease* + --+ --+ ------+| GFR (mL/min/1.73 m2) ?| With Kidney Damage ?| ?Without Kidney Damage+ --------+ --------+ +| ?>90 ?| ?Stage one ?| ? Normal ?+ ---+ ---+ -------+| ?60-89 ?| ?Stage two ?| ? Decreased GFR ? + --+ --+ ------+| ?30-59 ?| ?Stage three ?| ? Stage three ? + --+ --+ ------+| ?15-29 ?| ?Stage four ? | ? Stage four ?+ ---+ ---+ -------+| ?<15 (or dialysis) ? ?| ?Stage five ? | ? Stage five ?+ ---+ ---+ -------+ *Each stage assumes the associated GFR level has been in effect for at least three months. ?Stages 1 to 5, with or without kidney disease, indicate chronic kidney disease. Notes: Determination of stages one and two (with eGFR >59mL/min/1.73 m2) requires estimation of kidney damage for at least three months as defined by structural or functional abnormalities of the kidney, manifested by either:Pathological abnormalities or Markers of kidney damage (including abnormalities in the composition of the blood or urine or abnormalities in imaging tests). Lab Interpretation Abnormal (test code = 64037-0) [facility] WITH [id number] 01:03:48 Test Item Value Reference Range Interpretation Comments WBC (test code = See_Comment [Automated 6690-2) message] The sy stem which generated this result transmitted reference range : 4.30 - 11.10 10*3/?L. The reference range was not used to interpret this result as normal/abnormal . RBC (test code = See_Comment L [Automated 789-8) message] The sy stem which generated this result transmitted reference range : 3.93 - 5.25 10*6/?L. The reference range was not used to interpret this result as normal/abnormal . HGB (test code = 11.9 g/dL 11.6-15.0 718-7) HCT (test code = 34.6 % 35.7-45.2 L 4544-3) MCV (test code = 93.8 fL 80.6-95.5 787-2) MCH (test code = 32.2 pg 25.9-32.8 785-6) MCHC (test code = 34.4 g/dL 31.6-35.1 786-4) RDW-SD (test code = 41.2 fL 39.0-49.9 02069-0) RDW-CV (test code = 11.9 % 12.0-15.5 L 788-0) PLT (test code = See_Comment [Automated 777-3) message] The sy stem which generated this result transmitted reference range : 166 - 358 10*3/ ?L. The reference r frank was not used to interpret this result as normal/abnormal . MPV (test code = 12.0 fL 9.5-12.9 80848-2) NRBC/100 WBC (test See_Comment [Automat ed code = 6099154538) message] The system which generated this result transmitted reference range : 0.0 - 10.0 /100 WBCs. The refer ence range was not u sed to interpret th is result as normal/abnormal . NRBC x10^3 (test code See_Comment [Auto mated = 1518401576) message] The s ystem which generated this result transmitted reference range : 10*3/?L. The reference range was not used to interpret this result as normal/abnormal . GRAN MAT (NEUT) % 84.3 % (test code = 770-8) IMM GRAN % (test code 0.60 % = 9100736255) LYMPH % (test code = 8.0 % 736-9) MONO % (test code = 6.3 % 5905-5) EOS % (test code = 0.6 % 713-8) BASO % (test code = 0.2 % 706-2) GRAN MAT x10^3(ANC) 7.46 10*3/uL 1.88-7.09 H (test code = 1696104154) IMM GRAN x10^3 (test 0.05 10*3/uL 0.00-0.06 code = 6507989289) LYMPH x10^3 (test code 0.71 10*3/uL 1.32-3.29 L = 731-0) MONO x10^3 (test code 0.56 10*3/uL 0.33-0.92 = 742-7) EOS x10^3 (test code = 0.05 10*3/uL 0.03-0.39 711-2) BASO x10^3 (test code 0.01-0.07 = 704-7) Lab Interpretation Abnormal (test code = 30646-8) [facility] [id number] 00:56:00 Test Item Value Reference Range Interpretation Comments POCT PREG (test code = 1605) negative On board controls acceptable with positive C Line (test code = 3574) POCT PREG LOT # (test code = 3575) [id number] POCT PREG TEST DATE (test 08-03-2023 code = 3576) Lab Interpretation (test code = Normal 60294-3) [facility]-GLUCOSE [id number] 11:43:45 Test Item Value Reference Range Interpretation Comments POC-GLUCOSE METER 198 mg/dL 70-110 H : TESTED A T [facility] 6720 (BEAKER) (test code = JESSICA Pedraza [facility], 1538) [address]: [employer]/Techni della ID = [id number] for CALIXTO PARKER Surgically obtained culture + gram [id number] 15:43:55 Test Item Value Reference Range Interpretation Comments Result (test code = 6463-4) No growth Gram Stain Result (test No organisms seen code = 1123) [facility] + GRAM [id number] 15:43:55 Test Item Value Reference Range Interpretation Comments CULTURE (BEAKER) (test code No growth = 1095) GRAM STAIN RESULT (BEAKER) 1+ WBCs (test code = 1123) GRAM STAIN RESULT (BEAKER) No organisms seen (test code = 22430) Anaerobic [id number] 14:54:19 Test Item Value Reference Range Interpretation Comments Result (test code = No anaerobes isolated 6463-4) [facility] [id number] 14:54:19 Test Item Value Reference Range Interpretation Comments CULTURE (BEAKER) (test No anaerobes isolated code = 1095) POC-Glucose [id number] 11:41:27 Test Item Value Reference Range Interpretation Comments POC-Glucose Meter (test 193 mg/dL 70-110 H : TE STED AT [facility] code = 1538) 6720 [facility], 770 30: [employer]/Techni della ID = [id number] for Cortez Salma Lab Interpretation (test Abnormal code = 54807-4) [facility] [id number] 11:41:27 Test Item Value Reference Range Interpretation Comments POC-Glucose Meter (test 193 mg/dL 70-110 H : TE STED AT [facility] code = 1538) 6720 [facility], 770 30: [employer]/Techni della ID = [id number] for Neelam Toroana Lab Interpretation (test Abnormal code = 81113-4) [facility]SE [id number] 11:41:27 Test Item Value Reference Range Interpretation Comments POC-GLUCOSE METER 193 mg/dL 70-110 H : TESTED A T [facility] 6720 (BEAKER) (test code = [facility], 1538) 835[address]: [employer]/Techni della ID = [id number] for Elle mary Salma POCT-GLUCOSE [id number] 06:50:01 Test Item Value Reference Range Interpretation Comments POC-GLUCOSE METER 216 mg/dL 70-110 H : TESTED A T [facility] 6720 (BEAKER) (test code [facility], = 1538) 592[address]: [employer]/Techni della ID = [id number] for OZZ, CJ POCT-GLUCOSE [id number] 00:40:50 Test Item Value Reference Range Interpretation Comments POC-GLUCOSE METER 234 mg/dL 70-110 H : TESTED A T [facility] 6720 (BEAKER) (test code [facility], = 1538) 75233: [employer]/Techni della ID = [id number] for OZZ, CJ POCT-GLUCOSE [id number] 17:36:34 Test Item Value Reference Range Interpretation Comments POC-GLUCOSE METER 196 mg/dL 70-110 H : TESTED A T [facility] 6720 (BEAKER) (test code = JESSICA Pedraza [facility], 1538) 903[address]: [employer]/Techni della ID = [id number] for ELENA CALIXTO [id number] 16:28:40 Test Item Value Reference Range Interpretation Comments LIPASE (TJ) (test code = 749) 48 U/L [employer] ID - JOSE MU/S, ABDOMINAL, [id number] 14:22:00Abdomen limited area? Add comment if clarification is needed.->GallbladderReason for exam:->RUQ abdominal painShould this be performed at the bedside?->[facility] 1975 Sex: FFINAL REPORT Right upper [...] HEATH M.D. on 03/18/2022 02:22 PMHEPATIC FUNCTION [id number] 09:46:49 Test Item Value Reference Range Interpretation [...] (test code = 43 U/L 6-55 347) [employer] ID - MITCHSPIN/CONCENTRATION [id number] 08:58:43 Test Item Value Reference Range Interpretation Comments Concentration charged (test code = Done 2956) [facility] [id number] 08:58:43 Test Item Value Reference Range Interpretation Comments Concentration charged (test code = Done 7231) [facility] [id number] 08:58:43 Test Item Value Reference Range Interpretation Comments CONCENTRATION CHARGED (BEAKER) (test Done code = 2657) POCT-GLUCOSE [id number] 06:30:59 Test Item Value Reference Range Interpretation Comments POC-GLUCOSE METER 152 mg/dL 70-110 H : TESTED A T [facility] 6720 (BEAKER) (test code = JESSICA SHERIFF [place], 1538) 97886: [employer]/Techni della ID = [id number] for EUNICE JAQUEZ [id number] 05:11:41 Test Item Value Reference Range Interpretation Comments MAGNESIUM (BEAKER) (test code = 2.0 mg/dL 1.6-2.6 627) [employer] ID - JOSE [id number] 05:11:41 Test Item Value Reference Range Interpretation Comments PHOSPHORUS (BEAKER) (test code = 2.5 mg/dL 2.3-4.7 604) [employer] ID - JOSE MBASIC METABOLIC [id number] 05:11:40 Test Item Value Reference Range Interpretation [...] not appl icable for dialysis patien ts [employer] ID - JOSE MCBC W/PLT COUNT & AUTO [id number] 04:49:27 Test Item Value Reference Range Interpretation [...] 417) IMMATURE GRANULOCYTES-RELATIVE 0.40 % 0.00-1.00 PERCENT (AKER) (test code = 2801) POCT-GLUCOSE [id number] 21:22:30 Test Item Value Reference Range Interpretation Comments POC-GLUCOSE METER 252 mg/dL 70-110 H : TESTED A T [facility] 6720 ([facility]) (test code = [facility], 1538) 04129: [employer]/Techni della ID = [id number] for SE BEVERLY PATRICIAE POCT-GLUCOSE [id number] 16:28:50 Test Item Value Reference Range Interpretation Comments POC-GLUCOSE METER 265 mg/dL 70-110 H : TESTED A T [facility] 6720 ([employer]) (test code = [facility], 1538) 58247: [employer]her/Techni della ID = [id number] for Al roly, Terrie POCT-GLUCOSE [id number] 12:31:05 Test Item Value Reference Range Interpretation Comments POC-GLUCOSE METER 141 mg/dL 70-110 H : TESTED A T [facility] 6720 ([employer]) (test code = [facility], 1538) 98895: [employer]/Techni della ID = [id number] for Al roly, Terrie POCT-GLUCOSE [id number] 11:08:28 Test Item Value Reference Range Interpretation Comments POC-GLUCOSE METER 101 mg/dL 70-110 : TESTED A T [facility] 6720 ([employer]) (test code = [facility], 1538) 85675: [employer]/Techni della ID = [id number] for PU A, LI FL, FLUORO, NON-SPECIFIC, UP TO 1 [id number] 10:33:00Reason for exam:- >[facility] : 1975 Sex: FAn imaging unit was utilized for this procedure. No radiologist interpretation was requested. Refer to the EMR for findings. Refer to PACS for any patient radiation dose information.BASIC METABOLIC [id number] 07:31:32 Test Item Value Reference Range Interpretation [...] (test code = 697) EGFR (BEAKER) 109 Interpretati on of eGFR (test code = mL/min/1.73 values [...] not appl icable for dialysis patien ts [employer] ID - PIAYA [id number] 07:31:32 Test Item Value Reference Range Interpretation Comments MAGNESIUM (BEAKER) (test code = 1.9 mg/dL 1.6-2.6 627) [employer] ID - VEENA [id number] 07:31:32 Test Item Value Reference Range Interpretation Comments PHOSPHORUS (TJ) (test code = 3.1 mg/dL 2.3-4.7 604) [employer] ID - VEENA LSARS-CoV2/RT-PCR (Asymptomatic ONLY)2022-03-17 07:29:22 Test Item Value Reference Interpretation Comments Range SARS-COV2/RT-PCR Negative Negative The SARS-Co V-2 (test code = target nucleic 03121-2) acids are not detected in thi s [...] revoked sooner. Fact Sheet for Healthcare Providers: https://www.[employer]Documents/Xp ert%20Xpress%20SAR S%20CoV-2/Fact%20S heets/302-9220%20S ARS-COV-2%20HEALTH CARE%20PROVIDERS%2 0FACT%20SHEET.pdf Fact Sheet for Healthcare Patients: https://www.[employer]Documents/Xp ert%20Xpress%20SAR S%20CoV-2/Fact%20S heets/302-3801%20S ARS-COV-2%20PATIEN T%20FACT%20SHEET.p df Lab Interpretation Normal (test code = 08152-2) [facility] (Asymptomatic ONLY)2022-03-17 07:29:22 Test Item Value Reference Interpretation Comments Range SARS-COV2/RT-PCR Negative Negative The SARS-Co V-2 (test code = target nucleic 47353-3) acids are not detected in thi s [...] om SARS-CoV-2 in a nasopharyngeal swab specimen colle pauline from individual s suspected of COVID-19 [...] revoked sooner. Fact Sheet for Healthcare Providers: https://www.[employer]Documents/Xp ert%20Xpress%20SAR S%20CoV-2/Fact%20S heets/302-3802%20S ARS-COV-2%20HEALTH CARE%20PROVIDERS%2 0FACT%20SHEET.pdf Fact Sheet for Healthcare Patients: https://www.[employer]Documents/Xp ert%20Xpress%20SAR S%20CoV-2/Fact%20S heets/302-3801%20S ARS-COV-2%20PATIEN T%20FACT%20SHEET.p df Lab Interpretation Normal (test code = 37149-5) [facility]OV2/[facility] ([facility])2022-03-17 07:29:22 Test Item Value Reference Range Interpretation Comments SARS-COV2/RT-PCR Negative Negative The SARS-Co V-2 target (test code = nucleic acids a re not 5508283) detected in thi s specimen. Negative result [...] revoked sooner. Fact Sheet for Healthcare Providers: https://www.[employer]co m/Documents/Xpert%20Xpress%20SARS%20CoV-2/Fact%20Sheets/658-0452%53RMMS-OHW-8%20 HEALTHCARE%20PROVIDERS%20FACT%20SHEET.pdf Fact Sheet for Healthcare Patients: https://www.[employer]/Documents/Xpert%20Xp ress%20SARS%20CoV-2/Fact%20Sheets/302-7750%09MPKP-JYZ-4%20PATIENT%20FACT%20SHEET .pdfPT/[id number] 06:26:14 Test Item Value Reference Range Interpretation [...] mechanical heart valves.CBC W/PLT COUNT & AUTO [id number] 06:05:49 Test Item Value Reference Range Interpretation [...] PERCENT (BEAKER) (test code = 2801) POCT-GLUCOSE [id number] 06:04:38 Test Item Value Reference Range Interpretation Comments POC-GLUCOSE METER 141 mg/dL 70-110 H : TESTED A T [facility] 6720 (BEAKER) (test code = [facility], 1538) [address]: [employer]/Techni della ID = [id number] for EUNICE JAQUEZ CULTURE, [id number] 13:54:11SPECIMEN NUMBER: [id number] CULTURE, URINE SPECIMEN NUMBER: [id number] SPECIMEN COMMENT: URINE SOURCE:URINE REPORT STATUS: FINAL ISOLATE NUMBER 1: ORGANISM: 02/15/2022 >100,000 CFU/ML GRAM NEGATIVE BA CILLI IDENTIFICATION: 02/16/2022 ESCHERICHIA COLI E. COLI AMOXICILLIN/CA SENSITIVE <=8/4AMPICILLIN SENSITIVE <=8CEFAZOLIN SENSITIVE <=2CEFTRIAXONE SENSITIVE <=1CIPROFLOXACIN SENSITIVE <=1LEVOFLOXACIN SENSITIVE <=2NITROFURANTOIN RESISTANT >64PIP/TAZOBAC SENSITIVE <=16TETRACYCLINE SENSITIVE <=4TOBRAMYCIN SENSITIVE <=4TRIMETH/SULFA SENSITIVE <=2/38 NOTE: NUMBERS DISPLAYED REPRESENT MINIMUM INHIBITORY CONCENTRATION (JUAN M) WHICH IS EXPRESSED IN MCG/ML. CULTURE, [id number] 00:00:00 Test Item Value Reference Range Interpretation Comments CULTURE, URINE (test SPECIMEN NUMBER: code = 56677) [id number] CULTURE, [id number] 00:00:00 Test Item Value Reference Range Interpretation Comments CULTURE, URINE (test SPECIMEN NUMBER: code = 12987) [id number] 06:53:07 Test Item Value Reference Range Interpretation Comments AMYLASE (test code = 2205) 34 U/L 28-100 [id number] 06:53:07 Test Item Value Reference Range Interpretation Comments LIPASE (test code = 26 U/L 13-60 UNLESS OTHERWISE 2057) INDICATED, ALL TESTING PERFORMED [facility] [address] [place] [id number] [place] [address] DIRECTOR: DAVID KRAFT M.D. CLIA NUMBER [id number] CAP ACCREDITATION N O. [id number] COMPREHENSIVE METABOLIC [id number] 06:52:53 Test Item Value Reference Range Interpretation Comments GLUCOSE (test code = 188 MG/DL 70-99 H 2216) BUN (test code = 8 MG/DL 6-20 2207) CREATININE (test 0.48 MG/DL 0.60-1.30 L code = 2214) eGFR (2020 CKD-EPI) 118 >60 (test code = 21419) ML/MIN/1.73 CALC BUN/CREAT (test 17 RATIO 6-28 code = 2235) SODIUM (test code = 141 MEQ/L 702-277 8168) POTASSIUM (test code 4.6 MEQ/L 3.5-5.4 = [...] = 95 U/L 5-40 H 2218) LIPID [id number] 06:52:53 Test Item Value Reference Range Interpretation [...] MOREINFORMATION , SEE CLIENT ANNOUNCE MENT AT [email or web address] RISK RATIO LDL/HDL 2.45 RATIO <3.22 (test code = 223) HEMOGLOBIN [id number] 04:51:02 Test Item Value Reference Range Interpretation Comments HEMOGLOBIN A1c (test 7.5 % 4.2-5.6 H AMERIC AN DIABETES code = 91169) ASSOCIATION IDELINES FOR HGB A1C: PREDIABETES/INC REASED [...] TESTING OR LABORATORY C ONSULTATION. COMPREHENSIVE METABOLIC [id number] 00:00:00 Test Item Value Reference Range Interpretation Comments GLUCOSE (test code = 2217) 188 MG/DL BUN (test code = 2208) 8 MG/DL CREATININE (test code = 2214) 0.48 MG/DL eGFR (2020 CKD-EPI) (test 118 ML/MIN/1.73 code = 55992) CALC BUN/CREAT (test code = 17 RATIO [...] CALC GLOBULIN (test code = 3.2 G/DL 2239) CALC A/G RATIO (test code = 1.4 RATIO 2234) BILIRUBIN, TOTAL (test code = 0.2 MG/DL 2206) ALKALINE PHOSPHATASE (test 91 U/L code = 220) AST (test code = 2218) 39 U/L ALT (test code = 2219) 95 U/L COMPREHENSIVE METABOLIC [id number] 00:00:00 Test Item Value Reference Range Interpretation Comments GLUCOSE (test code = 2217) 188 MG/DL BUN (test code = 2208) 8 MG/DL CREATININE (test code = 2214) 0.48 MG/DL eGFR (2020 CKD-EPI) (test 118 ML/MIN/1.73 code = 25606) CALC BUN/CREAT (test code = 17 RATIO 5) SODIUM (test code = 2231) 141 MEQ/L POTASSIUM (test code = 2228) 4.6 MEQ/L CHLORIDE (test code = 2215) 107 MEQ/L CARBON DIOXIDE (test code = 23 MEQ/L 2205) CALCIUM (test code = 2209) 9.9 MG/DL PROTEIN, TOTAL (test code = 7.6 G/DL 2228) ALBUMIN (test code = 2201) 4.4 G/DL CALC GLOBULIN (test code = 3.2 G/DL 224) CALC A/G RATIO (test code = 1.4 RATIO 2234) BILIRUBIN, TOTAL (test code = 0.2 MG/DL 2206) ALKALINE PHOSPHATASE (test 91 U/L code = 2204) AST (test code = 2218) 39 U/L ALT (test code = 2219) 95 U/L LIPID [id number] 00:00:00 Test Item Value Reference Range Interpretation Comments CHOLESTEROL (test code = 2210) 194 MG/DL TRIGLYCERIDES (test code = 2232) 137 MG/DL HDL CHOLESTEROL (test code = 2220) 49 MG/DL CALC LDL CHOL (test code = 2237) 120 MG/DL RISK RATIO LDL/HDL (test code = 2.45 RATIO 2238) LIPID [id number] 00:00:00 Test Item Value Reference Range Interpretation Comments CHOLESTEROL (test code = 2210) 194 MG/DL TRIGLYCERIDES (test code = 2232) 137 MG/DL HDL CHOLESTEROL (test code = 2220) 49 MG/DL CALC LDL CHOL (test code = 2237) 120 MG/DL RISK RATIO LDL/HDL (test code = 2.45 RATIO 2238) HEMOGLOBIN [id number] 00:00:00 Test Item Value Reference Range Interpretation Comments HEMOGLOBIN A1c (test code = 41599) 7.5 % HEMOGLOBIN [id number] 00:00:00 Test Item Value Reference Range Interpretation Comments HEMOGLOBIN A1c (test code = 05708) 7.5 % HEMOGLOBIN [id number] 00:00:00 Test Item Value Reference Range Interpretation Comments HEMOGLOBIN A1c (test code = 55205) 7.5 % [id number] 00:00:00 Test Item Value Reference Range Interpretation Comments AMYLASE (test code = 2205) 34 U/L [id number] 00:00:00 Test Item Value Reference Range Interpretation Comments AMYLASE (test code = 2205) 34 U/L [id number] 00:00:00 Test Item Value Reference Range Interpretation Comments LIPASE (test code = 8) 26 U/L [id number] 00:00:00 Test Item Value Reference Range Interpretation Comments LIPASE (test code = 2058) 26 U/L [id number] 00:00:00 Test Item Value Reference Range Interpretation Comments LIPASE (test code = 2058) 26 U/L [id number] 07:50:25 Test Item Value Reference Range Interpretation Comments FERRITIN (test code 327 NG/ML 13-200 H UNLESS OTHERWISE = 2075) INDICATED, ALL TESTING PERFORMED [facility] [address] [place] [address] [phone] LABORATORY DIRE CTOR: DAVID ORTIZ M.D. CLIA NUMBER [id number] [place] [place] [id number] HEMOGLOBIN [id number] 04:46:25 Test Item Value Reference Range Interpretation Comments HEMOGLOBIN A1c (test 7.6 % 4.2-5.6 H AMERIC AN DIABETES code = 28307) ASSOCIATION IDELINES FOR HGB A1C: PREDIABETES/INC REASED [...] TESTING OR LABORATORY C ONSULTATION. COMPREHENSIVE METABOLIC [id number] 03:56:37 Test Item Value Reference Range Interpretation Comments GLUCOSE (test code = 149 MG/DL 70-99 H 2216) BUN (test code = 11 MG/DL 6-20 2207) CREATININE (test 0.52 MG/DL 0.60-1.30 L code = 2214) eGFR (2020 CKD-EPI) 117 >60 (test code = 82319) ML/MIN/1.73 CALC BUN/CREAT (test 21 RATIO 6-28 code = 2235) SODIUM (test code = 138 MEQ/L 906-868 5507) POTASSIUM (test code 4.7 MEQ/L 3.5-5.4 = 2227) CHLORIDE (test code 101 MEQ/L 95-107 = 2215) CARBON DIOXIDE (test [...] = 52 U/L 5-40 H 2218) LIPID [id number] 03:56:37 Test Item Value Reference Range Interpretation [...] MOREINFORMATION , SEE CLIENT ANNOUNCE MENT AT [email or web address] /[email or web address] RISK RATIO LDL/HDL 2.53 RATIO <3.22 (test code = 2238) COMPREHENSIVE METABOLIC [id number] 00:00:00 Test Item Value Reference Range Interpretation Comments GLUCOSE (test code = 2217) 149 MG/DL BUN (test code = 2208) 11 MG/DL CREATININE (test code = 2214) 0.52 MG/DL eGFR (2020 CKD-EPI) (test 117 ML/MIN/1.73 code = 52815) CALC BUN/CREAT (test code = 21 RATIO 5) SODIUM (test code = 223) 138 MEQ/L POTASSIUM (test code = 2228) 4.7 MEQ/L CHLORIDE (test code = 2215) 101 MEQ/L CARBON DIOXIDE (test code = 23 MEQ/L 2205) CALCIUM (test code = 220) 10.0 MG/DL PROTEIN, TOTAL (test code = 8.2 G/DL 2228) ALBUMIN (test code = 2200) 4.8 G/DL CALC GLOBULIN (test code = 3.4 G/DL 2240) CALC A/G RATIO (test code = 1.4 RATIO 2234) BILIRUBIN, TOTAL (test code = 0.4 MG/DL 2207) ALKALINE PHOSPHATASE (test 93 U/L code = 2204) AST (test code = 2218) 33 U/L ALT (test code = 2219) 52 U/L COMPREHENSIVE METABOLIC [id number] 00:00:00 Test Item Value Reference Range Interpretation Comments GLUCOSE (test code = 2217) 149 MG/DL BUN (test code = 2208) 11 MG/DL CREATININE (test code = 2214) 0.52 MG/DL eGFR (2020 CKD-EPI) (test 117 ML/MIN/1.73 code = 16398) CALC BUN/CREAT (test code = 21 RATIO 2235) SODIUM (test code = 2231) 138 MEQ/L POTASSIUM (test code = 2228) 4.7 MEQ/L CHLORIDE (test code = 2215) 101 MEQ/L CARBON DIOXIDE (test code = 23 MEQ/L 220) CALCIUM (test code = 2209) 10.0 MG/DL [...] code = 2219) 52 U/L COMPREHENSIVE METABOLIC [id number] 00:00:00 Test Item Value Reference Range Interpretation Comments GLUCOSE (test code = 2217) 149 MG/DL BUN (test code = 2208) 11 MG/DL CREATININE (test code = 2214) 0.52 MG/DL eGFR (2020 CKD-EPI) (test 117 ML/MIN/1.73 code = 75895) CALC BUN/CREAT (test code = 21 RATIO 2235) SODIUM (test code = 2231) 138 MEQ/L POTASSIUM (test code = 2228) 4.7 MEQ/L CHLORIDE (test code = 2215) 101 MEQ/L CARBON DIOXIDE (test code = 23 MEQ/L 220) CALCIUM (test code = 2209) 10.0 MG/DL [...] (test code = 2219) 52 U/L LIPID [id number] 00:00:00 Test Item Value Reference Range Interpretation Comments CHOLESTEROL (test code = 2210) 200 MG/DL TRIGLYCERIDES (test code = 2232) 95 MG/DL HDL CHOLESTEROL (test code = 2220) 51 MG/DL CALC LDL CHOL (test code = 2237) 129 MG/DL RISK RATIO LDL/HDL (test code = 2.53 RATIO 2238) LIPID [id number] 00:00:00 Test Item Value Reference Range Interpretation Comments CHOLESTEROL (test code = 2210) 200 MG/DL TRIGLYCERIDES (test code = 2232) 95 MG/DL HDL CHOLESTEROL (test code = 2220) 51 MG/DL CALC LDL CHOL (test code = 2237) 129 MG/DL RISK RATIO LDL/HDL (test code = 2.53 RATIO 2238) HEMOGLOBIN [id number] 00:00:00 Test Item Value Reference Range Interpretation Comments HEMOGLOBIN A1c (test code = 97931) 7.6 % HEMOGLOBIN [id number] 00:00:00 Test Item Value Reference Range Interpretation Comments HEMOGLOBIN A1c (test code = 34479) 7.6 % HEMOGLOBIN [id number] 00:00:00 Test Item Value Reference Range Interpretation Comments HEMOGLOBIN A1c (test code = 76026) 7.6 % [id number] 00:00:00 Test Item Value Reference Range Interpretation Comments FERRITIN (test code = 2075) 327 NG/ML [id number] 00:00:00 Test Item Value Reference Range Interpretation Comments FERRITIN (test code = 2075) 327 NG/ML COMPREHENSIVE METABOLIC [id number] 00:00:00 Test Item Value Reference Range Interpretation Comments GLUCOSE (test code = 2217) 149 MG/DL BUN (test code = 2208) 11 MG/DL CREATININE (test code = 2214) 0.52 MG/DL eGFR (2020 CKD-EPI) (test 117 ML/MIN/1.73 code = 18600) CALC BUN/CREAT (test code = 21 RATIO [...] (test code = 2219) 52 U/L LIPID [id number] 00:00:00 Test Item Value Reference Range Interpretation Comments CHOLESTEROL (test code = 2210) 200 MG/DL TRIGLYCERIDES (test code = 2232) 95 MG/DL HDL CHOLESTEROL (test code = 2220) 51 MG/DL CALC LDL CHOL (test code = 2237) 129 MG/DL RISK RATIO LDL/HDL (test code = 2.53 RATIO 2238) LIPID [id number] 00:00:00 Test Item Value Reference Range Interpretation Comments CHOLESTEROL (test code = 2210) 200 MG/DL TRIGLYCERIDES (test code = 2232) 95 MG/DL HDL CHOLESTEROL (test code = 2220) 51 MG/DL CALC LDL CHOL (test code = 2237) 129 MG/DL RISK RATIO LDL/HDL (test code = 2.53 RATIO 2238) HEMOGLOBIN [id number] 00:00:00 Test Item Value Reference Range Interpretation Comments HEMOGLOBIN A1c (test code = 61419) 7.6 % HEMOGLOBIN [id number] 00:00:00 Test Item Value Reference Range Interpretation Comments HEMOGLOBIN A1c (test code = 72958) 7.6 % HEMOGLOBIN [id number] 00:00:00 Test Item Value Reference Range Interpretation Comments HEMOGLOBIN A1c (test code = 26563) 7.6 % [id number] 00:00:00 Test Item Value Reference Range Interpretation Comments FERRITIN (test code = 2075) 327 NG/ML [id number] 00:00:00 Test Item Value Reference Range Interpretation Comments FERRITIN (test code = 2075) 327 NG/ML [id number] 00:00:00 Test Item Value Reference Range Interpretation Comments TSH, THIRD GENERATION (test code 1.150 UIU/ML = 2821) [id number] 00:00:00 Test Item Value Reference Range Interpretation Comments TSH, THIRD GENERATION (test code 1.150 UIU/ML = 2821) [id number] 00:00:00 Test Item Value Reference Range Interpretation Comments TSH, THIRD GENERATION (test code 1.150 UIU/ML = 2821) [id number] 00:00:00 Test Item Value Reference Range Interpretation Comments TSH, THIRD GENERATION (test code 1.150 UIU/ML = 2821) [id number] 00:00:00 Test Item Value Reference Range Interpretation Comments TSH, THIRD GENERATION (test code 1.150 UIU/ML = 2821) [id number] 00:00:00 Test Item Value Reference Range Interpretation Comments TSH, THIRD GENERATION (test code 1.150 UIU/ML = 2821) HEMOGLOBIN [id number] 00:00:00 Test Item Value Reference Range Interpretation Comments HEMOGLOBIN A1c (test code = 24189) 11.1 % HEMOGLOBIN [id number] 00:00:00 Test Item Value Reference Range Interpretation Comments HEMOGLOBIN A1c (test code = 99164) 11.1 % HEMOGLOBIN [id number] 00:00:00 Test Item Value Reference Range Interpretation Comments HEMOGLOBIN A1c (test code = 41632) 11.1 % COMPREHENSIVE METABOLIC [id number] 00:00:00 Test Item Value Reference Range Interpretation Comments GLUCOSE (test code = 2217) 253 MG/DL BUN (test code = 2208) 11 MG/DL CREATININE (test code = 2214) 0.63 MG/DL eGFR AMER. (test code 126 ML/MIN/1.73 = 77636) eGFR NON- AMER. (test 108 ML/MIN/1.73 code = 04978) CALC BUN/CREAT (test code = 17 RATIO [...] code = 2219) 96 U/L COMPREHENSIVE METABOLIC [id number] 00:00:00 Test Item Value Reference Range Interpretation Comments GLUCOSE (test code = 2217) 253 MG/DL BUN (test code = 2208) 11 MG/DL CREATININE (test code = 2214) 0.63 MG/DL eGFR AMER. (test code 126 ML/MIN/1.73 = 57851) eGFR NON- AMER. (test 108 ML/MIN/1.73 code = 48863) CALC BUN/CREAT (test code = 17 RATIO [...] = 0.4 MG/DL 7) ALKALINE PHOSPHATASE (test 149 U/L code = 2204) AST (test code = 2218) 82 U/L ALT (test code = 2219) 96 U/L CBC W/AUTO [id number] 00:00:00 Test Item Value Reference Range Interpretation [...] NUCLEATED RBCS (test code = 0.00 K/UL 31819) CBC W/AUTO [id number] 00:00:00 Test Item Value Reference Range Interpretation [...] NUCLEATED RBCS (test code = 0.00 K/UL 29704) HEMOGLOBIN [id number] 00:00:00 Test Item Value Reference Range Interpretation Comments HEMOGLOBIN A1c (test code = 90127) 11.1 % CBC W/AUTO [id number] 00:00:00 Test Item Value Reference Range Interpretation [...] NUCLEATED RBCS (test code = 0.00 K/UL 10157) [id number] 00:00:00 Test Item Value Reference Range Interpretation Comments FERRITIN (test code = 5) 532 NG/ML [id number] 00:00:00 Test Item Value Reference Range Interpretation Comments FERRITIN (test code = 2075) 532 NG/ML HEMOGLOBIN [id number] 00:00:00 Test Item Value Reference Range Interpretation Comments HEMOGLOBIN A1c (test code = 00783) 11.1 % HEMOGLOBIN [id number] 00:00:00 Test Item Value Reference Range Interpretation Comments HEMOGLOBIN A1c (test code = 02092) 11.1 % COMPREHENSIVE METABOLIC [id number] 00:00:00 Test Item Value Reference Range Interpretation Comments GLUCOSE (test code = 2217) 253 MG/DL BUN (test code = 2208) 11 MG/DL CREATININE (test code = 2214) 0.63 MG/DL eGFR AMER. (test code 126 ML/MIN/1.73 = 44794) eGFR NON- AMER. (test 108 ML/MIN/1.73 code = 59084) CALC BUN/CREAT (test code = 17 RATIO [...] code = 2219) 96 U/L COMPREHENSIVE METABOLIC [id number] 00:00:00 Test Item Value Reference Range Interpretation Comments GLUCOSE (test code = 2217) 253 MG/DL BUN (test code = 2208) 11 MG/DL CREATININE (test code = 2214) 0.63 MG/DL eGFR AMER. (test code 126 ML/MIN/1.73 = 56803) eGFR NON- AMER. (test 108 ML/MIN/1.73 code = 61305) CALC BUN/CREAT (test code = 17 RATIO [...] code = 2219) 96 U/L CBC W/AUTO [id number] 00:00:00 Test Item Value Reference Range Interpretation [...] NUCLEATED RBCS (test code = 0.00 K/UL 47620) CBC W/AUTO [id number] 00:00:00 Test Item Value Reference Range Interpretation [...] NUCLEATED RBCS (test code = 0.00 K/UL 50460) CBC W/AUTO [id number] 00:00:00 Test Item Value Reference Range Interpretation [...] NUCLEATED RBCS (test code = 0.00 K/UL 84917) [id number] 00:00:00 Test Item Value Reference Range Interpretation Comments FERRITIN (test code = 2075) 532 NG/ML [id number] 00:00:00 Test Item Value Reference Range Interpretation Comments FERRITIN (test code = 2075) 532 NG/ML SARS-COV2/RT-PCR ([facility])2019-11-18 12:12:00 Test Item Value Reference Range Interpretation Comments SARS-COV2/RT-PCR (test code = Positive Not Detected, Negative A A [id number]) SARS-COV-[address] [facility] (test code = 4062097) Results are for the detection of SARS-CoV-2 [...] copies/mL.This SARS CoV-2 test is a rapid, nmuc-vibuSR-CWB test intended for the qualitative detection of [...] 564(g) of the Act.Fact Sheet for Healthcare Providers:https://www.[employer]/ Documents/Xpert%20Xpress%20SARS%20CoV-2/Fact%20Sheets/302-4492%20JUSJ-FOO-5%20HE ALTHCARE%20PROVIDERS%20FACT%20SHEET.pdfFact Sheet for Healthcare Patients:https://www.[employer]/Documents/Xpert%20Xpress %20SARS%20CoV-2/Fact%20Sheets/302380%46XANI-UGL-2%20PATIENT%20FACT%20SHEET.pdf Performing Laboratory:[facility] [place] [address]"
[2022-06-22] MEDS ORDERED: NA CHLORIDE 0.9% 1,000 ML ONE (03:08)
[2022-06-22] MEDS ORDERED: MORPHINE 4 MG/ML SYR ONE ×3 (03:08→07:23)
[2022-06-22] MEDS ORDERED: ONDANSETRON 4 MG/2 ML VIAL ONE ×2 (03:08→07:23)
[2022-06-22 03:15] LABS: Urine Blood 3+ (Negative); Urine Glucose Negative (Negative); Urine Protein 2+ (Negative); Urine Specific Gravity >=1.030 (1.005-1.030); Urine pH 5.5 (5.0-7.0)
[2022-06-22 03:17] LABS: Absolute Lymphocytes (CBC) 4.6 K/uL (0.7-4.9); Lymphocytes % 25.8 % (15.3-44.8); MCV 94.5 fL (80-100); MPV 10.7 fL (7.6-11.3); RBC Red Blood Cell Count 4.13 M/uL (3.86-4.86)
[2022-06-22 03:19] LABS: Urine Specific Gravity/Preg >1.030 (1.005-1.030)
[2022-06-22 03:29] LABS: Urine Bacteria <20 /HPF (<20); Urine Mucus Slight /HPF (None Seen); Urine RBC >50 /HPF (None Seen)
[2022-06-22 03:33] LABS: Albumin 3.6 g/dL (3.4-5.0); Bilirubin Total 0.3 mg/dL (0.2-1.0); Potassium 3.2 mmol/L (3.5-5.1); Protein, Total 8.5 g/dL (6.4-8.2); Troponin High Sensitivity 4.1 pg/mL (<58.9)
[2022-06-22] MEDS ORDERED: KETOROLAC 30 MG/ML INJ ONE (07:23)
[2022-06-22] MEDS ORDERED: CEFTRIAXONE 1000 MG/VIAL ONE (07:40)
[2022-06-22] MEDS ORDERED: NA CHLORIDE 0.9% 100 ML ONE (07:41)
--- NOTE | 2022-06-22 07:46 | EDPHYS ---
Physician Documentation [facility] Name: Augustina Coe Age: 47 yrs Sex: Female : 1975 Arrival Date: 06/22/2022 Time: 01:44 Bed 17 Private MD: ED Physician Berlin Marvin HPI: 06/22 04:13 This 47 yrs old Female presents to ER via Ambulatory with complaints of Low sd2 Back Pain, Pelvic Pain, Pain With Urination. 04:13 47-year-old female presents with chief complaint of right lower quadrant abdominal pain sd2 that started a couple of hours prior to arrival while sitting down watching TV. She denies any associated fever but has had nausea and vomiting. She denies any diarrhea or significant urinary symptoms. She has not had any prior abdominal surgeries.. PATIENT INTAKE REPRESENTATIVE: :31 LMP N/A - control method bb Historical: - Allergies: :31 No Known Allergies; bb - PMHx: 07:00 Diabetes mellitus; aa5 07:00 Kidney Stones; aa5 - Immunization history:: Client reports having NOT received the Covid vaccine. - Social history:: Smoking status: Patient denies any tobacco usage or history of. ROS: 04:13 Constitutional: Negative for fever, chills, and weight loss, Eyes: Negative for injury, sd2 pain, redness, and discharge, Cardiovascular: Negative for chest pain, palpitations, and edema, Respiratory: Negative for shortness of breath, cough, wheezing. 04:13 : Negative for dysuria, urinary frequency, hesitancy, urgency and hematuria. MS/Extremity: Negative for injury and deformity, Skin: Negative for injury, rash, and discoloration, Neuro: Negative for headache, numbness and tingling. 04:13 Abdomen/GI: Positive for abdominal pain, nausea and vomiting, Negative for diarrhea. Exam: 04:13 Constitutional: This is a well developed, well nourished patient who is awake, alert, sd2 and in no acute distress. Head/Face: Normocephalic, atraumatic. Eyes: EOMI, normal conjunctiva bilaterally Chest/axilla: Normal chest wall appearance and motion. Nontender with no deformity. Cardiovascular: Regular rate and rhythm with a normal S1 and S2. No gallops, murmurs, or rubs. 2+ distal pulses. Respiratory: Lungs have equal breath sounds bilaterally, clear to auscultation and percussion. No rales, rhonchi or wheezes noted. No increased work of breathing, no retractions or nasal flaring. 04:13 Abdomen/GI: Soft, ND, TTP R>LLQ and suprapubic area, no rebound or guarding 04:13 ECG was reviewed by the Attending Physician. NSR, rate 80, no STEMI criteria sd2 Vital Signs: 02:29 BP 150 / 89; Pulse 85; Resp 18 S; Temp 98.3(O); Pulse Ox 100% on R/A; Weight 58.97 kg bb (R); Height 5 ft. 0 in. (152.40 cm) (R); Pain 10/10; 03:30 BP 143 / 90; Pulse 83; Resp 16; Pulse Ox 97% ; Pain 10/10; pf1 04:30 BP 128 / 82; Pulse 77; Resp 16; Pulse Ox 97% on R/A; Pain 10/10; pf1 05:30 BP 152 / 95; Pulse 75; Resp 18; Pulse Ox 96% on R/A; Pain 8/10; pf1 06:30 BP 145 / 87; Pulse 78; Resp 18; Pulse Ox 96% on R/A; Pain 5/10; pf1 07:00 BP 138 / 96; Pulse 85; Resp 16 S; Temp 97.8(TE); Pulse Ox 98% on R/A; Pain 8/10; aa5 07:44 BP 128 / 85; Pulse 86; Resp 14 S; Pulse Ox 95% on R/A; Pain 5/10; aa5 08:15 BP 110 / 80; Pulse 110; Resp 16 S; Temp 98.0(TE); Pulse Ox 97% on R/A; Pain 5/10; aa5 09:40 BP 126 / 76; Pulse 82; Resp 18; Pulse Ox 97% ; kr3 02:29 Body Mass Index 25.39 (58.97 kg, 152.40 cm) bb MDM: 02:37 Patient medically screened. sd2 04:13 Differential diagnosis: Gastritis, cholecystitis, pancreatitis, SBO, diverticulitis, sd2 kidney stone, appendicitis, UTI, dehydration, electrolyte abnormality among others. Data reviewed: vital signs, nurses notes. 07:07 Transition of care: After a detail discussion of the patient's case, care is sd2 transferred to Berlin Marvin MD. 07:45 Consideration of Admission/Observation Decision made to transfer the patient for rt specialty coverage. Management of patient was discussed with the following: Hospitalist: Hospitalist at [facility] except patient. I considered the following discharge prescriptions or medication management in the emergency department Medications were administered in the Emergency Department. See MAR. Independent interpretation of the following test(s) in the Emergency Department CT Scan: My interpretation is Visualized calculus of right ureter. Counseling: I had a detailed discussion with the patient and/or guardian regarding: the historical points, exam findings, and any diagnostic results supporting the discharge/admit diagnosis, lab results, radiology results, the need to transfer to another facility, [facility] does not immediately have the required specialist. Response to treatment: the patient's symptoms have mildly improved after treatment. 06/22 02:49 Order name: CBC with Diff; Complete Time: 03:34 sd2 06/22 02:49 Order name: CMP; Complete Time: 03:34 sd2 06/22 02:49 Order name: Lipase; Complete Time: 03:34 sd2 06/22 02:49 Order name: Troponin High Sensitivity; Complete Time: 03:34 sd2 06/22 02:49 Order name: Urine Microscopic Only; Complete Time: 03:34 sd2 06/22 03:15 Order name: Urine --Ancillary (enter results); Complete Time: 03:34 ds4 06/22 02:49 Order name: CT Abd/Pelvis - IV Contrast Only sd2 06/22 03:16 Order name: Urine Dipstick-Ancillary; Complete Time: 03:34 EDMS 06/22 07:11 Order name: SARS RAPID; Complete Time: 09:29 eb 06/22 07:32 Order name: Urine Culture rt 06/22 02:49 Order name: EKG - Nurse/Tech; Complete Time: 06:39 sd2 06/22 02:49 Order name: Urine Dipstick-Ancillary (obtain specimen); Complete Time: 03:15 sd2 06/22 02:49 Order name: Urine Test (obtain specimen); Complete Time: 03:15 sd2 Administered Medications: 03:00 Drug: NS 0.9% 1000 ml Route: IV; Rate: 1 bolus; Site: right antecubital; pf1 04:00 Follow up: Response: Marked relief of symptoms; IV Status: Completed infusion; IV pf1 Intake: 1000ml 03:15 Drug: morphine 4 mg Route: IVP; Infused Over: 4 mins; Site: right antecubital; pf1 04:15 Follow up: Response: No adverse reaction; Pain is unchanged, physician notified; RASS: pf1 Alert and Calm (0) 03:15 Drug: Zofran (Ondansetron) 4 mg Route: IVP; Site: right antecubital; pf1 04:15 Follow up: Response: No adverse reaction; Marked relief of symptoms; Nausea is decreasedpf1 06:05 Drug: morphine 4 mg Route: IVP; Infused Over: 4 mins; Site: right antecubital; pf1 06:38 Follow up: Response: No adverse reaction; Marked relief of symptoms; Pain is decreased; pf1 RASS: Alert and Calm (0) 07:25 Drug: Zofran (Ondansetron) 4 mg Route: IVP; Site: right antecubital; aa5 07:44 Follow up: Response: No adverse reaction; Nausea is decreased aa5 07:27 Drug: Ketorolac 30 mg Route: IVP; Site: right antecubital; aa5 07:44 Follow up: Response: No adverse reaction; Pain is decreased aa5 07:28 Drug: morphine 4 mg Route: IVP; Infused Over: 4 mins; Site: right antecubital; aa5 07:44 Follow up: Response: No adverse reaction; Pain is decreased aa5 07:44 Drug: Rocephin (cefTRIAXone) 2 grams Route: IV; Rate: calculated rate; Site: right aa5 antecubital; 08:15 Follow up: Response: No adverse reaction; IV Status: Completed infusion aa5 Disposition Summary: 06/22/22 07:45 Transfer Ordered Transfer Location: Other Acute Care Facility rt Reason: Specialty rt Condition: Stable rt Problem: new rt Symptoms: are unchanged rt Accepting Physician: Dr. Vinny Sweet [facility](06/22/22 09:51) aa5 Diagnosis - Calculus of ureter rt Forms: - Medication Reconciliation Form rt - SBAR form rt Signatures: Dispatcher [employer] EDIndia Drake RN RN Jocelyn Coello RN RN aa5 Zahra Rust Stephanie, MD MD sd2 Berlin Marvin MD MD rt Rocio freire RN RN pf1 Corrections: (The following items were deleted from the chart) 08:41 07:45 Micki cai 09:51 08:41 Dr. Vinny Sweet [facility] aa5
--- NOTE | 2022-06-22 07:46 | ER ---
Nurse's Notes [facility] Name: Augustina Coe Age: 47 yrs Sex: Female : 1975 Arrival Date: 06/22/2022 Time: 01:44 Bed 17 [facility] MD: Diagnosis: Calculus of ureter Presentation: 06/22 02:29 Chief complaint: Patient states: she started having low abdominal pain and low back bb pain and nausea for several hours denies dysuria diagnosed with kidney stones several months ago. Coronavirus screen: At this time, the client does not indicate any symptoms associated with coronavirus-19. Ebola Screen: No symptoms or risks identified at this time. Initial Sepsis Screen: Does the patient meet any 2 criteria? No. Patient's initial sepsis screen is negative. Does the patient have a suspected source of infection? No. Patient's initial sepsis screen is negative. Risk Assessment: Do you want to hurt yourself or someone else? Patient reports no desire to harm self or others. Onset of symptoms was June 22, 2022. 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 - Social history:: Smoking status: Patient denies any tobacco usage or history of. Screenin:41 [facility] ED Fall Risk Assessment (Adult) History of falling in the last 3 months, pf1 including since admission No falls in past 3 months (0 pts) Confusion or Disorientation No (0 pts) Intoxicated or Sedated No (0 pts) Impaired Gait No (0 pts) Mobility Assist Device Used No (0 pt) Altered Elimination No (0 pt) Score/Fall Risk Level 0 - 2 = Low Risk Oriented to surroundings, Maintained a safe environment, Educated pt \T\ family on fall prevention, incl call for assistance when getting out of bed, Assessed \T\ reinforced patient's understanding of fall precautions, Provided non-skid footwear, Hourly rounding (assess needs \T\ fall precautionary measures) done, Used ambulatory aids as needed (educated on \T\ assisted with), Used gait belt as appropriate. Abuse screen: Denies threats or abuse. Nutritional screening: No deficits noted. Tuberculosis screening: No symptoms or risk factors identified. Assessment: 02:30 General: Appears uncomfortable, well groomed, well developed, Behavior is cooperative, pf1 appropriate for age, crying. 02:30 Pain: Complains of pain in back and abdomen Pain currently is 10 out of 10 on a pain pf1 scale. Pain began 3 hours ago. Neuro: No deficits noted. Level of Consciousness is awake, alert, obeys commands, Oriented to person, place, time, situation. Cardiovascular: No deficits noted. Capillary refill < 3 seconds Patient's skin is warm and dry. Respiratory: No deficits noted. Airway is patent Trachea midline Respiratory effort is even, unlabored, Respiratory pattern is regular, symmetrical, Breath sounds are clear bilaterally. GI: No deficits noted. Abdomen is round non-distended, Bowel sounds present X 4 quads. Abd is soft Abdomen is tender to palpation in right lower quadrant and left lower quadrant. : No deficits noted. No signs and/or symptoms were reported regarding the genitourinary system. EENT: No deficits noted. No signs and/or symptoms were reported regarding the EENT system. Derm: No deficits noted. No signs and/or symptoms reported regarding the dermatologic system. Musculoskeletal: Reports pain in back Pain is 10 out of 10 on a pain scale. 03:30 Reassessment: Patient appears in no apparent distress at this time. No changes from pf1 previously documented assessment. Patient and/or family updated on plan of care and expected duration. Pain level reassessed. Patient is alert, oriented x 3, equal unlabored respirations, skin warm/dry/pink. Patient states symptoms have not improved. 04:30 Reassessment: Patient appears in no apparent distress at this time. No changes from pf1 previously documented assessment. Patient and/or family updated on plan of care and expected duration. Pain level reassessed. Patient is alert, oriented x 3, equal unlabored respirations, skin warm/dry/pink. Patient states symptoms have not improved. 05:30 Reassessment: Patient appears in no apparent distress at this time. Patient and/or pf1 family updated on plan of care and expected duration. Pain level reassessed. Patient is alert, oriented x 3, equal unlabored respirations, skin warm/dry/pink. Patient states symptoms have not improved. 06:36 General: Appears in no apparent distress. comfortable, well groomed, well developed, pf1 Behavior is calm, cooperative, appropriate for age. Pain: Complains of pain in left lower quadrant and right lower quadrant and abdomen and back Pain currently is 5 out of 10 on a pain scale. 07:00 General: Appears uncomfortable, Behavior is calm, cooperative. Pain: Complains of pain aa5 in right lower quadrant Pain radiates to right mid-low back Pain currently is 8 out of 10 on a pain scale. Quality of pain is described as sharp, Pain began today Is continuous. Neuro: Level of Consciousness is awake, alert, obeys commands, Oriented to person, place, time, situation. Cardiovascular: Heart tones S1 S2 present Rhythm is regular. Respiratory: Airway is patent Respiratory effort is even, unlabored, Respiratory pattern is regular, symmetrical. GI: Abdomen is round non-distended, Bowel sounds present X 4 quads. Abdomen is tender to palpation in right lower quadrant Reports nausea. : No signs and/or symptoms were reported regarding the genitourinary system. EENT: No signs and/or symptoms were reported regarding the EENT system. Derm: Skin is pink, warm \T\ dry. Musculoskeletal: Range of motion: intact in all extremities. 07:44 Reassessment: Patient is alert, oriented x 3, equal unlabored respirations, skin aa5 warm/dry/pink. Patient states feeling better. Pain: Pain currently is 5 out of 10 on a pain scale. 08:15 Reassessment: Patient is alert, oriented x 3, equal unlabored respirations, skin aa5 warm/dry/pink. General: Appears comfortable. Pain: Pain currently is 5 out of 10 on a pain scale. 09:01 Reassessment: Patient is alert, oriented x 3, equal unlabored respirations, skin aa5 warm/dry/pink. Report given to [place], [place], pt awaiting EMS for transfer, pt notified of wait time. . Pain: Pain currently is 5 out of 10 on a pain scale. 09:50 Reassessment: Patient is alert, oriented x 3, equal unlabored respirations, skin aa5 warm/dry/pink. Vital Signs: 02:29 BP 150 / 89; Pulse 85; Resp 18 S; Temp 98.3(O); Pulse Ox 100% on R/A; Weight 58.97 kg bb (R); Height 5 ft. 0 in. (152.40 cm) (R); Pain 10/10; 03:30 BP 143 / 90; Pulse 83; Resp 16; Pulse Ox 97% ; Pain 10/10; pf1 04:30 BP 128 / 82; Pulse 77; Resp 16; Pulse Ox 97% on R/A; Pain 10/10; pf1 05:30 BP 152 / 95; Pulse 75; Resp 18; Pulse Ox 96% on R/A; Pain 8/10; pf1 06:30 BP 145 / 87; Pulse 78; Resp 18; Pulse Ox 96% on R/A; Pain 5/10; pf1 07:00 BP 138 / 96; Pulse 85; Resp 16 S; Temp 97.8(TE); Pulse Ox 98% on R/A; Pain 8/10; aa5 07:44 BP 128 / 85; Pulse 86; Resp 14 S; Pulse Ox 95% on R/A; Pain 5/10; aa5 08:15 BP 110 / 80; Pulse 110; Resp 16 S; Temp 98.0(TE); Pulse Ox 97% on R/A; Pain 5/10; aa5 09:40 BP 126 / 76; Pulse 82; Resp 18; Pulse Ox 97% ; kr3 02:29 Body Mass Index 25.39 (58.97 kg, 152.40 cm) ED Course: 01:44 Patient arrived in ED. [id number] 02:31 Triage completed. bb 02:31 Arm band placed on Patient placed in an exam room, on a stretcher. Family accompanied patient. 02:36 Fátima Madsen MD is Attending Physician. sd2 02:41 Rocio freire RN is Primary Nurse. pf1 02:41 No provider procedures requiring assistance completed. Inserted saline lock: 20 gauge pf1 in right antecubital area, using aseptic technique. Blood collected. 04:38 CT Abd/Pelvis - IV Contrast Only In Process Unspecified. EDMS 07:00 Patient has correct armband on for positive identification. Placed in gown. Bed in low aa5 position. Call light in reach. Side rails up X2. 07:11 initiated a transfer with [facility]t from the [facility]. eb 07:16 Attending Physician role handed off by Fátima Madsen MD rt 07:16 Berlin Marvin MD is Attending Physician. rt 07:[address] 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 with Dr. Yon cai for patient transfer consultation. 08:12 administrative approval given by Leticia Spencer/ patient has been accepted to [facility] christiano [id number]/ Dr. Vinny Sweet has accepted the patient in transfer/ report to be called to [phone]. 09:08 Report given to CHRISTIANO Ortega. aa5 09:50 Patient transferred, IV remains in place. aa5 Administered Medications: 03:00 Drug: NS 0.9% 1000 ml Route: IV; Rate: 1 bolus; Site: right antecubital; pf1 04:00 Follow up: Response: Marked relief of symptoms; IV Status: Completed infusion; IV pf1 Intake: 1000ml 03:15 Drug: morphine 4 mg Route: IVP; Infused Over: 4 mins; Site: right antecubital; pf1 04:15 Follow up: Response: No adverse reaction; Pain is unchanged, physician notified; RASS: pf1 Alert and Calm (0) 03:15 Drug: Zofran (Ondansetron) 4 mg Route: IVP; Site: right antecubital; pf1 04:15 Follow up: Response: No adverse reaction; Marked relief of symptoms; Nausea is decreasedpf1 06:05 Drug: morphine 4 mg Route: IVP; Infused Over: 4 mins; Site: right antecubital; pf1 06:38 Follow up: Response: No adverse reaction; Marked relief of symptoms; Pain is decreased; pf1 RASS: Alert and Calm (0) 07:25 Drug: Zofran (Ondansetron) 4 mg Route: IVP; Site: right antecubital; aa5 07:44 Follow up: Response: No adverse reaction; Nausea is decreased aa5 07:27 Drug: Ketorolac 30 mg Route: IVP; Site: right antecubital; aa5 07:44 Follow up: Response: No adverse reaction; Pain is decreased aa5 07:28 Drug: morphine 4 mg Route: IVP; Infused Over: 4 mins; Site: right antecubital; aa5 07:44 Follow up: Response: No adverse reaction; Pain is decreased aa5 07:44 Drug: Rocephin (cefTRIAXone) 2 grams Route: IV; Rate: calculated rate; Site: right aa5 antecubital; 08:15 Follow up: Response: No adverse reaction; IV Status: Completed infusion aa5 Medication: 09:50 VIS not applicable for this client. aa5 Intake: 04:00 IV: 1000ml; Total: 1000ml. pf1 Outcome: 07:45 ER care complete, transfer ordered by MD. rt 09:50 Transferred by ground EMS Transfer form completed. X-rays sent w/ patient. Note: aa5 [facility] 09:50 Condition: stable 09:50 Instructed on the need for transfer, Demonstrated understanding of instructions. 09:51 Patient left the ED. aa5 Signatures: Dispatcher [employer] EDIndia Drake, RN RN bb Jocelyn Bass RN RN aa5 Zahra Rust Jennifer jj6 Fátima Madsen MD MD sd2 Shannon Craft RN RN kr3 Berlin Marvin MD MD rt Rocio freire, CHRISTIANO RN pf1
[2022-06-22 07:49] LABS: SARS-CoV-2 Antigen Rapid Res Negative (Negative)
[2022-06-22 10:53] VITALS: TEMP 98; O2SAT 97
[2022-06-22 10:55] VITALS: BP 126/76
--- NOTE | 2022-06-24 10:08 | RAD REPORT ---
EXAM DESCRIPTION: CT - Abdomen Pelvis W Contrast - 06/22/2022 6:45 am CLINICAL HISTORY: Lower abdominal and back pain, nausea COMPARISON: None Available. TECHNIQUE: CT of the abdomen and pelvis performed following IV administration of iodinated contras t. This exam was performed according to our departmental dose-optimization program, which includes au tomated exposure control, adjustment of the mA and/or kV according to patient size and/or use of iter ative reconstruction technique. FINDINGS: Lung Bases: Mild bilateral dependent atelectasis. Bones: No destructive bone lesions identified. Abdomen: Liver: Hepatomegaly with diffusely decreased density. Gallbladder: No calcified gallstones. Spleen, Pancreas, and Adrenal Glands: The spleen, pancreas, and adrenal glands are unremarkable. Kidneys: Bilateral renal cysts. No follow-up imaging for these structures recommended. Conglomerati on calcification within the mid right ureter measuring 1.5 x 0.5 cm. Moderate right hydroureter and h ydronephrosis. No left hydronephrosis. Vasculature: The aorta and IVC have normal caliber and position. The portal vein is patent. The pro ximal visceral and renal arteries are patent. Stomach: The stomach and duodenum have normal course. Other: No free intraperitoneal air. No free fluid or lymphadenopathy. Tiny fat-containing umbilic al hernia. Pelvis: Bladder: Urinary bladder is unremarkable. Bowel: No dilated loops of large or small bowel. Appendix: Normal appendix. Pelvis: Uterus is not enlarged. IMPRESSION: 1. There is a 1.5 cm obstructing calculus in the mid right ureter producing moderate r ight hydroureter and hydronephrosis. 2. Hepatomegaly and hepatic steatosis. 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 The interpreting radiologist is fully responsible for the content of the report.
--- NOTE | 2022-06-24 12:43 | EKG ---
Test Date: 2022-06-22 Test Time: 03:38:01 Sand Analyst: SAHNDA MEASUREMENT RESULTS: Intervals: Rate: 80 NV: 142 QRSD: 92 QT: 372 QTc: 429 [place]: P: 17 NV: 142 QRS: 81 T: 49 INTERPRETIVE STATEMENTS: Normal sinus rhythm Normal ECG Compared to ECG 11/17/2019 19:26:50 Sinus tachycardia no longer present Electronically Signed On 06-24-22 12:37:31 WEB SITE ADMINISTRATOR by Enrique Pepe
== END 2022-06-22 09:51 ==
LOC: ER 01:43
DX: N20.1 Calculus of ureter (principal); Z87.442 Personal history of urinary calculi
CPT/HCPCS: 36415; 74177; 80053; 81003; 81015; 81025; 83690; 84484; 85025; 87086; 87088; 87811; 93005; 96361; 96365; 96375; 99285; J2405; J7030; Q9967

== ENCOUNTER 2022-12-31 18:07 | Emergency (ER) | payer SELFPAY ==
--- OUTSIDE RECORDS SUMMARY | 2022-12-31 18:20 | XMS REPORT | Continuity of Care Document ---
:1975 Author Organization [facility] t Address [address] [facility]. [address] [place] [address] Care Team Providers Name Role Phone Trudy Garcia Primary Care Physician [phone] ALVARO GOYAL Attending Clinician Unavailable Visit, [facility] Attending Clinician Unavailable Klaudia Cornejo Attending Clinician [phone] KLAUDIA LOPEZ Attending Clinician Unavailable ARSALAN MCMULLEN Attending Clinician Unavailable ROSALINE PERALTA Attending Clinician Unavailable Arsalan Mcmullen MD Attending Clinician 2, Adc Surg Proc Attending Clinician Unavailable Doctor Unassigned, [place] Attending Clinician Unavailable Rosaline Chavez Attending Clinician Roslyn Kelly MD Attending Clinician ROSLYN KELLY Attending Clinician Unavailable Atif Woody MD Attending Clinician [phone] Ana Hernandez MD Attending Clinician Ana Vazquez CRNA Attending Clinician [phone] KELSEY MARTINEZ Attending Clinician Unavailable REGULO AVILA Attending Clinician Unavailable Rm, Adc Surg Spec Procedure Attending Clinician Unavailable HILDA RENO Attending Clinician Unavailable Hilda Law S Attending Clinician Fabrizio Moore MD Attending Clinician Hans Nichols MD Attending Clinician HANS NICHOLS Attending Clinician Unavailable Seymour Yi MD Attending Clinician Radha Martinez MD Attending Clinician Jayson Sidhu CRNA Attending Clinician [phone] REYNOLD FRASER Attending Clinician Unavailable MICHELLE BARRETT Attending Clinician Unavailable MICHELLE BARRETT Attending Clinician Unavailable Provider, [facility] Attending Clinician Unavailable Reynold Bernstein Attending Clinician JES AVILA Attending Clinician Unavailable Pgy2 Attending Clinician Unavailable Ami Angel MD Attending Clinician AMI ANGEL Attending Clinician Unavailable Jes Conroy Attending Clinician Bhakti Talley MD Attending Clinician Daniella Vegas MD Attending Clinician Jose Cruz Snyder DO Attending Clinician [facility] Attending Clinician Unavailable Chaitanya Kohler MD Attending Clinician [phone] ROSLYN KELLY Admitting Clinician Unavailable HILDA RENO Admitting Clinician Unavailable FABRIZIO MOORE Admitting Clinician Unavailable Payers Payer Name Policy Type Policy Number Effective Date Expiration Date S ource Problems Condition Condition Condition Status Onset Resolution Last Treating Co mments Source Name Details Category Date Date Treatment Clinician Date Hydronephr Hydronephr Disease Active [facility] osis with osis with 2-18 [facility] obstructin obstructin 00:00: Me dical g calculus g calculus 00 Ce nter Nephrolith Nephrolith Disease Active 2021-[address] iasis iasis 1-13 [facility] 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 2-01 ity of 00:00: [place] 00 [facility] Lichen of Lichen of Disease Active Uni vers skin skin 1-05 ity of 00:00: [place] [facility] Vulvar Vulvar Disease Active 2019-05 Univers itching itching 0-02 ity of 00:00: [place] [facility] Abnormal Abnormal Disease Active 2019-05 Unive rs appearance appearance 0-02 it y of of [place] [facility] Depot Depot Disease Active Univers contracept contracept 1-02 it y of ion ion 00:00: [address] Contracept Contracept Disease Active 2017-05 U michael tamera tamera 1-08 [place] [facility] History of History of Disease Active U michael depression depression 9-20 it y of 00:00: [place] 00 [facility] Cervical Cervical Disease Active Unive rs polyp polyp 2-13 ity of 00:00: [place] [facility] Depo-Prove Depo-Prove Disease Active 2017 U javiders ra ra 2-03 ity of contrace[place] status tamera status 00 [facility] Branch Allergies, Adverse Reactions, Alerts Allergy Allergy Status Severity Reaction(s) Onset Inactive Treating Comm ents Source Name Type Date Date Clinician NO KNOWN Allergy Active [facility] ALLERGIE S NO KNOWN Drug Active Univers ALLERGIE Class ity of S [facility] Social History Social Habit Start Date Stop Date Quantity Comments Source History of Current smoker University of tobacco use [facility] History SDOH [facility] Alcohol Std Medical Cent[facility] r Drinks History SDOH [facility] Alcohol Binge Medical Ricardo [facility] History SDOH [facility] Transport Non-Med Medical Center History SDOH [facility] Alcohol Comment Medical C enter Exposure to 2022-07-21 2022-07-31 Not sure University of SARS-CoV-2 00:00:00 14:22:00 [facility] (event) Branch Alcohol intake 2022-06-25 2022-06-[address] [facility] 00:[facility]:00 00:00:00 non-drinker Medical Cente r (finding) History SDOH 2022-03-17 2022-03-[address] [facility] Alcohol Frequency 00:00:00 00:00:00 Medical Center History [facility] 2022-03-17 2022-03-[address] [facility] Transport Med 00:00:00 00:00:[address] History [facility] 2022-03-17 2022-03-[address] [facility] Housing Unable to 00:00:00 00:00:00 Medical Center Pay History [facility] 2022-03-17 2022-03-[address] [facility] Housing Places 00:00:00 00:00:00 Medical Ce nter Lived History [facility] 2022-03-17 2022-03-[address] [facility] Housing Homeless 00:00:00 00:00:00 Medical Center Last Year Tobacco use and 2022-03-17 2022-03-[address] [facility] exposure [facility]:00:00 non-user Medical Center Sex Assigned At [birth year] F [facility] Arianna deleons 00:00:00 [facility] Smoking Status Start Date Stop Date Source Never smoked tobacco [place] Ex-smoker 2021-11-21 00:00:00 2021-11-21 00:00:00 [facility] Medical Branch Medications Ordered Filled Start Stop Current Ordering Indication Dosage Frequency Signature Comments Components Source Medication Medication Date Date Medication? Clinician (SIG) Name Name medroxyPROG 2022- No [id number] 150mg Univers ESTERone 10-24 ity of (DEPO-PROVE 14:30: 13:44 [place] RA) syringe 00 :00 Medical 150 mg Branch medroxyPROG 2022-2022- No [id number] 150mg 150 mg, Univers ESTERone 10-24 Intramuscu ity of (DEPO-PROVE 14:30: 13:44 lar, ONCE, [place] RA) syringe 00 :00 1 dose, On Me dical 150 mg Traci Branch 10/24/22 at 0930, Routine medroxyPROG 2022-3- No [id number] 150mg Univers ESTERone 08-01 03-30 ity of (DEPO-PROVE 15:15: 14:21 [place] RA) syringe 00 :00 Medical 150 mg Branch medroxyPROG 2023-0 2023- No [id number] 150mg 150 mg, Univers ESTERone 08-01 Intramuscu ity of (DEPO-PROVE 15:15: 14:21 lar, ONCE, [place] ) syringe 00 :00 1 dose, On Me dical 150 mg Traci Branch 08/01/22 at 1015, Routine glipiZIDE 2023-0 Yes 10mg Take 1 Univer s 10 mg 3-27 tablet by ity of tablet 16:48: mouth. [address] glipiZIDE 2023-0 Yes 10mg Take 1 Univer s 10 mg 3-27 tablet by ity of tablet 16:48: mouth. [address] glipiZIDE 2023-0 Yes 10mg Take 1 Univer s 10 mg 3-27 tablet by ity of tablet 16:48: mouth. [address] glipiZIDE 2023-0 Yes 10mg Take 1 Univer s 10 mg 3-27 tablet by ity of tablet 16:48: mouth. [address] glipiZIDE 2023-0 Yes 10mg Take 1 Univer s 10 mg 3-27 tablet by ity of tablet 16:48: mouth. [address] glipiZIDE 2023-0 Yes 10mg Take 1 Univer s 10 mg 3-27 tablet by ity of tablet 16:48: mouth. [address] glipiZIDE 2023-0 Yes 10mg Take 1 Univer s 10 mg 3-27 tablet by ity of tablet 16:48: mouth. [address] glipiZIDE 2023-0 Yes 10mg Take 1 Univer s 10 mg 3-27 tablet by ity of tablet 16:48: mouth. [address] glipiZIDE 2023-0 Yes 10mg Take 1 Univer s 10 mg 3-27 tablet by ity of tablet 16:48: mouth. [address] glipiZIDE 2023-0 Yes 10mg Take 1 Univer s 10 mg 3-27 tablet by ity of tablet 16:48: mouth. [address] glipiZIDE 2023-0 Yes 10mg Take 1 Univer s 10 mg 3-27 tablet by ity of tablet 16:48: mouth. [address] glipiZIDE 2023-0 Yes 10mg Take 1 Univer s 10 mg 3-27 tablet by ity of tablet 16:48: mouth. [address] glipiZIDE 2022-0 Yes 10mg Take 1 Univer s 10 mg 3-27 tablet by ity of tablet 16:48: mouth. [address] glipiZIDE 2022-0 Yes 10mg Take 1 Univer s 10 mg 3-27 tablet by ity of tablet 16:48: mouth. [address] glipiZIDE 2022-0 Yes 10mg Take 1 Univer s 10 mg 3-27 tablet by ity of tablet 16:48: mouth. [address] glipiZIDE 2022-0 Yes 10mg Take 1 Univer s 10 mg 3-27 tablet by ity of tablet 16:48: mouth. [address] glipiZIDE 2022-0 Yes 10mg Take 1 Univer s 10 mg 3-27 tablet by ity of tablet 16:48: mouth. [address] metFORMIN 2022-0 Yes 1000mg Take 1,[address] (GLUCOPHAGE 2-19 mg by [facility]ukes ) 1000 MG 15:08: mouth 2 Medic al tablet 36 (two) Center times daily with breakfast and dinner. SITagliptin 2022-0 Yes 25mg QD Take [address] phosphate 2-19 by mouth [facility] (JANUVIA) 15:08: daily. Medica l 25 MG 36 Center tablet glipiZIDE 0 Yes 10mg Take [address] (GLUCOTROL) 2-19 by mouth Luke s 10 MG 15:08: in the Medical tablet 36 morning. Center metFORMIN 2022-0 Yes 1000mg Take 1,[address] (GLUCOPHAGE 2-19 mg by [facility]ukes ) 1000 MG 15:08: mouth 2 Medic al tablet 36 (two) Center times daily with breakfast and dinner. SITagliptin 2022-0 Yes 25mg QD Take [address] phosphate 2-19 by mouth [facility] (JANUVIA) 15:08: daily. Medica l 25 MG 36 Center tablet glipiZIDE 2022-0 Yes 10mg Take [address] (GLUCOTROL) 2-19 by mouth Luke s 10 MG 15:08: in the Medical tablet 36 morning. Center tamsulosin 2022-0 3- No .4mg QD Take [address] (FLOMAX) 06-23 capsule [facility] 0.4 mg Cap 00:00: 23:59 (0.4 mg Med ical 24 hr 00 :00 total) by Center capsule mouth daily for 14 days. tamsulosin 2022- No .4mg QD Take [address] (FLOMAX) 06-23-05 capsule [facility] 0.4 mg Cap 00:00: 23:59 (0.4 mg Med ical 24 hr 00 :00 total) by Center capsule mouth daily for 14 days. HYDROcodone 2022- No 1{tbl} Take [address] -acetaminop 06-23 tablet by Arianna berg (NORCO 00:00: 23:59 mouth Medic al 10-325) 00 :00 every 4 Center 10-325 mg (four) per tablet hours as needed for up to 10 days. Max Daily Amount: 6 tablets HYDROcodone 2022- No 1{tbl} Take [address] -acetaminop 06-23 tablet by Arianna berg (NORCO 00:00: 23:59 mouth Medic al 10-325) 00 :00 every 4 Center 10-325 mg (four) per tablet hours as needed for up to 10 days. Max Daily Amount: 6 tablets senna-docus 2022- No 2{tbl} QD Take [address] ate 06-23- tablets by Marco (SENOKOT S) 00:00: 23:59 mouth Medi jo-ann 8.6-50 mg 00 :00 nightly Center per tablet for 7 days. senna-docus 2022- No 2{tbl} QD Take [address] ate 06-23- tablets by Marco (SENOKOT S) 00:00: 23:59 mouth Medi jo-ann 8.6-50 mg 00 :00 nightly Center per tablet for 7 days. cephalexin 2022-2022- No 500mg [id number] Take [address] (KEFLEX) 06-23 [id number] capsule L ukes 500 MG 00:00: 23:59 3D (500 mg Medical capsule 00 :00 total) by Center mouth 3 (three) times daily for 5 days. cephalexin 2022- No 500mg Q.[id number] Take [address] (KEFLEX) 206-28 [id number] capsule L ukes 500 MG 00:00: 23:59 3D (500 mg Medical capsule 00 :00 total) by Center mouth 3 (three) times daily for 5 days. cephALEXin 2021-05- No [id number] 500mg Take 2 Univers 250 mg 06-02 capsules ity of capsule 00:00: 05:59 by mouth [place] 00 :00 every 12 Medical (twelve) Branch hours for 5 days. cephALEXin 2021-05- No [id number] 500mg Take 2 Univers 250 mg 06-02 12-05 capsules ity of capsule 00:00: 05:59 by mouth [place] 00 :00 every 12 Medical (twelve) Branch hours for 5 days. cephALEXin 2021-05- No [id number] 500mg Take 2 Univers 250 mg 06-0205 capsules ity of capsule 00:00: 05:59 by mouth [place] 00 :00 every 12 Medical (twelve) Branch hours for 5 days. cefTRIAXone 2021-05- No [id number] 1000mg Univers (ROCEPHIN) 06-01 ity of injection 21:45: 20:59 [place] 1,000 mg 00 :00 [facility] cefTRIAXone 2021-05- No [id number] 1000mg Univers (ROCEPHIN) 06-01 ity of injection 21:45: 20:59 [place] 1,000 mg 00 :00 [facility] cefTRIAXone 2021-05- No [id number] 1000mg 1,000 mg, Univers (ROCEPHIN) 06-01 Intramuscu it y of injection 21:45: 20:59 [place]CE, [place] 1,000 mg 00 :00 1 dose, On Medic al [facility] Branch 04/01/22 at 1545, JORGE
Re ason for Anti-Infec tive: Surgical Prophylaxi s
Surgi jo-ann Prophylaxi s: Genitourin prema
Dur ation of therapy: within 24 hours of surgery cefTRIAXone 2021-05- No [id number] 1000mg 1,000 mg, Univers (ROCEPHIN) 06-01 Intramuscu it y of injection 21:45: 20:59 lar, ONCE, [place] 1,000 mg 00 :00 1 dose, On Medic al [facility] 04/01/22 at 1545, JORGE
Re ason for Anti-Infec tive: Surgical Prophylaxi s
Surgi jo-ann Prophylaxi s: Genitourin pream
Dur ation of therapy: within 24 hours of surgery cefTRIAXone 2021-05- No [id number] 1000mg 1,000 mg, Univers (ROCEPHIN) 06-01 Intramuscu it y of injection 21:45: 20:59 lar, [place]CE, [place] 1,000 mg 00 :00 1 dose, On Medic [facility] 04/01/22 at 1545, JORGE
Re ason for Anti-Infec tive: Surgical Prophylaxi s
Surgi jo-ann Prophylaxi s: Genitourin prema
Dur ation of therapy: within 24 hours of surgery cefTRIAXone 2021-05- No [id number] 1000mg Univers (ROCEPHIN) 06-01 ity of injection 21:45: 20:59 [place] 1,000 mg 00 :00 Medical Branch tamsulosin 2021-05- No [id number] .4mg Take 1 Univers (FLOMAX) 06-01-13 capsule by ity of 0.4 mg 24 00:00: 05:59 mouth [place] hr capsule 00 :00 daily for Medi jo-ann 14 days. Branch tamsulosin 2021-05- No [id number] .4mg Take 1 Univers (FLOMAX) 06-01 12-13 capsule by ity of 0.4 mg 24 00:00: 05:59 mouth [place] hr capsule 00 :00 daily for Medi jo-ann 14 days. Branch tamsulosin 2021-05- No [id number] .4mg Take 1 Univers (FLOMAX) 06-01 12-13 capsule by ity of 0.4 mg 24 00:00: 05:59 mouth [place] hr capsule 00 :00 daily for Medi jo-ann 14 days. Branch glipiZIDE 2021-05 Yes 5mg 5 mg, Univers (GLUCOTROL) 05-27 Oral, ity of tablet 5 mg 15:00: [place], [place] First dose Medical on Fri03/27/22 at 0900, Until Discontinu ed, Routine NaCl 0.9% 2021-05 No 1000mL at 999 Uni vers (NS) bolus 05-27 mL/hr, ity of infusion 01:00: 01:40 1,000 mL, [place] as 1,000 mL 00 :00 IV Medical Infusion, Branch ONCE, 1 dose, On Fri03/26/22 at 1900, STAT ketorolac 2021-05- No 30mg 30 mg, Unive rs (TORADOL) 05-27 Slow IV ity of injection 01:00: 00:36 Push, [place] 30 mg 00 :00 ONCE, 1 Medical dose, On Fri03/26/22 at 1900, JORGE ondansetron 2021-05- No 4mg 4 mg, Slow Univers (ZOFRAN 05-27 IV Push, ity of (PF)) 00:15: 00:36 ONCE, 1 [place] injection 4 00 :00 dose, On Medi jo-ann mg [facility] 03/26/22 at 1815, JORGE cefTRIAXone 2021-05- No 1000mg 1,000 mg, Univers (ROCEPHIN) 05-27 IV ity of 1,000 mg in 00:00: 00:57 Piggyback, [place] NaCl 0.9% 00 :00 ONCE, 1 Medical (NS) 50 mL dose, On Branc h MINI-BAG Fri03/26/22 at 1800, Administer over 30 Minutes, 50 mL
Reas on for Anti-Infec tive: Empiric Therapy for Suspected Infection< br>Empiric Therapy Site: Urine
D uration of therapy: 72 hours ketorolac 2021-05 Yes [id number] 10mg Take 1 Un tracy 10 mg 1-22 tablet by ity of tablet 00:00: mouth [place] 00 every 6 Medical (six) Branch hours as needed for Pain (scale 4-6). ketorolac 2021-05 Yes [id number] 10mg Take 1 Un tracy 10 mg 1-22 tablet by ity of tablet 00:00: mouth [place] 00 every 6 Medical (six) Branch hours as needed for Pain (scale 4-6). ketorolac 2021-05 Yes [id number] 10mg Take 1 Un tracy 10 mg 1-22 tablet by ity of tablet 00:00: mouth [place] 00 every 6 Medical (six) Branch hours as needed for Pain (scale 4-6). ketorolac 2021-05 Yes [id number] 10mg Take 1 Un tracy 10 mg 1-22 tablet by ity of tablet 00:00: mouth [place] 00 every 6 Medical (six) Branch hours as needed for Pain (scale 4-6). ketorolac 2021-05 Yes [id number] 10mg Take 1 Un tracy 10 mg 1-22 tablet by ity of tablet 00:00: mouth [place] 00 every 6 Medical (six) Branch hours as needed for Pain (scale 4-6). ketorolac 2021-05 Yes [id number] 10mg Take 1 Un tracy 10 mg 1-22 tablet by ity of tablet 00:00: mouth [place] 00 every 6 Medical (six) Branch hours as needed for Pain (scale 4-6). ketorolac 2021-05 Yes [id number] 10mg Take 1 Un tracy 10 mg 1-22 tablet by ity of tablet 00:00: mouth [place] 00 every 6 Medical (six) Branch hours as needed for Pain (scale 4-6). ketorolac 2021-05 Yes [id number] 10mg Take 1 Un tracy 10 mg 1-22 tablet by ity of tablet 00:00: mouth [place] 00 every 6 Medical (six) Branch hours as needed for Pain (scale 4-6). ketorolac 2021-05 Yes [id number] 10mg Take 1 Un tracy 10 mg 1-22 tablet by ity of tablet 00:00: mouth [place] 00 every 6 Medical (six) Branch hours as needed for Pain (scale 4-6). ketorolac 2021-05 Yes [id number] 10mg Take 1 Un tracy 10 mg 1-22 tablet by ity of tablet 00:00: mouth [place] 00 every 6 Medical (six) Branch hours as needed for Pain (scale 4-6). ketorolac 2021-05 Yes [id number] 10mg Take 1 Un tracy 10 mg 1-22 tablet by ity of tablet 00:00: mouth [place] 00 every 6 Medical (six) Branch hours as needed for Pain (scale 4-6). ketorolac 2021-05 Yes [id number] 10mg Take 1 Un tracy 10 mg 1-22 tablet by ity of tablet 00:00: mouth [place] 00 every 6 Medical (six) Branch hours as needed for Pain (scale 4-6). ketorolac 2021-05 Yes [id number] 10mg Take 1 Un tracy 10 mg 1-22 tablet by ity of tablet 00:00: mouth [place] 00 every 6 Medical (six) Branch hours as needed for Pain (scale 4-6). ketorolac 2021-05 Yes [id number] 10mg Take 1 Un tracy 10 mg 1-22 tablet by ity of tablet 00:00: mouth [place] 00 every 6 Medical (six) Branch hours as needed for Pain (scale 4-6). ketorolac 2021-05 Yes [id number] 10mg Take 1 Un tracy 10 mg 1-22 tablet by ity of tablet 00:00: mouth [place] 00 every 6 Medical (six) Branch hours as needed for Pain (scale 4-6). ketorolac 2021-05 Yes [id number] 10mg Take 1 Un tracy 10 mg 1-22 tablet by ity of tablet 00:00: mouth [place] 00 every 6 Medical (six) Branch hours as needed for Pain (scale 4-6). ketorolac 2021-05 Yes [id number] 10mg Take 1 Un tracy 10 mg 1-22 tablet by ity of tablet 00:00: mouth [place] 00 every 6 Medical (six) Branch hours as needed for Pain (scale 4-6). ketorolac 2021-05 Yes [id number] 10mg Take 1 Un tracy 10 mg 1-22 tablet by ity of tablet 00:00: mouth [place] 00 every 6 Medical (six) Branch hours as needed for Pain (scale 4-6). ketorolac 2021-05 Yes [id number] 10mg Take 1 Un tracy 10 mg 1-22 tablet by ity of tablet 00:00: mouth [place] 00 every 6 Medical (six) Branch hours as needed for Pain (scale 4-6). ketorolac 2021-05 Yes [id number] 10mg Take 1 Un tracy 10 mg 1-22 tablet by ity of tablet 00:00: mouth [place] 00 every 6 Medical (six) Branch hours as needed for Pain (scale 4-6). ketorolac 2021-05 Yes [id number] 10mg Take 1 Un tracy 10 mg 1-22 tablet by ity of tablet 00:00: mouth [place] 00 every 6 Medical (six) Branch hours as needed for Pain (scale 4-6). ketorolac 2021-05 Yes [id number] 10mg Take 1 Un tracy 10 mg 1-22 tablet by ity of tablet 00:00: mouth [place] 00 every 6 Medical (six) Branch hours as needed for Pain (scale 4-6). ketorolac 2021-05 Yes [id number] 10mg Take 1 Un tracy 10 mg 1-22 tablet by ity of tablet 00:00: mouth [place] 00 every 6 Medical (six) Branch hours as needed for Pain (scale 4-6). ketorolac 2021-05 Yes [id number] 10mg Take 1 Un tracy 10 mg 1-22 tablet by ity of tablet 00:00: mouth [place] 00 every 6 Medical (six) Branch hours as needed for Pain (scale 4-6). ketorolac 2021-05 Yes [id number] 10mg Take 1 Un tracy 10 mg 1-22 tablet by ity of tablet 00:00: mouth [place] 00 every 6 Medical (six) Branch hours as needed for Pain (scale 4-6). ketorolac 2021-05 Yes [id number] 10mg Take 1 Un tracy 10 mg 1-22 tablet by ity of tablet 00:00: mouth [place] 00 every 6 Medical (six) Branch hours as needed for Pain (scale 4-6). ketorolac 2021-05 Yes [id number] 10mg Take 1 Un tracy 10 mg 1-22 tablet by ity of tablet 00:00: mouth [place] 00 every 6 Medical (six) Branch hours as needed for Pain (scale 4-6). ketorolac 2021-05 Yes [id number] 10mg Take 1 Un tracy 10 mg 1-22 tablet by ity of tablet 00:00: mouth [place] 00 every 6 Medical (six) Branch hours as needed for Pain (scale 4-6). ketorolac 2021-05 Yes [id number] 10mg Take 1 Un tracy 10 mg 1-22 tablet by ity of tablet 00:00: mouth [place] 00 every 6 Medical (six) Branch hours as needed for Pain (scale 4-6). ketorolac 2021-05 Yes [id number] 10mg Take 1 Un tracy 10 mg 1-22 tablet by ity of tablet 00:00: mouth [place] 00 every 6 Medical (six) Branch hours as needed for Pain (scale 4-6). ketorolac 2021-05 Yes [id number] 10mg Take 1 Un tracy 10 mg 1-22 tablet by ity of tablet 00:00: mouth [place] 00 every 6 Medical (six) Branch hours as needed for Pain (scale 4-6). sulfamethox 2021-05- No [id number] 1{tbl} Take 1 Univers azole-trime 1-22 11-28 [...] TABLET BY ity of tablet 00:00: MOUTH THREE Medical TIMES Branch DAILY NEEDED FOR PAIN FOR 3 DAYS phenazopyri 2021-05 Yes TAKE 1 Univ ers dine 100 mg 1-15 TABLET BY ity of tablet 00:00: THREE Medical TIMES Branch DAILY NEEDED FOR PAIN FOR 3 DAYS phenazopyri 2021-05 Yes TAKE 1 Univ ers dine 100 mg 1-15 TABLET BY ity of tablet 00:00: MOUTH THREE Medical TIMES Branch DAILY NEEDED FOR PAIN FOR 3 DAYS phenazopyri 2021-05 Yes TAKE 1 Univ ers dine 100 mg 1-15 TABLET BY ity of tablet 00:00: THREE Medical TIMES Branch DAILY NEEDED FOR PAIN FOR 3 DAYS phenazopyri 2021-05 Yes TAKE 1 Univ ers dine 100 mg 1-15 TABLET BY ity of tablet 00:00: THREE Medical TIMES Branch DAILY NEEDED FOR PAIN FOR 3 DAYS phenazopyri 2021-05 Yes TAKE 1 Univ ers dine 100 mg 1-15 TABLET BY ity of tablet 00:00: THREE Medical TIMES Branch DAILY NEEDED FOR PAIN FOR 3 DAYS phenazopyri 2021-05 Yes TAKE 1 Univ ers dine 100 mg 1-15 TABLET BY ity of tablet 00:00: THREE Medical TIMES Branch DAILY NEEDED FOR PAIN FOR 3 DAYS phenazopyri 2021-05 Yes TAKE 1 Univ ers dine 100 mg 1-15 TABLET BY ity of tablet 00:00: [facility] THREE Medical TIMES Branch DAILY NEEDED FOR PAIN FOR 3 DAYS phenazopyri 2021-05 Yes TAKE 1 Univ ers dine 100 mg 1-15 TABLET BY ity of tablet 00:00: [facility] THREE Medical TIMES Branch DAILY NEEDED FOR PAIN FOR 3 DAYS phenazopyri 2021-05 Yes TAKE 1 Univ ers dine 100 mg 1-15 TABLET BY ity of tablet 00:00: [facility] THREE Medical TIMES Branch DAILY NEEDED FOR PAIN FOR 3 DAYS phenazopyri 2021-05 Yes TAKE 1 Univ ers dine 100 mg 1-15 TABLET BY ity of tablet 00:00: [facility] THREE Medical TIMES Branch DAILY NEEDED FOR PAIN FOR 3 DAYS phenazopyri 2021-05 Yes TAKE 1 Univ ers dine 100 mg 1-15 TABLET BY ity of tablet 00:00: MOUTH THREE Medical TIMES Branch DAILY NEEDED FOR PAIN FOR 3 DAYS phenazopyri 2021-05 Yes TAKE 1 Univ ers dine 100 mg 1-15 TABLET BY ity of tablet 00:00: MOUTH THREE Medical TIMES Branch DAILY NEEDED FOR PAIN FOR 3 DAYS phenazopyri 2021-05 Yes TAKE 1 Univ ers dine 100 mg 1-15 TABLET BY ity of tablet 00:00: MOUTH THREE Medical TIMES Branch DAILY NEEDED FOR PAIN FOR 3 DAYS phenazopyri 2021-05 Yes TAKE 1 Univ ers dine 100 mg 1-15 TABLET BY ity of tablet 00:00: MOUTH THREE Medical TIMES Branch DAILY NEEDED FOR PAIN FOR 3 DAYS phenazopyri 2021-05 Yes TAKE 1 Univ ers dine 100 mg 1-15 TABLET BY ity of tablet 00:00: MOUTH THREE Medical TIMES Branch DAILY NEEDED FOR PAIN FOR 3 DAYS phenazopyri 2021-05 Yes TAKE 1 Univ ers dine 100 mg 1-15 TABLET BY ity of tablet 00:00: MOUTH THREE Medical TIMES Branch DAILY NEEDED FOR PAIN FOR 3 DAYS phenazopyri 2021-05 Yes TAKE 1 Univ ers dine 100 mg 1-15 TABLET BY ity of tablet 00:00: MOUTH THREE Medical TIMES Branch DAILY NEEDED FOR PAIN FOR 3 DAYS phenazopyri 2021-05 Yes TAKE 1 Univ ers dine 100 mg 1-15 TABLET BY ity of tablet 00:00: MOUTH THREE Medical TIMES Branch DAILY NEEDED FOR PAIN FOR 3 DAYS phenazopyri 2021-05 Yes TAKE 1 Univ ers dine 100 mg 1-15 TABLET BY ity of tablet 00:00: MOUTH THREE Medical TIMES Branch DAILY NEEDED FOR PAIN FOR 3 DAYS phenazopyri 2021-05 Yes TAKE 1 Univ ers dine 100 mg 1-15 TABLET BY ity of tablet 00:00: MOUTH 00 THREE Medical TIMES Branch DAILY NEEDED FOR PAIN FOR 3 DAYS phenazopyri 2021-05 Yes TAKE 1 Univ ers dine 100 mg 1-15 TABLET BY ity of tablet 00:00: MOUTH THREE Medical TIMES Branch DAILY NEEDED FOR PAIN FOR 3 DAYS phenazopyri 2021-05 Yes TAKE 1 Univ ers dine 100 mg 1-15 TABLET BY ity of tablet 00:00: MOUTH [place] [id number] THREE Medical TIMES Branch DAILY NEEDED FOR PAIN FOR 3 DAYS tamsulosin 2021-05- No .4mg Take 0.4 Un tracy 0.4 mg 24 1-15 12-16 mg by ity of hr capsule 00:00: 05:59 mouth. Lorena ramos 00 :00 Medical Branch oxybutynin 2021-05- No 15mg Take 15 mg [facility] 15 mg 24 hr 1-15 12-16 by mouth. it y of tablet 00:00: 05:59 [place] 00 :00 [facility] oxybutynin 2021-05- No 15mg Take 15 mg [facility] 15 mg 24 hr 1-15 12-16 by mouth. it y of tablet 00:00: 05:59 [place] 00 :00 Medical Branch oxybutynin 2021-2021- No 15mg Take 15 mg [facility] 15 mg 24 hr 1-15 12-16 by mouth. it y of tablet 00:00: 05:59 [place] 00 :00 Medical [facility] oxybutynin 2021-05- No 15mg Take 15 mg [facility] 15 mg 24 hr 1-15 12-16 by mouth. it y of tablet 00:00: 05:59 [place] 00 :00 Medical Branch oxybutynin 2021-2021- No 15mg Take 15 mg [facility] 15 mg 24 hr 1-15 12-16 by mouth. it y of tablet 00:00: 05:59 [place] 00 :00 Medical Branch oxybutynin 2021-2021- No 15mg Take 15 mg [facility] 15 mg 24 hr 1-15 12-16 by mouth. it y of tablet 00:00: 05:59 [place] 00 :00 Medical Branch oxybutynin 2021-05- No 15mg Take 15 mg [facility] 15 mg 24 hr 1-15 12-16 by mouth. it y of tablet 00:00: 05:59 [place] 00 :00 Medical Branch tamsulosin 2021-2- No .4mg QD Take [address] [facility] [...] for 30 days. tamsulosin 2021-05- No .4mg Take 0.4 Un [...] 50mg Take [address] [facility] (ULTRAM) 50 -15 -25 tablet (50 [facility] mg tablet 00:00: [...] 50mg Take [address] [facility] (ULTRAM) 50 05-19-25 tablet (50 [facility] mg tablet 00:00: 23:59 mg total) [facility] dical 00 :00 by mouth Center every 6 (six) hours as needed for Pain for up to 10 days. Max Daily Amount: 200 mg traMADoL 2021-05- No 50mg Take [address] [facility] (ULTRAM) 50 -15 11-25 tablet (50 [facility] mg tablet 00:00: 23:59 mg total) Me dical 00 :00 by mouth Center every 6 (six) hours as needed for Pain for up to 10 days. Max Daily Amount: 200 mg levoFLOXaci 2021-05- No 500mg Take 500 [facility] n 500 mg 05-19 mg by ity of tablet 00:00: 05:59 mouth. [place] 00 :00 [facility] levoFLOXaci 2021-05- No 500mg QD Take 1 [...] 100mg Take [address] [facility] [address] [facility] 1-15 11-18 tablet [facility] (PYRIDIUM) 00:00: 23:59 (100 mg Med ical 100 MG 00 :00 total) by Center tablet mouth 3 (three) times daily as needed for Pain for up to 3 days. phenazopyri 2021-05- No 100mg Take [address] [facility] [address] [facility] 1-15 11-18 tablet [facility] (PYRIDIUM) 00:00: 23:59 (100 mg Med ical 100 MG 00 :00 total) by Center tablet mouth 3 (three) times daily as needed for Pain for up to 3 days. phenazopyri 2021-05- No 100mg Take [address] [facility] [address] [facility] -15 -18 tablet [facility] (PYRIDIUM) 00:00: 23:59 (100 mg Med ical 100 MG 00 :00 total) by Center tablet mouth 3 (three) times daily as needed for Pain for up to 3 days. medroxyPROG 2021-05- No [id number] 150mg Univers ESTERone 0-12 -29 ity of (DEPO-PROVE 15:45: 15:44 [place] RA) syringe 00 :00 Medical 150 mg Branch medroxyPROG 2021-05- No [id number] 150mg [facility] ESTERone 0-12 -29 ity of (DEPO-PROVE 15:45: 15:44 [place] RA) syringe 00 :00 Medical 150 mg Branch medroxyPROG 2021-05- No [id number] 150mg [facility] ESTERone 0-12 -29 ity of (DEPO-PROVE 15:45: 15:44 [place] RA) syringe 00 :00 Medical 150 mg Branch medroxyPROG 2021-05- No [id number] 150mg [facility] ESTERone 0-12 -29 ity of (DEPO-PROVE 15:45: 15:44 [place] RA) syringe 00 :00 Medical 150 mg Branch medroxyPROG 2021-05- No [id number] 150mg [facility] ESTERone 0-12 -29 ity of (DEPO-PROVE 15:45: 15:44 [place] RA) syringe 00 :00 Medical 150 mg Branch medroxyPROG 2021-05- No [id number] 150mg [facility] ESTERone 0-07-31 ity of (DEPO-PROVE 15:45: 15:44 [place] RA) syringe 00 :00 Medical 150 mg Branch medroxyPROG 2021-05- No [id number] 150mg [facility] ESTERone 0-07-31 ity of (DEPO-PROVE 15:45: 15:44 [place] RA) syringe 00 :00 Medical 150 mg Branch medroxyPROG 2021-05- No [id number] 150mg 150 mg, [facility] ESTERone 007-31 Intramuscu ity of (DEPO-PROVE 15:45: 15:44 [facility], [place] RA) syringe 00 :00 [id number], Med ical 150 mg 2 doses, Branch First dose on Fri02/13/22 at 1045, Last dose on Fri05/08/22 at 1045, Routine medroxyPROG 2021-05- No [id number] 150mg [facility] ESTERone 007-31 ity of (DEPO-PROVE 15:45: 15:44 [place] RA) syringe 00 :00 Medical 150 mg Branch medroxyPROG 2021-05- No [id number] 150mg [facility] ESTERone 0-05-08 ity of (DEPO-PROVE 15:45: 15:05 [place] RA) syringe 00 :00 Medical 150 mg Branch medroxyPROG 2021-05- No [id number] 150mg 150 mg, Univers ESTERone 005-08 Intramuscu ity of (DEPO-PROVE 15:45: 15:05 [facility], [place] RA) syringe 00 :00 [id number], Med ical 150 mg 2 doses, Branch First dose on Fri02/13/22 at 1045, Last dose on Fri05/08/22 at 1045, Routine Januvia 25 2021-0 No 1mg mg tablet 3- 00:00: 00 Januvia 25 2021-0 No 1mg mg tablet 3- 00:00: 00 atorvastati 2022-0 No 1mg n 10 mg 3- tablet 00:00: 00 atorvastati 2-0 No 1mg n 10 mg 3-01 tablet 00:00: 00 glipizide 2022-0 No 1mg 10 mg 2-28 tablet 00:00: 00 Dose 2022-0 No Unknown 2-28 00:00: 00 glipizide 2022-0 No 1mg 10 mg 2-28 tablet 00:00: 00 Dose 2022-0 No Unknown 2-28 00:00: 00 glipizide 2022-0 No 1mg 10 mg 2-25 tablet 00:00: 00 glipizide 2022-0 No 1mg 10 mg 2-25 tablet 00:00: 00 Nitrofurant 2022-0 2022- No [id number] 100mg Take 1 Univers oin&Nit. 06-12-20 capsule by ity of [place]rocryst 00:00: 00:00 mouth 2 [facility] as (MACROBID) 00 :00 (two) Medical 100 mg times Branch capsule daily. Nitrofurant 2022-0 2022- No [id number] 100mg Take 1 Univers oin&Nit. 06-12-20 capsule by ity of [place] 00:00: 00:00 mouth 2 [place] (MACROBID) 00 :00 (two) Medical 100 mg times Branch capsule daily. medroxyPROG 2022-0 3- No [id number] 150mg Univers ESTERone 2-05-08 ity of (DEPO-PROVE 16:15: 16:14 [place] RA) 00 :00 Medical injection Branch 150 mg medroxyPROG 2022-0 3- No [id number] 150mg Univers ESTERone 2-05-08 ity of (DEPO-PROVE 16:15: 16:14 [place] RA) 00 :00 Medical injection Branch 150 mg medroxyPROG 2022-0 2023- No [id number] 150mg [facility] ESTERone 2-06 05- ity of (DEPO-PROVE 16:15: 16:14 [place] RA) 00 :00 Medical injection Branch 150 mg medroxyPROG 2022-0 2023- No [id number] 150mg Univers ESTERone 2-05-08 ity of (DEPO-PROVE 16:15: 16:14 [place] RA) 00 :00 Medical injection Branch 150 mg medroxyPROG 2022-0 2023- No [id number] 150mg Univers ESTERone 2-05-08 ity of (DEPO-PROVE 16:15: 16:14 [place] RA) 00 :00 Medical injection Branch 150 mg medroxyPROG 2022-0 2023- No [id number] 150mg Univers ESTERone 06-06 ity of (DEPO-PROVE 16:15: 16:14 [place] RA) 00 :00 Medical injection Branch 150 mg medroxyPROG 2022-0 3- No [id number] 150mg Univers ESTERone 06-06 ity of (DEPO-PROVE 16:15: 16:14 [place] RA) 00 :00 Medical injection Branch 150 mg medroxyPROG 2022-0 3- No [id number] 150mg Univers ESTERone -05-08 ity of (DEPO-PROVE 16:15: 16:14 [place] RA) 00 :00 Medical injection Branch 150 mg medroxyPROG 2022-0 3- No [id number] 150mg 150 mg, Univers ESTERone 06-06 Intramuscu ity of (DEPO-PROVE 16:15: 16:14 [place], [place] RA) 00 :00 [id number], Medical injection 4 doses, Branch 150 mg First dose on Fri06/06/21 at 1015, Last dose on Fri02/13/22 at 1015, Routine medroxyPROG 2022-0 3- No [id number] 150mg Univers ESTERone 06-06 ity of (DEPO-PROVE 16:15: 16:14 [place] RA) 00 :00 Medical injection Branch 150 mg medroxyPROG 2022-0 3- No [id number] 150mg 150 mg, Univers ESTERone 06-06 Intramuscu ity of (DEPO-PROVE 16:15: 16:14 [place], [place] RA) 00 :00 [id number], Medical injection 4 doses, Branch 150 mg First dose on Fri06/06/21 at 1015, Last dose on Fri02/13/22 at 1015, Routine medroxyPROG 2022-0 3- No [id number] 150mg Univers ESTERone 2-05-08 ity of (DEPO-PROVE 16:15: 16:14 [place] RA) 00 :00 Medical injection Branch 150 mg medroxyPROG 2022-0 2023- No [id number] 150mg Univers ESTERone 06-06 ity of (DEPO-PROVE 16:15: 16:14 [facility]) 00 :00 Medical injection Branch 150 mg medroxyPROG 0 3- No [id number] 150mg Univers ESTERone 06-06 ity of (DEPO-PROVE 16:15: 16:14 [facility]) 00 :00 Medical injection Branch 150 mg Dose 2020-05 No Unknown 2-07 00:00: 00 Dose 2020-05 No Unknown 2-07 00:00: 00 Dose 2020- No Unknown 2-07 00:00: 00 Dose 2020-05 No Unknown 2-07 00:00: 00 clobetasoL 2020-05 Yes [id number] Apply to Univers 0.05 % 2-01 area(s) 2 ity of ointment 00:00: (two) [place] 00 times Medical daily. Branch clobetasoL 2020- Yes [id number] Apply to Univers 0.05 % 2-01 area(s) 2 ity of ointment 00:00: (two) [place] 00 times Medical daily. Branch clobetasoL 2020-05 Yes [id number] Apply to Univers 0.05 % 2-01 area(s) 2 ity of ointment 00:00: (two) [place] 00 times Medical daily. Branch clobetasoL 2020- Yes [id number] Apply to Univers 0.05 % 2-01 area(s) 2 ity of ointment 00:00: (two) [place] 00 times Medical daily. Branch clobetasoL 2020- Yes [id number] Apply to Univers 0.05 % 2-01 area(s) 2 ity of ointment 00:00: (two) [place] 00 times Medical daily. Branch clobetasoL 2020- Yes [id number] Apply to Univers 0.05 % 2-01 area(s) 2 ity of ointment 00:00: (two) [place] 00 times Medical daily. Branch clobetasoL 2020- Yes [id number] Apply to Univers 0.05 % 2-01 area(s) 2 ity of ointment 00:00: (two) [place] 00 times Medical daily. Branch clobetasoL 2020- Yes [id number] Apply to Univers 0.05 % 2-01 area(s) 2 ity of ointment 00:00: (two) [place] 00 times Medical daily. Branch clobetasoL 1-1 Yes [id number] Apply to Univers 0.05 % 2-01 area(s) 2 ity of ointment 00:00: (two) [place] 00 times Medical daily. Branch clobetasoL 1-1 Yes [id number] Apply to Univers 0.05 % 2-01 area(s) 2 ity of ointment 00:00: (two) [place] 00 times Medical daily. Branch clobetasoL 1-1 Yes [id number] Apply to Univers 0.05 % 2-01 area(s) 2 ity of ointment 00:00: (two) [place] 00 times Medical daily. Branch clobetasoL 1-1 Yes [id number] Apply to Univers 0.05 % 2-01 area(s) 2 ity of ointment 00:00: (two) [place] 00 times Medical daily. Branch clobetasoL 1-1 Yes [id number] Apply to Univers 0.05 % 2-01 area(s) 2 ity of ointment 00:00: (two) [place] 00 times Medical daily. Branch clobetasoL 1-1 Yes [id number] Apply to Univers 0.05 % 2-01 area(s) 2 ity of ointment 00:00: (two) [place] 00 times Medical daily. Branch clobetasoL 2021-1 Yes [id number] Apply to Univers 0.05 % 2-01 area(s) 2 ity of ointment 00:00: (two) [place] 00 times Medical daily. Branch clobetasoL 1-1 Yes [id number] Apply to Univers 0.05 % 2-01 area(s) 2 ity of ointment 00:00: (two) [place] 00 times Medical daily. Branch clobetasoL 2021-1 Yes [id number] Apply to Univers 0.05 % 2-01 area(s) 2 ity of ointment 00:00: (two) [place] 00 times Medical daily. Branch clobetasoL 2021-1 Yes [id number] Apply to Univers 0.05 % 2-01 area(s) 2 ity of ointment 00:00: (two) [place] 00 times Medical daily. Branch clobetasoL 2021-1 Yes [id number] Apply to Univers 0.05 % 2-01 area(s) 2 ity of ointment 00:00: (two) [place] 00 times Medical daily. Branch clobetasoL 2021-1 Yes [id number] Apply to Univers 0.05 % 2-01 area(s) 2 ity of ointment 00:00: (two) [place] 00 times Medical daily. Branch clobetasoL 1-1 Yes [id number] Apply to Univers 0.05 % 2-01 area(s) 2 ity of ointment 00:00: (two) [place] 00 times Medical daily. Branch clobetasoL 1-1 Yes [id number] Apply to Univers 0.05 % 2-01 area(s) 2 ity of ointment 00:00: (two) [place] 00 times Medical daily. Branch clobetasoL 2021-1 Yes [id number] Apply to Univers 0.05 % 2-01 area(s) 2 ity of ointment 00:00: (two) [place] 00 times Medical daily. Branch clobetasoL 1-1 Yes [id number] Apply to Univers 0.05 % 2-01 area(s) 2 ity of ointment 00:00: (two) [place] 00 times Medical daily. Branch clobetasoL 1-1 Yes [id number] Apply to Univers 0.05 % 2-01 area(s) 2 ity of ointment 00:00: (two) [place] 00 times Medical daily. Branch clobetasoL 2021-1 Yes [id number] Apply to Univers 0.05 % 2-01 area(s) 2 ity of ointment 00:00: (two) [place] 00 times Medical daily. Branch clobetasoL 2021-1 Yes [id number] Apply to Univers 0.05 % 2-01 area(s) 2 ity of ointment 00:00: (two) [place] 00 times Medical daily. Branch clobetasoL 2021-1 Yes [id number] Apply to Univers 0.05 % 2-01 area(s) 2 ity of ointment 00:00: (two) [place] 00 times Medical daily. Branch clobetasoL 2021-1 Yes [id number] Apply to Univers 0.05 % 2-01 area(s) 2 ity of ointment 00:00: (two) [place] 00 times Medical daily. Branch clobetasoL 2020-05 Yes [id number] Apply to Univers 0.05 % 2-01 area(s) 2 ity of ointment 00:00: (two) [place] 00 times Medical daily. Branch clobetasoL 2020-05 Yes [id number] Apply to Univers 0.05 % 2-01 area(s) 2 ity of ointment 00:00: (two) [place] 00 times Medical daily. Branch clobetasoL 2020-05 Yes [id number] Apply to Univers 0.05 % 2-01 area(s) 2 ity of ointment 00:00: (two) [place] 00 times Medical daily. Branch clobetasoL 2020-05 Yes [id number] Apply to Univers 0.05 % 2-01 area(s) 2 ity of ointment 00:00: (two) [place] 00 times Medical daily. Branch clobetasoL 2020-05 Yes [id number] Apply to Univers 0.05 % 2-01 area(s) 2 ity of ointment 00:00: (two) [place] 00 times Medical daily. Branch clobetasoL 2020-05 Yes [id number] Apply to Univers 0.05 % 2-01 area(s) 2 ity of ointment 00:00: (two) [place] 00 times Medical daily. Branch glipizide 2020-05 [...] 2020-05 No Unknown 1-08 00:00: 00 metroNIDAZO 2021-0 2- No [id number] 500mg Take 1 Univers LE 500 mg 7-15 07-20 tablet by ity of tablet 00:00: 00:00 mouth [place] 00 :00 every 8 Medical (eight) Branch hours. metroNIDAZO 1-0 2022- No [id number] 500mg Take 1 [facility] LE 500 mg 7-15 07-20 tablet by ity of tablet 00:00: 00:00 mouth [place] 00 :00 every 8 Medical (eight) Branch hours. Clobetasol 1-0 Yes [id number] Apply to Univers Propionate 7-12 area(s) ity of 0.05 % 00:00: every [place] lotion 00 evening. Medical Branch nystatin-tr 2020-0 Yes [id number] Apply to Univers iamcinolone 7-12 area(s) 2 ity of cream 00:00: (two) [place] 00 times Medical daily. Branch Clobetasol 1-0 Yes [id number] Apply to Univers Propionate 7-12 area(s) ity of 0.05 % 00:00: every [place] lotion 00 evening. Medical Branch nystatin-tr 2020-0 Yes [id number] Apply to Univers iamcinolone 7-12 area(s) 2 ity of cream 00:00: (two) [place] 00 times Medical daily. Branch Clobetasol 2020-0 Yes [id number] Apply to Univers Propionate 7-12 area(s) ity of 0.05 % 00:00: every [place] lotion 00 evening. Medical Branch nystatin-tr 1-0 Yes [id number] Apply to Univers iamcinolone 7-12 area(s) 2 ity of cream 00:00: (two) [place] 00 times Medical daily. Branch Clobetasol 1-0 Yes [id number] Apply to Univers Propionate 7-12 area(s) ity of 0.05 % 00:00: every [place] lotion 00 evening. Medical Branch nystatin-tr 1-0 Yes [id number] Apply to Univers iamcinolone 7-12 area(s) 2 ity of cream 00:00: (two) [place] 00 times Medical daily. Branch Clobetasol 1-0 Yes [id number] Apply to Univers Propionate 7-12 area(s) ity of 0.05 % 00:00: every [place] lotion 00 evening. Medical Branch nystatin-tr 2021-0 Yes [id number] Apply to Univers iamcinolone 7-12 area(s) 2 ity of cream 00:00: (two) [place] 00 times Medical daily. Branch Clobetasol 2021-0 Yes [id number] Apply to Univers Propionate 7-12 area(s) ity of 0.05 % 00:00: every [place] lotion 00 evening. Medical Branch nystatin-tr 2021-0 Yes [id number] Apply to Univers iamcinolone 7-12 area(s) 2 ity of cream 00:00: (two) [place] 00 times Medical daily. Branch Clobetasol 2021-0 Yes [id number] Apply to Univers Propionate 7-12 area(s) ity of 0.05 % 00:00: every [place] lotion 00 evening. Medical Branch nystatin-tr 2021-0 Yes [id number] Apply to Univers iamcinolone 7-12 area(s) 2 ity of cream 00:00: (two) [place] 00 times Medical daily. Branch Clobetasol 2021-0 Yes [id number] Apply to Univers Propionate 7-12 area(s) ity of 0.05 % 00:00: every [place] lotion 00 evening. Medical Branch nystatin-tr 2021-0 Yes [id number] Apply to Univers iamcinolone 7-12 area(s) 2 ity of cream 00:00: (two) [place] 00 times Medical daily. Branch Clobetasol 2021-0 Yes [id number] Apply to Univers Propionate 7-12 area(s) ity of 0.05 % 00:00: every [place] lotion 00 evening. Medical Branch nystatin-tr 2021-0 Yes [id number] Apply to Univers iamcinolone 7-12 area(s) 2 ity of cream 00:00: (two) [place] 00 times Medical daily. Branch Clobetasol 2021-0 Yes [id number] Apply to Univers Propionate 7-12 area(s) ity of 0.05 % 00:00: every [place] lotion 00 evening. Medical Branch nystatin-tr 2021-0 Yes [id number] Apply to Univers iamcinolone 7-12 area(s) 2 ity of cream 00:00: (two) [place] 00 times Medical daily. Branch Clobetasol 2021-0 Yes [id number] Apply to Univers Propionate 7-12 area(s) ity of 0.05 % 00:00: every [place] lotion 00 evening. Medical Branch nystatin-tr 2021-0 Yes [id number] Apply to Univers iamcinolone 7-12 area(s) 2 ity of cream 00:00: (two) [place] 00 times Medical daily. Branch Clobetasol 2021-0 Yes [id number] Apply to Univers Propionate 7-12 area(s) ity of 0.05 % 00:00: every [place] lotion 00 evening. Medical Branch nystatin-tr 2021-0 Yes [id number] Apply to Univers iamcinolone 7-12 area(s) 2 ity of cream 00:00: (two) [place] 00 times Medical daily. Branch Clobetasol 2021-0 Yes [id number] Apply to Univers Propionate 7-12 area(s) ity of 0.05 % 00:00: every [place] lotion 00 evening. Medical Branch nystatin-tr 2021-0 Yes [id number] Apply to Univers iamcinolone 7-12 area(s) 2 ity of cream 00:00: (two) [place] 00 times Medical daily. Branch Clobetasol 2021-0 Yes [id number] Apply to Univers Propionate 7-12 area(s) ity of 0.05 % 00:00: every [place] lotion 00 evening. Medical Branch nystatin-tr 2021-0 Yes [id number] Apply to Univers iamcinolone 7-12 area(s) 2 ity of cream 00:00: (two) [place] 00 times Medical daily. Branch Clobetasol 2021-0 Yes [id number] Apply to Univers Propionate 7-12 area(s) ity of 0.05 % 00:00: every [place] lotion 00 evening. Medical Branch nystatin-tr 2021-0 Yes [id number] Apply to Univers iamcinolone 7-12 area(s) 2 ity of cream 00:00: (two) [place] 00 times Medical daily. Branch Clobetasol 2021-0 Yes [id number] Apply to Univers Propionate 7-12 area(s) ity of 0.05 % 00:00: every [place] lotion 00 evening. Medical Branch nystatin-tr 2021-0 Yes [id number] Apply to Univers iamcinolone 7-12 area(s) 2 ity of cream 00:00: (two) [place] 00 times Medical daily. Branch Clobetasol 2021-0 Yes [id number] Apply to Univers Propionate 7-12 area(s) ity of 0.05 % 00:00: every [place] lotion 00 evening. Medical Branch nystatin-tr 2021-0 Yes [id number] Apply to Univers iamcinolone 7-12 area(s) 2 ity of cream 00:00: (two) [place] 00 times Medical daily. Branch Clobetasol 2021-0 Yes [id number] Apply to Univers Propionate 7-12 area(s) ity of 0.05 % 00:00: every [place] lotion 00 evening. Medical Branch nystatin-tr 2021-0 Yes [id number] Apply to Univers iamcinolone 7-12 area(s) 2 ity of cream 00:00: (two) [place] 00 times Medical daily. Branch Clobetasol 2021-0 Yes [id number] Apply to Univers Propionate 7-12 area(s) ity of 0.05 % 00:00: every [place] lotion 00 evening. Medical Branch nystatin-tr 2021-0 Yes [id number] Apply to Univers iamcinolone 7-12 area(s) 2 ity of cream 00:00: (two) [place] 00 times Medical daily. Branch Clobetasol 2021-0 Yes [id number] Apply to Univers Propionate 7-12 area(s) ity of 0.05 % 00:00: every [place] lotion 00 evening. Medical Branch nystatin-tr 2021-0 Yes [id number] Apply to Univers iamcinolone 7-12 area(s) 2 ity of cream 00:00: (two) [place] 00 times Medical daily. Branch Clobetasol 2021-0 Yes [id number] Apply to Univers Propionate 7-12 area(s) ity of 0.05 % 00:00: every [place] lotion 00 evening. Medical Branch nystatin-tr 2021-0 Yes [id number] Apply to Univers iamcinolone 7-12 area(s) 2 ity of cream 00:00: (two) [place] 00 times Medical daily. Branch Clobetasol 2021-0 Yes [id number] Apply to Univers Propionate 7-12 area(s) ity of 0.05 % 00:00: every [place] lotion 00 evening. Medical Branch nystatin-tr 2021-0 Yes [id number] Apply to Univers iamcinolone 7-12 area(s) 2 ity of cream 00:00: (two) [place] 00 times Medical daily. Branch Clobetasol 2021-0 Yes [id number] Apply to Univers Propionate 7-12 area(s) ity of 0.05 % 00:00: every [place] lotion 00 evening. Medical Branch nystatin-tr 2021-0 Yes [id number] Apply to Univers iamcinolone 7-12 area(s) 2 ity of cream 00:00: (two) [place] 00 times Medical daily. Branch Clobetasol 2021-0 Yes [id number] Apply to Univers Propionate 7-12 area(s) ity of 0.05 % 00:00: every [place] lotion 00 evening. Medical Branch nystatin-tr 2021-0 Yes [id number] Apply to Univers iamcinolone 7-12 area(s) 2 ity of cream 00:00: (two) [place] 00 times Medical daily. Branch Clobetasol 2021-0 Yes [id number] Apply to Univers Propionate 7-12 area(s) ity of 0.05 % 00:00: every [place] lotion 00 evening. Medical Branch nystatin-tr 2021-0 Yes [id number] Apply to Univers iamcinolone 7-12 area(s) 2 ity of cream 00:00: (two) [place] 00 times Medical daily. Branch Clobetasol 2021-0 Yes [id number] Apply to Univers Propionate 7-12 area(s) ity of 0.05 % 00:00: every [place] lotion 00 evening. Medical Branch nystatin-tr 2021-0 Yes [id number] Apply to Univers iamcinolone 7-12 area(s) 2 ity of cream 00:00: (two) [place] 00 times Medical daily. Branch Clobetasol 2021-0 Yes [id number] Apply to Univers Propionate 7-12 area(s) ity of 0.05 % 00:00: every [place] lotion 00 evening. Medical Branch nystatin-tr 2021-0 Yes [id number] Apply to Univers iamcinolone 7-12 area(s) 2 ity of cream 00:00: (two) [place] 00 times Medical daily. Branch Clobetasol 2021-0 Yes [id number] Apply to Univers Propionate 7-12 area(s) ity of 0.05 % 00:00: every [place] lotion 00 evening. Medical Branch nystatin-tr 2021-0 Yes [id number] Apply to Univers iamcinolone 7-12 area(s) 2 ity of cream 00:00: (two) [place] 00 times Medical daily. Branch Clobetasol 2021-0 Yes [id number] Apply to Univers Propionate 7-12 area(s) ity of 0.05 % 00:00: every [place] lotion 00 evening. Medical Branch nystatin-tr 2021-0 Yes [id number] Apply to Univers iamcinolone 7-12 area(s) 2 ity of cream 00:00: (two) [place] 00 times Medical daily. Branch Clobetasol 2021-0 Yes [id number] Apply to Univers Propionate 7-12 area(s) ity of 0.05 % 00:00: every [place] lotion 00 evening. Medical Branch nystatin-tr 2021-0 Yes [id number] Apply to Univers iamcinolone 7-12 area(s) 2 ity of cream 00:00: (two) [place] 00 times Medical daily. Branch Clobetasol 2021-0 Yes [id number] Apply to Univers Propionate 7-12 area(s) ity of 0.05 % 00:00: every [place] lotion 00 evening. Medical Branch nystatin-tr 2021-0 Yes [id number] Apply to Univers iamcinolone 7-12 area(s) 2 ity of cream 00:00: (two) [place] 00 times Medical daily. Branch Clobetasol 2021-0 Yes [id number] Apply to Univers Propionate 7-12 area(s) ity of 0.05 % 00:00: every [place] lotion 00 evening. Medical Branch nystatin-tr 2021-0 Yes [id number] Apply to Univers iamcinolone 7-12 area(s) 2 ity of cream 00:00: (two) [place] 00 times Medical daily. Branch Clobetasol 2021-0 Yes [id number] Apply to Univers Propionate 7-12 area(s) ity of 0.05 % 00:00: every [place] lotion 00 evening. Medical Branch nystatin-tr 2021-0 Yes [id number] Apply to Univers iamcinolone 7-12 area(s) 2 ity of cream 00:00: (two) [place] 00 times Medical daily. Branch Clobetasol 2021-0 Yes [id number] Apply to Univers Propionate 7-12 area(s) ity of 0.05 % 00:00: every [place] lotion 00 evening. Medical Branch nystatin-tr 2021-0 Yes [id number] Apply to Univers iamcinolone 7-12 area(s) 2 ity of cream 00:00: (two) [place] 00 times Medical daily. Branch Clobetasol 2021-0 Yes [id number] Apply to Univers Propionate 7-12 area(s) ity of 0.05 % 00:00: every [place] lotion 00 evening. Medical Branch nystatin-tr 2021-0 Yes [id number] Apply to Univers iamcinolone 7-12 area(s) 2 ity of cream 00:00: (two) [place] 00 times Medical daily. Branch clobetasoL 2021-0 Yes [id number] Apply to Univers 0.05 % 6-15 area(s) 2 ity of ointment 00:00: (two) [place] 00 times Medical daily. Branch clobetasoL 2021-0 Yes [id number] Apply to Univers 0.05 % 6-15 area(s) 2 ity of ointment 00:00: (two) [place] 00 times Medical daily. Branch clobetasoL 2021-0 Yes [id number] Apply to Univers 0.05 % 6-15 area(s) 2 ity of ointment 00:00: (two) [place] 00 times Medical daily. Branch clobetasoL 2021-0 Yes [id number] Apply to Univers 0.05 % 6-15 area(s) 2 ity of ointment 00:00: (two) [place] 00 times Medical daily. Branch clobetasoL 2021-0 Yes [id number] Apply to Univers 0.05 % 6-15 area(s) 2 ity of ointment 00:00: (two) [place] 00 times Medical daily. Branch clobetasoL 2021-0 Yes [id number] Apply to Univers 0.05 % 6-15 area(s) 2 ity of ointment 00:00: (two) [place] 00 times Medical daily. Branch clobetasoL 2021-0 Yes [id number] Apply to [facility] 0.05 % 6-15 area(s) 2 ity of ointment 00:00: (two) [place] 00 times Medical daily. Branch clobetasoL 2021-0 Yes [id number] Apply to [facility] 0.05 % 6-15 area(s) 2 ity of ointment 00:00: (two) [place] times Medical daily. Branch clobetasoL 2021-0 Yes [id number] Apply to [facility] 0.05 % 6-15 area(s) 2 ity of ointment 00:00: (two) [place] times Medical daily. Branch clobetasoL 2021-0 Yes [id number] Apply to Univers 0.05 % 6-15 area(s) 2 ity of ointment 00:00: (two) [place] times Medical daily. Branch clobetasoL 2021-0 Yes [id number] Apply to Univers 0.05 % 6-15 area(s) 2 ity of ointment 00:00: (two) [place] times Medical daily. Branch clobetasoL 2021-0 Yes [id number] Apply to Univers 0.05 % 6-15 area(s) 2 ity of ointment 00:00: (two) [place] times Medical daily. Branch clobetasoL 2021-0 Yes [id number] Apply to Univers 0.05 % 6-15 area(s) 2 ity of ointment 00:00: (two) [place] times [facility] daily. Branch clobetasoL 2021-0 Yes [id number] Apply to Univers 0.05 % 6-15 area(s) 2 ity of ointment 00:00: (two) [place] times Medical daily. Branch clobetasoL 2021-0 Yes [id number] Apply to Univers 0.05 % 6-15 area(s) 2 ity of ointment 00:00: (two) [place] times Medical daily. Branch clobetasoL 2021-0 Yes [id number] Apply to Univers 0.05 % 6-15 area(s) 2 ity of ointment 00:00: (two) [place] times Medical daily. Branch clobetasoL 2021-0 Yes [id number] Apply to Univers 0.05 % 6-15 area(s) 2 ity of ointment 00:00: (two) [place] 00 times Medical daily. Branch clobetasoL 2021-0 Yes [id number] Apply to Univers 0.05 % 6-15 area(s) 2 ity of ointment 00:00: (two) [place] 00 times Medical daily. Branch clobetasoL 2021-0 Yes [id number] Apply to Univers 0.05 % 6-15 area(s) 2 ity of ointment 00:00: (two) [place] 00 times Medical daily. Branch clobetasoL 2021-0 Yes [id number] Apply to Univers 0.05 % 6-15 area(s) 2 ity of ointment 00:00: (two) [place] times Medical daily. Branch clobetasoL 2021-0 Yes [id number] Apply to Univers 0.05 % 6-15 area(s) 2 ity of ointment 00:00: (two) [place] times Medical daily. Branch clobetasoL 2021-0 Yes [id number] Apply to Univers 0.05 % 6-15 area(s) 2 ity of ointment 00:00: (two) [place] 00 times Medical daily. Branch clobetasoL 2021-0 Yes [id number] Apply to Univers 0.05 % 6-15 area(s) 2 ity of ointment 00:00: (two) [place] 00 times Medical daily. Branch clobetasoL 2021-0 Yes [id number] Apply to Univers 0.05 % 6-15 area(s) 2 ity of ointment 00:00: (two) [place] 00 times Medical daily. Branch clobetasoL 2021-0 Yes [id number] Apply to Univers 0.05 % 6-15 area(s) 2 ity of ointment 00:00: (two) [place] 00 times Medical daily. Branch clobetasoL 2021-0 Yes [id number] Apply to Univers 0.05 % 6-15 area(s) 2 ity of ointment 00:00: (two) [place] 00 times Medical daily. Branch clobetasoL 2021-0 Yes [id number] Apply to Univers 0.05 % 6-15 area(s) 2 ity of ointment 00:00: (two) [place] 00 times Medical daily. Branch clobetasoL 2021-0 Yes [id number] Apply to Univers 0.05 % 6-15 area(s) 2 ity of ointment 00:00: (two) [place] 00 times Medical daily. Branch clobetasoL 2021-0 Yes [id number] Apply to Univers 0.05 % 6-15 area(s) 2 ity of ointment 00:00: (two) [place] times Medical daily. Branch clobetasoL 2021-0 Yes [id number] Apply to Univers 0.05 % 6-15 area(s) 2 ity of ointment 00:00: (two) [place] times Medical daily. Branch clobetasoL 2021-0 Yes [id number] Apply to Univers 0.05 % 6-15 area(s) 2 ity of ointment 00:00: (two) [place] times [facility] daily. Branch clobetasoL 2021-0 Yes [id number] Apply to Univers 0.05 % 6-15 area(s) 2 ity of ointment 00:00: (two) [place] times [facility] daily. Branch clobetasoL 2021-0 Yes [id number] Apply to Univers 0.05 % 6-15 area(s) 2 ity of ointment 00:00: (two) [place] times Medical daily. Branch clobetasoL 2021-0 Yes [id number] Apply to Univers 0.05 % 6-15 area(s) 2 ity of ointment 00:00: (two) [place] times Medical daily. Branch clobetasoL 2021-0 Yes [id number] Apply to Univers 0.05 % 6-15 area(s) 2 ity of ointment 00:00: (two) [place] times Medical daily. Branch metFORMIN 2020-0 Yes DAILY Univers 500 mg 7-16 ity of tablet 00:00: [place] 00 [facility] metFORMIN 2020-0 Yes DAILY Univers 500 mg 7-16 ity of tablet 00:00: [place] 00 [facility] metFORMIN 2020-0 Yes DAILY Univers 500 mg 7-16 ity of tablet 00:00: [place] 00 [facility] metFORMIN 2020-0 Yes DAILY Univers 500 mg 7-16 ity of tablet 00:00: [place] 00 [facility] metFORMIN 2020-0 Yes DAILY Univers 500 mg 7-16 ity of tablet 00:00: [address] metFORMIN 2020-0 Yes DAILY Univers 500 mg 7-16 ity of tablet 00:00: [address] metFORMIN 2020-0 Yes DAILY Univers 500 mg 7-16 ity of tablet 00:00: [address] metFORMIN 2020-0 Yes DAILY Univers 500 mg 7-16 ity of tablet 00:00: [address] metFORMIN 2020-0 Yes DAILY Univers 500 mg 7-16 ity of tablet 00:00: [address] metFORMIN 2020-0 Yes DAILY Univers 500 mg 7-16 ity of tablet 00:00: [address] metFORMIN 2020-0 Yes DAILY Univers 500 mg 7-16 ity of tablet 00:00: [address] metFORMIN 2020-0 Yes DAILY Univers 500 mg 7-16 ity of tablet 00:00: [address] metFORMIN 2020-0 Yes DAILY Univers 500 mg 7-16 ity of tablet 00:00: [address] metFORMIN 2020-0 Yes DAILY Univers 500 mg 7-16 ity of tablet 00:00: [address] metFORMIN 2020-0 Yes DAILY Univers 500 mg 7-16 ity of tablet 00:00: [address] metFORMIN 2020-0 Yes DAILY Univers 500 mg 7-16 ity of tablet 00:00: [address] metFORMIN 2020-0 Yes DAILY Univers 500 mg 7-16 ity of tablet 00:00: [address] metFORMIN 2020-0 Yes DAILY Univers 500 mg 7-16 ity of tablet 00:00: [address] metFORMIN 2020-0 Yes DAILY Univers 500 mg 7-16 ity of tablet 00:00: [address] metFORMIN 2020-0 Yes DAILY Univers 500 mg 7-16 ity of tablet 00:00: [address] metFORMIN 2020-0 Yes DAILY Univers 500 mg 7-16 ity of tablet 00:00: [address] metFORMIN 2020-0 Yes DAILY Univers 500 mg 7-16 ity of tablet 00:00: [address] metFORMIN 2020-0 Yes DAILY Univers 500 mg 7-16 ity of tablet 00:00: [address] metFORMIN 2020-0 Yes DAILY Univers 500 mg 7-16 ity of tablet 00:00: [address] metFORMIN 2020-0 Yes DAILY Univers 500 mg 7-16 ity of tablet 00:00: [address] metFORMIN 2020-0 Yes DAILY Univers 500 mg 7-16 ity of tablet 00:00: [address] metFORMIN 2020-0 Yes DAILY Univers 500 mg 7-16 ity of tablet 00:00: [address] metFORMIN 2020-0 Yes DAILY Univers 500 mg 7-16 ity of tablet 00:00: [address] metFORMIN 2020-0 Yes DAILY Univers 500 mg 7-16 ity of tablet 00:00: [address] metFORMIN 2020-0 Yes DAILY Univers 500 mg 7-16 ity of tablet 00:00: [address] metFORMIN 2020-0 Yes DAILY Univers 500 mg 7-16 ity of tablet 00:00: [address] Immunizations Ordered Filled Immunization Date Status Comments [facility] e Immunization Name Name [facility] 2017-11-18 Completed University of 00:00:00 [facility] 2017-11-18 Completed University of 00:00:00 [facility] 2017-11-18 Completed [facility] 00[facility]00:00 [facility] TDAP 2017-11-18 Completed University of 00:00:00 [facility] TDAP 2017-11-18 Completed University of 00:00:00 [facility] TDAP 2017-11-18 Completed University of 00:00:00 [facility] TD 2017-11-18 Completed University of 00:00:00 [facility] TDAP 2017-11-18 Completed [facility] of 00:00:00 [facility] TDAP 2017-11-18 Completed University of 00:00:00 [facility] TDAP 2017-11-18 Completed University of 00:00:00 [facility] TDAP 2017-11-18 Completed University of 00:00:00 [facility] TDAP 2017-11-18 Completed University of 00:00:00 [facility] TDAP 2017-11-18 Completed University of 00:00:00 [facility] TDAP 2017-11-18 Completed University of 00:00:00 [facility] TDAP 2017-11-18 Completed University of 00:00:00 [facility] TDAP 2017-11-18 Completed University of 00:00:00 [facility] TDAP 2017-11-18 Completed University of 00:00:00 [facility] TD 2017-11-18 Completed University of 00:00:00 [place] [facility] TDAP 2017-11-18 Completed University of 00:00:00 [facility] TDAP 2017-11-18 Completed University of 00:00:00 [facility] TDAP 2017-11-18 Completed University of 00:00:00 [facility] TDAP 2017-11-18 Completed University of 00:00:00 [facility] TDAP 2017-11-18 Completed University of 00:00:00 [facility] TDAP 2017-11-18 Completed University of 00:00:00 [place] [facility] TDAP 2017-11-18 Completed University of 00:00:00 [place] [facility] TDAP 2017-11-18 Completed University of 00:00:00 [place] [facility] TDAP 2017-11-18 Completed University of 00:00:00 [place] [facility] TDAP 2017-11-18 Completed University of 00:00:00 [facility] TDAP 2017-11-18 Completed University of 00:00:00 [facility] TDAP 2017-11-18 Completed University of 00:00:00 [facility] TDAP 2017-11-18 Completed University of 00:00:00 [place] [facility] TDAP 2017-11-18 Completed University of 00:00:00 [place] [facility] TDAP 2017-11-18 Completed University of 00:00:00 [facility] TDAP 2015-07-14 Completed University of 00:00:00 [facility] TDAP 2015-07-14 Completed University of 00:00:00 [facility] TDAP 2015-07-14 Completed University of 00:00:00 [facility] TDAP 2015-07-14 Completed University of 00:00:00 [facility] TDAP 2015-07-14 Completed University of 00:00:00 [facility] TDAP 2015-07-14 Completed University of 00:00:00 [facility] TDAP 2015-07-14 Completed University of 00:00:00 [facility] TDAP 2015-07-14 Completed University of 00:00:00 [facility] TDAP 2015-07-14 Completed University of 00:00:00 [place] [facility] TDAP 2015-07-14 Completed University of 00:00:00 [facility] TDAP 2015-07-14 Completed University of 00:00:00 [place] [facility] TDAP 2015-07-14 Completed University of 00:00:00 [facility] TDAP 2015-07-14 Completed University of 00:00:00 [facility] TDAP 2015-07-14 Completed University of 00:00:00 [facility] TDAP 2015-07-14 Completed University of 00:00:00 [facility] TDAP 2015-07-14 Completed University of 00:00:00 [facility] TDAP 2015-07-14 Completed University of 00:00:00 [facility] TDAP 2015-07-14 Completed University of 00:00:00 [facility] TDAP 2015-07-14 Completed University of 00:00:00 [facility] TDAP 2015-07-14 Completed University of 00:00:00 [facility] TDAP 2015-07-14 Completed University of 00:00:00 [facility] TDAP 2015-07-14 Completed University of 00:00:00 [facility] TDAP 2015-07-14 Completed [facility] of 00:00:00 [facility] TDAP 2015-07-14 Completed University of 00:00:00 [facility] TDAP 2015-07-14 Completed University of 00:00:00 [facility] TDAP 2015-07-14 Completed University of 00:00:00 [facility] TDAP 2015-07-14 Completed University of 00:00:00 [facility] TDAP 2015-07-14 Completed [facility]:00[facility] University of 00:00:00 [facility] TDAP 2015-07-14 Completed University of 00:00:00 [facility] TDAP 2015-07-14 Completed University of 00:00:00 [facility] TDAP 2015-07-14 Completed University of 00:00:00 [facility] TDAP 2015-07-14 Completed University of 00:00:00 [facility] TDAP 2015-07-14 Completed University of 00:00:00 [facility] Rubella 2011-07-17 Completed University of 00:00:00 [facility] Varicella 2011-07-17 Completed University of (varivax)(chicken 00:00:00 [facility] edical pox) [place] Rubella 2011-07-17 Completed University of 00:00:00 [facility] Varicella 2011-07-17 Completed University of (varivax)(chicken 00:00:00 [place] [facility] ed[facility] pox) Branch Rubella 2011-07-17 Completed University of 00:00:00 [facility] Varicella 2011-07-17 Completed University of (varivax)(chicken 00:00:00 [place] [facility] pox) Branch Rubella 2011-07-17 Completed University of 00:00:00 [facility] Varicella 2011-07-17 Completed University of (varivax)(chicken 00:00:00 [place] [facility] pox) Branch Rubella 2011-07-17 Completed University of 00:00:00 [facility] Varicella 2011-07-17 Completed University of (varivax)(chicken 00:00:00 [place] [facility] ed[facility] pox) Branch Rubella 2011-07-17 Completed University of 00:00:00 [facility] Varicella 2011-07-17 Completed University of (varivax)(chicken 00:00:00 [place] [facility] pox) Branch Rubella 2011-07-17 Completed University of 00:00:00 [facility] Varicella 2011-07-17 Completed University of (varivax)(chicken 00:00:00 [place] [facility] ed[facility] pox) Branch Rubella 2011-07-17 Completed University of 00:00:00 [facility] Varicella 2011-07-17 Completed University of (varivax)(chicken 00:00:00 [place] [facility] ed[facility] pox) Branch Rubella 2011-07-17 Completed University of 00:00:00 [facility] Varicella 2011-07-17 Completed University of (varivax)(chicken 00:00:00 [place] [facility] edical pox) Branch Rubella 2011-07-17 Completed University of 00:00:00 [facility] Varicella 2011-07-17 Completed University of (varivax)(chicken 00:00:00 [place] [facility] edical pox) Branch Rubella 2011-07-17 Completed University of 00:00:00 [facility] Varicella 2011-07-17 Completed University of (varivax)(chicken 00:00:00 [place] [facility] edical pox) Branch Rubella 2011-07-17 Completed University of 00:00:00 [facility] Varicella 2011-07-17 Completed University of (varivax)(chicken 00:00:00 [place] [facility] edical pox) Branch Rubella 2011-07-17 Completed University of 00:00:00 [facility] Varicella 2011-07-17 Completed University of (varivax)(chicken 00:00:00 [place] [facility] ed[facility] pox) Branch Rubella 2011-07-17 Completed University of 00:00:00 [facility] Varicella 2011-07-17 Completed University of (varivax)(chicken 00:00:00 [place] [facility] ed[facility] pox) Branch Rubella 2011-07-17 Completed University of 00:00:00 [facility] Varicella 2011-07-17 Completed University of (varivax)(chicken 00:00:00 [place] [facility] ed[facility] pox) Branch Rubella 2011-07-17 Completed University of 00:00:00 [facility] Varicella 2011-07-17 Completed University of (varivax)(chicken 00:00:00 [place] [facility] edical pox) Branch Rubella 2011-07-17 Completed University of 00:00:00 [facility] Varicella 2011-07-17 Completed University of (varivax)(chicken 00:00:00 [place] [facility] ed[facility] pox) Branch Rubella 2011-07-17 Completed University of 00:00:00 [facility] Varicella 2011-07-17 Completed University of (varivax)(chicken 00:00:00 [place] [facility] edical pox) Branch Rubella 2011-07-17 Completed University of 00:00:00 [facility] Varicella 2011-07-17 Completed University of (varivax)(chicken 00:00:00 [place] [facility] edical pox) Branch Rubella 2011-07-17 Completed University of 00:00:00 [facility] Varicella 2011-07-17 Completed University of (varivax)(chicken 00:00:00 [place] [facility] edical pox) Branch Rubella 2011-07-17 Completed University of 00:00:00 [facility] Varicella 2011-07-17 Completed University of (varivax)(chicken 00:00:00 [place] [facility] edical pox) Branch Rubella 2011-07-17 Completed University of 00:00:00 [facility] Varicella 2011-07-17 Completed University of (varivax)(chicken 00:00:00 [place] [facility] edical pox) Branch Rubella 2011-07-17 Completed University of 00:00:00 [facility] Varicella 2011-07-17 Completed University of (varivax)(chicken 00:00:00 [place] [facility] edical pox) Branch Rubella 2011-07-17 Completed University of 00:00:00 [facility] Varicella 2011-07-17 Completed University of (varivax)(chicken 00:00:00 [place] [facility] edical pox) Branch Rubella 2011-07-17 Completed University of 00:00:00 [facility] Varicella 2011-07-17 Completed University of (varivax)(chicken 00:00:00 [place] [facility] edical pox) Branch Rubella 2011-07-17 Completed University of 00:00:00 [facility] Varicella 2011-07-17 Completed University of (varivax)(chicken 00:00:00 [place] [facility] edical pox) Branch Rubella 2011-07-17 Completed University of 00:00:00 [facility] Varicella 2011-07-17 Completed University of (varivax)(chicken 00:00:00 [place] [facility] ed[facility] pox) Branch Rubella 2011-07-17 Completed University of 00:00:00 [facility] Varicella 2011-07-17 Completed University of (varivax)(chicken 00:00:00 [place] [facility] ed[facility] pox) Branch Rubella 2011-07-17 Completed University of 00:00:00 [facility] Varicella 2011-07-17 Completed University of (varivax)(chicken 00:00:00 [place] [facility] edical pox) Branch Rubella 2011-07-17 Completed University of 00:00:00 [facility] Varicella 2011-07-17 Completed University of (varivax)(chicken 00:00:00 [place] [facility] edical pox) Branch Rubella 2011-07-17 Completed University of 00:00:00 [facility] Varicella 2011-07-17 Completed University of (varivax)(chicken 00:00:00 [place] [facility] edical pox) Branch Rubella 2011-07-17 Completed University of 00:00:00 [facility] Varicella 2011-07-17 Completed University of (varivax)(chicken 00:00:00 [place] [facility] edical pox) Branch Rubella 2011-07-17 Completed University of 00:00:00 [facility] Varicella 2011-07-17 Completed University of (varivax)(chicken 00:00:00 [place] [facility] edical pox) Branch Rubella 2011-07-17 Completed University of 00:00:00 [facility] Varicella 2011-07-17 Completed University of (varivax)(chicken 00:00:00 [place] [facility] edical pox) Branch Rubella 2011-07-17 Completed University of 00:00:00 [facility] Varicella 2011-07-17 Completed University of (varivax)(chicken 00:00:00 [place] [facility] pox) [facility] Td 2007-05-05 Completed University of 00:00:00 [facility] Td 2007-05-05 Completed University of 00:00:00 [place] [facility] Td 2007-05-05 Completed University of 00:00:00 [facility] Td 2007-05-05 Completed University of 00:00:00 [facility] Td 2007-05-05 Completed University of 00:00:00 [facility] Td 2007-05-05 Completed University of 00:00:00 [facility] Td 2007-05-05 Completed University of 00:00:00 [facility] TD, NOS 2007-05-05 Completed University of 00:00:00 [facility] TD, NOS 2007-05-05 Completed University of 00:00:00 [facility] TD, NOS 2007-05-05 Completed University of 00:00:00 [facility] TD, NOS 2007-05-05 Completed University of 00:00:00 [facility] TD, NOS 2007-05-05 Completed University of 00:00:00 [facility] TD, NOS 2007-05-05 Completed University of 00:00:00 [facility] TD, NOS 2007-05-05 Completed University of 00:00:00 [facility] TD, NOS 2007-05-05 Completed University of 00:00:00 [facility] TD, NOS 2007-05-05 Completed University of 00:00:00 [facility] TD, NOS 2007-05-05 Completed University of 00:00:00 [facility] TD, NOS 2007-05-05 Completed University of 00:00:00 [facility] TD, NOS 2007-05-05 Completed University of 00:00:00 [facility] TD, NOS 2007-05-05 Completed University of 00:00:00 [facility] TD, NOS 2007-05-05 Completed University of 00:00:00 [facility] TD, NOS 2007-05-05 Completed University of 00:00:00 [facility] TD, NOS 2007-05-05 Completed University of 00:00:00 [facility] TD, NOS 2007-05-05 Completed University of 00:00:00 [facility] TD, NOS 2007-05-05 Completed University of 00:00:00 [facility] TD, NOS 2007-05-05 Completed University of 00:00:00 [facility] TD, NOS 2007-05-05 Completed University of 00:00:00 [facility] TD, NOS 2007-05-05 Completed University of 00:00:00 [place] [facility] TD, NOS 2007-05-05 Completed University of 00:00:00 [place] [facility] TD, NOS 2007-05-05 Completed University of 00:00:00 [place] [facility] TD, NOS 2007-05-05 Completed University of 00:00:00 [facility] Td 2007-05-05 Completed University of 00:00:00 [facility] Td 2007-05-05 Completed University of 00:00:00 [facility] Td 2007-05-05 Completed University of 00:00:00 [facility] Td 2007-05-05 Completed University of 00:00:00 [facility] Vital Signs Vital Name Observation Time Observation Value Comments Source Systolic blood 2022-10-24 13:34:00 127 mm[Hg] Univer sity of pressure [facility] Diastolic blood 2022-10-24 13:34:00 78 mm[Hg] Unive rsity of pressure [facility] Heart rate 2022-10-24 13:34:00 72 /min Universi ty [facility] Body temperature 2022-10-24 13:34:00 [facility].61 [facility] 2022-10-24 13:34:00 20 /[facility] height 2022-10-24 13:34:00 152.4 cm [facility] Body weight 2022-10-24 13:34:00 56.337 kg [facility] BMI 2022-10-24 13:34:00 24.26 kg/m2 [facility] Systolic blood 2022-08-01 14:09:00 138 mm[Hg] Univer sity of pressure [facility] Diastolic blood 2022-08-01 14:09:00 84 mm[Hg] Unive rsity of pressure [facility] Heart rate 2022-08-01 14:03:00 76 /min Universi ty [facility] Body temperature 2022-08-01 14:03:00 36.61 [facility] 2022-08-01 14:03:00 20 /min Univ ers[facility] [place] [facility] Body height 2022-08-01 14:03:00 152.4 cm Universi ty [facility] [place] [facility] Body weight 2022-08-01 14:03:00 56.881 kg [facility]i ty [facility] [place] [facility] BMI 2022-08-01 14:03:00 24.49 kg/m2 [facility] [place] [facility] Systolic blood 2022-07-31 19:47:00 133 mm[Hg] Univer sity of pressure [facility] Diastolic blood 2022-07-31 19:47:00 90 mm[Hg] Unive rsity of pressure [facility] Heart rate 2022-07-31 19:47:00 91 /min Universi ty of [facility] Oxygen saturation in 2022-07-31 19:47:00 97 /min University of Arterial blood by [facility] Pulse oximetry Branch Body temperature 2022-07-31 19:45:00 37.44 Karen Univ ersity of [facility] Respiratory rate 2022-07-31 19:45:00 18 /min Univ ersity of [place] [facility] [place] Body height 2022-07-31 19:45:00 152.4 cm Universi ty [facility] Body weight 2022-07-31 19:45:00 56.79 kg [facility]i ty [facility] BMI 2022-07-31 19:45:00 24.45 kg/m2 [facility] Systolic blood 2022-07-29 21:42:00 131 mm[Hg] Univer sity of pressure [facility] Diastolic blood 2022-07-29 21:42:00 86 mm[Hg] Unive rsity of pressure [facility] Heart rate 2022-07-29 21:42:00 83 /min [facility] Body temperature 2022-07-29 21:42:00 37.33 Karen Univ ersity of [facility] Respiratory rate 2022-07-29 21:42:00 18 /min Univ ersity of [facility] Body height 2022-07-29 21:42:00 154.9 cm [facility] Body weight 2022-07-29 21:42:00 57.153 kg [facility] BMI 2022-07-29 21:42:00 23.81 kg/m2 [facility] [place] [facility] Oxygen saturation in 2022-07-29 21:42:00 97 /min University of Arterial blood by [facility] [place] [place] jo-ann Pulse oximetry Branch HEIGHT 2022-06-22 14:00:00 152.4 cm WEIGHT 2022-06-22 14:00:00 58.97 kg HEIGHT 2022-06-22 14:00:00 152.4 cm WEIGHT 2022-06-22 14:00:00 58.97 kg HEIGHT 2022-06-22 14:00:00 152.4 cm WEIGHT 2022-06-22 14:00:00 58.97 kg Systolic blood 2022-05-15 17:12:00 131 mm[Hg] Univer sity of pressure [facility] Diastolic blood 2022-05-15 17:12:00 80 mm[Hg] Unive rsity of pressure [facility] Heart rate 2022-05-15 17:12:00 90 /min [facility] Body temperature 2022-05-15 17:12:00 37.28 Karen [facility] Respiratory rate 2022-05-15 17:12:00 16 /min [facility] Body weight 2022-05-15 17:12:00 57.788 kg [facility] BMI 2022-05-15 17:12:00 23.30 kg/m2 [facility] Oxygen saturation in 2022-05-15 17:12:00 98 /min [facility] Arterial blood by [facility] Pulse oximetry Branch Systolic blood 2022-05-08 15:03:00 128 mm[Hg] [facility] Diastolic blood 2022-05-08 15:03:00 79 mm[Hg] [facility] Heart rate 2022-05-08 15:03:00 76 /min [facility] Body temperature 2022-05-08 15:03:00 36.61 Karen [facility] Respiratory rate 2022-05-08 15:03:00 16 /min [facility] Body height 2022-05-08 15:03:00 157.5 cm [facility] Body weight 2022-05-08 15:03:00 57.38 kg [facility] BMI 2022-05-08 15:03:00 23.14 kg/m2 [facility] Systolic blood 2022-04-01 20:05:00 106 mm[Hg] [facility] Diastolic blood 2022-04-01 20:05:00 72 mm[Hg] [facility] Heart rate 2022-04-01 20:05:00 80 /min [facility] Body temperature 2022-04-01 20:05:00 36.83 Karen [facility] Respiratory rate 2022-04-01 20:05:00 18 /min [facility] Body height 2022-04-01 20:05:00 157.5 cm [facility] Body weight 2022-04-01 20:05:00 56.155 kg [facility] BMI 2022-04-01 20:05:00 22.64 kg/m2 [facility] Oxygen saturation in 2022-04-01 20:05:00 95 /min [facility] Arterial blood by [facility] Pulse oximetry Branch Systolic blood 2022-03-27 03:00:00 108 mm[Hg] [facility] Diastolic blood 2022-03-27 03:00:00 63 mm[Hg] [facility] Heart rate 2022-03-27 03:00:00 95 /min [facility] Respiratory rate 2022-03-27 03:00:00 20 /min [facility] Oxygen saturation in 2022-03-27 03:00:00 97 /min [facility] by [facility] Pulse oximetry Branch Body temperature 2022-03-26 23:16:00 37.78 Karen [facility] Body weight 2022-03-26 23:16:00 58.968 kg [facility] BMI 2022-03-26 23:16:00 23.78 kg/m2 [facility] Systolic blood 2022-02-13 14:37:00 122 mm[Hg] [facility] Diastolic blood 2022-02-13 14:37:00 76 mm[Hg] [facility] [place] Heart rate 2022-02-13 14:37:00 77 /min [facility] Body temperature 2022-02-13 14:37:00 36.5 Karen [facility] Respiratory rate 2022-02-13 14:37:00 20 /min [facility] Body height 2022-02-13 14:37:00 157.5 cm [facility] Body weight 2022-02-13 14:37:00 59.104 kg [facility] BMI 2022-02-13 14:37:00 23.83 kg/m2 [facility] Systolic blood 2021-11-21 18:31:00 128 mm[Hg] [facility] [place] Diastolic blood 2021-11-21 18:31:00 85 mm[Hg] [facility]ity of [facility] Heart rate 2021-11-21 18:31:00 80 /min [facility] Body temperature 2021-11-21 18:31:00 36.61 Karen [facility] Respiratory rate 2021-11-21 18:31:00 18 /min [facility] Body height 2021-11-21 18:31:00 157.5 cm [facility] Body weight 2021-11-21 18:31:00 59.875 kg [facility] BMI 2021-11-21 18:31:00 24.14 kg/m2 [facility] Systolic blood 2022-06-23 12:00:00 114 mm[Hg] [facility] Diastolic blood 2022-06-23 12:00:00 59 mm[Hg] [facility] Center Heart rate 2022-06-23 12:00:00 90 /min [facility] Body temperature 2022-06-23 12:00:[address] [facility] Respiratory rate 2022-06-23 12:00:00 18 /min [facility] Oxygen saturation in 2022-06-23 12:00:00 98 /min [facility] Arterial blood by Medical Ce nter Pulse oximetry Body height 2022-06-22 14:00:00 152.4 cm [facility] Body weight 2022-06-22 14:00:00 58.97 kg [facility] BMI 2022-06-22 14:00:00 25.39 kg/m2 [facility] Systolic blood 2022-03-19 11:00:00 106 mm[Hg] [facility] Diastolic blood 2022-03-19 11:00:00 76 mm[Hg] [facility] Heart rate 2022-03-19 11:00:00 72 /min [facility] Body temperature 2022-03-19 11:00:[address] [facility] Respiratory rate 2022-03-19 11:00:00 18 /min [facility] Oxygen saturation in 2022-03-19 11:00:00 99 /min [facility] Arterial blood by Medical Ce nter Pulse [...] Performing Clinician Source Performed POCT URINALYSIS AUTO 2022-07-31 20:26:00 [facility], 2022-07-31 05:01:00 Doctor Unassigned, N o [facility] MEDICAL AND SURGICAL Name Medical Bra [facility] PROCEDURES POCT-GLUCOSE METER 2022-06-23 11:09:00 Robin [facility] [place] POCT-GLUCOSE METER 2022-06-23 07:40:00 Robin [facility] [place] BASIC METABOLIC PANEL 2022-06-23 04:26:00 Mumtaz Mlyes [facility] CBC W/PLT COUNT & AUTO 2022-06-23 04:26:00 Zaid Mylesyolanda [facility] DIFFERENTIAL An Center MAGNESIUM 2022-06-23 04:26:00 Shar [facility] An Center PHOSPHORUS 2022-06-23 04:26:00 [facility] W/[facility]T COUNT & AUTO 2022-06-23 04:26:00 Shar [facility] DIFFERENTIAL An Center POCT-GLUCOSE METER 2022-06-22 21:03:00 Roslyn Kelly [facility] [place] FLUORO NON-SPECIFIC 2022-06-22 18:00:00 Annalise [facility] UP TO 1 HOUR [facility] SURGICALLY OBTAINED 2022-06-22 17:40:20 Annalise [facility] CULTURE + GRAM STAIN [facility] AFB CULTURE + SMEAR 2022-06-22 17:40:20 Annalise [facility] (NON-SPUTUM) [facility] ANAEROBIC CULTURE 2022-06-22 17:40:20 Annalise [facility] FUNGUS CULTURE + SMEAR 2022-06-22 17:40:20 Annalise [facility] SPIN/CONCENTRATION 2022-06-22 17:40:00 Annalise [facility] CHARGE [facility] CYSTOURETEROSCOPY, WITH 2022-06-22 16:54:00 Annalise [facility] LITHOTRIPSY, CALCULUS [facility] REMOVAL, AND URETERAL STENT INSERTION TYPE AND SCREEN, 2022-06-22 14:14:00 Mumtaz Myles [facility] AUTOMATED An Center URINALYSIS W/ REFLEX 2022-06-22 12:56:00 [facility] URINE CULTURE An Center SCREEN, URINE 2022-06-22 12:56:00 Atif Woody [facility] BASIC METABOLIC PANEL 2022-06-22 12:49:00 Shar [facility] CBC W/PLT COUNT & AUTO 2022-06-22 12:49:00 Futalan, [place] Pis [facility] DIFFERENTIAL An Center MAGNESIUM 2022-06-22 12:49:00 [facility] PHOSPHORUS 2022-06-22 12:49:00 [facility] PROT[facility] TIME/INR 2022-06-22 12:49:00 [facility] HEMOGLOBIN A1C 2022-06-22 12:49:00 [facility] CBC W/PLT COUNT & AUTO 2022-06-22 12:49:00 [facility] DIFFERENTIAL An Center POCT-GLUCOSE METER 2022-06-22 12:16:00 Roslyn Kelly [facility] RADIOLOGY DOCUMENTATION 2022-06-22 06:01:00 Doctor Unassigned, N o [facility] POCT URINALYSIS AUTO 2022-05-15 17:20:00 Rosaline Peralta [facility] POCT URINALYSIS AUTO 2022-04-01 20:08:00 Arsalan Mcmullen [facility] POCT TEST 2022-03-27 00:56:00 Hilda Reno [facility] COVID-19 (ID NOW RAPID 2022-03-27 00:48:00 Hilda Reno [facility] TESTING) [facility] LACTIC ACID WHOLE BLOOD 2022-03-27 00:40:00 Hilda Reno [facility] COMP. METABOLIC PANEL 2022-03-27 00:39:00 Hilda Reno [facility] ([id number]) Medical [place] CBC WITH DIFF 2022-03-27 00:39:00 Hilda Reno [facility] URINALYSIS 2022-03-27 00:39:00 Hilda Reno [facility] CT ABDOMEN PELVIS WO 2022-03-27 00:14:00 Hilda Reno [facility] CONSENT/REFUSAL FOR 2022-03-26 23:03:11 Doctor Unassigned, No Un [facility] DIAGNOSIS AND TREATMENT Name Medical Branch POCT-GLUCOSE METER 2022-03-19 11:28:00 Magdalena [facility] POCT-GLUCOSE METER 2022-03-19 06:37:00 Magdalena [facility] POCT-GLUCOSE METER 2022-03-19 00:22:00 Magdalena [facility] POCT-GLUCOSE METER 2022-03-18 17:24:00 Magdalena [facility] LIPASE 2022-03-18 15:48:00 [facility]BDOM[facility] 2022-03-18 13:46[facility]00 [facility]SE [facility] 2022-03-18 11:59:00 Magdalena [facility] POCT-GLUCOSE METER 2022-03-18 06:19:00 Magdalena [facility] BASIC METABOLIC PANEL 2022-03-18 04:16[facility]22-03-18 04:16[facility]00 [facility] PHOS[facility]ORUS 2022-03-18 04:16:00 [facility] CBC W/PLT COUNT & AUTO 2022-03-18 04:16:00 [facility] HEPATIC FUNCTION PANEL 2022-03-18 04:16:00 Magdalena Hans [facility] CBC W/PLT COUNT & AUTO 2022-03-18 04:16:[address] [facility] POCT-GLUCOSE METER 2022-03-17 21:09:00 Magdalena [facility] POCT-GLUCOSE METER 2022-03-17 16:17:00 Magdalena [facility] POCT-GLUCOSE METER 2022-03-17 12:19:00 [facility] POCT-[facility]UCOSE METER 2022-03-17 10:57:[address] [facility] [place] FLUORO NON-SPECIFIC 2022-03-17 10:33:00 Clarence Jolly [facility] UP TO 1 HOUR Center ANAEROBIC CULTURE 2022-03-17 10:32:[address] [facility] CULTURE + SMEAR 2022-03-17 10:32:53 [facility] (NON-SPUTUM) Center FUNGUS CULTURE + SMEAR 2022-03-17 10:32:53 [facility] SURGICALLY OBTAINED 2022-03-17 10:32:53 [facility] CULTURE + GRAM STAIN Center SPIN/CONCENTRATION 2022-03-17 10:32:00 [facility] CHARGE Center CYSTOSCOPY, WITH 2022-03-17 09:57:00 Yi, [facility] URETERAL STENT INSERTION Center ABORH, MANUAL 2022-03-17 07:18:[address] [facility] SARS-COV2/RT-PCR ([facility] & 2022-03-17 06:27:00 Clarence Jolly [facility] REF LABS) Center POCT-GLUCOSE METER 2022-03-17 05:52:[address] [facility] BASIC METABOLIC PANEL 2022-03-17 05:46:00 Fabrizio Moore [facility] CBC W/PLT COUNT & AUTO 2022-03-17 05:46:00 Fabrizio Moore [facility] DIFFERENTIAL Center MAGNESIUM 2022-03-17 05:46:[address] [facility] PHOSPHORUS 2022-03-17 05:46:[address] [facility] PT/APTT 2022-03-17 05:46:[address] [facility] TYPE AND SCREEN, 2022-03-17 05:46:00 [facility] CBC W/PLT COUNT & AUTO 2022-03-17 05:46:[address] [facility] DIFFERENTIAL Center Plan of Care Planned Activity Planned Date Details Comments Source Future Scheduled 2027-11-19 DTAP/TDAP/TD VACCINES ([address] [facility] 00:00:00 - Td or Tdap) [code = Medica l Center DTAP/TDAP/TD VACCINES (3 - Td or Tdap)] Future Scheduled 2027-11-19 DTAP/TDAP/TD VACCINES ([address] [facility] 00:00:00 - Td or Tdap) [code = Medica l Center DTAP/TDAP/TD VACCINES (3 - Td or Tdap)] Future Scheduled 2027-11-19 DTAP/TDAP/TD VACCINES ([address] [facility] 00:00:00 - Td or Tdap) [code = Medica l Center DTAP/TDAP/TD VACCINES (3 - Td or Tdap)] Future Scheduled 2027-11-19 DTAP/TDAP/TD VACCINES ([address] [facility] 00:00:00 - Td or Tdap) [code = Medica l Center DTAP/TDAP/TD VACCINES (3 - Td or Tdap)] Future Scheduled 2023-03-[address] [facility] 00:00:00 Counseling and Screening [facility]12[facility] [code = Tobacco Cessation Counseling and Screening (12+)] Future Scheduled 2023-03-[address] [facility] 00:00:00 Counseling and Screening [facility]12[facility] [code = Tobacco Cessation Counseling and Screening (12+)] Future Scheduled 2023-03-[address] [facility] 00:00:00 Counseling and Screening [facility] (12+) [code = Tobacco Cessation Counseling and Screening (12+)] Future Scheduled 2023-01-03 Influenza Vaccine (#1) [facility]00 [code = Influenza Vaccine Me dical Center (#1)] Future Scheduled 2023-01-03 Influenza Vaccine (#1) [facility] 00:00:00 [code = Influenza Vaccine Me dical Center (#1)] Future Scheduled 2022-12-[address] [facility] 00:[facility]:00 measurement (procedure) [facility] [code = 06507095] Future Scheduled 2022-12-[address] [facility] 00:00:00 measurement (procedure) [facility] [code = 88385511] Future Scheduled 2022-05-[address] [facility] 00:00:00 (12+) [code = DEPRESSION Med ical Center SCREENING (12+)] Future Scheduled 2022-05-[address] [facility] 00:00:00 (12+) [code = DEPRESSION Med ical Center SCREENING (12+)] Future Scheduled 2022-05-[address] [facility] 00:00:00 (12+) [code = DEPRESSION Med ical Center SCREENING (12+)] Future Scheduled 2022-03-[address] [facility] 00:00:00 measurement (procedure) [facility] [code = 97236456] Future Scheduled 2022-03-[address] [facility] 00:00:00 measurement (procedure) [facility] [code = 77040180] Future Scheduled 2022-01-03 INFLUENZA VACCINE (#1) [facility] 00:00:00 [code = INFLUENZA VACCINE Me dical Center (#1)] Future Scheduled 2022-01-03 INFLUENZA VACCINE (#1) [facility] 00:00:00 [code = INFLUENZA VACCINE Me dical Center (#1)] Future Scheduled 2021-01-17 Lipid panel (procedure) [facility] 00:00:00 [code = 23505240] Medical Ce nter Future Scheduled 2021-01-17 Lipid panel (procedure) [facility] 00:00:00 [code = 73207677] Medical Ce nter Future Scheduled 2021-01-17 Lipid panel (procedure) [facility] 00:00:00 [code = 89394135] Medical Ce nter Future Scheduled 2021-01-17 Lipid panel (procedure) [facility] 00:00:00 [code = 12682343] Medical Ce nter Future Scheduled 1997-01-17 Screening for malignant [facility] 00:00:00 neoplasm of cervix Medical C enter (procedure) [code = 588636746] Future Scheduled 1997-01-17 Screening for malignant [facility] 00:00:00 neoplasm of cervix Medical C enter (procedure) [code = 230626716] Future Scheduled 1997-01-17 Screening for malignant [facility] 00:00:00 neoplasm of cervix Medical C enter (procedure) [code = 845596471] Future Scheduled 1997-01-17 Screening for malignant [facility] 00:00:00 neoplasm of cervix Medical C enter (procedure) [code = 241628822] Future Scheduled 1994-01-17 HEPATITIS C SCREENING CH [...] HEPATITIS C Medical Center SCREENING] Future Scheduled 1991-01-[address] [facility] 00:00:00 virus screening Medical Cent er (procedure) [code = 880447267] Future Scheduled 1991-01-[address] [facility] 00:00:00 virus screening Medical Cent er (procedure) [code = 611133526] Future Scheduled [address] [facility] 00:00:00 Counseling and Screening [facility] (12+) [code = Tobacco Cessation Counseling and Screening (12+)] Future Scheduled 1986-01-17 DIABETIC EYE EXAM [code = [facility] 00:00:00 DIABETIC EYE EXAM] Medical C enter Future Scheduled 1986-01-17 Diabetic foot examination [facility] 00:00:00 (regime/therapy) [[facility] [id number]] Future Scheduled 1986-01-17 Urine screening for [facility] 00:00:00 protein (procedure) [code Me [facility] = [id number]] Future Scheduled 1986-01-17 DIABETIC EYE EXAM [code = [facility] 00:00:00 DIABETIC EYE EXAM] Medical C enter Future Scheduled 1986-01-17 Diabetic foot examination [facility] 00:00:00 (regime/therapy) [code = [facility] [id number]] Future Scheduled 1986-01-17 Urine screening for [facility] 00:00:00 protein (procedure) [code [facility] = 164108439] Future Scheduled 1986-01-17 DIABETIC EYE EXAM [code = [facility] 00:00:00 DIABETIC EYE EXAM] Medical C enter Future Scheduled 1986-01-17 Diabetic foot examination [facility] 00:00:00 (regime/therapy) [code = [facility] 446924047] Future Scheduled 1986-01-17 Urine screening for [facility] 00:00:00 protein (procedure) [code [facility] = 495566707] Future Scheduled 1986-01-17 DIABETIC EYE EXAM [code = [facility] 00:00:00 DIABETIC EYE EXAM] Medical C enter Future Scheduled 1986-01-17 Diabetic foot examination [facility] 00:00:00 (regime/therapy) [code = [facility] 375532290] Future Scheduled 1986-01-17 Urine screening for [facility] 00:00:00 protein (procedure) [code [facility] = 111033816] Future Scheduled 1982-01-17 Pneumococcal Vaccine: [facility] 00:[facility]:00 0-64 Years (1 - PCV) Medical Center [code = Pneumococcal Vaccine: 0-64 Years (1 - PCV)] Future Scheduled 1982-01-17 PNEUMOCOCCAL VACCINE 0-[address] [facility] 00:00:00 YRS (1 - PCV) [code = Medica l Center PNEUMOCOCCAL VACCINE 0-64 YRS (1 - PCV)] Future Scheduled 1982-01-17 PNEUMOCOCCAL VACCINE 0-[address] [facility] 00:00:00 YRS (1 - PCV) [code = Medica l Center PNEUMOCOCCAL VACCINE 0-64 YRS (1 - PCV)] Future Scheduled 1982-01-17 Pneumococcal Vaccine: [facility] 00:[facility]:00 0-64 Years (1 - PCV) Medical Center [code = Pneumococcal Vaccine: 0-64 Years (1 - PCV)] Future Scheduled 1976 COVID-19 VACCINE (#1) [facility]00 [code = COVID-19 VACCINE [facility] (#1)] Future Scheduled 1976 COVID-19 VACCINE (#1) [facility]:00:00 [code = COVID-19 VACCINE [facility] (#1)] Future Scheduled 1976 COVID-19 VACCINE (#1) [facility]:00 [code = COVID-19 VACCINE Med ical Center (#1)] Future Scheduled 1976 COVID-19 VACCINE (#1) [facility]00 [code = COVID-19 VACCINE Med ical Center (#1)] Future Scheduled 1976 CT Colonography (combo) [facility] 00:00:00 [code = CT Colonography Medi jo-ann Center (combo)] Future Scheduled 1976 Screening for malignant [facility] 00:00:00 neoplasm of colon Medical Ce nter (procedure) [code = 741595946] Future Scheduled 1976 Screening for malignant [facility] 00:00:00 neoplasm of colon Medical Ce nter (procedure) [code = 637585291] Future Scheduled 1976 Screening for malignant [facility] 00:00:00 neoplasm of colon Medical Ce nter (procedure) [code = 417139824] Future Scheduled 1976 Screening for malignant [facility] 00:00:00 neoplasm of colon Medical Ce nter (procedure) [code = 042998084] Future Scheduled 1976 Sigmoidoscopy [code = [facility] Sigmoidoscopy] Medical Cente r Future Scheduled 1976 Screening for malignant [facility] 00:00:00 neoplasm of colon Medical Ce nter (procedure) [code = 923916991] Future Scheduled 1976 Screening for malignant [facility] 00:00:00 neoplasm of colon Medical Ce nter (procedure) [code = 821450461] Future Scheduled 1976 Screening for malignant [facility] 00:00:00 neoplasm of colon Medical Ce nter (procedure) [code = 810205381] Future Scheduled 1976 Sigmoidoscopy [code = [facility] Sigmoidoscopy] Medical Cente r Future Scheduled 1976 CT Colonography (combo) [facility] 00:00:00 [code = CT Colonography Medi [facility] Center (combo)] Future Scheduled 1976 Screening for malignant [facility] 00:00:00 neoplasm of colon Medical Ce nter (procedure) [code = 991766888] Future Scheduled 1976 Screening for malignant [facility] 00:00:00 neoplasm of colon Medical Ce nter (procedure) [code = 444181540] Future Scheduled 1976 Screening for malignant [facility] 00:00:00 neoplasm of colon Medical Ce nter (procedure) [code = 662320640] Future Scheduled 1976 Screening for malignant [facility] 00:00:00 neoplasm of colon Medical Ce nter (procedure) [code = 041937358] Future Scheduled 1976 Sigmoidoscopy [code = [facility] Sigmoidoscopy] Medical Cente r Future Scheduled 1976 CT Colonography (combo) [facility] 00:00:00 [code = CT Colonography [facility] (combo)] Future Scheduled 1976 Screening for malignant [facility] 00:00:00 neoplasm of colon Medical Ce nter (procedure) [code = 808458577] Future Scheduled 1976 Screening for malignant [facility] 00:00:00 neoplasm of colon Medical Ce nter (procedure) [code = 917379801] Future Scheduled 1976 Screening for malignant [facility] 00:00:00 neoplasm of colon Medical Ce nter (procedure) [code = 887988524] Future Scheduled 1976 Screening for malignant [facility] 00:00:00 neoplasm of colon Medical Ce nter (procedure) [code = 139973597] Future Scheduled 1976 Sigmoidoscopy [code = [facility] Sigmoidoscopy] Medical Cente r Future Scheduled 1976 CT Colonography (combo) [facility] 00:00:00 [code = CT Colonography Medi [facility]-ann Center (combo)] Future Scheduled 1976 Screening for malignant [facility] 00:00:00 neoplasm of colon Medical Ce nter (procedure) [code = 410120809] Goal Plan of Care Note [code = 45521-7] Goal Plan of Care Note [code = 50316-1] Goal Plan of Care Note [code = 07906-5] Goal Plan of Care Note [code = 83952-9] Goal Plan of Care Note [code = 07404-9] Goal Plan of Care Note [code = 75209-1] Goal Plan of Care Note [code = 11920-2] Goal Plan of Care Note [code = 53960-2] Goal Plan of Care Note [code = 70996-2] Goal Plan of Care Note [code = 49010-7] Goal Plan of Care Note [code = 33697-8] Goal Plan of Care Note [code = 89131-7] Goal Plan of Care Note [code = 10103-4] Goal Plan of Care Note [code = 66037-3] Goal Plan of Care Note [code = 88691-2] Goal Plan of Care Note [code = 04563-2] Goal Plan of Care Note [code = 34980-1] Goal Plan of Care Note [code = 80280-6] Goal Plan of Care Note [code = 67567-4] Goal Plan of Care Note [code = 91360-0] Goal Plan of Care Note [code = 79298-1] Goal Plan of Care Note [code = 56755-6] Goal Plan of Care Note [code = 97958-1] Goal Plan of Care Note [code = 04467-4] Goal Plan of Care Note [code = 45570-9] Goal Plan of Care Note [code = 69435-3] Goal Plan of Care Note [code = 34461-0] Goal Plan of Care Note [code = 66905-4] Goal Plan of Care Note [code = 60755-9] Goal Plan of Care Note [code = 49081-3] Goal Plan of Care Note [code = 64359-7] Goal Plan of Care Note [code = 74379-9] Goal Plan of Care Note [code = 76181-0] Goal Plan of Care Note [code = 94150-2] Goal Plan of Care Note [code = 60406-4] Goal Plan of Care Note [code = 15957-5] Goal Plan of Care Note [code = 32568-7] Goal Plan of Care Note [code = 92566-8] Goal Plan of Care Note [code = 33810-9] Goal Plan of Care Note [code = 13247-1] Goal Plan of Care Note [code = 86337-1] Goal Plan of Care Note [code = 58724-0] Goal Plan of Care Note [code = 11945-8] Goal Plan of Care Note [code = 24312-3] Goal Plan of Care Note [code = 88172-0] Goal Plan of Care Note [code = 43451-4] Goal Plan of Care Note [code = 42934-4] Goal Plan of Care Note [code = 39859-5] Encounters Start End Encounter Admission Attending Care Care Encounter Source Date/Time Date/Time Type Type Clinicians Facility Department ID 2023-01-17 2023-01-17 Outpatient Keila GOYAL [facility] [id number] Univers 08:45:00 08:45:00 ALVARO daigle [facility] 2022-12-16 2022-12-16 Outpatient SFA SFA [id number] Regulo 08:07:56 08:07:56 0814 [facility] 2022-12-12 2022-12-12 Outpatient SFA SFA [id number] Regulo 08:34:25 08:34:25 0810 [facility] 2022-11-06 2022-11-06 Outpatient SFA SFA [id number] Regulo 14:01:26 14:01:26 0705 [facility] 2022-10-24 2022-10-24 Nurse Visit, [facility] Nurse [facility] 1.2 .840.114 [id number] Univers 09:00:00 09:00:00 Visit Klaudia Lopez HOME CARE PROVIDER 350.1.13. 10 [facility] 4.2.7.2.686 Deniz as MATERNAL [id number] [facility] & CHILD [address] [place] [address] 2022-10-24 2022-10-24 Outpatient Keila LOPEZ [facility] [id number] Univers 09:00:00 08:45:12 KLAUDIA pinon [facility] 2022-08-07 2022-08-07 Outpatient Keila PERALTA [facility] [id number] Univers 11:00:00 11:00:00 ROSALINE pinon [facility] 2022-08-05 2022-08-05 Telephone Kemi [facility] 1.2.840.114 [id number] Univers 00:00:00 00:00:00 [facility] 350.1.13.10 i ty [place] [id number] [address] 2022-08-01 2022-08-01 Nurse Visit, Dale-[facility] Nurse [facility] 1.2 .840.114 [id number] Univers 09:00:00 09:20:17 Visit Klaudia Lopez HOME CARE PROVIDER 350.1.13. 10 ity General acute hospital 4.2.7.2.686 Deniz as MATERNAL [id number] Med ical & CHILD [address] [place] [address] 2022-08-01 2022-08-01 Outpatient R JESSICA [facility] [id number] Univers 09:00:00 09:00:00 KLAUDIA pinon [facility] 2022-08-01 2022-08-01 Telephone Kemi [facility] 1.2.840.114 [id number] [facility] 00:00:00 00:00:00 [facility] 350.1.13.10 i ty [place] [id number] [address] 2022-07-31 2022-07-31 Outpatient R KEMI [facility] [id number] [facility] 14:30:00 16:42:42 [facility] 2022-07-31 2022-07-31 Office [facility] 1.2.840.114 [id number] Univers 14:30:00 16:42:42 Visit Rm2, Adc Surg Proc MENIFEE 350.1.13.1 0 ity [facility] [place] [id number] [address] 2022-07-31 2022-07-31 Outpatient R JESSICA [facility] [id number] Univers 08:30:00 08:30:00 KLAUDIA pinon [facility] 2022-07-31 2022-07-31 Orders Doctor LIMA 1.2.840.114 [id number] [facility] Univers 00:00:00 00:00:00 Only Unassigned, OSCAR 350.1.13.10 ity of [place] [facility] 4.2.7.2.686 Deniz as [id number] [address] 2022-07-30 2022-07-30 Outpatient R KEMI [facility] [id number] Univers 14:45:00 15:30:57 ARSALAN ity of [facility] 2022-07-29 2022-07-29 Outpatient [facility] [id number] Univers 16:30:00 17:24:17 ROSALINE daigle o f [facility] 2022-07-29 2022-07-29 Office [facility] 1.2.840.114 [id number] Univers 16:30:00 17:24:17 Visit Rosaline BURGESS 350.1.13.10 ity [place] [id number] [place] dic[address] 2022-06-22 2022-06-23 [facility] [id number] 11:08:00 15:00:00 Encounter [facility] 2022-06-22 2022-06-23 Inpatient ER [facility] [id number] [facility] 11:08:00 15:00:00 [facility] 2022-06-22 2022-06-23 [facility] [id number] 11:08:00 15:00:00 Encounter [facility] 2022-06-22 2022-06-22 Surgery Annalise [facility] [id number] 17:00:00 18:43:00 [facility] 2022-06-22 2022-06-22 Surgery Annalise [facility] [id number] 17:00:00 18:43:00 [facility] 2022-06-22 2022-06-22 Anesthesia Ana Hernandez [facility] [id number] 17:10:00 17:54:00 Event Ana Vazquez [facility] 2022-06-22 2022-06-22 Anesthesia Ana Hernandez [facility] [id number] 17:10:00 17:54:00 Event Ana Vazquez [facility] 2022-06-22 2022-06-22 Orders Doctor CLARENCE 1.2.840.114 [id number] Univers 00:00:00 00:00:00 Only Unassigned, OSCAR 350.1.13.10 [facility] 4.2.7.2.686 Deniz as [id number] [address] 2022-06-06 2022-06-06 Case Peralta, [facility] 1.2.840.114 [id number] Univers 00:00:00 00:00:00 Management Rosaline BURGESS 350.1.13.10 ity of [place] [id number] Ia dical [address] 2022-05-17 2022-05-17 Outpatient Keila [facility] [id number] Univers 12:15:00 12:15:00 KELSEY ity [facility] 2022-05-17 2022-05-17 Telephone [facility] 1.2.840.114 [id number] Univers 00:00:00 00:00:00 Rosaline BURGESS 350.1.13.10 it[place] of [place] [id number] Ia dical [address] 2022-05-15 2022-05-15 [facility] [id number] Univers 11:30:00 12:31:20 ROSALINE daigle o f [facility] 2022-05-15 2022-05-15 Office [facility] 1.2.840.114 [id number] Univers 11:30:00 12:31:20 Visit Rosaline BURGESS 350.1.13.10 ity of [place] [id number] [address] 2022-05-08 2022-05-08 Nurse Visit, Ang-Rmchp Nurse [facility] 1.2 .840.114 [id number] Univers 09:00:00 09:14:35 Visit Klaudia Lopez HOME CARE PROVIDER 350.1.13. 10 ity of [facility] 4.2.7.2.686 Deniz as MATERNAL [phone] Med ical & CHILD [address] [place] [address] 2022-05-08 2022-05-08 Outpatient R JESSICA [facility] [id number] Univers 09:00:00 09:14:35 KLAUDIA daigle o f [facility] 2022-04-01 2022-04-01 Outpatient R KEMI [facility] [id number] Univers 16:00:00 16:53:08 ARSALAN [facility] 2022-04-01 2022-04-01 Office [facility] 1.2.840.114 [id number] Univers 16:00:00 16:53:08 Visit , Adc Surg Spec Procedure MENIFEE 3 50.1.13.10 ity of [place] [id number] [address] 2022-04-01 2022-04-01 Office [facility] 1.2.840.114 [id number] Univers 13:30:00 15:52:47 Visit Arsalan MENIFEE 350.1.13.10 i ty [place] [id number] [address] 2022-03-26 2022-03-26 Emergency X TEJA [facility] ERT [id number] Univers 17:17:00 21:19:00 [facility] 2022-03-26 2022-03-26 Emergency [facility] 1.2.200.164 [id number] Univers 17:17:00 21:19:00 Hilda S MENIFEE 350.1.13.10 i ty [place] [id number] [address] 2022-03-17 2022-03-19 [facility] Fabrizio Moore [facility] [id number] 04:22:00 14:00:00 Encounter Magdalena [facility] 2022-03-17 2022-03-19 Outpatient ER MAGDALENA [facility] [id number] [facility] 04:22:00 14:00:00 HANS 2022-03-17 2022-03-19 Hospital ER Fabrizio Moore [facility] [id number] 04:22:00 14:00:00 [facility] 2022-03-17 2022-03-17 Surgery Yi, [facility] [id number] 09:34:00 11:08:00 [facility] 2022-03-17 2022-03-17 Surgery [facility] [id number] 09:34:00 11:08:00 [facility] 2022-03-17 2022-03-17 Anesthesia GaRadha saenz [facility] [id number] 09:57:00 10:46:00 Event [facility] 2022-03-17 2022-03-17 Anesthesia Radha Martinez [facility] [id number] 09:57:00 10:46:00 [facility] 2022-02-27 2022-02-27 Outpatient SFA SFA [id number] Regulo 08:07:52 08:07:52 1026 F Pascual 2022-02-27 2022-02-27 Outpatient [id number] 00:00:00 00:00:00 Visit [id number] 454bea 2022-02-14 2022-02-14 Outpatient SFA SFA [id number] Regulo 08:13:03 08:13:03 1013 F Pascual 2022-02-13 2022-02-13 Outpatient [facility] [id number] Regulo 16:25:24 16:25:24 1012 F Pascual 2022-02-13 2022-02-13 Outpatient R JESSICA [facility] [id number] Univers 09:00:00 09:37:00 KLAUDIA daigle o [facility] 2022-02-13 2022-02-13 Nurse Visit, Celeste Nurse [facility] 1.2 .840.114 [id number] [facility] 09:00:00 09:37:00 Visit Klaudia Lopez HOME CARE PROVIDER 350.1.13. 10 [facility] 4.2.7.2.686 Deniz as MATERNAL [id number] Med ical & CHILD [address] [place] [address] 2022-02-13 2022-02-13 Outpatient R [facility] [id number] Univers 09:00:00 09:00:00 ity [facility] 2022-02-13 2022-02-13 Outpatient R EVELIO [facility] [id number] Univers 08:30:00 08:30:00 REYNOLD oxana o [facility] 2022-02-13 2022-02-13 Outpatient [id number] 00:00:00 00:00:00 Visit [id number] [id number] -[id number] [id number] 2021-11-21 2021-11-21 Outpatient R MICHELLE BARRETT [facility] [id number] Univers 12:45:00 14:08:58 MICHELLE BARRETT [facility] 2021-11-21 2021-11-21 Office Provider, Celeste Temp [facility] 1 .2.840.114 [id number] Univers 12:45:00 14:08:58 Visit Klaudia Lopez HOME CARE PROVIDER 350.1.13. 10 itMichelle Nuñez [facility] 4.2.7.2.686 [place] MATERNAL [id number] [facility] & CHILD [address] [place] [address] 2021-11-21 2021-11-21 Nurse Visit, Dale-Ljp Nurse [facility] 1.2 .840.114 [id number] Univers 13:30:00 13:45:00 Visit Klaudia Lopez HOME CARE PROVIDER 350.1.13. 10 ity of [facility] 4.2.7.2.686 Deniz as MATERNAL [id number] [facility] CHILD [address] [place] [address] 2021-08-29 2021-08-29 Outpatient R [facility] [id number] Univers 09:00:00 09:00:00 ity of [facility] 2021-08-29 2021-08-29 Outpatient R JESSICA [facility] [id number] Univers 09:00:00 09:00:00 KLAUDIA waite [facility] 2021-08-28 2021-08-28 Nurse Visit, Abrilp Nurse [facility] 1.2 .840.114 [id number] Univers 14:30:00 14:30:00 Visit Klaudia Lopez HOME CARE PROVIDER 350.1.13. 10 ity of [facility] 4.2.7.2.686 Deniz as MATERNAL [id number] [facility] CHILD [address] [place] [address] 2021-08-28 2021-08-28 Outpatient R JESSICA [facility] [id number] Univers 14:30:00 14:11:57 KLAUDIA pinon [facility] 2021-06-12 2021-06-12 [facility] 1.2 .840.114 [id number] Univers 14:00:00 14:05:07 Visit Reynold Fraser HOME CARE PROVIDER 350.1.13.10 ity of [facility] 4.2.7.2.686 Deniz as MATERNAL [id number] [facility] & CHILD [address] [place] [address] 2021-06-12 2021-06-12 Outpatient R EVELIO [facility] [id number] Univers 14:00:00 14:00:00 REYNOLD waite [facility] 2021-06-12 2021-06-12 Outpatient Keila FRASER [facility] [id number] Univers 14:00:00 14:00:00 REYNOLD pinon [facility] 2021-06-11 2021-06-11 Telephone [facility] 1.2.840.114 [id number] Univers 00:00:00 00:00:00 Klaudia C HOME CARE PROVIDER 350.1.13.10 ity [place] [address].2.7.2.686 Deniz as MATERNAL [id number] [facility] CHILD [address] [place] [address] 2021-06-06 2021-06-06 Outpatient R JESSICA [facility] [id number] Univers 09:00:00 10:37:33 KLAUDIA pinon [facility] 2021-06-06 2021-06-06 Office [facility] 1.2.628.453 [id number] Univers 09:00:00 10:37:33 Visit Klaudia Ward HOME CARE PROVIDER 350.1.13.10 [facility] 4.2.7.2.686 [place] as MATERNAL [id number] [address] 2021-06-06 2021-06-06 Outpatient R JESSICA [facility] [id number] Univers 09:00:00 10:37:33 KLAUDIA pinon [facility] 2021-06-06 2021-06-06 Outpatient R JESSICA [facility] [id number] Univers 09:00:00 09:00:00 KLAUIDA pinon [facility] 2021-05-10 2021-05-10 Outpatient Keila AVILA [facility] [id number] Univers 13:00:00 13:00:00 JES daigle [facility] 2021-05-10 2021-05-10 Outpatient Keila AVILA [facility] [id number] Univers 08:30:00 08:30:00 JES daigle [facility] 2021-04-04 2021-04-04 Office Pgy2 UNIVERSIT 1.2.326.961 [id number] Univers 14:47:20 16:11:04 Visit Ami Angel [facility] 350.1.13.10 ity of [facility] 4.2.7.2.[place] [id number] [address] 2021-04-04 2021-04-04 Outpatient R JEANNE [facility] [id number] Univers 14:45:00 16:11:04 AMI ity [facility] 2021-03-14 2021-03-14 Outpatient [facility] [id number] Univers 09:00:00 09:12:49 JES itmadison [facility] 2021-03-14 2021-03-14 Nurse [facility], [facility] 1.2 .840.114 [id number] Univers 08:46:00 09:12:49 Visit Jes Avila HOME CARE PROVIDER 350.1.13.10 ity of [facility] 4.2.7.2.686 Deniz as MATERNAL [id number] [facility] ical & CHILD [address] [place] [address] 2020-12-25 2020-12-25 Outpatient R [facility] [id number] Univers 09:00:00 09:00:00 ity [facility] 2020-12-22 2020-12-22 Outpatient R [facility] [id number] Univers 10:00:00 10:00:00 [facility] 2020-12-20 2020-12-20 Nurse Visit, [facility] 1.2 .840.114 [id number] Univers 13:47:05 14:21:01 Visit Klaudia Lopez HOME CARE PROVIDER 350.1.13. 10 ity [facility] acute hospital 4.2.7.2.686 Deniz as MATERNAL [id number] [facility] ical & CHILD [address] [place] [address] 2020-12-20 2020-12-20 Outpatient R [facility] [id number] Univers 13:30:00 13:30:00 KLAUDIA waite f [facility] 2020-11-16 2020-11-16 Telephone SHAILESH Talley 1.2.840.114 [id number] Univers 00:00:00 00:00:00 [facility] 350.1.13.10 i ty of [place] [id number] [facility] [address] 2020-11-13 2020-11-13 Office Pgy2 UNIVERSIT 1.2.031.828 [id number] Univers 14:15:35 16:58:28 Visit Daniella Vegas [facility] 350.1.13. 10 ity of [facility] 4.2.7.2.[place] [id number] [address] 2020-11-13 2020-11-13 Outpatient R [facility] [id number] Univers 15:30:00 15:30:00 ity of [facility] 2020-11-13 2020-11-13 Orders Doctor CLARENCE 1.2.840.114 [id number] Univers 00:00:00 00:00:00 Only Unassigned, OSCAR 350.1.13.10 ity of [place] [facility] 4.2.7.2.686 Deniz as [id number] [address] 2020-10-18 2020-10-18 Telephone [facility] 1.2.840.114 [id number] Univers 00:00:00 00:00:00 Klaudia Ward HOME CARE PROVIDER 350.1.13.10 ity of [facility] 4.2.7.2.686 Deniz as MATERNAL [id number] [facility] & CHILD [address] [place] [address] 2020-10-17 2020-10-17 Office [facility] 1.2.667.930 [id number] Univers 15:43:20 16:45:09 Visit Klaudia Ward HOME CARE PROVIDER 350.1.13.10 ity of [facility] 4.2.7.2.686 Deniz as MATERNAL [id number] [facility] & CHILD [address] [place] [address] 2020-10-17 2020-10-17 Outpatient R JESSICA [facility] [id number] Univers 16:00:00 16:00:00 KLAUDIA daigle o f [facility] 2020-09-29 2020-09-29 Nurse Visit, [facility] 1.2.840.114 [id number] 09:52:51 10:25:33 Visit Marlomillicent HOME CARE PROVIDER 350.1.13.10 Nurse [facility] 4.2.7.2.686 MATERNAL [id number] & CHILD [address] [place] [address] 2020-09-29 2020-09-29 Nurse Visit, Celeste Nurse [facility] 1.2 .840.114 [id number] Univers 09:52:51 10:25:33 Visit Klaudia Lopez HOME CARE PROVIDER 350.1.13. 10 ity General acute hospital 4.2.7.2.686 Deniz as MATERNAL [id number] Med ical & CHILD [address] [place] [address] 2020-09-29 2020-09-29 Outpatient R [facility] [id number] Univers 10:00:00 10:00:00 [facility] 2020-09-29 2020-09-29 Outpatient R [facility] [id number] Univers 10:00:00 10:00:00 KLAUDIA daigle o f [facility] 2020-09-29 2020-09-29 Outpatient R [facility] [id number] Univers 08:00:00 08:00:00 [facility] 2020-07-20 2020-07-20 Patient Claudio [facility] 1.2.840.114 [id number] 00:00:00 00:00:00 Outreach Jose Cruz PRIMARY 350.1.13.10 [facility] 4.2.7.2.686 PAVILLION [id number] [facility] 2020-07-20 2020-07-20 Patient Claudio [facility] 1.2.840.114 [id number] Univers 00:00:00 00:00:00 Outreach Jose Cruz PRIMARY 350.1.13.10 i ty of [facility] [place]2.7.2.[place] [id number] Ia dical [address] [place] [address] 2020-07-07 2020-07-07 Outpatient R [facility] [id number] Univers 08:30:00 08:30:00 [facility] 2020-07-07 2020-07-07 Nurse Visit, [facility] 1.2.840.114 [id number] 07:50:29 08:06:39 Visit Celeste HOME CARE PROVIDER 350.1.13.10 Nurse [facility] 4.2.7.2.686 MATERNAL [id number] & CHILD [address] [place] [address] 2020-07-07 2020-07-07 Nurse Visit, Celeste Nurse [facility] 1.2 .840.114 [id number] Univers 07:50:29 08:06:39 Visit Klaudia Lopez HOME CARE PROVIDER 350.1.13. 10 ity of [facility] 4.2.7.2.686 Deniz as MATERNAL [phone] [facility] ical & CHILD [address] [place] [address] 2020-05-09 2020-05-09 Office Margarita [facility] 1.2.770.645 [id number] 08:54:26 09:58:23 Visit Jes Burch HOME CARE PROVIDER 350.1.13.10 [facility] 4.2.7.2.686 MATERNAL [id number] & CHILD [address] [place] [address] 2020-05-09 2020-05-09 Office Margarita [facility] 1.2.339.602 [id number] Univers 08:54:26 09:58:23 Visit Jes Burch HOME CARE PROVIDER 350.1.13.10 it y of [facility] 4.2.7.2.686 Deniz as MATERNAL [phone] [facility] & CHILD [address] [place] [address] 2020-05-09 2020-05-09 Outpatient R MARGARITA [facility] [id number] Univers 08:45:00 08:45:00 JES daigle [facility] 2020-04-14 2020-04-14 Nurse Visit, Celeste Nurse [facility] 1.2 .840.114 [id number] Univers 07:58:01 08:13:01 Visit Klaudia Lopez HOME CARE PROVIDER 350.1.13. 10 ity of [facility] 4.2.7.2.686 Deniz as MATERNAL [phone] [facility] & CHILD [address] [place] [address] 2020-04-14 2020-04-14 Outpatient R [facility] [id number] Univers 08:00:00 08:00:00 ity [facility] 2020-03-02 2020-03-02 Office Ramin, [facility] Resident UNIVERSIT 1.2.8 40.114 [id number] Univers 13:10:37 14:21:28 Visit Ami Angel HEALTH 350.1.13.10 ity of [facility] [id number] [facility] [address] 2020-03-02 2020-03-02 Outpatient R [facility] [id number] Univers 13:15:00 13:15:00 ity of [facility] 2020-02-17 2020-02-22 Office Ramin, [facility] Res[facility] UNIVERSIT 1.2.8 40.114 [id number] Univers 14:34:25 13:47:09 Visit Ami Angel HEALTH 350.1.13.10 ity of [facility] [id number] [address] 2020-02-22 2020-02-22 Telephone [facility] 1.2.840.114 [id number] Univers 00:00:00 00:00:00 d, OSCAR 350.1.13.10 it y of [facility] 4.2.7.2.686 [place] l [phone] [address] 2020-02-20 2020-02-20 Telephone [place] 1.2.840.114 [id number] Univers 00:00:00 00:00:00 d, OSCAR 350.1.13.10 it y of [facility] 4.2.7.2.686 [place] l [phone] [address] 2020-02-17 2020-02-17 Outpatient R [facility] [id number] Univers 15:00:00 15:00:00 ity of [facility] 2020-02-17 2020-02-17 Orders Doctor LIM[place] 1.2.840.114 [id number] Univers 00:00:00 00:00:00 Only Unassigned, OSCAR 350.1.13.10 ity of [place] [facility] 4.2.7.2.686 [place] as [phone] [facility] [address] [place] 2020-02-04 2020-02-04 Office Margarita [facility] [id number] Univers 10:36:03 13:02:32 Visit Jes Burch HOME CARE PROVIDER 350.1.13.10 it y of REGIONAL 4.2.7.2.686 [place] as MATERNAL [phone] [facility] ical & CHILD [address] [place] [address] 2020-02-04 2020-02-04 Outpatient R MARGARITA [facility] [id number] Univers 11:00:00 11:00:00 JES ity [facility] 2020-01-14 2020-01-14 Nurse Visit, Melissap Nurse [facility] 1.2 .840.114 [id number] Univers 13:34:04 13:49:04 Visit Klaudia Lopez HOME CARE PROVIDER 350.1.13. 10 ity of [facility] 4.2.7.2.686 [place] as MATERNAL [phone] [facility] & CHILD [address] [place] [address] 2020-01-14 2020-01-14 Outpatient R [facility] [id number] Univers 13:30:00 13:30:00 ity [facility] 2020-01-13 2020-01-13 Outpatient R [facility] [id number] Univers 09:00:00 09:00:00 ity [facility] 2019-12-09 2019-12-09 Outpatient [facility] PDPFEJP CPU COH 00:00:00 00:00:00 [id number] 2019-10-21 2019-10-21 Office Evelio [facility] 1.2.840.114 [id number] Univers 10:06:31 10:33:05 Visit Reynold Pedraza HOME CARE PROVIDER 350.1.13.10 ity of [facility] [id number] [place] as MATERNAL [phone] [facility] & CHILD [address] [place] [address] 2019-10-21 2019-10-21 Nurse Visit, [facility] 1.2 .840.114 [id number] Univers 09:37:55 09:52:13 Visit Reynold Fraser HOME CARE PROVIDER [id number] ity of [facility] [id number] [place] MATERNAL [phone] [facility] ical & CHILD [address] [place] [address] 2019-10-21 2019-10-21 Outpatient R [facility] [id number] Univers 09:00:00 09:00:00 ity [facility] 2019-10-21 2019-10-21 Orders Doctor CLARENCE 1.2.840.114 [id number] Univers 00:00:00 00:00:00 Only Unassigned, OSCAR 350.1.13.10 ity of [place] [facility] 4.2.7.2.686 Deniz as [phone] [address] 2019-07-29 2019-07-29 Nurse Visit, Dale-Rmchp Nurse [facility] [id number] Univers 08:36:21 08:58:19 Visit Klaudia Lopez HOME CARE PROVIDER 350.1.13. 10 ity of [facility] 4.2.7.2.686 Deniz as MATERNAL [phone] Med ical & CHILD [address] [place] [address] 2019-07-29 2019-07-29 Outpatient R [facility] [id number] Univers 08:30:00 [facility]30[facility]00 [facility] Test Description Test Time Test Comments Results Result Comments Source LIPID PANEL 2022-12-17 04:01:37 Test Item Value Reference Range Interpretation Comme nts CHOLESTEROL (test code = 2210) 194 MG/DL <200 TRIGLYCERIDES (test code = 2232) 164 MG/DL <150 H HDL CHOLESTEROL (test code = 42 MG/DL >39 0) CALC LDL CHOL (test code = 2237) 124 MG/DL <100 H NOTE: CALCULATED LDL IS BASED ON MARCUS-BUTLER METHOD WHICHINCLUDES A DJUSTABLE TRIGLYCERIDE:VL DL CHOLESTEROL RATIO.THIS FACT OR VARIES BY MEASURED TRIGLY CERIDE AND NON-HDLCHOLESTE ROL CONCENTRATIONS WITH INCREASED CALCULATED LDL SEENIN HIGHER T RIGLYCERIDE OR LOWER NON-HDL S PECIMENS. FOR MOREINFORMATION , SEE CLIENT ANNOUNCEMENT AT [email or web address] RATIO LDL/HDL (test code = 2.95 RATIO <3.22 8) COMPREHENSIVE METABOLIC [id number] 04:01:37 Test Item Value Reference Range Interpretation Comments GLUCOSE (test code = 305 MG/DL 70-99 H 2216) BUN (test code = 13 MG/DL 6-20 2207) CREATININE (test 0.53 MG/DL 0.60-1.30 L code = 2214) eGFR (2020 CKD-EPI) 115 >60 (test code = 23043) ML/MIN/1.73 CALC BUN/CREAT (test 25 RATIO 6-28 code = 223) SODIUM (test code = 142 MEQ/L 690-553 0290) POTASSIUM (test code 3.9 MEQ/L 3.5-5.4 = 2227) CHLORIDE (test code 104 MEQ/L 95-107 = 2214) CARBON DIOXIDE (test 25 MEQ/L 19-31 code = 2205) CALCIUM (test code = 9.6 MG/DL 8.5-10.5 2208) PROTEIN, TOTAL (test 7.6 G/DL 6.1-8.3 code = 2228) ALBUMIN (test code = 4.4 G/DL 3.5-5.2 2200) CALC GLOBULIN (test 3.2 G/DL 1.9-3.7 code = 2239) CALC A/G RATIO (test 1.4 RATIO 1.0-2.6 code = 2233) BILIRUBIN, TOTAL 0.7 MG/DL See_Comment [Automated message] (test code = 2206) The syste [employer] which generated this result transmit pauline reference range : <=1.2. The refe rence range was not u sed to interpret th is result as normal/abnormal . ALKALINE PHOSPHATASE 95 U/L 40-118 (test code = 2203) AST (test code = 55 U/L 9-40 H 2217) ALT (test code = 118 U/L 5-40 H 2218) HEMOGLOBIN [id number] 03:15:13 Test Item Value Reference Range Interpretation Comments HEMOGLOBIN A1c (test 10.7 % 4.2-5.6 H AMERIC AN DIABETES code = 38766) ASSOCIATION IDELINES FOR HGB A1C: PREDIABETES/INC REASED RISK . . . . . . . 5 .7-6.4% DIAGNOSIS OF DI ABETES . . . . . . . . . >=6 .5% WITH CONFIRMATION OR APPROPRIATE SYMPTOMS NOTE: ASSAY MAY BE AFFECTED BY HEMOGLOBINOPATH IES (SICKLE CELL ANEMIA, S- C DISEASE, OTHERS) OR JEFF FICIALLY LOWERED BY DECR EASED RED CELL SURVIVAL ( HEMOLYTIC ANEMIAS, BLOOD LOSS, ETC.). CONSIDER ALTERN ATE TESTING OR LABORATORY C ONSULTATION. UNLESS OTHERWIS E INDICATED, ALL TESTING PER FORMED AT CLINICAL PATHOL OGY [employer], [facility] [address] [place] [address] LABORATORY DIRE CTOR: ARMANDO TORRES M.D. CLIA NUMBER [id number] [facility] ACCREDITATION N O. [id number] AFB culture + smear (non-sputum)2022-08-07 10:09:30 Test Item Value Reference Range Interpretation Comments Result (test code = No acid-fast bacilli 6463-4) isolated in 42 days AFB Smear (test code = No acid fast bacilli 11050-3) seen [facility] ([facility]-sputum)2022-08-07 10:09:30 Test Item Value Reference Range Interpretation Comments Result (test code = No acid-fast bacilli 6463-4) isolated in 42 days AFB Smear (test code = No acid fast bacilli 65317-2) seen [facility]ME[facility] (NON-SPUTUM)2022-08-07 10:09:30 Test Item Value Reference Range Interpretation Comments CULTURE (BEAKER) (test No acid-fast bacilli code = 1095) isolated in 42 days AFB SMEAR (BEAKER) No acid fast bacilli (test code = 994) seen POCT URINALYSIS, [id number] 20:27:00 Test Item Value Reference Range Interpretation Comments POCT U SP GRAV (test code = 1.005-1.025 3255) POCT PH U (test code = 3254) 5.5 mg/dl 5-8 POCT U LEUK EST (test code = negative Negative - Negative 3263) POCT U NIT (test code = 3262) negative Negative - Negative POCT U PROT (test code = 3259) Negative - Negative POCT U GLU (test code = 3256) 100 Negative - Negative POCT U KETONE (test code = negative Negative - Negative 3258) POCT U UROBILI (test code = 0.2 mg/dl 0.2-1 0) POCT U BILI (test code = 3261) negative Negative - Negative POCT U BLD (test code = 3257) large Negative - Negative POCT U COLOR (test code = 3266) yellow POCT U APPEAR (test code = clear 7) Lab Interpretation (test code = Abnormal 08283-0) [facility] [id number] 20:27:00 Test Item Value Reference Range Interpretation Comments POCT U SP GRAV (test code = 1.005-1.025 3255) POCT PH U (test code = 3254) 5.5 mg/dl 5-8 POCT U LEUK EST (test code = negative Negative - Negative 3263) POCT U NIT (test code = 3262) negative Negative - Negative POCT U PROT (test code = 3259) Negative - Negative POCT U GLU (test code = 3256) 100 Negative - Negative POCT U KETONE (test code = negative Negative - Negative 3258) POCT U UROBILI (test code = 0.2 mg/dl 0.2-1 3260) POCT U BILI (test code = 3261) negative Negative - Negative POCT U BLD (test code = 3257) large Negative - Negative POCT U COLOR (test code = 3266) yellow POCT U APPEAR (test code = clear 3267) Lab Interpretation (test code = Abnormal 35989-7) [facility] + [id number] 00:39:43 Test Item Value Reference Range Interpretation Comments Result (test code = No fungus isolated in 6463-4) 28 days Fungus Smear (test No fungi seen code = 1406) [facility] + [id number] 00:39:43 Test Item Value Reference Range Interpretation Comments Result (test code = No fungus isolated in 6463-4) 28 days Fungus Smear (test No fungi seen code = 1406) [facility] + [id number] 00:39:43 Test Item Value Reference Range Interpretation Comments CULTURE (BEAKER) (test No fungus isolated in code = 1095) 28 days FUNGUS SMEAR (BEAKER) No fungi seen (test code = 1406) Anaerobic [id number] 11:37:32 Test Item Value Reference Range Interpretation Comments Result (test code = No anaerobes isolated 6463-4) [facility] CenterAnaeroc [id number] 11:37:32 Test Item Value Reference Range Interpretation Comments Result (test code = No anaerobes isolated 6463-4) [facility] [id number] 11:37:32 Test Item Value Reference Range Interpretation Comments CULTURE (BEAKER) (test No anaerobes isolated code = 1095) Surgically obtained culture + gram [id number] 09:30:32 Test Item Value Reference Range Interpretation Comments Result (test code = 6463-4) No growth Gram Stain Result (test No organisms seen code = 1123) [facility] [id number] 09:30:32 Test Item Value Reference Range Interpretation Comments Result (test code = 6463-4) No growth Gram Stain Result (test No organisms seen code = 1123) [facility] + GRAM [id number] 09:30:32 Test Item Value Reference Range Interpretation Comments CULTURE (BEAKER) (test code No growth = 1095) GRAM STAIN RESULT (BEAKER) No WBCs (test code = 1123) GRAM STAIN RESULT (BEAKER) No organisms seen (test code = 00168) SPIN/CONCENTRATION [id number] 08:06:52 Test Item Value Reference Range Interpretation Comments Concentration charged (test code = Done 2657) [facility] [id number] 08:06:52 Test Item Value Reference Range Interpretation Comments Concentration charged (test code = Done 2657) [facility] [id number] 08:06:52 Test Item Value Reference Range Interpretation Comments CONCENTRATION CHARGED (BEAKER) (test Done code = 2657) POC-Glucose [id number] 11:21:09 Test Item Value Reference Range Interpretation Comments POC-Glucose Meter (test 212 mg/dL 70-110 H : TE STED AT [facility] code = 1538) [address] [place] [id number]: Multimedia Engineer/Techni della ID = [id number] for Wilson, [place] Lab Interpretation (test Abnormal code = 22125-9) [facility] [id number] 11:21:09 Test Item Value Reference Range Interpretation Comments POC-Glucose Meter (test 212 mg/dL 70-110 H : TE STED AT [facility] code = 1538) [address] [facility] [address]: Multimedia Engineer/Techni della ID = [id number] for Wilson, [place] Lab Interpretation (test Abnormal code = 25459-7) [facility]PO[facility]UCOSE [id number] 11:21:09 Test Item Value Reference Range Interpretation Comments POC-GLUCOSE METER 212 mg/dL 70-110 H : TESTED A T [facility] [address] (BEAKER) (test code [address], = 1538) [facility] [address]: Multimedia Engineer/Techni della ID = [id number] for Shasta Stewart POCT-GLUCOSE [id number] 07:51:55 Test Item Value Reference Range Interpretation Comments POC-GLUCOSE METER 163 mg/dL 70-110 H : TESTED A T [facility] [address] (BEAKER) (test code [address], = 1538) [facility] 77 [address]: Multimedia Engineer/Techni della ID = [id number] for Shasta Stewart BASIC METABOLIC [id number] 06:02:46 Test Item Value Reference Range Interpretation Comments SODIUM (BEAKER) 138 meq/L 135-148 (test code = 381) POTASSIUM 3.6 meq/L 3.6-5.5 (BEAKER) (test code = 379) CHLORIDE (BEAKER) 109 meq/L 98-106 H (test code = 382) CO2 (BEAKER) 18 meq/L 20-29 L (test code = 355) BLOOD UREA 12 mg/dL 10-26 NITROGEN (BEAKER) (test code = 354) CREATININE 0.76 mg/dL 0.50-1.20 (BEAKER) (test code = 358) GLUCOSE RANDOM 206 mg/dL 70-110 H (BEAKER) (test code = 652) CALCIUM (BEAKER) 9.1 mg/dL 8.5-10.5 (test code = 697) EGFR (BEAKER) 98 Interpretatio n of eGFR (test code = [...] not as accur ate as Creatinine Arpita hassan in predicting glom erular filtration rate . Estimated GFR is not appl icable for dialysis patien ts Multimedia Engineer ID - LEVIOTAOperator ID - LEVIOTAOperator ID - LEVIOTAOperator ID - LEVIOTAOperator ID - LEVIOTAOperator ID - LEVIOTAOperator ID - LEVIOTAOperator ID - LEVIOTAOperator ID - LEVIOTAOperator ID - [id number] 06:01:48 Test Item Value Reference Range Interpretation Comments MAGNESIUM (BEAKER) (test code = 1.9 mg/dL 1.5-3.0 627) Multimedia Engineer ID - LEVIOTAOperator ID - LEVIOTAOperator ID - LEVIOTAOperator ID - [id number] 05:59:02 Test Item Value Reference Range Interpretation Comments PHOSPHORUS (BEAKER) (test code = 3.5 mg/dL 2.5-4.5 604) Multimedia Engineer ID - [id number] W/PLT COUNT & AUTO [id number] 05:47:17 Test Item Value Reference Range Interpretation Comments WHITE BLOOD CELL COUNT (BEAKER) 7.2 K/ L 4.0-10.0 (test code = 775) RED BLOOD CELL COUNT (BEAKER) 4.04 M/ L 4.00-5.00 (test code = 761) HEMOGLOBIN (BEAKER) (test code = 12.5 GM/DL 12.0-15.5 410) HEMATOCRIT (BEAKER) (test code = 38.2 % 36.0-46.0 411) MEAN CORPUSCULAR VOLUME (BEAKER) 95 fL 82-99 (test code = 753) MEAN CORPUSCULAR HEMOGLOBIN 30.9 pg 27.0-33.0 (BEAKER) (test code = 751) MEAN CORPUSCULAR HEMOGLOBIN CONC 32.7 GM/DL 32.0-36.0 (BEAKER) (test code = 752) RED CELL DISTRIBUTION WIDTH 13.2 % 12.0-15.0 (BEAKER) (test code = 412) PLATELET COUNT (BEAKER) (test 208 K/CU MM 150-430 code = 756) MEAN PLATELET VOLUME (BEAKER) 12.0 fL 6.0-11.5 H (test code = 754) NUCLEATED RED BLOOD CELLS 0 /100 WBC 0-0 (BEAKER) (test code = 413) NEUTROPHILS RELATIVE PERCENT 84 % (BEAKER) (test code = 429) LYMPHOCYTES RELATIVE PERCENT 14 % (BEAKER) (test code = 430) MONOCYTES RELATIVE PERCENT 2 % (BEAKER) (test code = 431) EOSINOPHILS RELATIVE PERCENT 0 % (BEAKER) (test code = 432) BASOPHILS RELATIVE PERCENT 0 % (BEAKER) (test code = 437) NEUTROPHILS ABSOLUTE COUNT 6.01 K/ L 1.80-8.00 (BEAKER) (test code = 670) LYMPHOCYTES ABSOLUTE COUNT 0.98 K/ L 1.48-4.50 L (BEAKER) (test code = 414) MONOCYTES ABSOLUTE COUNT (BEAKER) 0.15 K/ L 0.00-1.30 (test code = 415) EOSINOPHILS ABSOLUTE COUNT 0.00 K/ L 0.00-0.50 (BEAKER) (test code = 416) BASOPHILS ABSOLUTE COUNT (BEAKER) 0.01 K/ L 0.00-0.20 (test code = 417) IMMATURE GRANULOCYTES-RELATIVE 0.60 % 0.00-0.00 H PERCENT (BEAKER) (test code = 2801) POCT-GLUCOSE [id number] 21:14:38 Test Item Value Reference Range Interpretation Comments POC-GLUCOSE METER 176 mg/dL 70-110 H : TESTED A T [facility] [address] (BEAKER) (test code [address], = 1538) [facility] 77 [address]: Multimedia Engineer/Techni della ID = [id number] for Oyeb steven, Sasha [place], FLUORO, NON-SPECIFIC, UP TO 1 [id number] 18:00:00Reason for exam:- >CYSTOURETEROSCOPY, WITH LITHOTRIPSY, CALCULUS REMOVAL, AND URETERAL STENT INSERTION - RightS[facility]Name[facility]ON[facility] : 1975 Sex: FAn imaging unit was utilized for this procedure. No radiologist interpretation was requested. Refer to the EMR for findings. Refer to PACS for any patient radiation dose information. Screen, [id number] 15:08:08 Test Item Value Reference Range Interpretation Comments Preg Test, Ur (test code = 2112-1) Negative Negative Lab Interpretation (test code = Normal 71976-1) [facility]regnancy Screen, [id number] 15:08:08 Test Item Value Reference Range Interpretation Comments Preg Test, Ur (test code = 2112-1) Negative Negative Lab Interpretation (test code = Normal 81967-5) [facility] CenterPREGNANCY SCREEN, [id number] 15:08:08 Test Item Value Reference Range Interpretation Comments TEST URINE (BEAKER) (test Negative Negative code = 583) Urinalysis w/Microscopic + Reflex to [id number] 13:50:14 Test Item Value Reference Range Interpretation Comments Color, UA (test code = Yellow 5778-6) Clarity, UA (test code = Clear 5767-9) Specific Mcgregor, UA 1.015 1.001-1.035 (test code = 5811-5) pH, UA (test code = 6.5 5.0-8.0 5803-2) Protein, UA (test code = Negative Negative 96443-9) Glucose, UA (test code = 250 mg/dL Negative A 365) Ketones, UA (test code = Negative Negative 2514-8) Bilirubin, UA (test code Negative Negative = 35689-5) Blood, UA (test code = Moderate Negative A 32000-7) Nitrite, UA (test code = Negative Negative 5802-4) Leukocytes, UA (test Negative Negative code = 5799-2) Urobilinogen, UA (test 0.2 code = 12740-0) Bacteria, UA (test code Rare = 75792-8) RBC, UA (test code = 10-20 See_Comment [Autom ated message] 799-7) The system [employer] generated this result transmit pauline reference range : /HPF. The refer ence range was not u sed to interpret th is result as normal/abnormal . WBC, UA (test code = <5 See_Comment [Autom ated message] 57972-4) The system [employer] generated this result transmit pauline reference range : /HPF. The refer ence range was not u sed to interpret th is result as normal/abnormal . SQUAMOUS EPITHELIAL <5 See_Comment [Automa pauline message] (test code = 49795-4) The sy stem which generated this result transmit pauline reference range : /HPF. The refer ence range was not u sed to interpret th is result as normal/abnormal . Specimen Source (test code = 2795) Lab Interpretation (test Abnormal code = 04760-7) [facility] Center[facility] w/Microscopic + Reflex to Culture 2022-06-22 13:50:14 Test Item Value Reference Range Interpretation Comments Color, UA (test code = Yellow 5778-6) Clarity, UA (test code = Clear 5767-9) Specific Mcgregor, UA 1.015 1.001-1.035 (test code = 5811-5) pH, UA (test code = 6.5 5.0-8.0 5803-2) Protein, UA (test code = Negative Negative 12446-9) Glucose, UA (test code = 250 mg/dL Negative A 365) Ketones, UA (test code = Negative Negative 2514-8) Bilirubin, UA (test code Negative Negative = 08162-1) Blood, UA (test code = Moderate Negative A 12707-5) Nitrite, UA (test code = Negative Negative 5802-4) Leukocytes, UA (test Negative Negative code = 5799-2) Urobilinogen, UA (test 0.2 code = 07348-1) Bacteria, UA (test code Rare = 00415-7) RBC, UA (test code = 10-20 See_Comment [Autom ated message] 799-7) The system [employer] generated this result transmit pauline reference range : /HPF. The refer ence range was not u sed to interpret th is result as normal/abnormal . WBC, UA (test code = <5 See_Comment [Autom ated message] 41872-6) The system [employer] generated this result transmit pauline reference range : /HPF. The refer ence range was not u sed to interpret th is result as normal/abnormal . SQUAMOUS EPITHELIAL <5 See_Comment [Automa pauline message] (test code = 93512-6) The sy stem which generated this result transmit pauline reference range : /HPF. The refer ence range was not u sed to interpret th is result as normal/abnormal . Specimen Source (test code = 2795) Lab Interpretation (test Abnormal code = 17665-9) [facility]/ REFLEX URINE [id number] 13:50:14 Test Item Value Reference Range Interpretation Comments COLOR (BEAKER) (test code = 470) Yellow CLARITY (BEAKER) (test code = 469) Clear SPECIFIC GRAVITY UA (BEAKER) (test 1.015 1.001-1.035 code = 468) PH UA (BEAKER) (test code = 467) 6.5 5.0-8.0 PROTEIN UA (BEAKER) (test code = Negative Negative 464) GLUCOSE UA (BEAKER) (test code = 250 mg/dL Negative A 365) KETONES UA (BEAKER) (test code = Negative Negative 371) BILIRUBIN UA (BEAKER) (test code = Negative Negative 462) BLOOD UA (BEAKER) (test code = Moderate Negative A 461) NITRITE UA (BEAKER) (test code = Negative Negative 465) LEUKOCYTE ESTERASE UA (BEAKER) Negative Negative (test code = 466) UROBILINOGEN UA (BEAKER) (test 0.2 code = 463) BACTERIA (BEAKER) (test code = Rare 517) RBC UA-MANUAL (BEAKER) (test code 10-20 /HPF = 1659) WBC UA-MANUAL (BEAKER) (test code <5 /HPF = 1661) SQUAMOUS EPITHELIAL MANUAL <5 /HPF (BEAKER) (test code = 1663) SOURCE(BEAKER) (test code = 2795) HEMOGLOBIN [id number] 13:44:45 Test Item Value Reference Range Interpretation Comments HEMOGLOBIN A1C (BEAKER) (test code = 7.2 % 4.3-6.1 H 368) Multimedia Engineer ID - [id number] 13:16:01 Test Item Value Reference Range Interpretation Comments MAGNESIUM (BEAKER) (test code = 1.9 mg/dL 1.5-3.0 627) Multimedia Engineer ID - [id number] ID - [id number] ID - [id number] ID - [id number] BASIC METABOLIC [id number] 13:14:16 Test Item Value Reference Range Interpretation Comments SODIUM (BEAKER) 139 meq/L 135-148 (test code = 381) POTASSIUM 4.7 meq/L 3.6-5.5 (BEAKER) (test code = 379) CHLORIDE (BEAKER) 106 meq/L 98-106 (test code = 382) CO2 (BEAKER) 22 meq/L 20-29 (test code = 355) BLOOD UREA 17 mg/dL 10-26 NITROGEN (BEAKER) (test code = 354) CREATININE 1.03 mg/dL 0.50-1.20 (BEAKER) (test code = 358) GLUCOSE RANDOM 161 mg/dL 70-110 H (BEAKER) (test code = 652) CALCIUM (BEAKER) 9.4 mg/dL 8.5-10.5 (test code = 697) EGFR (BEAKER) 68 Interpretati on of eGFR (test code = [...] not appl icable for dialysis patien ts Multimedia Engineer ID - [id number] ID - [id number] ID - [id number] ID - [id number] ID - EBQK24Leyxhstp ID - UOZF66Trjlqunq ID - [id number] ID - [id number] ID - [id number] 13:12:58 Test Item Value Reference Range Interpretation Comments PHOSPHORUS (BEAKER) (test code = 4.3 mg/dL 2.5-4.5 604) Multimedia Engineer ID - [id number] TIME/[id number] 13:09:58 Test Item Value Reference Range Interpretation Comments PROTIME (BEAKER) 13.0 seconds 9.3-12.0 H Final Infor mation (test code = 759) (Auto Outp ut) INR (BEAKER) (test 1.20 <=5.90 Final Inf ormation code = 370) (Auto Output) RECOMMENDED COUMADIN/WARFARIN INR THERAPY RANGESSTANDARD DOSE: 2.0 - 3.0 Includes: PROPHYLAXIS for venous thrombosis, systemic embolization; TREATMENT for venous thrombosis and/or pulmonary embolus.HIGH RISK: Target INR is 2.5-3.5 for patients with mechanical heart valves.CBC W/PLT COUNT & AUTO [id number] 13:00:01 Test Item Value Reference Range Interpretation Comments WHITE BLOOD CELL COUNT (BEAKER) 10.9 K/ L 4.0-10.0 H (test code = 775) RED BLOOD CELL COUNT (BEAKER) 3.93 M/ L 4.00-5.00 L (test code = 761) HEMOGLOBIN (BEAKER) (test code = 12.2 GM/DL 12.0-15.5 410) HEMATOCRIT (BEAKER) (test code = 37.1 % 36.0-46.0 411) MEAN CORPUSCULAR VOLUME (BEAKER) 94 fL 82-99 (test code = 753) MEAN CORPUSCULAR HEMOGLOBIN 31.0 pg 27.0-33.0 (BEAKER) (test code = 751) MEAN CORPUSCULAR HEMOGLOBIN CONC 32.9 GM/DL 32.0-36.0 (BEAKER) (test code = 752) RED CELL DISTRIBUTION WIDTH 13.3 % 12.0-15.0 (BEAKER) (test code = 412) PLATELET COUNT (BEAKER) (test 201 K/CU MM 150-430 code = 756) MEAN PLATELET VOLUME (BEAKER) 11.6 fL 6.0-11.5 H (test code = 754) NUCLEATED RED BLOOD CELLS 0 /100 WBC 0-0 (BEAKER) (test code = 413) NEUTROPHILS RELATIVE PERCENT 67 % (BEAKER) (test code = 429) LYMPHOCYTES RELATIVE PERCENT 24 % (BEAKER) (test code = 430) MONOCYTES RELATIVE PERCENT 9 % (BEAKER) (test code = 431) EOSINOPHILS RELATIVE PERCENT 0 % (BEAKER) (test code = 432) BASOPHILS RELATIVE PERCENT 0 % (BEAKER) (test code = 437) NEUTROPHILS ABSOLUTE COUNT 7.30 K/ L 1.80-8.00 (BEAKER) (test code = 670) LYMPHOCYTES ABSOLUTE COUNT 2.57 K/ L 1.48-4.50 (BEAKER) (test code = 414) MONOCYTES ABSOLUTE COUNT (BEAKER) 0.97 K/ L 0.00-1.30 (test code = 415) EOSINOPHILS ABSOLUTE COUNT 0.02 K/ L 0.00-0.50 (BEAKER) (test code = 416) BASOPHILS ABSOLUTE COUNT (BEAKER) 0.02 K/ L 0.00-0.20 (test code = 417) IMMATURE GRANULOCYTES-RELATIVE 0.40 % 0.00-0.00 H PERCENT (BEAKER) (test code = 2801) POCT-GLUCOSE [id number] 12:27:52 Test Item Value Reference Range Interpretation Comments POC-GLUCOSE METER 164 mg/dL 70-110 H : Notified RN/MD: TESTED (BEAKER) (test code AT [address] POINT = 1538) [facility] [address]: Multimedia Engineer/Techni della ID = [id number] for Celi Cline POCT URINALYSIS, [id number] 17:20:00 Test Item Value Reference Range Interpretation [...] POCT U APPEAR (test code = Clear 7) Lab Interpretation (test code Abnormal = 14011-4) [facility] URINALYSIS, [id number] 17:20:00 Test Item Value Reference Range Interpretation [...] 3267) Lab Interpretation (test code Abnormal = 37973-3) [facility], [id number] 17:20:00 Test Item Value Reference Range Interpretation [...] 3267) Lab Interpretation (test code Abnormal = 68542-4) [facility] + smear (non-sputum)2022-05-02 08:54:18 Test Item Value Reference Range Interpretation Comments Result (test code = No acid-fast bacilli 6463-4) isolated in 42 days AFB Smear (test code = No acid fast bacilli 00363-7) seen [facility] + SMEAR (NON-SPUT[facility]2022-05-02 08:54:18 Test Item Value Reference Range Interpretation Comments CULTURE (BEAKER) (test No acid-fast bacilli code = 1095) isolated in 42 days AFB SMEAR (BEAKER) No acid fast bacilli (test code = 994) seen Fungus culture + [id number] 00:04:22 Test Item Value Reference Range Interpretation Comments Result (test code = No fungus isolated in 6463-4) 28 days Fungus Smear (test No fungi seen code = 1406) [facility] [id number] 00:04:22 Test Item Value Reference Range Interpretation Comments CULTURE (BEAKER) (test No fungus isolated in code = 1095) 28 days FUNGUS SMEAR (BEAKER) No fungi seen (test code = 1406) POCT URINALYSIS, [id number] 20:08:00 Test Item Value Reference Range Interpretation [...] 3267) Lab Interpretation (test code Normal = 79068-9) [facility] [id number] 20:08:00 Test Item Value Reference Range Interpretation [...] 3267) Lab Interpretation (test code Normal = 41933-0) [facility] [id number] 20:08:00 Test Item Value Reference Range Interpretation [...] 3267) Lab Interpretation (test code Normal = 26514-5) [facility]. METABOLIC PANEL (88299)2022-03-27 01:14:34 Test Item Value Reference Range Interpretation Comments NA (test code = 137 mmol/L 135-145 6214447997) K (test code = 3.8 mmol/L 3.5-5.0 6516687156) CL (test code = 106 mmol/L 98-108 6349769460) CO2 TOTAL (test code = 19 mmol/L 23-31 L 2547734964) AGAP (test code = 2-16 6828761308) BUN (test code = 12 mg/dL 7-23 6340135680) GLUCOSE (test code = 191 mg/dL 70-110 H 5586971224) CREATININE (test code = 0.66 mg/dL 0.50-1.04 4890009500) TOTAL BILI (test code = 0.5 mg/dL 0.1-1.8 7993961389) CALCIUM (test code = 9.4 mg/dL 8.6-10.6 5986331577) T PROTEIN (test code = 7.5 g/dL 6.3-8.2 7368240638) ALBUMIN (test code = 4.5 g/dL 3.5-5.0 7968208605) ALK PHOS (test code = 66 U/L 34-122 2825473014) ALTv (test code = 64 U/L 5-35 H 1742-6) AST(SGOT) (test code = 59 U/L 13-40 H 2758643954) eGFR (test code = mL/min/1.73m2 2380868585) ZACKARY (test code = ZACKARY) Association of [...] tests). Lab Interpretation Abnormal (test code = 04945-2) [facility] WITH [id number] 01:03:48 Test Item Value Reference Range Interpretation Comments WBC (test code = See_Comment [Automated 8090-2) message] The sy stem which generated this [...] RDW-SD (test code = 41.2 fL 39.0-49.9 15428-4) RDW-CV (test code = 11.9 % 12.0-15.5 L 788-0) PLT (test code = See_Comment [Automated 777-3) message] The sy stem which generated this result transmitted reference range : 166 - 358 10*3/ ?L. The reference r frank was not used to interpret this result as normal/abnormal . MPV (test code = 12.0 fL 9.5-12.9 21221-7) NRBC/100 WBC (test See_Comment [Automat ed code = 4477549195) message] The system which generated this result transmitted reference range : 0.0 - 10.0 /100 WBCs. The refer ence range was not u sed to interpret th is result as normal/abnormal . NRBC x10^3 (test code See_Comment [Auto mated = 6267841260) message] The s ystem which generated this result transmitted reference range : 10*3/?L. The reference range was not used to interpret this result as normal/abnormal . GRAN MAT (NEUT) % 84.3 % (test code = 770-8) IMM GRAN % (test code 0.60 % = 8411859297) LYMPH % (test code = 8.0 % 736-9) MONO % (test code = 6.3 % 5905-5) EOS % (test code = 0.6 % 713-8) BASO % (test code = 0.2 % 706-2) GRAN MAT x10^3(ANC) 7.46 10*3/uL 1.88-7.09 H (test code = 8031420248) IMM GRAN x10^3 (test 0.05 10*3/uL 0.00-0.06 code = 3286457133) LYMPH x10^3 (test code 0.71 10*3/uL 1.32-3.29 L = 731-0) MONO x10^3 (test code 0.56 10*3/uL 0.33-0.92 = 742-7) EOS x10^3 (test code = 0.05 10*3/uL 0.03-0.39 711-2) BASO x10^3 (test code 0.01-0.07 = 704-7) Lab Interpretation Abnormal (test code = 50723-5) [facility] [id number] 00:56:00 Test Item Value Reference Range Interpretation Comments POCT PREG (test code = 1605) negative On board controls acceptable with positive C Line (test code = 3574) POCT PREG LOT # (test code = 3575) [id number] POCT PREG TEST DATE (test 08-03-2023 code = 3576) Lab Interpretation (test code = Normal 69359-7) [facility]-GLUCOSE [id number] 11:43:45 Test Item Value Reference Range Interpretation Comments POC-GLUCOSE METER 198 mg/dL 70-110 H : TESTED A T [facility] 6720 (BEAKER) (test code = JESSICA Pedraza [facility], 1538) [address]: Multimedia Engineer/Techni della ID = [id number] for MARYAN-SOTELO, CALIXTO Surgically obtained culture + gram [id number] 15:43:55 Test Item Value Reference Range Interpretation Comments Result (test code = 6463-4) No growth Gram Stain Result (test No organisms seen code = 1123) [facility]AM [id number] 15:43:55 Test Item Value Reference Range Interpretation Comments CULTURE (BEAKER) (test code No growth = 1095) GRAM STAIN RESULT (BEAKER) 1+ WBCs (test code = 1123) GRAM STAIN RESULT (BEAKER) No organisms seen (test code = 68648) Anaerobic [id number] 14:54:19 Test Item Value Reference Range Interpretation Comments Result (test code = No anaerobes isolated 6463-4) [facility] [id number] 14:54:19 Test Item Value Reference Range Interpretation Comments CULTURE (BEAKER) (test No anaerobes isolated code = 1095) POC-Glucose [id number] 11:41:27 Test Item Value Reference Range Interpretation Comments POC-Glucose Meter (test 193 mg/dL 70-110 H : TE STED AT [facility] code = 1538) 6720 [facility], 770 30: Multimedia Engineer/Techni della ID = [id number] for Salma Toro Lab Interpretation (test Abnormal code = 24760-4) [facility] [id number] 11:41:27 Test Item Value Reference Range Interpretation Comments POC-Glucose Meter (test 193 mg/dL 70-110 H : TE STED AT [facility] code = 1538) 20 [facility], 770 30: Multimedia Engineer/Techni della ID = [id number] for Neelam Toroana Lab Interpretation (test Abnormal code = 37242-9) [facility] [id number] 11:41:27 Test Item Value Reference Range Interpretation Comments POC-GLUCOSE METER 193 mg/dL 70-110 H : TESTED A T [facility] 6720 (BEAKER) (test code = JESSICA Pedraza [facility], 1538) 28276: Multimedia Engineer/Techni della ID = [id number] for Salma Castano POCT-GLUCOSE [id number] 06:50:01 Test Item Value Reference Range Interpretation Comments POC-GLUCOSE METER 216 mg/dL 70-110 H : TESTED A T [facility] 6720 (BEAKER) (test code [facility], = 1538) 31669: Multimedia Engineer/Techni della ID = [id number] for OZZ, CJ POCT-GLUCOSE [id number] 00:40:50 Test Item Value Reference Range Interpretation Comments POC-GLUCOSE METER 234 mg/dL 70-110 H : TESTED A T [facility] 6720 (BEAKER) (test code [facility], = 1538) [address]109: Multimedia Engineer/Techni della ID = [id number] for OZZ, CJ POCT-GLUCOSE [id number] 17:36:34 Test Item Value Reference Range Interpretation Comments POC-GLUCOSE METER 196 mg/dL 70-110 H : TESTED A T [facility] 6720 (BEAKER) (test code = JESSICA Pedraza [facility], 1538) 99570: Multimedia Engineer/Techni della ID = [id number] for CALIXTO PARKER [id number] 16:28:40 Test Item Value Reference Range Interpretation Comments LIPASE (BEAKER) (test code = 749) 48 U/L 8 Multimedia Engineer ID - JOSE MU/S, ABDOMINAL, [id number] 14:22:00Abdomen limited area? Add comment if clarification is needed.->GallbladderReason for exam:->RUQ abdominal painShould this be performed at the bedside?->Yes [facility] 1975 Sex: [...] HEATH M.D. on 03/18/2022 02:22 PMHEPATIC FUNCTION [id number] 09:46:49 Test Item Value Reference Range Interpretation [...] (test code = 43 U/L 6-55 347) Multimedia Engineer ID - MITCHSPIN/CONCENTRATION [id number] 08:58:43 Test Item Value Reference Range Interpretation Comments Concentration charged (test code = Done 9617) [facility] [id number] 08:58:43 Test Item Value Reference Range Interpretation Comments Concentration charged (test code = Done 2656) [facility] [id number] 08:58:43 Test Item Value Reference Range Interpretation Comments CONCENTRATION CHARGED (BEAKER) (test Done code = 2657) POCT-GLUCOSE [id number] 06:30:59 Test Item Value Reference Range Interpretation Comments POC-GLUCOSE METER 152 mg/dL 70-110 H : TESTED A T [facility] 6720 (BEAKER) (test code = JESSICA Pedraza [place], 1538) 97254: Multimedia Engineer/Techni della ID = [id number] for EUNICE JAQUEZ [id number] 05:11:41 Test Item Value Reference Range Interpretation Comments MAGNESIUM (BEAKER) (test code = 2.0 mg/dL 1.6-2.6 627) Multimedia Engineer ID - JOSE [id number] 05:11:41 Test Item Value Reference Range Interpretation Comments PHOSPHORUS (BEAKER) (test code = 2.5 mg/dL 2.3-4.7 604) Multimedia Engineer ID - JOSE MBASIC METABOLIC [id number] 05:11:40 Test Item Value Reference Range Interpretation [...] not appl icable for dialysis patien ts Multimedia Engineer ID - JOSE MCBC W/PLT COUNT & AUTO [id number] 04:49:27 Test Item Value Reference Range Interpretation [...] PERCENT (BEAKER) (test code = 2801) POCT-GLUCOSE [id number] 21:22:30 Test Item Value Reference Range Interpretation Comments POC-GLUCOSE METER 252 mg/dL 70-110 H : TESTED A T [facility] 6720 (BEAKER) (test code = [facility] [employer] [facility], 153) 02051: Multimedia Engineer/Techni della ID = [id number] for EUNICE JAQUEZ POCT-GLUCOSE [id number] 16:28:50 Test Item Value Reference Range Interpretation Comments POC-GLUCOSE METER 265 mg/dL 70-110 H : TESTED A T [facility] 6720 (BEAKER) (test code = [facility] [employer] [facility], 1538) 15416: Multimedia Engineer/Techni della ID = [id number] for Al roly, Terrie POCT-GLUCOSE [id number] 12:31:05 Test Item Value Reference Range Interpretation Comments POC-GLUCOSE METER 141 mg/dL 70-110 H : TESTED A T [facility] 6720 (BEAKER) (test code = [facility] [employer] [facility], 1538) 88183: Multimedia Engineer/Techni della ID = [id number] for Al roly, Terrie POCT-GLUCOSE [id number] 11:08:28 Test Item Value Reference Range Interpretation Comments POC-GLUCOSE METER 101 mg/dL 70-110 : TESTED A T [facility] 6720 (BEAKER) (test code = JESSICA Pedraza [facility], 1538) 38649: Multimedia Engineer/Techni della ID = [id number] for PU A, LI FL, FLUORO, NON-SPECIFIC, UP TO 1 [id number] 10:33:00Reason for exam:- >[facility] : 1975 Sex: FAn imaging unit was utilized for this procedure. No radiologist interpretation was requested. Refer to the EMR for findings. Refer to PACS for any patient radiation dose information.BASIC METABOLIC [id number] 07:31:32 Test Item Value Reference Range Interpretation [...] not appl icable for dialysis patien ts Multimedia Engineer ID - VEENA [id number] 07:31:32 Test Item Value Reference Range Interpretation Comments MAGNESIUM (BEAKER) (test code = 1.9 mg/dL 1.6-2.6 627) Multimedia Engineer ID - VEENA [id number] 07:31:32 Test Item Value Reference Range Interpretation Comments PHOSPHORUS (BEAKER) (test code = 3.1 mg/dL 2.3-4.7 604) Multimedia Engineer ID - VEENA LSARS-CoV2/RT-PCR (Asymptomatic ONLY)2022-03-17 07:29:22 Test Item Value Reference Interpretation Comments Range SARS-COV2/RT-PCR Negative Negative The SARS-Co V-2 (test code = target nucleic 50945-6) acids are not detected in thi s [...] revoked sooner. Fact Sheet for Healthcare Providers: https://www.Ujogo/Documents/Xp ert%20Xpress%20SAR S%20CoV-2/Fact%20S heets/302-3802%20S ARS-COV-2%20HEALTH CARE%20PROVIDERS%2 0FACT%20SHEET.pdf Fact Sheet for Healthcare Patients: https://www.Ujogo/Documents/Xp ert%20Xpress%20SAR S%20CoV-2/Fact%20S heets/302-3801%20S ARS-COV-2%20PATIEN T%20FACT%20SHEET.p df Lab Interpretation Normal (test code = 02115-7) [facility] ONLY)2022-03-17 07:29:22 Test Item Value Reference Interpretation Comments Range SARS-COV2/RT-PCR Negative Negative The SARS-Co V-2 (test code = target nucleic 59328-5) acids are not detected in thi s [...] revoked sooner. Fact Sheet for Healthcare Providers: https://www.Ujogo/Documents/Xp ert%20Xpress%20SAR S%20CoV-2/Fact%20S heets/302-3802%20S ARS-COV-2%20HEALTH CARE%20PROVIDERS%2 0FACT%20SHEET.pdf Fact Sheet for Healthcare Patients: https://www.Ujogo/Documents/Xp ert%20Xpress%20SAR S%20CoV-2/Fact%20S heets/302-3801%20S ARS-COV-2%20PATIEN T%20FACT%20SHEET.p df Lab Interpretation Normal (test code = 61735-8) [facility]2022-03-17 07:29:22 Test Item Value Reference Interpretation Comments Range SARS-COV2/RT-PCR Negative Negative The SARS-Co V-2 (test code = target nucleic 15647-2) acids are not detected in thi s [...] revoked sooner. Fact Sheet for Healthcare Providers: https://www.Ujogo/Documents/Xp ert%20Xpress%20SAR S%20CoV-2/Fact%20S heets/302-3802%20S ARS-COV-2%20HEALTH CARE%20PROVIDERS%2 0FACT%20SHEET.pdf Fact Sheet for Healthcare Patients: https://www.Ujogo/Documents/Xp ert%20Xpress%20SAR S%20CoV-2/Fact%20S heets/302-3801%20S ARS-COV-2%20PATIEN T%20FACT%20SHEET.p df Lab Interpretation Normal (test code = 17622-3) [facility]2022-03-17 07:29:22 Test Item Value Reference Interpretation Comments Range SARS-COV2/RT-PCR Negative Negative The SARS-Co V-2 (test code = target nucleic 52285-2) acids are not detected in thi s [...] revoked sooner. Fact Sheet for Healthcare Providers: https://www.Ujogo/Documents/Xp ert%20Xpress%20SAR S%20CoV-2/Fact%20S heets/3023802%20S ARS-COV-2%20HEALTH CARE%20PROVIDERS%2 0FACT%20SHEET.pdf Fact Sheet for Healthcare Patients: https://www.Ujogo/Documents/Xp ert%20Xpress%20SAR S%20CoV-2/Fact%20S heets/302-3801%20S ARS-COV-2%20PATIEN T%20FACT%20SHEET.p df Lab Interpretation Normal (test code = 56535-6) [facility])2022-03-17 07:29:22 Test Item Value Reference Range Interpretation Comments SARS-COV2/RT-PCR Negative Negative The SARS-Co V-2 target (test code = nucleic acids a re not 7317696) detected in thi s specimen. Negative result [...] revoked sooner. Fact Sheet for Healthcare Providers: https://www.Tellyo m/Documents/Xpert%20Xpress%20SARS%20CoV-2/Fact%20Sheets/302-3802%36JXIR-SAS-8%20 HEALTHCARE%20PROVIDERS%20FACT%20SHEET.pdf Fact Sheet for Healthcare Patients: https://www.Motribe/Documents/Xpert%20Xp ress%20SARS%20CoV-2/Fact%20Sheets/302-3801%58ODJN-UFM-7%20PATIENT%20FACT%20SHEET .pdfPT/[id number] 06:26:14 Test Item Value Reference Range Interpretation [...] mechanical heart valves.CBC W/PLT COUNT & AUTO [id number] 06:05:49 Test Item Value Reference Range Interpretation [...] PERCENT (BEAKER) (test code = 2801) POCT-GLUCOSE [id number] 06:04:38 Test Item Value Reference Range Interpretation Comments POC-GLUCOSE METER 141 mg/dL 70-110 H : TESTED A T [facility] 6720 (BEAKER) (test code = [facility] Keila [facility], 1538) 20581: Multimedia Engineer/Techni della ID = [id number] for EUNICE JAQUEZ CULTURE, [id number] 13:54:11SPECIMEN NUMBER: [id number] CULTURE, URINE SPECIMEN NUMBER: [id number] SPECIMEN COMMENT: URINE SOURCE:URINE REPORT STATUS: FINAL ISOLATE NUMBER 1: ORGANISM: 02/15/2022 >100,000 CFU/ML GRAM NEGATIVE BA CILLI IDENTIFICATION: 02/16/2022 ESCHERICHIA COLI E. COLI AMOXICILLIN/CA SENSITIVE <=8/4AMPICILLIN SENSITIVE <=8CEFAZOLIN SENSITIVE <=2CEFTRIAXONE SENSITIVE <=1CIPROFLOXACIN SENSITIVE <=1LEVOFLOXACIN SENSITIVE <=2NITROFURANTOIN RESISTANT >64PIP/TAZOBAC SENSITIVE <=16TETRACYCLINE SENSITIVE <=4TOBRAMYCIN SENSITIVE <=4TRIMETH/SULFA SENSITIVE <=2/38 NOTE: NUMBERS DISPLAYED REPRESENT MINIMUM INHIBITORY CONCENTRATION (JUAN M) WHICH IS EXPRESSED IN MCG/ML. CULTURE, [id number] 00:00:00 Test Item Value Reference Range Interpretation Comments CULTURE, URINE (test SPECIMEN NUMBER: code = 05902) [id number] CULTURE, [id number] 00:00:00 Test Item Value Reference Range Interpretation Comments CULTURE, URINE (test SPECIMEN NUMBER: code = 81721) [id number] 06:53:07 Test Item Value Reference Range Interpretation Comments AMYLASE (test code = 5) 34 U/L 28-100 [id number] 06:53:07 Test Item Value Reference Range Interpretation Comments LIPASE (test code = 26 U/L 13-60 UNLESS OTHERWISE 2058) INDICATED, ALL TESTING PERFORMED [facility]ITALH[facility]el[facility], [facility] [address] [place] [id number] [place] [address] DIRECTOR: DAVID KRAFT M.D. CLIA NUMBER [id number] CAP ACCREDITATION N O. [id number] COMPREHENSIVE METABOLIC [id number] 06:52:53 Test Item Value Reference Range Interpretation Comments GLUCOSE (test code = 188 MG/DL 70-99 H 2216) BUN (test code = 8 MG/DL 6-20 2207) CREATININE (test 0.48 MG/DL 0.60-1.30 L code = 2214) eGFR (2020 CKD-EPI) 118 >60 (test code = 96876) ML/MIN/1.73 CALC BUN/CREAT (test 17 RATIO 6-28 code = 2235) SODIUM (test code = 141 MEQ/L 422-640 2607) POTASSIUM (test code 4.6 MEQ/L 3.5-5.4 = [...] = 95 U/L 5-40 H 2218) LIPID [id number] 06:52:53 Test Item Value Reference Range Interpretation Comments CHOLESTEROL (test 194 MG/DL <200 code = 2210) TRIGLYCERIDES (test 137 MG/DL <150 code = 2232) HDL CHOLESTEROL (test 49 MG/DL >39 code = 2220) CALC LDL CHOL (test 120 MG/DL <100 H NOTE: C ALCULATED LDL code = 2237) IS BASED ON MARCSU-BUTLER METHOD WHICHINCLUDES ADJUSTABLE TRIGLYCERIDE:VL DL CHOLESTEROL RAT IO.THIS FACTOR VARIES B Y MEASURED TRIGLY CERIDE AND NON-HDLCHOL ESTEROL CONCENTRATIONS WITH INCREASED CALCU LATED LDL SEENIN HIGH ER TRIGLYCERIDE OR LOWER NON-HDL SPECIME NS. FOR MOREINFORMATION , SEE CLIENT ANNOUNCE MENT AT [email or web address] RISK RATIO LDL/HDL 2.45 RATIO <3.22 (test code = 2238) HEMOGLOBIN [id number] 04:51:02 Test Item Value Reference Range Interpretation Comments HEMOGLOBIN A1c (test 7.5 % 4.2-5.6 H [employer] code = 98870) ASSOCIATION IDELINES FOR HGB A1C: PREDIABETES/INC REASED [...] TESTING OR LABORATORY C ONSULTATION. COMPREHENSIVE METABOLIC [id number] 00:00:00 Test Item Value Reference Range Interpretation Comments GLUCOSE (test code = 2217) 188 MG/DL BUN (test code = 2208) 8 MG/DL CREATININE (test code = 2214) 0.48 MG/DL eGFR (2020 CKD-EPI) (test 118 ML/MIN/1.73 code = 64876) CALC BUN/CREAT (test code = 17 RATIO [...] RATIO 2233) BILIRUBIN, TOTAL (test code = 0.2 MG/DL 2206) ALKALINE PHOSPHATASE (test 91 U/L code = 2204) AST (test code = 2218) 39 U/L ALT (test code = 2219) 95 U/L COMPREHENSIVE METABOLIC [id number] 00:00:00 Test Item Value Reference Range Interpretation Comments GLUCOSE (test code = 2217) 188 MG/DL BUN (test code = 2208) 8 MG/DL CREATININE (test code = 2214) 0.48 MG/DL eGFR (2020 CKD-EPI) (test 118 ML/MIN/1.73 code = 12085) CALC BUN/CREAT (test code = 17 RATIO [...] (test code = 2219) 95 U/L LIPID [id number] 00:00:00 Test Item Value Reference Range Interpretation Comments CHOLESTEROL (test code = 2210) 194 MG/DL TRIGLYCERIDES (test code = 2232) 137 MG/DL HDL CHOLESTEROL (test code = 2220) 49 MG/DL CALC LDL CHOL (test code = 2237) 120 MG/DL RISK RATIO LDL/HDL (test code = 2.45 RATIO 2238) LIPID [id number] 00:00:00 Test Item Value Reference Range Interpretation Comments CHOLESTEROL (test code = 2210) 194 MG/DL TRIGLYCERIDES (test code = 2232) 137 MG/DL HDL CHOLESTEROL (test code = 2220) 49 MG/DL CALC LDL CHOL (test code = 2237) 120 MG/DL RISK RATIO LDL/HDL (test code = 2.45 RATIO 2238) HEMOGLOBIN [id number] 00:00:00 Test Item Value Reference Range Interpretation Comments HEMOGLOBIN A1c (test code = 01331) 7.5 % HEMOGLOBIN [id number] 00:00:00 Test Item Value Reference Range Interpretation Comments HEMOGLOBIN A1c (test code = 23749) 7.5 % HEMOGLOBIN [id number] 00:00:00 Test Item Value Reference Range Interpretation Comments HEMOGLOBIN A1c (test code = 13487) 7.5 % [id number] 00:00:00 Test Item Value Reference Range Interpretation Comments AMYLASE (test code = 2205) 34 U/L [id number] 00:00:00 Test Item Value Reference Range Interpretation Comments AMYLASE (test code = 2205) 34 U/L [id number] 00:00:00 Test Item Value Reference Range Interpretation Comments LIPASE (test code = 2057) 26 U/L [id number] 00:00:00 Test Item Value Reference Range Interpretation Comments LIPASE (test code = 2057) 26 U/L [id number] 00:00:00 Test Item Value Reference Range Interpretation Comments LIPASE (test code = 2057) 26 U/L [id number] 07:50:25 Test Item Value Reference Range Interpretation Comments FERRITIN (test code 327 NG/ML 13-200 H UNLESS OTHERWISE = 2074) INDICATED, ALL TESTING PERFORMED [facility] [employer] [address] [place] [address] 4 LABORATORY DIRE CTOR: DAVID ORTIZ M.D. CLIA NUMBER [id number] [facility] ON [address]. HEMOGLOBIN [id number] 04:46:25 Test Item Value Reference Range Interpretation Comments HEMOGLOBIN A1c (test 7.6 % 4.2-5.6 H [employer] code = 89651) ASSOCIATION IDELINES FOR HGB A1C: PREDIABETES/INC REASED [...] TESTING OR LABORATORY C ONSULTATION. COMPREHENSIVE METABOLIC [id number] 03:56:37 Test Item Value Reference Range Interpretation Comments GLUCOSE (test code = 149 MG/DL 70-99 H 2216) BUN (test code = 11 MG/DL 6-20 2207) CREATININE (test 0.52 MG/DL 0.60-1.30 L code = 2214) eGFR (2020 CKD-EPI) 117 >60 (test code = 11699) ML/MIN/1.73 CALC BUN/CREAT (test 21 RATIO 6-28 code = 2235) SODIUM (test code = 138 MEQ/L 612-043 6391) POTASSIUM (test code 4.7 MEQ/L 3.5-5.4 = [...] = 52 U/L 5-40 H 2218) LIPID [id number] 03:56:37 Test Item Value Reference Range Interpretation [...] MOREINFORMATION , SEE CLIENT ANNOUNCE MENT AT [email or web address] RISK RATIO LDL/HDL 2.53 RATIO <3.22 (test code = 2238) COMPREHENSIVE METABOLIC [id number] 00:00:00 Test Item Value Reference Range Interpretation Comments GLUCOSE (test code = 2217) 149 MG/DL BUN (test code = 2208) 11 MG/DL CREATININE (test code = 2214) 0.52 MG/DL eGFR (2020 CKD-EPI) (test 117 ML/MIN/1.73 code = 53077) CALC BUN/CREAT (test code = 21 RATIO [...] code = 2219) 52 U/L COMPREHENSIVE METABOLIC [id number] 00:00:00 Test Item Value Reference Range Interpretation Comments GLUCOSE (test code = 2217) 149 MG/DL BUN (test code = 2208) 11 MG/DL CREATININE (test code = 2214) 0.52 MG/DL eGFR (2020 CKD-EPI) (test 117 ML/MIN/1.73 code = 35686) CALC BUN/CREAT (test code = 21 RATIO [...] code = 2219) 52 U/L COMPREHENSIVE METABOLIC [id number] 00:00:00 Test Item Value Reference Range Interpretation Comments GLUCOSE (test code = 2217) 149 MG/DL BUN (test code = 2208) 11 MG/DL CREATININE (test code = 2214) 0.52 MG/DL eGFR (2020 CKD-EPI) (test 117 ML/MIN/1.73 code = 92483) CALC BUN/CREAT (test code = 21 RATIO [...] CALC GLOBULIN (test code = 3.4 G/DL 224) CALC A/G RATIO (test code = 1.4 RATIO 2233) BILIRUBIN, TOTAL (test code = 0.4 MG/DL 2206) ALKALINE PHOSPHATASE (test 93 U/L code = 2204) AST (test code = 2218) 33 U/L ALT (test code = 2219) 52 U/L LIPID [id number] 00:00:00 Test Item Value Reference Range Interpretation Comments CHOLESTEROL (test code = 2210) 200 MG/DL TRIGLYCERIDES (test code = 2232) 95 MG/DL HDL CHOLESTEROL (test code = 2220) 51 MG/DL CALC LDL CHOL (test code = 2237) 129 MG/DL RISK RATIO LDL/HDL (test code = 2.53 RATIO 2238) LIPID [id number] 00:00:00 Test Item Value Reference Range Interpretation Comments CHOLESTEROL (test code = 2210) 200 MG/DL TRIGLYCERIDES (test code = 2232) 95 MG/DL HDL CHOLESTEROL (test code = 2220) 51 MG/DL CALC LDL CHOL (test code = 2237) 129 MG/DL RISK RATIO LDL/HDL (test code = 2.53 RATIO 2238) HEMOGLOBIN [id number] 00:00:00 Test Item Value Reference Range Interpretation Comments HEMOGLOBIN A1c (test code = 23014) 7.6 % HEMOGLOBIN [id number] 00:00:00 Test Item Value Reference Range Interpretation Comments HEMOGLOBIN A1c (test code = 38121) 7.6 % HEMOGLOBIN [id number] 00:00:00 Test Item Value Reference Range Interpretation Comments HEMOGLOBIN A1c (test code = 36491) 7.6 % [id number] 00:00:00 Test Item Value Reference Range Interpretation Comments FERRITIN (test code = 2075) 327 NG/ML [id number] 00:00:00 Test Item Value Reference Range Interpretation Comments FERRITIN (test code = 2075) 327 NG/ML COMPREHENSIVE METABOLIC [id number] 00:00:00 Test Item Value Reference Range Interpretation Comments GLUCOSE (test code = 2217) 149 MG/DL BUN (test code = 2208) 11 MG/DL CREATININE (test code = 2214) 0.52 MG/DL eGFR (2020 CKD-EPI) (test 117 ML/MIN/1.73 code = 81415) CALC BUN/CREAT (test code = 21 RATIO [...] (test code = 2219) 52 U/L LIPID [id number] 00:00:00 Test Item Value Reference Range Interpretation Comments CHOLESTEROL (test code = 2210) 200 MG/DL TRIGLYCERIDES (test code = 2232) 95 MG/DL HDL CHOLESTEROL (test code = 2220) 51 MG/DL CALC LDL CHOL (test code = 2237) 129 MG/DL RISK RATIO LDL/HDL (test code = 2.53 RATIO 2238) LIPID [id number] 00:00:00 Test Item Value Reference Range Interpretation Comments CHOLESTEROL (test code = 2210) 200 MG/DL TRIGLYCERIDES (test code = 2232) 95 MG/DL HDL CHOLESTEROL (test code = 2220) 51 MG/DL CALC LDL CHOL (test code = 2237) 129 MG/DL RISK RATIO LDL/HDL (test code = 2.53 RATIO 2238) HEMOGLOBIN [id number] 00:00:00 Test Item Value Reference Range Interpretation Comments HEMOGLOBIN A1c (test code = 20549) 7.6 % HEMOGLOBIN [id number] 00:00:00 Test Item Value Reference Range Interpretation Comments HEMOGLOBIN A1c (test code = 28255) 7.6 % HEMOGLOBIN [id number] 00:00:00 Test Item Value Reference Range Interpretation Comments HEMOGLOBIN A1c (test code = 57365) 7.6 % [id number] 00:00:00 Test Item Value Reference Range Interpretation Comments FERRITIN (test code = 2075) 327 NG/ML [id number] 00:00:00 Test Item Value Reference Range Interpretation Comments FERRITIN (test code = 2075) 327 NG/ML [id number] 00:00:00 Test Item Value Reference Range Interpretation Comments TSH, THIRD GENERATION (test code 1.150 UIU/ML = 2821) [id number] 00:00:00 Test Item Value Reference Range Interpretation Comments TSH, THIRD GENERATION (test code 1.150 UIU/ML = 2821) [id number] 00:00:00 Test Item Value Reference Range Interpretation Comments TSH, THIRD GENERATION (test code 1.150 UIU/ML = 2821) [id number] 00:00:00 Test Item Value Reference Range Interpretation Comments TSH, THIRD GENERATION (test code 1.150 UIU/ML = 2821) [id number] 00:00:00 Test Item Value Reference Range Interpretation Comments TSH, THIRD GENERATION (test code 1.150 UIU/ML = 2821) [id number] 00:00:00 Test Item Value Reference Range Interpretation Comments TSH, THIRD GENERATION (test code 1.150 UIU/ML = 2821) HEMOGLOBIN [id number] 00:00:00 Test Item Value Reference Range Interpretation Comments HEMOGLOBIN A1c (test code = 93797) 11.1 % HEMOGLOBIN [id number] 00:00:00 Test Item Value Reference Range Interpretation Comments HEMOGLOBIN A1c (test code = 24911) 11.1 % HEMOGLOBIN [id number] 00:00:00 Test Item Value Reference Range Interpretation Comments HEMOGLOBIN A1c (test code = 83342) 11.1 % COMPREHENSIVE METABOLIC [id number] 00:00:00 Test Item Value Reference Range Interpretation Comments GLUCOSE (test code = 2217) 253 MG/DL BUN (test code = 2208) 11 MG/DL CREATININE (test code = 2214) 0.63 MG/DL eGFR AMER. (test code 126 ML/MIN/1.73 = 21974) eGFR NON- AMER. (test 108 ML/MIN/1.73 code = 95533) CALC BUN/CREAT (test code = 17 RATIO [...] code = 2219) 96 U/L COMPREHENSIVE METABOLIC [id number] 00:00:00 Test Item Value Reference Range Interpretation Comments GLUCOSE (test code = 2217) 253 MG/DL BUN (test code = 2208) 11 MG/DL CREATININE (test code = 2214) 0.63 MG/DL eGFR AMER. (test code 126 ML/MIN/1.73 = 70523) eGFR NON- AMER. (test 108 ML/MIN/1.73 code = 88373) CALC BUN/CREAT (test code = 17 RATIO [...] code = 2219) 96 U/L CBC W/AUTO [id number] 00:00:00 Test Item Value Reference Range Interpretation [...] NUCLEATED RBCS (test code = 0.00 K/UL 51607) CBC W/AUTO [id number] 00:00:00 Test Item Value Reference Range Interpretation [...] NUCLEATED RBCS (test code = 0.00 K/UL 48763) HEMOGLOBIN [id number] 00:00:00 Test Item Value Reference Range Interpretation Comments HEMOGLOBIN A1c (test code = 81297) 11.1 % CBC W/AUTO [id number] 00:00:00 Test Item Value Reference Range Interpretation [...] NUCLEATED RBCS (test code = 0.00 K/UL 49829) [id number] 00:00:00 Test Item Value Reference Range Interpretation Comments FERRITIN (test code = 2075) 532 NG/ML [id number] 00:00:00 Test Item Value Reference Range Interpretation Comments FERRITIN (test code = 2075) 532 NG/ML HEMOGLOBIN [id number] 00:00:00 Test Item Value Reference Range Interpretation Comments HEMOGLOBIN A1c (test code = 82463) 11.1 % HEMOGLOBIN [id number] 00:00:00 Test Item Value Reference Range Interpretation Comments HEMOGLOBIN A1c (test code = 97778) 11.1 % COMPREHENSIVE METABOLIC [id number] 00:00:00 Test Item Value Reference Range Interpretation Comments GLUCOSE (test code = 2217) 253 MG/DL BUN (test code = 2208) 11 MG/DL CREATININE (test code = 2214) 0.63 MG/DL eGFR AMER. (test code 126 ML/MIN/1.73 = 08883) eGFR NON- AMER. (test 108 ML/MIN/1.73 code = 75362) CALC BUN/CREAT (test code = 17 RATIO [...] code = 2219) 96 U/L COMPREHENSIVE METABOLIC [id number] 00:00:00 Test Item Value Reference Range Interpretation Comments GLUCOSE (test code = 2217) 253 MG/DL BUN (test code = 2208) 11 MG/DL CREATININE (test code = 2214) 0.63 MG/DL eGFR AMER. (test code 126 ML/MIN/1.73 = 31877) eGFR NON- AMER. (test 108 ML/MIN/1.73 code = 37723) CALC BUN/CREAT (test code = 17 RATIO [...] code = 2219) 96 U/L CBC W/AUTO [id number] 00:00:00 Test Item Value Reference Range Interpretation [...] NUCLEATED RBCS (test code = 0.00 K/UL 48425) CBC W/AUTO [id number] 00:00:00 Test Item Value Reference Range Interpretation [...] NUCLEATED RBCS (test code = 0.00 K/UL 64911) CBC W/AUTO [id number] 00:00:00 Test Item Value Reference Range Interpretation [...] NUCLEATED RBCS (test code = 0.00 K/UL 15929) [id number] 00:00:00 Test Item Value Reference Range Interpretation Comments FERRITIN (test code = 2075) 532 NG/ML [id number] 00:00:00 Test Item Value Reference Range Interpretation Comments FERRITIN (test code = 2075) 532 NG/ML SARS-COV2/RT-PCR ([facility])2019-11-18 12:12:00 Test Item Value Reference Range Interpretation Comments SARS-COV2/RT-PCR (test code = Positive Not Detected, Negative A A 2415919) SARS-COV-2 PERFORMING LAB [facility] (test code = 2757024) Results are for the detection of SARS-CoV-2 [...] copies/mL.This SARS CoV-2 test is a rapid, arrj-pjreVA-JXM test intended for the qualitative detection of [...] 564(g) of the Act.Fact Sheet for Healthcare Providers:https://www.[employer]ribe/ Documents/Xpert%20Xpress%20SARS%20CoV-2/Fact%20Sheets/3023802%38VFMV-DRZ-4%20HE ALTHCARE%20PROVIDERS%20FACT%20SHEET.pdfFact Sheet for Healthcare Patients:https://www.Motribe/Documents/Xpert%20Xpress %20SARS%20CoV-2/Fact%20Sheets/3023801%27AOBT-OST-4%20PATIENT%20FACT%20SHEET.pdf Performing Laboratory:[facility] [place] [address]"
[2022-12-31 20:08] LABS: Specific Gravity 1.018 (1.005-1.030); Urine Bilirubin NEGATIVE (Negative); Urine Blood Negative (Negative); Urine Clarity Clear (Clear); Urine Color Light-Yellow (Yellow); Urine Glucose 4+ (Over) (Negative); Urine Protein NEGATIVE (Negative); Urine Urobilinogen Normal (Normal); Urine pH 5.5 (5.0-7.0)
--- NOTE | 2022-12-31 20:24 | RAD REPORT ---
EXAM DESCRIPTION: US - Abdomen Exam Limited - 12/31/2022 8:05 pm CLINICAL HISTORY: ABD PAIN COMPARISON: No comparisonsNo comparisons FINDINGS: The gallbladder demonstrates no gallstones. The gallbladder is contracted. No pericholecys tic fluid or gallbladder wall thickening. The common bile duct is normal measuring 2 mm. The liver demonstrates no findings of intrahepatic biliary dilatation. IMPRESSION: Contracted gallbladder without gross abnormality.
[2022-12-31 20:46] LABS: Absolute Lymphocytes (CBC) 3.3 K/uL (0.7-4.9); Hematocrit 37.5 % (36.0-45.0); Lymphocytes % 29.2 % (15.3-44.8); MCV 96.1 fL (80-100); MPV 10.8 fL (7.6-11.3); Platelets 170 thou/uL (152-406)
[2022-12-31] MEDS ORDERED: ONDANSETRON 4 MG/2 ML VIAL ONE (21:08)
[2022-12-31] MEDS ORDERED: KETOROLAC 30 MG/ML INJ ONE (21:08)
[2022-12-31 21:09] LABS: Albumin 3.2 g/dL (3.4-5.0); Bilirubin Total 0.3 mg/dL (0.2-1.0); Protein, Total 7.9 g/dL (6.4-8.2)
[2022-12-31 21:10] LABS: Potassium 3.7 mEq/L (3.5-5.1)
--- NOTE | 2022-12-31 22:06 | ER ---
Nurse's Notes [facility] Name: Augustina Coe Age: 47 yrs Sex: Female : 1975 Arrival Date: 12/31/2022 Time: 18:07 Bed Treatment Private MD: Diagnosis: Upper abdominal pain, unspecified Presentation: 12/31 18:20 Chief complaint: Patient states: RUQ abdominal onset this morning. Pt reports nausea cm10 and diarrhea. Pt tender to touch on RUQ. Coronavirus screen: Vaccine status: Patient reports being unvaccinated. Client denies travel out of the [place] in the last 14 days. Ebola Screen: No symptoms or risks identified at this time. Initial Sepsis Screen: Does the patient meet any 2 criteria? No. Patient's initial sepsis screen is negative. Does the patient have a suspected source of infection? No. Patient's initial sepsis screen is negative. Risk Assessment: Do you want to hurt yourself or someone else? Patient reports no desire to harm self or others. Onset of symptoms was December 31, 2022. 18:20 Method Of Arrival: Ambulatory cm10 18:20 Acuity: KAR 3 cm10 Historical: - Allergies: 18:22 No Known Allergies; cm10 - PMHx: 18:22 diabetes mellitus; hypotension; Kidney stones; NIDDM; cm10 - Immunization history:: Adult Immunizations unknown. - Social history:: Smoking status: Patient denies any tobacco usage or history of. Screenin:30 [facility] ED Fall Risk Assessment (Adult) History of falling in the last 3 months, ha1 including since admission No falls in past 3 months (0 pts) Confusion or Disorientation No (0 pts) Intoxicated or Sedated No (0 pts) Impaired Gait No (0 pts) Mobility Assist Device Used No (0 pt) Altered Elimination No (0 pt) Score/Fall Risk Level 0 - 2 = Low Risk Oriented to surroundings, Maintained a safe environment, Educated pt \T\ family on fall prevention, incl call for assistance when getting out of bed. Abuse screen: Denies threats or abuse. Denies injuries from another. Nutritional screening: No deficits noted. Tuberculosis screening: No symptoms or risk factors identified. Assessment: 19:30 General: Appears uncomfortable, Behavior is calm, cooperative. Pain: Complains of pain ha1 in right upper quadrant Pain does not radiate. Pain currently is 7 out of 10 on a pain scale. Quality of pain is described as burning, pressure. Neuro: Level of Consciousness is awake, alert, obeys commands, Oriented to person, place, time, situation. Cardiovascular: Patient's skin is warm and dry. Respiratory: Airway is patent Respiratory effort is even, unlabored, Respiratory pattern is regular, symmetrical. GI: Abdomen is round non-distended, Bowel sounds present X 4 quads. Abd is soft and non tender X 4 quads. Reports diarrhea, nausea, vomiting. Musculoskeletal: Circulation, motion, and sensation intact. Range of motion:. 20:30 Reassessment: Patient and/or family updated on plan of care and expected duration. Pain ha1 level reassessed. Patient is alert, oriented x 3, equal unlabored respirations, skin warm/dry/pink. 21:30 Reassessment: Patient and/or family updated on plan of care and expected duration. Pain ha1 level reassessed. Patient is alert, oriented x 3, equal unlabored respirations, skin warm/dry/pink. Patient denies pain at this time. Patient states feeling better. Patient states symptoms have improved. Vital Signs: 18:20 BP 140 / 92; Pulse 83; Resp 16; Temp 98.2; Pulse Ox 99% ; Weight 56.25 kg; Pain 9/10; cm10 19:30 BP 129 / 78; Pulse 78; Resp 17 S; Pulse Ox 100% on R/A; ha1 20:30 BP 137 / 87; Pulse 73; Resp 17 S; Pulse Ox 100% on R/A; ha1 21:30 BP 124 / 80; Pulse 70; Resp 18 S; Pulse Ox 100% on R/A; ha1 18:20 Pain Scale: Adult cm10 ED Course: 18:08 Patient arrived in ED. rg4 18:13 Melanie Glover FNP-C is PHCP. kb 18:13 Sivakumar Linton MD is Attending Physician. kb 18:22 Triage completed. cm10 18:23 Arm band placed on Patient placed in waiting room. cm10 19:45 Patient has correct armband on for positive identification. Placed in gown. Bed in low ha1 position. Call light in reach. Side rails up X 1. 19:49 Anna Marie Uriostegui, CHRISTIANO is Primary Nurse. ha1 19:49 CBC with Diff Sent. ha1 19:49 CMP Sent. ha1 19:49 Lipase Sent. ha1 19:49 Urinalysis w/ reflexes Sent. ha1 19:51 Inserted saline lock: 20 gauge in right antecubital area, using aseptic technique. ha1 Blood collected. 20:06 Abdomen Limited US In Process Unspecified. EDMS 22:24 No provider procedures requiring assistance completed. IV discontinued, intact, ha1 bleeding controlled, No redness/swelling at site. Pressure dressing applied. 22:25 Provided Education on: follow ups. ha1 Administered Medications: 20:58 Drug: Ketorolac IVP 15 mg Route: IVP; Site: right antecubital; ha1 21:30 Follow up: Response: No adverse reaction; Pain is decreased ha1 21:00 Drug: Ondansetron IVP 4 mg Route: IVP; Site: right antecubital; ha1 21:30 Follow up: Response: No adverse reaction ha1 Medication: 21:08 VIS not applicable for this client. ha1 Outcome: 22:05 Discharge ordered by . tamica 22:24 Discharged to home ambulatory, with family. ha1 22:24 Condition: stable 22:24 Discharge instructions given to patient, family, Instructed on discharge instructions, follow up and referral plans. medication usage, Demonstrated understanding of instructions, follow-up care, medications, Prescriptions given X 2. 22:25 Patient left the ED. ha1 Signatures: Dispatcher [employer] EDDC Melanie Glover, GLADYS KNUTSON-Devika Muñiz rg4 Anna Marie Uriostegui RN RN 1 Jenise Downs RN RN cm10
--- NOTE | 2022-12-31 22:06 | EDPHYS ---
Physician Documentation [facility] Name: Augustina Coe Age: 47 yrs Sex: Female : 1975 Arrival Date: 12/31/2022 Time: 18:07 Bed Treatment Private MD: ED Physician Sivakumar Linton HPI: 12/31 18:19 This 47 yrs old Female presents to ER via Unassigned with complaints of kb Abdominal Pain. 18:19 The patient presents with abdominal pain in the right upper quadrant. Onset: The kb symptoms/episode began/occurred this morning. The symptoms do not radiate. Associated signs and symptoms: Pertinent positives: diarrhea, nausea, Pertinent negatives: dysuria, fever, vomiting. The symptoms are described as constant. Modifying factors: The symptoms are alleviated by nothing, the symptoms are aggravated by nothing. Severity of pain: At its worst the pain was moderate in the emergency department the pain is unchanged. The patient has not experienced similar symptoms in the past. The patient has not recently seen a physician. RUQ pain that started this morning. Reports nausea and diarrhea. Denies fever. Historical: - Allergies: 18:22 No Known Allergies; cm10 - PMHx: 18:22 diabetes mellitus; hypotension; Kidney stones; NIDDM; cm10 - Immunization history:: Adult Immunizations unknown. - Social history:: Smoking status: Patient denies any tobacco usage or history of. ROS: 18:21 Constitutional: Negative for fever, chills, and weight loss. kb 18:21 Abdomen/GI: Positive for abdominal pain, nausea, diarrhea. 18:21 All other systems are negative. Exam: 18:21 Constitutional: This is a well developed, well nourished patient who is awake, alert, kb and in no acute distress. Head/Face: Normocephalic, atraumatic. ENT: Moist Mucous membranes Cardiovascular: Regular rate and rhythm with a normal S1 and S2. No gallops, murmurs, or rubs. No pulse deficits. Respiratory: Respirations even and unlabored. No increased work of breathing. Talking in full sentences Back: No spinal tenderness. No costovertebral tenderness. Full range of motion. Skin: Warm, dry with normal turgor. Normal color. MS/ Extremity: Pulses equal, no cyanosis. Neurovascular intact. Full, normal range of motion. Neuro: Awake and alert, GCS 15, oriented to person, place, time, and situation. Moves all extremities. Normal gait. 18:21 Abdomen/GI: Inspection: abdomen appears normal, Bowel sounds: normal, Palpation: soft, in all quadrants, moderate abdominal tenderness, in the right upper quadrant. Vital Signs: 18:20 BP 140 / 92; Pulse 83; Resp 16; Temp 98.2; Pulse Ox 99% ; Weight 56.25 kg; Pain 9/10; cm10 19:30 BP 129 / 78; Pulse 78; Resp 17 S; Pulse Ox 100% on R/A; ha1 20:30 BP 137 / 87; Pulse 73; Resp 17 S; Pulse Ox 100% on R/A; ha1 21:30 BP 124 / 80; Pulse 70; Resp 18 S; Pulse Ox 100% on R/A; ha1 18:20 Pain Scale: Adult cm10 MDM: 18:13 Patient medically screened. kb 18:22 Differential diagnosis: cholecystitis, Cholelithiasis, non-specific abd pain, kb pancreatitis. Data reviewed: vital signs, nurses notes. 12/31 18:24 Order name: CBC with Diff; Complete Time: 21:15 kb 12/31 18:24 Order name: CMP; Complete Time: 21:15 kb 12/31 18:24 Order name: Lipase; Complete Time: 21:15 kb 12/31 18:24 Order name: Urinalysis w/ reflexes; Complete Time: 20:09 kb 12/31 18:24 Order name: Abdomen Limited US; Complete Time: 20:25 kb 12/31 18:24 Order name: IV Saline Lock; Complete Time: 19:49 kb 12/31 18:24 Order name: Labs collected and sent; Complete Time: 19:49 kb 12/31 19:59 Order name: Misc. Order: RECOLLECT GREEN AND LAVENDER TOP; Complete Time: 20:45 rv1 Administered Medications: 20:58 Drug: Ketorolac IVP 15 mg Route: IVP; Site: right antecubital; ha1 21:30 Follow up: Response: No adverse reaction; Pain is decreased ha1 21:00 Drug: Ondansetron IVP 4 mg Route: IVP; Site: right antecubital; ha1 21:30 Follow up: Response: No adverse reaction ha1 Disposition Summary: 12/31/22 22:05 Discharge Ordered Location: Home kb Condition: Stable kb Diagnosis - Upper abdominal pain, unspecified kb Followup: kb - With: Emergency Department - When: As needed - Reason: Worsening of condition Followup: kb - With: Private Physician - When: 2 - 3 days - Reason: Recheck today's complaints, Continuance of care, Re-evaluation by your physician Discharge Instructions: - Discharge Summary Sheet kb - Biliary Colic, Adult kb - Abdominal Pain, Adult, [id number] kb Forms: - Medication Reconciliation Form kb - Thank You Letter kb - Antibiotic Education kb - Prescription Opioid Use kb - Patient Portal Instructions kb - Leadership Thank You Letter kb Prescriptions: - Zofran 4 mg Oral Tablet - take 1 tablet by ORAL route every 6 hours As needed; 12 tablet; Refills: 0, kb Product Selection Permitted - dicyclomine 20 mg Oral Tablet - take 1 tablet by ORAL route 4 times per day As needed; 20 tablet; Refills: 0, kb Product Selection Permitted Signatures: Dispatcher [employer] Melanie rCawley, COUNTY EXTENSION AGENT-C [employer] EXTENSION AGENT-Anna Marie Jimenez, RN RN ha1 Lenora Sanchez 1 Jenise Downs RN RN cm10
[2022-12-31 23:41] VITALS: TEMP 98.2
[2022-12-31 23:42] VITALS: O2SAT 100
[2022-12-31 23:44] VITALS: BP 124/80
== END 2022-12-31 22:25 | disposition home or self-care (01) ==
LOC: ER 18:07
DX: R10.11 Right upper quadrant pain (principal)
CPT/HCPCS: 36415; 76705; 80053; 81003; 83690; 85025; 96374; 96375; 99284; J2405

== ENCOUNTER 2023-08-02 17:41 | Emergency (ER) | payer SELFPAY ==
[2023-08-02 18:31] LABS: Absolute Basophils 0.1 K/uL (0-0.5); Absolute Monocytes 0.6 K/uL (0.1-1.3); Absolute Neutrophil 6.4 K/uL (1.8-8.0); Basophils % 0.9 % (0-1.3); Eosinophils % 0.2 % (0-4.4); Hemoglobin 13.9 g/dL (12.0-15.0); Lymphocytes % 29.7 % (15.3-44.8); MCH 32.4 pg (27.0-35.0); MCV 95.3 fL (80-100); MPV 10.7 fL (7.6-11.3); Monocytes % 5.5 % (3.3-12.3); Neutrophils % 63.7 % (41.7-73.7); Nucleated Red Blood Cells % 0.1 % (0-0); Platelets 198 thou/uL (152-406); Red Cell Distribution Width 13.2 % (12.1-15.2)
[2023-08-02 18:45] LABS: Specific Gravity > 1.030 (1.005-1.030)
[2023-08-02 18:48] LABS: Albumin 3.4 g/dL (3.4-5.0); Albumin/Globulin Ratio 0.7 (1.1-1.8); Anion Gap 8.1 mEq/L (5.0-15.0); Bilirubin Total 0.4 mg/dL (0.2-1.0); Globulin 4.7 g/dL (2.3-3.5); Potassium 4.1 mEq/L (3.5-5.1); Protein, Total 8.1 g/dL (6.4-8.2)
[2023-08-02 18:49] LABS: Specific Gravity > 1.030 (1.005-1.030); Sqamous Epithelial <5 /HPF (None Seen); Urine Bacteria <20 /HPF (<20); Urine Bilirubin NEGATIVE (Negative); Urine Blood Negative (Negative); Urine Clarity Clear (Clear); Urine Color Light-Yellow (Yellow); Urine Culture Reflex Order REFLEXED; Urine Glucose 4+ (Over) (Negative); Urine Ketones TRACE (Negative); Urine Microscopic Reflex YN ORDER UMIC; Urine Mucus 4+ /HPF (None Seen); Urine Nitrite NEGATIVE (Negative); Urine Protein TRACE (Negative); Urine Urobilinogen Normal (Normal)
[2023-08-02] MEDS ORDERED: ONDANSETRON 4 MG/2 ML VIAL ONE (18:51)
[2023-08-02] MEDS ORDERED: KETOROLAC 30 MG/ML INJ ONE (18:51)
[2023-08-02] MEDS ORDERED: DIPHENHYDRAMINE 50 MG/ML VIAL ONE (18:51)
[2023-08-02] MEDS ORDERED: METOCLOPRAMIDE 10 MG/2mL INJ ONE (18:52)
[2023-08-02] MEDS ORDERED: NA CHLORIDE 0.9% 1,000 ML ONE (18:52)
--- NOTE | 2023-08-02 19:12 | RAD REPORT ---
EXAM DESCRIPTION: CT - Head Brain Wo Cont - 08/02/2023 6:59 pm CLINICAL HISTORY: Headache COMPARISON: none TECHNIQUE: Computed axial tomography of the head was obtained. IV contrast was not requested. All CT scans are performed using dose optimization technique as appropriate and may include automated exposure control or mA/KV adjustment according to patient size. FINDINGS: An intracranial bleed is not seen The ventricles are normal in caliber No significant hypodense areas within the brain visualized No extra-axial fluid collection is noted. Fluid within the sinuses/ mastoids is not seen IMPRESSION: No acute intracranial abnormality is seen If patient's symptoms persist MRI of the brain would be recommended
[2023-08-02] MEDS ORDERED: INSULIN REGULAR (HUMAN) 100 UNIT/ML ONE (19:13)
--- NOTE | 2023-08-02 20:29 | RAD REPORT ---
EXAM DESCRIPTION: US - Abdomen Exam Limited - 08/02/2023 8:02 pm CLINICAL HISTORY: Elevated liver function test enzymes COMPARISON: 2022 FINDINGS: The gallbladder wall is not thickened. A gallstone is not seen. The biliary tree is normal caliber. Increased hepatic echotexture consist with fatty infiltration IMPRESSION: Unremarkable gallbladder ultrasound. Fatty liver
--- NOTE | 2023-08-02 20:50 | EDPHYS ---
Physician Documentation [facility] Name: Augustina Coe Age: 48 yrs Sex: Female : 1975 Arrival Date: 08/02/2023 Time: 17:41 Bed 6 Private MD: ED Physician Lauro Juan HPI: 08/01 18:20 This 48 yrs old Female presents to ER via Ambulatory with complaints of High cp Blood Sugar, Headache. 18:20 The patient or guardian reports hyperglycemia, that was potentially precipitated by no cp particular event. 18:20 Onset: The symptoms/episode began/occurred yesterday. Associated signs and symptoms: cp Pertinent positives: nausea, Pertinent negatives: vomiting, diarrhea. 18:20 Current symptoms: In the emergency department the patient's symptoms are unchanged from cp the initial presentation, despite home interventions. 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 - Social history:: Smoking status: Patient denies any tobacco usage or history of. ROS: 18:25 Constitutional: Negative for body aches, chills, fever, poor PO intake, cp 18:25 Eyes: Negative for injury, pain, redness, and discharge, cp 18:25 ENT: Negative for drainage from ear(s), ear pain, sore throat, difficulty swallowing, cp difficulty handling secretions, 18:25 Neck: Negative for pain with movement, pain at rest, stiffness, 18:25 Cardiovascular: Negative for chest pain, palpitations, 18:25 Respiratory: Negative for cough, shortness of breath, wheezing, 18:25 Abdomen/GI: Positive for nausea, Negative for abdominal pain, vomiting, diarrhea, constipation, 18:25 Neuro: Positive for headache, Negative for altered mental status, weakness, 18:25 All other systems are negative, Exam: 18:30 Constitutional: The patient appears in no acute distress, alert, awake, non-toxic, well cp developed, well nourished, uncomfortable, 18:30 Head/Face: Normocephalic, atraumatic. cp 18:30 Eyes: Periorbital structures: appear normal, Pupils: equal, round, and reactive to light and accomodation, Extraocular movements: intact throughout, Conjunctiva: normal, no exudate, no injection, Sclera: no appreciated abnormality, Lids and lashes: appear normal, bilaterally, 18:30 ENT: External ear(s): are unremarkable, Nose: is normal, Mouth: Lips: moist, Oral mucosa: pink and intact, moist, Posterior pharynx: Airway: no evidence of obstruction, patent, 18:30 Neck: ROM/movement: is normal, is supple, without pain, no range of motions limitations, no meningismus, no nuchal rigidity, 18:30 Chest/axilla: Inspection: normal, 18:30 Cardiovascular: Rate: normal, Rhythm: regular, 18:30 Respiratory: the patient does not display signs of respiratory distress, Respirations: normal, no use of accessory muscles, no retractions, labored breathing, is not present, Breath sounds: are clear throughout, no decreased breath sounds, no stridor, no wheezing, 18:30 Abdomen/GI: Exam negative for discomfort, distension, guarding, Inspection: abdomen appears normal, 18:30 Back: pain, is absent, ROM is normal, 18:30 Skin: no rash present. 18:30 Neuro: Orientation: to person, place \T\ time. Mentation: is normal, Cerebellar function: is grossly normal, Motor: moves all fours, strength is normal, Sensation: is normal, Gait: is steady, at a normal pace, without difficulty, 18:35 ECG was reviewed by the Attending Physician. cp Vital Signs: 18:03 BP 139 / 97; Pulse 90; Resp 18 S; Temp 98.7(O); Pulse Ox 99% on R/A; Weight 54.43 kg as6 (R); Height 5 ft. 1 in. (R); Pain 10/10; 20:27 BP 101 / 68; Pulse 84; Resp 18; Pulse Ox 97% on R/A; mb9 21:02 BP 119 / 77; Pulse 85; Resp 18; Temp 97.7(TE); Pulse Ox 96% on R/A; Pain 0/10; tm6 18:03 Body Mass Index 22.67 (54.43 kg, 154.94 cm) as6 18:03 Pain Scale: Adult as6 21:02 Pain Scale: Adult tm6 MDM: 18:04 Patient medically screened. 19:00 Differential diagnosis: Scott's syndrome, diabetes insipidus, DKA, hyperglycemia, cp thyroid storm. 20:48 Data reviewed: vital signs, nurses notes, lab test result(s), EKG, radiologic studies, cp CT scan, ultrasound. 20:48 I considered the following discharge prescriptions or medication management in the emergency department Medications were administered in the Emergency Department. See MAR. Care significantly affected by the following chronic conditions: Diabetes. Counseling: I had a detailed discussion with the patient and/or guardian regarding the historical points, exam findings, and any diagnostic results supporting the discharge/admit diagnosis, lab results, radiology results, the need for outpatient follow up, a family practitioner, to return to the emergency department if symptoms worsen or persist or if there are any questions or concerns that arise at home. Response to treatment: the patient's symptoms have markedly improved after treatment, and as a result, I will discharge patient. 08/01 18:12 Order name: CBC with Diff; Complete Time: 18:54 08/01 18:12 Order name: CMP; Complete Time: 18:54 08/01 18:54 Interpretation: Normal except: GLUC 323; GFR 85; AST 108; ALT 258; ALK 130; GLOB 4.7; cp A/G 0.7. 08/01 18:12 Order name: Lipase; Complete Time: 18:54 08/01 18:12 Order name: Test, Urine; Complete Time: 18:54 08/01 18:12 Order name: Urinalysis w/ reflexes; Complete Time: 18:55 08/01 18:53 Order name: Urine Culture EDCT 08/01 20:55 Order name: Glucose, Ancillary Testing [facility] 08/01 18:12 Order name: CT Head Brain wo Cont; Complete Time: 19:14 08/01 19:14 Interpretation: Report reviewed. 08/01 19:16 Order name: US Abdomen Limited; Complete Time: 20:38 08/01 20:38 Interpretation: Report reviewed. 08/01 18:12 Order name: IV Saline Lock; Complete Time: 18:26 08/01 18:12 Order name: Labs collected and sent; Complete Time: 18:26 cp 08/01 18:12 Order name: Accucheck Blood Glucose; Complete Time: 19:10 cp 08/01 18:12 Order name: EKG - Nurse/Tech; Complete Time: 18:34 cp 08/01 19:16 Order name: NPO; Complete Time: 19:20 cp 08/01 20:38 Order name: PO challenge; Complete Time: 20:39 cp 08/01 20:38 Order name: Accucheck Blood Glucose; Complete Time: 20:39 cp EC:35 Rate is 86 beats/min. Rhythm is regular. [place] interval is normal. QRS interval is normal. cp QT interval is normal. T waves are Inverted in lead aVR. Interpreted by me. Reviewed by me. Administered Medications: 19:00 Drug: TORadol - Ketorolac IVP 15 mg IVP once Route: IVP; Site: right antecubital; mb9 20:29 Follow up: Response: No adverse reaction mb9 19:02 Drug: Ondansetron IVP 4 mg IVP once; over 2 minutes Route: IVP; Site: right antecubital;mb9 20:28 Follow up: Response: No adverse reaction mb9 19:06 Drug: metoCLOPramide IVP 10 mg IVP once; over 1 to 2 minutes Route: IVP; Site: right mb9 antecubital; 20:28 Follow up: Response: No adverse reaction mb9 19:09 Drug: NS 0.9% IV 1000 ml IV at 1 bolus Per protocol; 1000 mL bolus Route: IV; Rate: 1 mb9 bolus; Site: right antecubital; 20:29 Follow up: Response: No adverse reaction; IV Status: Completed infusion mb9 19:10 Drug: diphenhydrAMINE IVP 25 mg IVP once Route: IVP; Site: right antecubital; mb9 20:28 Follow up: Response: No adverse reaction mb9 19:20 Drug: Insulin Regular Human IVP 10 units IVP once {Co-Signature: tm6 (Kathleen Byrne RN).} Route: IVP; Site: right antecubital; 20:29 Follow up: Response: No adverse reaction mb9 Disposition Summary: 08/02/23 20:49 Discharge Ordered Notes: Location: Home cp Problem: new cp Symptoms: have improved cp Condition: Stable cp Diagnosis - Headache cp - Diabetes mellitus due to underlying condition with hyperglycemia cp Followup: cp - With: Private Physician - When: 2 - 3 days - Reason: Recheck today's complaints Discharge Instructions: - Discharge Summary Sheet cp - Migraine Headache cp - Hyperglycemia cp - Blood Glucose Monitoring, Adult cp - Diabetes Mellitus and Nutrition, Adult cp Forms: - Medication Reconciliation Form cp - Thank You Letter cp - Antibiotic Education cp - Prescription Opioid Use cp - Patient Portal Instructions cp - Leadership Thank You Letter cp Prescriptions: - Fioricet 50-300-40 mg Oral capsule - take 1 capsule ORAL route every 6 hours as needed for pain; 15 capsule; cp Refills: 0, Product Selection Permitted - Ibuprofen 600 mg Oral tablet - take 1 tablet ORAL route every 8 hours As needed take with food; 30 tablet; cp Refills: 0, Product Selection Permitted Addendum: 08/04/2023 10:09 I was immediately available on-site in the Emergency Department for consultation in the m s3 care of the patient. Signatures: Dispatcher [employer] EDMS Sarwat Mehta PA PA cp Sims, Marcus, DO DO ms3 Sixto Aj RN RN as6 Alexandra Arndt RN RN mb9 Kathleen Byrne RN tm6 Corrections: (The following items were deleted from the chart) 08/01 18:13 18:13 CBC+H.LAB.BRZ ordered. EDMS EDMS 18:13 18:13 COMPREHENSIVE METABOLIC PANEL+C.LAB.BRZ ordered. EDMS EDMS 18:13 18:13 LIPASE+C.LAB.BRZ ordered. EDMS EDMS 18:13 18:13 Test, Urine+UC.LAB.BRZ ordered. EDMS EDMS 18:13 18:13 Urinalysis+U.LAB.BRZ ordered. EDMS EDMS 18:13 18:13 Head Brain Wo Cont+CT.RAD.BRZ ordered. EDMS EDMS
--- NOTE | 2023-08-02 20:50 | ER ---
Nurse's Notes [facility] Name: Augustina Coe Age: 48 yrs Sex: Female : 1975 Arrival Date: 08/02/2023 Time: 17:41 Bed 6 Private MD: Diagnosis: Headache;Diabetes mellitus due to underlying condition with hyperglycemia Presentation: 08/01 18:04 Chief complaint: Patient states: headache and higher than normal blood sugar at home. as6 Coronavirus screen: At this time, the client does not indicate any symptoms associated with coronavirus-19. Ebola Screen: No symptoms or risks identified at this time. Initial Sepsis Screen: Does the patient meet any 2 criteria? No. Patient's initial sepsis screen is negative. Does the patient have a suspected source of infection? No. Patient's initial sepsis screen is negative. Risk Assessment: Do you want to hurt yourself or someone else? Patient reports no desire to harm self or others. Onset of symptoms was August 01, 2023. 18:04 Acuity: KAR 3 as6 18:04 Method Of Arrival: Ambulatory as6 Triage Assessment: 18:03 General: Appears in no apparent distress. Behavior is calm, cooperative. Pain: as6 Complains of pain in head. Neuro: Reports headache. 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 - Social history:: Smoking status: Patient denies any tobacco usage or history of. Screenin:59 [facility] ED Fall Risk Assessment (Adult) History of falling in the last 3 months, mb9 including since admission No falls in past 3 months (0 pts) Confusion or Disorientation No (0 pts) Intoxicated or Sedated No (0 pts) Impaired Gait No (0 pts) Mobility Assist Device Used No (0 pt) Altered Elimination No (0 pt) Score/Fall Risk Level 0 - 2 = Low Risk Oriented to surroundings, Maintained a safe environment, Educated pt \T\ family on fall prevention, incl call for assistance when getting out of bed. Abuse screen: Denies threats or abuse. Nutritional screening: No deficits noted. Tuberculosis screening: No symptoms or risk factors identified. Assessment: 18:54 General: Appears in no apparent distress. Behavior is calm, cooperative. Pain: mb9 Complains of pain in head Pain does not radiate. Pain currently is 8 out of 10 on a pain scale. Quality of pain is described as throbbing, Pain began suddenly. Neuro: [place] Agitation-Sedation Scale (RASS): 0 - Alert and Calm Level of Consciousness is awake, alert, obeys commands, Oriented to person, place, time, situation, Appropriate for age Reports dizziness. Cardiovascular: Heart tones S1 S2 present Patient's skin is warm and dry. Respiratory: Airway is patent Respiratory effort is even, unlabored, Respiratory pattern is regular, symmetrical, Breath sounds are clear bilaterally. GI: Abdomen is round non-distended, Bowel sounds present X 4 quads. : No signs and/or symptoms were reported regarding the genitourinary system. Derm: Skin is pink, warm \T\ dry. Musculoskeletal: Range of motion: intact in all extremities. 20:09 Reassessment: No changes from previously documented assessment. Patient and/or family mb9 updated on plan of care and expected duration. Pain level reassessed. Patient is alert, oriented x 3, equal unlabored respirations, skin warm/dry/pink. 21:02 Reassessment: Patient and/or family updated on plan of care and expected duration. Pain tm6 level reassessed. Patient is alert, oriented x 3, equal unlabored respirations, skin warm/dry/pink. Vital Signs: 18:03 BP 139 / 97; Pulse 90; Resp 18 S; Temp 98.7(O); Pulse Ox 99% on R/A; Weight 54.43 kg as6 (R); Height 5 ft. 1 in. (R); Pain 10/10; 20:27 BP 101 / 68; Pulse 84; Resp 18; Pulse Ox 97% on R/A; mb9 21:02 BP 119 / 77; Pulse 85; Resp 18; Temp 97.7(TE); Pulse Ox 96% on R/A; Pain 0/10; tm6 18:03 Body Mass Index 22.67 (54.43 kg, 154.94 cm) as6 18:03 Pain Scale: Adult as6 21:02 Pain Scale: Adult tm6 ED Course: 17:42 Patient arrived in ED. ra3 17:48 Sarwat Mehta PA is PHCP. cp 17:48 Lauro Juan DO is Attending Physician. cp 18:03 Arm band placed on. as6 18:05 Triage completed. as6 18:15 Missed attempt(s): 20 gauge in right antecubital area. bc6 18:26 CBC with Diff Sent. bc6 18:26 CMP Sent. bc6 18:26 Lipase Sent. bc6 18:26 Initial lab(s) drawn, by me, sent to lab. Inserted saline lock: 22 gauge in left bc6 antecubital area, using aseptic technique. Blood collected. 18:34 EKG done, by ED staff, reviewed by Sarwat WALLER. bc6 18:46 Alexandra Arndt, CHRISTIANO is Primary Nurse. mb9 19:00 Placed in gown. Bed in low position. Call light in reach. Side rails up X 1. Provided mb9 Education on: press call light if needing anything. Client placed on continuous cardiac and pulse oximetry monitoring. NIBP monitoring applied. director airport on. Door closed. Noise minimized. Warm blanket given. 19:01 CT Head Brain wo Cont In Process Unspecified. EDMS 20:03 US Abdomen Limited In Process Unspecified. EDMS 20:46 No provider procedures requiring assistance completed. mb9 20:57 IV discontinued, intact, bleeding controlled, No redness/swelling at site. Pressure mb9 dressing applied. Administered Medications: 19:00 Drug: TORadol - Ketorolac IVP 15 mg IVP once Route: IVP; Site: right antecubital; mb9 20:29 Follow up: Response: No adverse reaction mb9 19:02 Drug: Ondansetron IVP 4 mg IVP once; over 2 minutes Route: IVP; Site: right antecubital;mb9 20:28 Follow up: Response: No adverse reaction mb9 19:06 Drug: metoCLOPramide IVP 10 mg IVP once; over 1 to 2 minutes Route: IVP; Site: right mb9 antecubital; 20:28 Follow up: Response: No adverse reaction mb9 19:09 Drug: NS 0.9% IV 1000 ml IV at 1 bolus Per protocol; 1000 mL bolus Route: IV; Rate: 1 mb9 bolus; Site: right antecubital; 20:29 Follow up: Response: No adverse reaction; IV Status: Completed infusion mb9 19:10 Drug: diphenhydrAMINE IVP 25 mg IVP once Route: IVP; Site: right antecubital; mb9 20:28 Follow up: Response: No adverse reaction mb9 19:20 Drug: Insulin Regular Human IVP 10 units IVP once {Co-Signature: tm6 (Kathleen Byrne RN).} Route: IVP; Site: right antecubital; 20:29 Follow up: Response: No adverse reaction mb9 Medication: 20:27 VIS not applicable for this client. mb9 Outcome: 20:49 Discharge ordered by MD. cp 20:57 Discharged to home ambulatory, with family, mb9 20:57 Condition: stable 20:57 Discharge instructions given to patient, family, Instructed on discharge instructions, follow up and referral plans. Demonstrated understanding of instructions, follow-up care, medications, Prescriptions given X 2, 21:05 Patient left the ED. mb9 Signatures: Dispatcher [employer] EDMS Sarwat Mehta PA PA cp Slawson, Ashby, RN RN as6 Alexandra Arndt RN RN mb9 Makeda Magaña 6 Kathleen Byrne, RN RN tm6 Michelle Salazar 3 Kathleen Byrne RN tm6 Corrections: (The following items were deleted from the chart) 21:05 20:57 Discharge instructions given to patient, family, Instructed on discharge mb9 instructions, follow up and referral plans. Demonstrated understanding of instructions, follow-up care, mb9
[2023-08-02 22:38] VITALS: BP 119/77; TEMP 97.7; O2SAT 96
--- NOTE | 2023-08-04 13:44 | EKG ---
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
== END 2023-08-02 21:05 | disposition home or self-care (01) ==
LOC: ER 17:41
DX: E11.65 Type 2 diabetes mellitus with hyperglycemia (principal)
CPT/HCPCS: 36415; 70450; 76705; 80053; 81001; 81025; 82947; 83690; 85025; 87077; 87086; 87088; 87186; 93005; 96361; 96374; 96375; 99285; J1200; J1815; J2405; J2765; J7030

== ENCOUNTER 2023-09-03 18:03 | Inpatient (IN) | payer SELFPAY ==
[2023-09-03] MEDS ORDERED: NA CHLORIDE 0.9% 1,000 ML ONE (18:35)
[2023-09-03] MEDS ORDERED: ONDANSETRON 4 MG/2 ML VIAL ONE ×2 (18:35→21:32)
[2023-09-03] MEDS ORDERED: MORPHINE 4 MG/ML SYR ONE (18:35)
[2023-09-03 18:43] LABS: Absolute Basophils 0.1 K/uL (0-0.5); Absolute Monocytes 0.8 K/uL (0.1-1.3); Absolute Neutrophil 8.4 K/uL (1.8-8.0); Basophils % 0.9 % (0-1.3); Eosinophils % 0.3 % (0-4.4); Hematocrit 38.8 % (36.0-45.0); Hemoglobin 13.3 g/dL (12.0-15.0); Lymphocytes % 24.3 % (15.3-44.8); MCH 32.4 pg (27.0-35.0); MCHC 34.3 g/dL (32.0-36.0); MCV 94.4 fL (80-100); MPV 10.5 fL (7.6-11.3); Monocytes % 6.5 % (3.3-12.3); Nucleated Red Blood Cells % 0.3 % (0-0); Platelets 186 thou/uL (152-406); RBC Red Blood Cell Count 4.12 M/uL (3.86-4.86); Red Cell Distribution Width 13.2 % (12.1-15.2)
[2023-09-03 19:05] LABS: Albumin 3.5 g/dL (3.4-5.0); Albumin/Globulin Ratio 0.7 (1.1-1.8); Anion Gap 7.1 mEq/L (5.0-15.0); Bilirubin Total 0.3 mg/dL (0.2-1.0); Globulin 4.7 g/dL (2.3-3.5); Potassium 3.1 mEq/L (3.5-5.1); Protein, Total 8.2 g/dL (6.4-8.2)
[2023-09-03 19:42] LABS: Specific Gravity 1.029 (1.005-1.030)
[2023-09-03] MEDS ORDERED: HYDROMORPHONE HCL 1 MG/ML INJ ONE (20:26)
--- NOTE | 2023-09-03 20:26 | RAD REPORT ---
EXAM DESCRIPTION: CTAbdomen Pelvis W Contrast - 09/03/2023 8:11 pm CLINICAL HISTORY: Abdominal pain. ABD PAIN COMPARISON: Abdomen Pelvis W Contrast dated 06/22/2022; Abdomen Pelvis W Contrast dated TECHNIQUE: Biphasic CT imaging of the abdomen and pelvis was performed with 100 ml non-ionic IV cont rast. All CT scans are performed using dose optimization technique as appropriate and may include automated exposure control or mA/KV adjustment according to patient size. FINDINGS: Mild bibasilar lung atelectasis is suspected. The liver, spleen, pancreas, adrenal glands are within normal limits. Benign left renal cyst superior ly. Severe right-sided hydronephrosis and hydroureter is present caused by 9 mm stone in the distal r ight ureter. No bowel obstruction, free air, free fluid or abscess. The appendix is normal. No evidence of signi ficant lymphadenopathy. No suspicious bony findings. IMPRESSION: Severe right-sided hydronephrosis and hydroureter caused by 9 mm stone in the distal rig ht ureter.
--- NOTE | 2023-09-03 20:46 | EDPHYS ---
Physician Documentation [facility] Name: Augustina Coe Age: 48 yrs Sex: Female : 1975 Arrival Date: 09/03/2023 Time: 18:03 Bed 14 Private MD: ED Physician Fátima Madsen HPI: 09/02 18:39 This 48 yrs old Female presents to ER via Ambulatory with complaints of Flank sb4 Pain, Abdominal Pain. 18:39 RLQ and right flank pain began this morning. endorses nausea, no vomiting. no urinary sb4 symptoms. reports history of kidney stones. no known fever. no other associated signs and symptoms. alleviated by nothing. aggravated by movement. 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 - Infectious Disease History:: Denies. - Social history:: Smoking status: Patient denies any tobacco usage or history of. ROS: 18:39 Constitutional: Negative for fever, chills, and weight loss, sb4 18:39 Abdomen/GI: Positive for abdominal pain, nausea, 18:39 Back: Positive for pain at rest, 18:39 All other systems are negative, Exam: 18:39 Head/Face: Normocephalic, atraumatic. Eyes: Extra-ocular motions intact. Periorbital sb4 areas with no swelling, redness, or edema. ENT: Mucous membranes moist. Cardiovascular: Regular rate and rhythm with a normal S1 and S2. Respiratory: Lungs have equal breath sounds bilaterally, clear to auscultation and percussion. No rales, rhonchi or wheezes noted. No increased work of breathing, no retractions or nasal flaring. Skin: Warm, dry with normal turgor. Normal color with no rashes, no lesions, and no evidence of cellulitis. MS/ Extremity: Pulses equal, no cyanosis. Neurovascular intact. Full, normal range of motion. 18:39 Constitutional: The patient appears alert, awake, in obvious distress, moderately distressed, in obvious pain, 18:39 Abdomen/GI: Inspection: abdomen appears normal, Bowel sounds: normal, Palpation: soft, moderate abdominal tenderness, in the right lower quadrant, involuntary guarding, is elicited in the right lower quadrant, 18:39 Back: CVA tenderness, is noted on the right, Vital Signs: 18:15 BP 166 / 101; Pulse 86; Resp 18; Temp 98.9; Pulse Ox 100% ; Pain 10/10; iw 19:18 Pain 7/10; nj1 19:21 BP 158 / 88; Pulse 74; Resp 16; Pulse Ox 98% ; Pain 7/10; nj1 20:00 BP 141 / 87; Pulse 78; Resp 16; Pulse Ox 98% on R/A; tl4 20:30 BP 159 / 87; Pulse 76; Resp 16; Pulse Ox 99% on R/A; tl4 21:00 BP 149 / 95; Pulse 70; Resp 18; Pulse Ox 99% on R/A; tl4 21:47 BP 146 / 88; Pulse 77; Resp 16; Temp 97.9(TE); Pulse Ox 97% on R/A; Pain 6/10; tl4 18:15 Pain Scale: Adult iw 19:18 Pain Scale: Adult nj1 19:21 Pain Scale: Adult nj1 21:47 Pain Scale: Adult tl4 MDM: 18:18 Patient medically screened. sb4 20:44 Data reviewed: vital signs, nurses notes, lab test result(s), radiologic studies, I sb4 have discussed the patient's presentation/case with the attending Emergency Department Physician; and as a result, I will admit patient. Consideration of Admission/Observation Patient was admitted/placed on observation. Management of patient was discussed with the following: Metal Mine Inspector: Dr. Albright, will take patient to OR now. Counseling: I had a detailed discussion with the patient and/or guardian regarding the historical points, exam findings, and any diagnostic results supporting the discharge/admit diagnosis, lab results, radiology results, the need for further work-up and treatment in the hospital. 09/02 18:28 Order name: CBC with Diff; Complete Time: 18:48 sb4 09/02 18:28 Order name: CMP; Complete Time: 19:06 sb4 09/02 18:28 Order name: Lipase; Complete Time: 19:06 sb4 09/02 18:28 Order name: Test, Urine; Complete Time: 19:44 sb4 09/02 18:28 Order name: Urinalysis w/ reflexes; Complete Time: 20:55 sb4 09/02 21:45 Order name: Urinalysis w/ reflexes EDMN 09/02 21:45 Order name: CBC with Automated Diff EDMN 09/02 21:45 Order name: CBC with Automated Diff EDMN 09/02 21:45 Order name: Comprehensive Metabolic Panel EDMN 09/02 21:45 Order name: Comprehensive Metabolic Panel [facility] 09/02 18:28 Order name: CT Abd/Pelvis - IV Contrast Only; Complete Time: 20:30 sb4 09/02 21:45 Order name: CONS Physician Consult EDMN 09/02 18:28 Order name: IV Saline Lock; Complete Time: 18:33 sb4 09/02 18:28 Order name: Labs collected and sent; Complete Time: 18:33 sb4 Administered Medications: 18:35 Drug: NS 0.9% IV 1000 ml IV at 1 bolus Per protocol; 1000 mL bolus Route: IV; Rate: 1 nj1 bolus; Site: left antecubital; 20:44 Follow up: Response: No adverse reaction; IV Status: Completed infusion; IV Intake: tl4 1000ml 18:36 Drug: Ondansetron IVP 4 mg IVP once; over 2 minutes Route: IVP; Site: left antecubital; nj1 19:19 Follow up: Response: No adverse reaction; Pain is decreased nj1 18:38 Drug: morphine IVP or IV 4 mg IVP once over 4 mins Route: IVP; Infused Over: 4 mins; nj1 Site: left antecubital; 19:18 Follow up: Pain 7/10 Adult; Response: No adverse reaction; Pain is decreased nj1 20:43 Drug: HYDROmorphone IVP 1 mg IVP once Route: IVP; Infused Over: 5 mins; Site: left tl4 antecubital; 21:01 Follow up: Response: No adverse reaction; Pain is decreased tl4 21:25 Drug: Magnesium Sulfate IVPB 1 grams IVPB once over 1 hrs {Note: via IV pump.} Route: tl4 IVPB; Infused Over: 1 hrs; Site: left antecubital; Delivery: Primary tubing; 21:26 Drug: Flomax PO 0.4 mg PO once Route: PO; tl4 21:44 Follow up: Response: No adverse reaction tl4 Disposition: 09/03 09:21 STAFF ATTESTATION STATEMENT: I was immediately available onsite in the emergency sd2 department for consultation in the care of this patient. I did not see or examine this patient. Fátima Madsen MD. Disposition Summary: 09/03/23 20:46 Hospitalization Ordered Notes: Hospitalization Status: Inpatient Admission sb4 Provider: Delta Archibald sb4 Location: Telemetry/MedSurg (Inpatient) sb4 Condition: Fair sb4 Problem: new sb4 Symptoms: are unchanged sb4 Bed/Room Type: Standard sb4 Room Assignment: sb4 Diagnosis - 9 mm right ureteral stone with severe hydronephrosis and calyceal rupture sb4 Forms: - Medication Reconciliation Form sb4 - SBAR form sb4 - Leadership Thank You Letter sb4 Signatures: Dispatcher [employer] EDDanielle Rosales, RN RN Fátima Peralta MD MD sd2 Brianna Hou PA-C PA-C sb4 Florence Frost RN RN nj1 Rahul Serrano RN RN tl4 Corrections: (The following items were deleted from the chart) 09/02 18:29 18:28 CBC+H.LAB.BRZ ordered. EDMS EDMS 18:29 18:28 COMPREHENSIVE METABOLIC PANEL+C.LAB.BRZ ordered. EDMS EDMS 18:29 18:28 LIPASE+C.LAB.BRZ ordered. EDMS EDMS 18:29 18:28 Test, Urine+UC.LAB.BRZ ordered. EDMS EDMS 18:29 18:28 Urinalysis+U.LAB.BRZ ordered. EDMS EDMS
--- NOTE | 2023-09-03 20:46 | ER ---
Nurse's Notes [facility] Name: Augustina Coe Age: 48 yrs Sex: Female : 1975 Arrival Date: 09/03/2023 Time: 18:03 Bed 14 Private MD: Diagnosis: 9 mm right ureteral stone with severe hydronephrosis and calyceal rupture Presentation: 09/02 18:15 Chief complaint: Patient states: RLQ Pain radiating to back, started today , has not iw urinated today , last BM was this morning, was normal , no v/d. Coronavirus screen: At this time, the client does not indicate any symptoms associated with coronavirus-19. Ebola Screen: Patient negative for fever greater than or equal to 101.5 degrees Fahrenheit, and additional compatible Ebola Virus Disease symptoms Patient denies exposure to infectious person. Patient denies travel to an Ebola-affected area in the 21 days before illness onset. No symptoms or risks identified at this time. Initial Sepsis Screen: Does the patient meet any 2 criteria? No. Patient's initial sepsis screen is negative. Does the patient have a suspected source of infection? No. Patient's initial sepsis screen is negative. Risk Assessment: Do you want to hurt yourself or someone else? Patient reports no desire to harm self or others. Onset of symptoms was September 03, 2023. 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 - Infectious Disease History:: Denies. - Social history:: Smoking status: Patient denies any tobacco usage or history of. Screenin:46 [facility] ED Fall Risk Assessment (Adult) History of falling in the last 3 months, nj1 including since admission No falls in past 3 months (0 pts) Confusion or Disorientation No (0 pts) Intoxicated or Sedated No (0 pts) Impaired Gait No (0 pts) Mobility Assist Device Used No (0 pt) Altered Elimination No (0 pt) Score/Fall Risk Level 0 - 2 = Low Risk Oriented to surroundings, Maintained a safe environment, Hourly rounding (assess needs \T\ fall precautionary measures) done. Abuse screen: Denies threats or abuse. Denies injuries from another. Nutritional screening: No deficits noted. Tuberculosis screening: No symptoms or risk factors identified. Assessment: 18:30 General: Appears uncomfortable, Behavior is cooperative, crying. Pain: Complains of nj1 pain in abdomen Pain currently is 10 out of 10 on a pain scale. Neuro: Level of Consciousness is awake, alert, obeys commands, Oriented to person, place, time, situation. 18:30 Cardiovascular: Patient's skin is warm and dry. Respiratory: Airway is patent nj1 Respiratory effort is even, unlabored. GI: Reports upper abdominal pain, nausea, Patient currently denies diarrhea, vomiting. 19:22 Reassessment: Patient appears in no apparent distress at this time. Patient and/or nj1 family updated on plan of care and expected duration. Pain level reassessed. Patient is alert, oriented x 3, equal unlabored respirations, skin warm/dry/pink. 21:26 Reassessment: Patient and/or family updated on plan of care and expected duration. Pain tl4 level reassessed. Patient is alert, oriented x 3, equal unlabored respirations, skin warm/dry/pink. Patient states symptoms have not improved. 21:44 Reassessment: No changes from previously documented assessment. Patient and/or family tl4 updated on plan of care and expected duration. Pain level reassessed. Patient is alert, oriented x 3, equal unlabored respirations, skin warm/dry/pink. Vital Signs: 18:15 BP 166 / 101; Pulse 86; Resp 18; Temp 98.9; Pulse Ox 100% ; Pain 10/10; iw 19:18 Pain 7/10; nj1 19:21 BP 158 / 88; Pulse 74; Resp 16; Pulse Ox 98% ; Pain 7/10; nj1 20:00 BP 141 / 87; Pulse 78; Resp 16; Pulse Ox 98% on R/A; tl4 20:30 BP 159 / 87; Pulse 76; Resp 16; Pulse Ox 99% on R/A; tl4 21:00 BP 149 / 95; Pulse 70; Resp 18; Pulse Ox 99% on R/A; tl4 21:47 BP 146 / 88; Pulse 77; Resp 16; Temp 97.9(TE); Pulse Ox 97% on R/A; Pain 6/10; tl4 18:15 Pain Scale: Adult iw 19:18 Pain Scale: Adult nj1 19:21 Pain Scale: Adult nj1 21:47 Pain Scale: Adult tl4 ED Course: 18:06 Patient arrived in ED. mg5 18:08 Brianna Hou PA-C is PHCP. sb4 18:08 Fátima Madsen MD is Attending Physician. sb4 18:16 Triage completed. iw 18:16 Arm band placed on. iw 18:25 Florence Frost, RN is Primary Nurse. nj1 18:30 Patient has correct armband on for positive identification. Bed in low position. Adult nj1 w/ patient. Provided Education on: call light, fall precautions. 18:30 Inserted saline lock: 22 gauge in left antecubital area, using aseptic technique. Blood nj1 collected. 20:10 Report given to Rahul ALVARADO. nj1 20:13 CT Abd/Pelvis - IV Contrast Only In Process Unspecified. EDMS 20:45 Delta Archibald MD is Hospitalizing Provider. sb4 21:26 Placed in gown. Call light in reach. Side rails up X2. Client placed on continuous tl4 cardiac and pulse oximetry monitoring. NIBP monitoring applied. Door closed. Noise minimized. Lights dimmed. Moved to private room. Warm blanket given. 21:26 No provider procedures requiring assistance completed. Patient admitted, IV remains in tl4 place. Administered Medications: 18:35 Drug: NS 0.9% IV 1000 ml IV at 1 bolus Per protocol; 1000 mL bolus Route: IV; Rate: 1 nj1 bolus; Site: left antecubital; 20:44 Follow up: Response: No adverse reaction; IV Status: Completed infusion; IV Intake: tl4 1000ml 18:36 Drug: Ondansetron IVP 4 mg IVP once; over 2 minutes Route: IVP; Site: left antecubital; nj1 19:19 Follow up: Response: No adverse reaction; Pain is decreased nj1 18:38 Drug: morphine IVP or IV 4 mg IVP once over 4 mins Route: IVP; Infused Over: 4 mins; nj1 Site: left antecubital; 19:18 Follow up: Pain 7/10 Adult; Response: No adverse reaction; Pain is decreased nj1 20:43 Drug: HYDROmorphone IVP 1 mg IVP once Route: IVP; Infused Over: 5 mins; Site: left tl4 antecubital; 21:01 Follow up: Response: No adverse reaction; Pain is decreased tl4 21:25 Drug: Magnesium Sulfate IVPB 1 grams IVPB once over 1 hrs {Note: via IV pump.} Route: tl4 IVPB; Infused Over: 1 hrs; Site: left antecubital; Delivery: Primary tubing; 21:26 Drug: Flomax PO 0.4 mg PO once Route: PO; tl4 21:44 Follow up: Response: No adverse reaction tl4 Medication: 21:48 VIS not applicable for this client. tl4 Intake: 20:44 IV: 1000ml; Total: 1000ml. tl4 Outcome: 20:46 Decision to Hospitalize by Provider. sb4 21:47 Admitted to OR accompanied by nurse, family with patient, via wheelchair, Report called tl4 to COMPUTER TECHNICIAN 21:47 Condition: stable 21:47 Instructed on the need for admit, 21:48 Patient left the ED. tl4 Signatures: Dispatcher [employer] EDDanielle Rosales RN RN iw Brown, Sophia, PA-C PA-C sb4 Florence Frost RN RN Rosi Raymundo mg5 Rahul Serrano RN RN tl4 Corrections: (The following items were deleted from the chart) 19:11 18:59 Report given to Fabio ALVARADO nj1 nj1
[2023-09-03 20:54] LABS: Specific Gravity > 1.030 (1.005-1.030); Sqamous Epithelial <5 /HPF (None Seen); Urine Bacteria <20 /HPF (<20); Urine Bilirubin NEGATIVE (Negative); Urine Blood Trace (Negative); Urine Clarity Clear (Clear); Urine Color Colorless (Yellow); Urine Culture Reflex Order NOT NEEDED; Urine Glucose 3+ (Negative); Urine Ketones NEGATIVE (Negative); Urine Microscopic Reflex YN ORDER UMIC; Urine Mucus Slight /HPF (None Seen); Urine Nitrite NEGATIVE (Negative); Urine Protein NEGATIVE (Negative); Urine RBC <5 /HPF (None Seen); Urine Urobilinogen Normal (Normal); Urine WBC <5 /HPF (<5); Urine pH 5.5 (5.0-7.0)
[2023-09-03] MEDS ORDERED: TAMSULOSIN 0.4 MG SR CAP ONE (21:04)
[2023-09-03] MEDS ORDERED: MAGNESIUM SULFATE 1 gm IVPB 1 GM/100 ML BAG IV ONE (21:04)
[2023-09-03] MEDS ORDERED: propofoL 200 MG/20 ML VIAL IV ONE (21:30)
[2023-09-03] MEDS ORDERED: KETOROLAC 30 MG/ML INJ ONE (21:31)
[2023-09-03] MEDS ORDERED: FENTANYL CITR 100 MCG/2 ML ONE (21:31)
[2023-09-03] MEDS ORDERED: MIDAZOLAM HCL 2 MG/2 ML INJ ONE (21:31)
[2023-09-03] MEDS ORDERED: LIDOCAINE 1% MPF 5 ML VIAL ONE (21:32)
[2023-09-03] MEDS ORDERED: dexAMETHasone 10 MG/ML VIAL ONE (21:32)
[2023-09-03] MEDS ORDERED: ONDANSETRON 4 MG/2 ML VIAL IV PRN (21:41)
[2023-09-03] MEDS ORDERED: ACETAMINOPHEN 325 MG TABLET PO PRN (21:41)
[2023-09-03] MEDS ORDERED: D50W 25 GM/50 ML SYRINGE IV PRN (21:46)
[2023-09-03] MEDS ORDERED: GLUCAGON 1 MG/VIAL IM PRN (21:46)
[2023-09-03] MEDS ORDERED: NITROGLYCERIN 0.4 MG/TAB SL ONE (21:56)
[2023-09-03] MEDS: ONDANSETRON 4 MG/2 ML VIAL ONE (21:56)
[2023-09-03] MEDS ORDERED: D10W 125 ML IV PRN (21:57)
[2023-09-03] MEDS: NA CHLORIDE 0.9% 1,000 ML IV SCH (22:00)
[2023-09-03] MEDS: NA CHLORIDE 0.9% 1,000 ML ONE (22:01)
[2023-09-03] MEDS: CEFTRIAXONE 1000 MG/VIAL ONE (22:12)
--- NOTE | 2023-09-03 22:39 | P.HP ---
Certification for Inpatient Patient admitted to: Inpatient With expected LOS: >2 Midnights Practitioner: I am a practitioner with admitting privileges, knowledge of patient current condition, hospital course, and medical plan of care. Services: Services provided to patient in accordance with Admission requirements found in Title 42 Section 412.3 of the Code of Federal Regulations Patient History Date of Service: 09/04/23 Reason for admission: Flank Pain History of Present Illness: 48 yrs old Female with past medical history of diabetes, hypertension, kidney stones, came to ER with flank pain and abdominal pain which started earlier today and has been progressively getting worse associated with nausea and vomiting . Pain is located in the right flank and right lower quadrant Denies any fever or chills. No sick contacts. Pain is worse with movements. Denies any dysuria Patient was assessed in the ER and was found to have ureteral colic and was admitted for further management and urology consult Allergies No Known Allergies Allergy (Unverified 11/18/19 07:18) Home medications list reviewed: Yes Home Medications: Metformin HCl 1,000 mg PO BID 09/03/23 - Past Medical/Surgical History Past Medical History: Reviewed- Non-Contributory -: Diabetes, hypertension, hyperlipidemia, Past Surgical History: Reviewed- Non-Contributory - Family History Family History: Reviewed- Non-Contributory - Social History Smoking Status: Never smoker Review of Systems 10-point ROS is otherwise unremarkable Physical Examination - Vital Signs Temperature: 97.9 F Blood Pressure: 146/88 Pulse: 77 Respirations: 16 Pulse Ox (%): 98 - Physical Exam General: Alert, In no apparent distress, Oriented x3 HEENT: Atraumatic, Normocephalic Neck: 2+ carotid pulse no bruit Respiratory: Clear to auscultation bilaterally, Normal air movement Cardiovascular: No edema, Normal pulses, Regular rate/rhythm Capillary refill: <2 Seconds Gastrointestinal: Soft and benign, W/out hepatosplenomegaly, Tenderness Musculoskeletal: No clubbing, No swelling Integumentary: No rashes Neurological: Normal gait, Normal strength at 5/5 x4 extr, Cranial nerves 3-12 intact, Normal reflexes 2+ Lymphatics: No axilla or inguinal lymphadenopathy - Studies Laboratory Data (last 24 hrs) 09/03/23 09/03/23 18:30 18:30 WBC 12.30 H Hgb 13.3 Hct 38.8 Plt Count 186 Sodium 134 L Potassium 3.1 L BUN 12 Creatinine 1.06 H Glucose 275 H Total Bilirubin 0.3 AST 62 H ALT 152 H Alkaline Phosphatase 109 Lipase 67 Assessment and Plan - Problems (Diagnosis) (1) Right flank pain Current Visit: Yes Status: Acute Plan: Right flank pain Right hydroureteronephrosis Right ureterolithiasis Recurrent nephrolithiasis Meatal stenosis Cystocele with vault prolapse Appreciate help from urology Status post cystoscopy Right retrograde pyelography Right ureteral stent placement -4.8 Fr x 24 cm Pain control Started on IV antibiotic Monitor closely Diabetes Insulin sliding scale Will get an A1c in a.m. Accu-Chek ACHS Hypertension Continue home medications and titrate as needed Hyponatremia Hypokalemia Acute kidney injury Monitor renal parameters IV hydration Elevated LFTs Monitor LFTs in a.m. GI/DVT prophylaxis Advanced directive full code Discharge Plan: Home Plan to discharge in: 48 Hours - Advance Directives Does patient have a Living Will: No Does patient have a Durable POA for Healthcare: No - Code Status/Comfort Care Code Status: Full Code Time Spent Managing Pts Care (In Minutes): 48
--- NOTE | 2023-09-03 22:49 | P.CNS ---
Date of Consult: 09/03/23 Reason for Consult: Ureterolithiasis suspected forniceal rupture Chief Complaint: Flank Pain History of Present Illness: 48-year-old woman with DM2, who is not followed by any primary care physician because of lack of insurance and financial ability, presents to the emergency department as a recurrent stone former with right flank and right upper quadrant pain that radiates into the right lower quadrant now for several hours over the course of today. She denied any associated fever or chills but she did have some nausea. She has had stones twice in the past, 2 years ago the initial and potentially 2 months ago a second event. She describes having had a stent placed and subsequently removed, but it is not clear if she underwent ureteroscopic intervention in the interim. She was however familiar with the idea of laser lithotripsy. Past medical history: As above Past surgical history: None/noncontributory No known drug allergies No history of smoking or recreational drug use, but uninsured Examination: Patient uncomfortable appearing but in no acute distress Alert, awake, oriented x 3, and Faroese-speaking mostly Abdomen soft, nontender, nondistended Pulse 2+ radial No dyspnea or sign of respiratory distress 09/03/2023 CT abdomen and pelvis with contrast: Impression: Severe right-sided hydronephrosis and hydroureter caused by a 9 mm stone in the distal right ureter. -I reviewed the images of the CT scan in detail, and while significant pelvic caliectasis was noted with ureteral nephrosis down to a large calculus in the mid distal ureter, there was also significant perinephric fluid, which could have represented stranding versus possible forniceal rupture. 09/03/2023 WBC 12.3, hemoglobin 13.3, platelets 186, potassium 3.1, sodium 134, creatinine 1.06, glucose 275, elevated AST/ALT, UA micro 3+ glucose, trace heme but otherwise microscopically negative Assessment and recommendation: 48-year-old uninsured woman with DM2, recurrent stone former, now with distal right obstructive ureterolithiasis associated with right flank pain and possible forniceal rupture. -History was taken above with the assistance of a light technician, #[id number], and consent for operative procedure was also obtained in an 18-minute translation session between 8:50 PM and 9:08 PM. -I counseled the patient on the presence of the obstructing calculus and the suspicion for forniceal rupture, explaining this is urine leaking out of the kidney into the back, and thus the need for operative management with placement of ureteral stent. I explained the potential impacted nature of the calculus that may necessitate placement of a percutaneous nephrostomy tube. I explained the procedure for cystoscopy and right ureteral stent placement in detail, and then explained the risks and side effects as follows: -Risks of infection, urethral stricture, injury to the ureter, failure to be able to place a stent and need for nephrostomy tube placement -Side effects including stent discomfort and urinary frequency/urgency were also discussed. -Need for subsequent definitive management of the stone and removal of the stent was also explicitly discussed, because the patient expressed a degree of concern about needing to have follow-up in my office and ultimately return to the operating room given her uninsured status. She expressed not having the money for those next steps; but I explained that we would simply need to take care of the obstruction at this point and we would have to worry about those next steps later. I explained we would not perform ureteroscopic intervention with laser lithotripsy in the setting of a suspected forniceal rupture due to the pressurized irrigation required and worsening of the urine leakage potential increased risk of infection/sepsis. -Consent was then signed and we will proceed JORGE with cystoscopy with right retrograde pyelography and right ureteral stent placement. Patient has been n.p.o. all day with only some water in the mid afternoon. Allergies No Known Allergies Allergy (Unverified 11/18/19 07:18) Home medications list reviewed: Yes Home Medications: Ascorbic Acid [Vitamin C*] 500 mg PO DAILY #30 tablet 11/18/19 Benzonatate [Tessalon Perle] 100 mg PO TID PRN #15 cap 11/18/19 Metformin HCl 500 mg PO DAILY #30 tablet 11/18/19 Zinc Sulfate [Zinc Sulfate*] 220 mg PO DAILY #30 cap 11/18/19 predniSONE [Deltasone*] 10 mg PO BID #14 tab 11/18/19 - Past Medical/Surgical History Diabetic: Yes Physical Examination Temp Pulse Resp BP Pulse Ox 97.9 F 77 16 146/88 H 09/03/23 22:39 09/03/23 22:39 09/03/23 22:39 09/03/23 22:39 Laboratory Data (last 24 hrs) 09/03/23 09/03/23 18:30 18:30 WBC 12.30 H Hgb 13.3 Hct 38.8 Plt Count 186 Sodium 134 L Potassium 3.1 L BUN 12 Creatinine 1.06 H Glucose 275 H Total Bilirubin 0.3 AST 62 H ALT 152 H Alkaline Phosphatase 109 Lipase 67 - Problems (1) Recurrent nephrolithiasis Current Visit: Yes Status: Acute (2) Ureterolithiasis Current Visit: Yes Status: Acute (3) Right flank pain Current Visit: Yes Status: Acute (4) Hydronephrosis, right Current Visit: Yes Status: Acute Conclusions/Impression: see A&P in HPI Critical Care: No Time Spent Managing Pts care (In Minutes): 30
[2023-09-03] MEDS ORDERED: PHENAZOPYRIDINE 100MG TAB PO PRN (22:55)
[2023-09-03] MEDS ORDERED: CODEINE 30MG/APAP 300MG TAB PO PRN (22:55)
--- NOTE | 2023-09-03 23:04 | P.OP ---
Date of Service: 09/03/23 Preoperative diagnosis: Right flank pain Right hydroureteronephrosis Right ureterolithiasis Suspected forniceal rupture Recurrent nephrolithiasis Postoperative diagnoses: Right flank pain Right hydroureteronephrosis Right ureterolithiasis Recurrent nephrolithiasis Meatal stenosis Cystocele with vault prolapse Principal procedures: Cystoscopy Right retrograde pyelography Right ureteral stent placement -4.8 Fr x 24 cm Indication for procedure: Procedure note: The patient was consented In the emergency department before being transferred to the PACU holding in preparation for transfer to the operative suite where general anesthesia was induced. She was given ceftriaxone 1 g IV antimicrobial prophylaxis, and pneumoboots were provided for DVT prophylaxis. She was placed in the lithotomy position, padded and secured to the table appropriately, and her genitalia was prepped with Hibiclens before being draped in standard fashion. The case has begun using the obturator and an 22 [place] sheath to dilate a stenotic meatus and gain entry via the urethra into the bladder. I then remove the obturator and decompressed her bladder of urine. I then placed the cystoscope into the longshore equipment operator and surveyed the bladder noting the presence of papillary cystitis throughout. The ureteral orifices were orthotopic in location, but a significant cystocele with anterior vaginal descent was indeed noted. I cannulated the right ureteral orifice using the tip of a 5 [place] ureteral access catheter, and a fluoroscopic imagery was used to perform a retrograde pyelogram. Right retrograde pyelography: Using a 70: 30 mixture of Omnipaque and saline, contrast was injected via the lumen of the 5 [place] ureteral access catheter and did propagate up to the point of visible calculus related obstruction in the mid distal ureter where the contrast would go no further and refluxed back into the bladder alongside the 5 [place] catheter. As a result, I advanced the 5 [place] catheter further into the mid distal ureter just distal to the stone visible fluoroscopically, and I again injected the contrast mixture forcefully this time to try to dislodge the stone from its potentially impacted state. I was successful at partially dislodging the stone and getting some of the contrast mixture to go around it into the mid ureter proximal to the stone. The contrast did not progress all the way into the proximal ureter or collecting system; so I utilized a 50-50 mixture of contrast Injected in order to deliver contrast at least into the proximal ureter where I can just appreciate the entry into the renal pelvis. Prior contrast from the IV CT scan performed earlier did delineate the renal unit though there was no contrast within the calyces and collecting system. I have thus advanced the sensor wire via the 5 [place] ureteral access catheter and under live fluoroscopic imaging, I navigated the wire beyond the point of calculus obstruction in the mid distal ureter up into the proximal ureter and the renal pelvis and putative upper pole calyx. I then advanced the 5 [place] ureteral access catheter over the wire, with some resistance, ultimately into the renal pelvis and upper pole calyx. There, I utilize full-strength contrast injected to fill the upper and mid pole calyces before retracting the catheter down into the pelvis and filling the lower pole calyx with contrast. I did not identify any specific distinct forniceal rupture. As a result, I passed the sensor wire via the 5 [place] ureteral access catheter back into her upper pole calyx and remove the 5 [place] ureteral access catheter leaving the wire in place. Over the wire, I then passed a 4.8 [place] by 24 cm double-J ureteral stent into her upper pole calyx where I remove the wire forming a coil fluoroscopically in the upper pole, and an additional coil cystoscopically within her bladder. I then decompressed her bladder of fluid and urine before removing the cystoscope. The patient was then taken out of the lithotomy position, awakened from general anesthesia, transferred to a stretcher, and then transferred to the recovery room in good condition. Complications: None Discharge disposition: As the patient is uninsured and expressed an inability to likely be able to afford subsequent operative management, some efforts will be required to arrange financial assistance or potentially emergency Medicaid such that the ureteral stent does not end up as a retained foreign body down the line. The patient is a recurrent stone former and would benefit from metabolic evaluation eventually if affordable. She will require follow-up definitive management with right ureteroscopy and laser lithotripsy as well as stent exchange in the coming weeks. While this could potentially be scheduled without an outpatient follow- up visit first, and would need to be done within 30 days of the consultation/H&P completed today, preoperative evaluation would still be required to ensure patient medically optimized and without urinary infection prior to the procedure. Hospital financial assistance would also be required even if we skipped the outpatient intermediate step in evaluation.
[2023-09-03 23:48] VITALS: BMI 21.8
[2023-09-04] MEDS: MORPHINE 2 MG/ML SYR IV PRN (00:39)
[2023-09-04 07:14] LABS: Absolute Lymphocytes (CBC) 0.8 K/uL (0.7-4.9); Absolute Monocytes 0.1 K/uL (0.1-1.3); Basophils % 0.2 % (0-1.3); Hematocrit 37.9 % (36.0-45.0); Hemoglobin 12.5 g/dL (12.0-15.0); Lymphocytes % 9.3 % (15.3-44.8); MCH 31.6 pg (27.0-35.0); MCHC 32.9 g/dL (32.0-36.0); MCV 96.2 fL (80-100); MPV 11.9 fL (7.6-11.3); Monocytes % 0.8 % (3.3-12.3); Neutrophils % 89.7 % (41.7-73.7); Platelets 163 thou/uL (152-406); RBC Red Blood Cell Count 3.94 M/uL (3.86-4.86); Red Cell Distribution Width 12.6 % (12.1-15.2)
[2023-09-04 07:34] LABS: Albumin 2.8 g/dL (3.4-5.0); Albumin/Globulin Ratio 0.7 (1.1-1.8); Anion Gap 10.9 mEq/L (5.0-15.0); Bilirubin Total 0.3 mg/dL (0.2-1.0); Globulin 4.3 g/dL (2.3-3.5); Potassium 3.9 mEq/L (3.5-5.1); Protein, Total 7.1 g/dL (6.4-8.2)
[2023-09-04 08:04] LABS: Blood Morphology Comment NOT SEEN (NOT SEEN); Platelet Estimate ADEQ; White Blood Cell Scan OK (OK)
[2023-09-04] MEDS: INSULIN REGULAR (HUMAN) 100 UNIT/ML SQ SCH (08:25)
[2023-09-04] MEDS: MORPHINE 4 MG/ML SYR IV PRN (10:55)
--- NOTE | 2023-09-04 11:00 | P.PN ---
Subjective Date of Service: 09/04/23 Chief Complaint: Flank Pain Patient reports mild right flank pain. Status post cystoscopy and ureteral stent placement last night. No recorded fever Patient is tolerating diet. Physical Examination - Vital Signs Temperature: 97.9 F Blood Pressure: 109/63 Pulse: 77 Respirations: 16 Pulse Ox (%): 95 - Studies Laboratory Data (last 24 hrs) 09/03/23 09/03/23 18:30 18:30 WBC 12.30 H Hgb 13.3 Hct 38.8 Plt Count 186 Sodium 134 L Potassium 3.1 L BUN 12 Creatinine 1.06 H Glucose 275 H Total Bilirubin 0.3 AST 62 H ALT 152 H Alkaline Phosphatase 109 Lipase 67 Assessment And Plan - Plan Physical Exam General: Alert, In no apparent distress, Oriented x3 Respiratory: Clear to auscultation bilaterally, Normal air movement Cardiovascular: No edema, Normal pulses, Regular rate/rhythm Gastrointestinal: Soft and benign, no tenderness Integumentary: No rashes Neurological: Normal speech, no focal motor deficit. Diagnosis Right flank pain Right hydroureteronephrosis Right ureterolithiasis Recurrent nephrolithiasis Meatal stenosis Cystocele with vault prolapse Type 2 diabetes Essential hypertension Acute kidney injury Elevated LFT Right hydroureteronephrosis Right ureterolithiasis Recurrent nephrolithiasis Meatal stenosis Cystocele with vault prolapse Dr. Albright input appreciated. Status post cystoscopy Right retrograde pyelography Right ureteral stent placement -4.8 Fr x 24 cm Pain control Continue empiric IV antibiotics. UA suggest no UTI Urine nephrolithiasis workup as outpatient within 6 weeks. Type 2 diabetes Insulin sliding scale Accu-Chek ACHS Hypokalemia Hypokalemia resolved Continue IV hydration Elevated LFTs LFTs trended down. CT abdomen and pelvis did not demonstrate any gallstones. Prior liver ultrasound 2 months ago did not show any gallstones. DVT prophylaxis: Lovenox Advanced directive: full code
[2023-09-04] MEDS: ENOXAPARIN 40 MG/0.4 ML SQ SCH (17:07)
[2023-09-04 17:33] VITALS: O2SAT 96
[2023-09-04] MEDS: INSULIN GLARGINE 100 UNIT/ML SQ SCH (19:34)
[2023-09-04 20:26] VITALS: TEMP 97.9
[2023-09-04] MEDS: CEFTRIAXONE 1,000 MG in NA CHLORIDE 0.9% 50 ML IVPB SCH (22:07)
[2023-09-04] MEDS: HYDROCODONE/APAP 10/325 TAB PO PRN (22:08)
--- NOTE | 2023-09-05 19:20 | P.DS ---
Admission Date: 09/03/23 Discharge Date: 09/05/23 Disposition: ROUTINE DISCHARGE Discharge Condition: FAIR Reason for Admission: Flank Pain Brief History of Present Illness: 48 yrs old woman with past medical history of diabetes, hypertension, kidney stones, came to ER with flank pain and abdominal pain, associated with nausea and vomiting . Pain was located in the right flank and right lower quadrant Patient was assessed in the ER and CT abdomen/pelvis showed severe right-sided hydronephrosis and hydroureter caused by 9 mm stone in the distal right ureter. Urology Dr. Albright was informed and patient admitted for further management. Hospital Course: Patient was admitted to the medical floor and the following medical problems addressed: Diagnosis Right flank pain Right hydroureteronephrosis Right ureterolithiasis Recurrent nephrolithiasis Meatal stenosis Cystocele with vault prolapse Type 2 diabetes Essential hypertension Acute kidney injury Elevated LFT Right hydroureteronephrosis Right ureterolithiasis Recurrent nephrolithiasis Meatal stenosis Cystocele with vault prolapse Patient seen and evaluated by Dr. Albright. Status post cystoscopy Right retrograde pyelography Right ureteral stent placement -4.8 Fr x 24 cm She was placed on IV antibiotics. UA suggest no UTI Urine nephrolithiasis workup as outpatient recommended by Dr. Albright. Dr. Holland also recommend follow-up for ureteral stent exchange or removal, laser lithotripsy and stones evacuation, as well as workup for etiology of the recurrent nephrolithiasis. Type 2 diabetes This was managed with insulin sliding scale and 10 units Semglee insulin. Patient hemoglobin A1c checked is 8.9. Patient can reach target hemoglobin A1c with metformin and diet control. Patient was informed and reinforced diet modification Hypokalemia Hypokalemia resolved Elevated LFTs LFTs trended down. CT abdomen and pelvis did not demonstrate any gallstones. Prior liver ultrasound 2 months ago did not show any gallstones. Vital Signs/Physical Exam: Temp Pulse Resp BP Pulse Ox 97.9 F 77 16 109/63 95 09/05/23 12:53 09/05/23 12:53 09/05/23 12:53 09/05/23 12:53 09/05/23 12:53 General: Alert, In no apparent distress, Oriented x3 HEENT: Mucous membr. moist/pink, Sclerae nonicteric Neck: Supple, JVD not distended Respiratory: Clear to auscultation bilaterally, Normal air movement Cardiovascular: No edema, Regular rate/rhythm, Normal S1 S2 Gastrointestinal: Normal bowel sounds, Soft and benign, Non-distended, No tenderness Musculoskeletal: No swelling, No tenderness Integumentary: No rashes, No cyanosis Neurological: Normal speech, Normal strength at 5/5 x4 extr, Cranial nerves 3-12 intact Laboratory Data at Discharge: WBC 9.00 thou/uL (4.3-10.9) 09/04/23 06:04 Hgb 12.5 g/dL (12.0-15.0) 09/04/23 06:04 Hct 37.9 % (36.0-45.0) 09/04/23 06:04 Plt Count 163 thou/uL (152-406) 09/04/23 06:04 Sodium 135 mEq/L (136-145) L 09/04/23 06:04 Potassium 3.9 mEq/L (3.5-5.1) D 09/04/23 06:04 BUN 11 mg/dL (7-18) 09/04/23 06:04 Creatinine 0.89 mg/dL (0.55-1.02) 09/04/23 06:04 Glucose 366 mg/dL (74-106) H 09/04/23 06:04 Total Bilirubin 0.3 mg/dL (0.2-1.0) 09/04/23 06:04 AST 37 U/L (15-37) 09/04/23 06:04 ALT 114 U/L (13-56) H 09/04/23 06:04 Alkaline Phosphatase 99 U/L (45-117) 09/04/23 06:04 Lipase 67 U/L (13-75) 09/03/23 18:30 Home Medications: Ciprofloxacin HCl [Cipro] 500 mg PO BID #14 tab 09/05/23 Metformin HCl 1,000 mg PO BID #60 tab 09/05/23 Phenazopyrididine [Pyridium*] 200 mg PO Q12H PRN #6 tab 09/05/23 New Medications: Ciprofloxacin HCl [Cipro] 500 mg PO BID #14 tab Metformin HCl 1,000 mg PO BID #60 tab Phenazopyrididine [Pyridium*] 200 mg PO Q12H PRN #6 tab PRN Reason: dysuria Diet: ADA Activity: Ad nohemy Followup: NONE,NONE [Primary Care Provider] - Vu Albright [ACTIVE - CAN ADMIT] - (Within 2 to 3-weeks. You may need ureteral stent exchange or removal. You may also need laser lithotripsy and kidney stones removal. You will need further tests to look for a recent for your recurrent stone formation.) Time spent managing pt's care (in minutes): 36
[2023-09-06 14:35] VITALS: BP 109/63
== END 2023-09-05 16:00 | disposition home or self-care (01) | DRG 660 ==
LOC: ER 18:03 → ERHOLD 21:41 → 2ND 22:12
PROVIDERS: ADMIT Family Medicine; ATTEND Internal Medicine
PROC: BT1D1ZZ Fluoroscopy of Right Kidney, Ureter and Bladder using Low Osmolar Contrast (ICD-10-PCS; 2023-09-03)
PROC: 0T768DZ Dilation of Right Ureter with Intraluminal Device, Via Natural or Artificial Opening Endoscopic (ICD-10-PCS; principal; 2023-09-03 22:00)
DX: N13.2 Hydronephrosis with renal and ureteral calculous obstruction (principal); E87.1 Hypo-osmolality and hyponatremia; I10 Essential (primary) hypertension; E87.6 Hypokalemia; E11.9 Type 2 diabetes mellitus without complications; N17.9 Acute kidney failure, unspecified; N81.4 Uterovaginal prolapse, unspecified; R79.89 Other specified abnormal findings of blood chemistry; Z79.84 Long term (current) use of oral hypoglycemic drugs; Z79.52 Long term (current) use of systemic steroids; Z79.899 Other long term (current) drug therapy
CPT/HCPCS: 36415; 51610; 74177; 74450; 80053; 81001; 81025; 82947; 83036; 83690; 85025; 96361; 96374; 96375; 99285; J0696; J1100; J1170; J1650; J1815; J2001; J2250; J2270; J2405; J2704; J3010; J3475; J7030; Q9967

== ENCOUNTER 2024-06-09 00:04 | Emergency (ER) | payer OTHER, SELFPAY ==
[2024-06-09] MEDS ORDERED: HYDROCODONE/APAP 7.5/325 MG TAB ONE (00:33)
[2024-06-09] MEDS ORDERED: KETOROLAC 30 MG/ML INJ ONE (00:33)
--- NOTE | 2024-06-09 00:33 | ER ---
Nurse's Notes [facility] Name: Augustina Cade Age: 49 yrs Sex: Female : 1975 Arrival Date: 06/09/2024 Time: 00:04 Bed IW1 Private MD: Diagnosis: Pain in left foot;Pain in right foot;Diabetes mellitus due to underlying condition with hyperglycemia Presentation: 06/09 00:16 Chief complaint: Patient states: bilateral foot pain X2 days. denies injury. lg3 Coronavirus screen: Client denies travel out of the [place] in the last 14 days. At this time, the client does not indicate any symptoms associated with coronavirus-19. Ebola Screen: No symptoms or risks identified at this time. Initial Sepsis Screen: Does the patient meet any 2 criteria? No. Patient's initial sepsis screen is negative. Does the patient have a suspected source of infection? No. Patient's initial sepsis screen is negative. Risk Assessment: Do you want to hurt yourself or someone else? Patient reports no desire to harm self or others. Onset of symptoms was June 06, 2024. 00:16 Method Of Arrival: Wheelchair lg3 00:16 Acuity: KAR 4 lg3 Triage Assessment: 00:18 General: Appears in no apparent distress. uncomfortable, Behavior is calm, cooperative. lg3 Pain: Complains of pain in right foot and left foot. EENT: No deficits noted. No signs and/or symptoms were reported regarding the EENT system. Neuro: No deficits noted. [place] Agitation-Sedation Scale (RASS): 0 - Alert and Calm Level of Consciousness is awake, alert, obeys commands, Oriented to person, place, time, situation. Cardiovascular: No deficits noted. Denies chest pain, shortness of breath, Capillary refill < 3 seconds Clubbing of nail beds is absent JVD is absent Patient's skin is warm and dry. Respiratory: No deficits noted. Airway is patent Respiratory effort is even, unlabored, Respiratory pattern is regular, symmetrical. GI: No deficits noted. No signs and/or symptoms were reported involving the gastrointestinal system. : No signs and/or symptoms were reported regarding the genitourinary system. Derm: No deficits noted. Skin is intact, is healthy with good turgor, Skin is dry, Skin is normal, Skin temperature is warm. Musculoskeletal: Circulation, motion, and sensation intact. Range of motion: intact in all extremities, Reports pain in right foot and left foot. 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 - Infectious Disease History:: Denies. - Social history:: Smoking status: Patient denies any tobacco usage or history of. Patient/guardian denies using alcohol, street drugs. Screenin:22 [facility] ED Fall Risk Assessment (Adult) History of falling in the last 3 months, lg3 including since admission No falls in past 3 months (0 pts) Confusion or Disorientation No (0 pts) Intoxicated or Sedated No (0 pts) Impaired Gait Yes (1 pt) Mobility Assist Device Used No (0 pt) Altered Elimination No (0 pt) Score/Fall Risk Level 0 - 2 = Low Risk Oriented to surroundings, Maintained a safe environment, Educated pt \T\ family on fall prevention, incl call for assistance when getting out of bed, Assessed \T\ reinforced patient's understanding of fall precautions. Abuse screen: Denies threats or abuse. Denies injuries from another. Nutritional screening: No deficits noted. Tuberculosis screening: No symptoms or risk factors identified. Assessment: 00:22 General: see triage assessment. lg3 Vital Signs: 00:16 BP 130 / 89; Pulse 97; Resp 16 S; Temp 98.4(TE); Pulse Ox 100% on R/A; Weight 50.8 kg lg3 (R); Height 5 ft. 1 in. (R); Pain 10/10; 00:39 BP 128 / 88; Pulse 89; Resp 16 S; Pulse Ox 100% on R/A; lg3 00:16 Body Mass Index 21.16 (50.80 kg, 154.94 cm) 3 00:16 Pain Scale: Adult lg3 ED Course: 00:06 Patient arrived in ED. ra3 00:18 Triage completed. lg3 00:18 Arm band placed on right wrist. lg3 00:22 Patient taken to [facility], via wheelchair. lg3 00:22 Patient has correct armband on for positive identification. Family accompanied patient. lg3 00:28 Howard Vickers MD is Attending Physician. sp4 00:28 Melanie Glover FNP-C is PHCP. kb 00:40 No provider procedures requiring assistance completed. Patient did not have IV access lg3 during this emergency room visit. Administered Medications: 00:39 Drug: Hydrocodone-Acetaminophen PO (7.5 mg-325 mg) 1 tabs PO once Route: PO; lg3 00:40 Follow up: Response: No adverse reaction; Medication administered at discharge. lg3 00:39 Drug: Ketorolac IM 30 mg IM once Route: IM; Site: left deltoid; lg3 00:40 Follow up: Response: No adverse reaction; Medication administered at discharge. lg3 Medication: 00:40 VIS not applicable for this client. lg3 Outcome: 00:33 Discharge ordered by . kb 00:40 Discharged to home via wheelchair, with significant other, lg3 00:40 Condition: stable 00:40 Discharge instructions given to patient, Instructed on discharge instructions, follow up and referral plans. medication usage, Demonstrated understanding of instructions, follow-up care, medications, Prescriptions given X 1, 00:40 Patient left the ED. lg3 Signatures: Melanie Glover FNP-C FNP-Ckb Able, Lacie, RN RN lg3 Howard Vickers MD MD sp4 Michelle Salazar ra3
--- NOTE | 2024-06-09 00:33 | EDPHYS ---
Physician Documentation [facility] Name: Augustina Cade Age: 49 yrs Sex: Female : 1975 Arrival Date: 06/09/2024 Time: 00:04 Bed IW1 Private MD: ED Physician Howard Vickers HPI: 06/09 00:28 This 49 yrs old Female presents to ER via Wheelchair with complaints of Foot sp4 Pain - BL. 00:28 Pt is a 49 year old female who presents for bilateral lateral foot/ankle pain that kb started 3 days ago. Denies injury or trauma. Worse with ambulation and palpation. No swelling, redness, warmth, fever. 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 - Infectious Disease History:: Denies. - Social history:: Smoking status: Patient denies any tobacco usage or history of. Patient/guardian denies using alcohol, street drugs. ROS: 00:29 Constitutional: As per HPI kb Exam: 00:29 Constitutional: This is a well developed, well nourished patient who is awake, alert, kb and in no acute distress. Head/Face: Normocephalic, atraumatic. ENT: Moist Mucous membranes Cardiovascular: Regular rate Respiratory: Respirations even and unlabored. No increased work of breathing. Talking in full sentences Skin: Warm, dry with normal turgor. Normal color. Neuro: Awake and alert, GCS 15, oriented to person, place, time, and situation. 00:29 Musculoskeletal/extremity: Extremities: grossly normal except: noted in the lateral side of right heel, right lateral malleolus, lateral side of left heel and left lateral malleolus: pain, tenderness, ROM: intact in all extremities, Circulation is intact in all extremities. Sensation intact. Vital Signs: 00:16 BP 130 / 89; Pulse 97; Resp 16 S; Temp 98.4(TE); Pulse Ox 100% on R/A; Weight 50.8 kg lg3 (R); Height 5 ft. 1 in. (R); Pain 10/10; 00:39 BP 128 / 88; Pulse 89; Resp 16 S; Pulse Ox 100% on R/A; lg3 00:16 Body Mass Index 21.16 (50.80 kg, 154.94 cm) lg3 00:16 Pain Scale: Adult lg3 MDM: 00:28 Medical Screening Exam initiated kb 00:30 Differential diagnosis: contusion, tendonitis, neuropathy, arthritis. Data reviewed: kb vital signs, nurses notes. Test considered but Not performed: X-ray: xray considered but pt has had no injury, pain is bilatearl . Counseling: I had a detailed discussion with the patient and/or guardian regarding the historical points, exam findings, and any diagnostic results supporting the discharge/admit diagnosis, lab results, the need for outpatient follow up, a family practitioner, to return to the emergency department if symptoms worsen or persist or if there are any questions or concerns that arise at home. 06/09 00:28 Order name: Blood Glucose Level; Complete Time: 00:39 kb Administered Medications: 00:39 Drug: Hydrocodone-Acetaminophen PO (7.5 mg-325 mg) 1 tabs PO once Route: PO; lg3 00:40 Follow up: Response: No adverse reaction; Medication administered at discharge. lg3 00:39 Drug: Ketorolac IM 30 mg IM once Route: IM; Site: left deltoid; lg3 00:40 Follow up: Response: No adverse reaction; Medication administered at discharge. lg3 Disposition: 21:57 Co-signature as Attending Physician, Howard Vickers MD I agree with the assessment sp4 and plan of care. I reviewed the patient's care provided by the Advanced Practice Provider and agree with the diagnosis and treatment plan. Disposition Summary: 06/09/24 00:33 Discharge Ordered Notes: Location: Home kb Condition: Stable kb Diagnosis - Pain in left foot kb - Pain in right foot kb - Diabetes mellitus due to underlying condition with hyperglycemia kb Followup: kb - With: Emergency Department - When: As needed - Reason: Worsening of condition Followup: kb - With: Private Physician - When: 2 - 3 days - Reason: Recheck today's complaints, Continuance of care, Re-evaluation by your physician Discharge Instructions: - Discharge Summary Sheet kb - Peripheral Neuropathy kb - Foot Pain kb Forms: - Medication Reconciliation Form kb - Antibiotic Education kb - Prescription Opioid Use kb - Patient Portal Instructions kb - Leadership Thank You Letter kb Prescriptions: - Neurontin 300 mg Oral Capsule - take 1 capsule ORAL route At bedtime; 20 capsule; Refills: 0, Product Selection kb Permitted Signatures: Melanie Glover, GLADYS KNUTSON-Honey Villafuerte RN RN lg3 Howard Vickers MD MD sp4
[2024-06-09 00:51] VITALS: TEMP 98.4; O2SAT 100
[2024-06-09 00:55] VITALS: BP 128/88
== END 2024-06-09 00:40 | disposition home or self-care (01) ==
LOC: ER 00:04
DX: M79.672 Pain in left foot (principal); M79.671 Pain in right foot; E11.65 Type 2 diabetes mellitus with hyperglycemia
CPT/HCPCS: 82947

== ENCOUNTER 2025-02-10 19:27 | Emergency (ER) | payer OTHER, SELFPAY ==
[2025-02-10 20:05] LABS: Absolute Lymphocytes (CBC) 2.6 K/uL (0.7-4.9); Hematocrit 36.3 % (36.0-45.0); Hemoglobin 12.1 g/dL (12.0-15.0); MCH 30.8 pg (27.0-35.0); MCHC 33.4 g/dL (32.0-36.0); MCV 92.2 fL (80-100); MPV 10.6 fL (7.6-11.3); Nucleated RBC Absolute Count 0.0 (0-0); Nucleated Red Blood Cells % 0.0 % (0-0); RBC Red Blood Cell Count 3.94 M/uL (3.86-4.86); White Blood Count 9.00 thou/uL (4.3-10.9)
[2025-02-10] MEDS ORDERED: ONDANSETRON 4 MG/2 ML VIAL ONE (20:06)
[2025-02-10] MEDS ORDERED: FENTANYL CITR 100 MCG/2 ML ONE (20:06)
[2025-02-10] MEDS ORDERED: NA CHLORIDE 0.9% 1,000 ML ONE (20:07)
[2025-02-10 20:12] LABS: PT Prothrombin Time 16.1 SECONDS (10-13.0); Protime INR 1.44
[2025-02-10 20:19] LABS: Anion Gap 9.3 mEq/L (5.0-15.0); BUN Blood Urea Nitrogen 12.0 mg/dL (7-18); Glucose Level 239.0 mg/dL (74-106); Potassium 3.3 mEq/L (3.5-5.1)
--- NOTE | 2025-02-10 20:41 | RAD REPORT ---
EXAMINATION: ONE VIEW CHEST XR CLINICAL INDICATION: Female, 50 years old.,BLUNT CHEST TRAUMA TECHNIQUE: Frontal chest projection is submitted. Examination is limited by patient positioning and t echnique. COMPARISON: 11/17/2019 FINDINGS: The lungs are grossly clear although suboptimal inspiratory effort somewhat limits evaluation. No pn eumothorax or sizable effusion. The heart is normal in size. Mediastinal contours are unremarkable. IMPRESSION: No acute intrathoracic abnormalities.
[2025-02-10] MEDS ORDERED: MORPHINE 4 MG/ML SYR ONE (21:20)
[2025-02-10] MEDS ORDERED: DIAZEPAM 10 MG/2 ML INJ SYRINGE ONE (21:20)
--- NOTE | 2025-02-10 22:09 | RAD REPORT ---
EXAM: CT CHEST, ABDOMEN AND PELVIS WITH CONTRAST CLINICAL INDICATION: Female, 50 years old. blunt trauma left chest wall TECHNIQUE: CT chest, abdomen, and pelvis was performed, following the administration of contrast, as per department protocol. Axial, sagittal and coronal reconstructions were obtained. One or more of the following dose reduction techniques were used: Automated exposure control, adjustment of the mA a nd/or kV according to patient size, and/or iterative reconstruction. Unless otherwise specified, incidental findings do not require dedicated imaging follow-up. COMPARISON: No prior exam. FINDINGS: LUNGS AND AIRWAYS: No evidence of airspace opacities. Dependent central predominant interstitial thic kening. No nodules. PLEURA: No pleural effusion. No pneumothorax. MEDIASTINUM AND LYMPH NODES: No mediastinal mass or fluid collection. Normal size mediastinal, hilar, and axillary lymph nodes. THORACIC AORTA: Normal caliber and configuration. PULMONARY ARTERIES: Normal caliber. OSSEOUS STRUCTURES AND CHEST WALL: Intact. LIVER: Normal in size and contour. No focal lesion or biliary dilitation. BILIARY SYSTEM: No suspicious abnormalities. PANCREAS: No mass, ductal dilation, or kori-pancreatic fluid. SPLEEN: Normal size. No focal lesion. ADRENALS: Normal; no mass. KIDNEYS AND URETERS: Normal size and contour. Numerous bilateral renal cortical cystic lesions larges t at the left upper renal pole measuring 2.3 cm. No hydronephrosis. URINARY BLADDER: Normal contour. GASTROINTESTINAL TRACT: No bowel obstruction, free air, significant free fluid or abscess. APPENDIX: No inflammatory changes in region of appendix. LYMPH NODES: No lymphadenopathy. ABDOMINAL AORTA AND OTHER VESSELS: Normal caliber aorta and IVC. MUSCULOSKELETAL: No acute or suspicious osseous abnormality. IMPRESSION: Dependent and central predominant interstitial prominence, may reflect central congestion. No acute or significant abnormalities seen in the abdomen or pelvis.
[2025-02-10] MEDS ORDERED: KETOROLAC 30 MG/ML INJ ONE (22:15)
--- NOTE | 2025-02-10 23:29 | ER ---
Nurse's Notes [facility] Name: Augustina Cade Age: 50 yrs Sex: Female : 1975 Arrival Date: 02/10/2025 Time: 19:27 Bed 12 Private MD: Diagnosis: Fall on same level from slipping, tripping and stumbling with subsequent striking against object;Contusion of left front wall of thorax Presentation: 02/10 19:41 Chief complaint: Patient states: FELL IN TO A RAIL AT 2:30 TODAY. REPORTS SEVERE PAIN dd2 LT RIBS, PAINFUL TO TAKE A DEEP BREATH. Coronavirus screen: At this time, the client does not indicate any symptoms associated with coronavirus-19. Ebola Screen: No symptoms or risks identified at this time. Initial Sepsis Screen: Does the patient meet any 2 criteria? No. Patient's initial sepsis screen is negative. Does the patient have a suspected source of infection? No. Patient's initial sepsis screen is negative. Risk Assessment: Do you want to hurt yourself or someone else? Patient reports no desire to harm self or others. Onset of symptoms was February 10, 2025 at 14:30. 19:41 Method Of Arrival: Wheelchair dd2 19:41 Acuity: KAR 3 dd2 Triage Assessment: 19:43 General: Appears uncomfortable, Behavior is cooperative, appropriate for age, crying. dd2 Pain: Complains of pain in left lateral anterior chest Pain currently is 10 out of 10 on a pain scale. Historical: - Allergies: 19:43 No Known Allergies; dd2 - PMHx: 19:43 diabetes mellitus; hypotension; Kidney stones; NIDDM; dd2 - PSHx: 19:43 renal stent (NIDD); Cholecystectomy; dd2 - Immunization history:: Adult Immunizations unknown. - Infectious Disease History:: Denies. - Social history:: Smoking status: Patient denies any tobacco usage or history of. Screenin:55 [facility] ED Fall Risk Assessment (Adult) History of falling in the last 3 months, jb4 including since admission Yes- single mechanical fall (1 pt) Confusion or Disorientation No (0 pts) Intoxicated or Sedated No (0 pts) Impaired Gait No (0 pts) Mobility Assist Device Used No (0 pt) Altered Elimination No (0 pt) Score/Fall Risk Level 0 - 2 = Low Risk Oriented to surroundings, Maintained a safe environment. Abuse screen: Denies threats or abuse. Nutritional screening: No deficits noted. Tuberculosis screening: No symptoms or risk factors identified. Assessment: 19:55 General: Appears in no apparent distress. uncomfortable, Behavior is calm, cooperative, jb4 appropriate for age. Pain: Complains of pain in left ribs Pain does not radiate. Pain currently is 10 out of 10 on a pain scale. Neuro: Level of Consciousness is awake, alert, obeys commands, Oriented to person, place, time, situation. Cardiovascular: Patient's skin is warm and dry. Respiratory: Airway is patent Respiratory effort is even, unlabored, Respiratory pattern is regular, symmetrical. Derm: Skin is intact, Skin is pink, warm \T\ dry. Musculoskeletal: Circulation, motion, and sensation intact. Range of motion: intact in all extremities. 21:00 Reassessment: Patient appears in no apparent distress at this time. Patient and/or jb4 family updated on plan of care and expected duration. Pain level reassessed. Patient is alert, oriented x 3, equal unlabored respirations, skin warm/dry/pink. 22:00 Reassessment: Patient appears in no apparent distress at this time. Patient and/or jb4 family updated on plan of care and expected duration. Pain level reassessed. Patient is alert, oriented x 3, equal unlabored respirations, skin warm/dry/pink. 23:26 Reassessment: Patient appears in no apparent distress at this time. Patient and/or jb4 family updated on plan of care and expected duration. Pain level reassessed. Patient is alert, oriented x 3, equal unlabored respirations, skin warm/dry/pink. Vital Signs: 19:41 BP 129 / 83; Pulse 84; Resp 18; Temp 98.3; Pulse Ox 100% ; Weight 52.16 kg; Pain 10/10; dd2 21:32 BP 131 / 78; Pulse 72; Resp 18; Pulse Ox 100% ; jj7 22:00 BP 116 / 75; Pulse 83; Resp 16; Pulse Ox 98% on R/A; jb4 23:26 BP 126 / 83; Pulse 86; Resp 16; Pulse Ox 99% ; jb4 19:41 Pain Scale: Adult dd2 ED Course: 19:31 Patient arrived in ED. al6 19:33 Page, Sarwat, PA-C [facility]. cp 19:33 Josh García DO is Attending Physician. cp 19:43 Triage completed. dd2 19:43 Arm band placed on right wrist. dd2 19:50 XRAY Chest (1 view) In Process Unspecified. EDMS 19:55 Patient has correct armband on for positive identification. Bed in low position. Call jb4 light in reach. Side rails up X 1. Provided Education on: plan of care. 19:55 No provider procedures requiring assistance completed. Inserted saline lock: 20 gauge jb4 in right antecubital area, using aseptic technique. Blood collected. 20:02 PT-INR Sent. jb4 20:02 Basic Metabolic Panel Sent. jb4 20:02 CBC with Diff Sent. jb4 20:02 Type And Screen Sent. jb4 20:58 CT Chest, Abdomen, Pelvis - W/Contrast In Process Unspecified. EDMS 22:21 Homer Salcido, RN is Primary Nurse. jb4 23:43 IV discontinued, intact, bleeding controlled, No redness/swelling at site. Pressure jb4 dressing applied. Administered Medications: 20:12 Drug: fentaNYL (PF) IVP 25 mcg IVP once Route: IVP; Site: right antecubital; jb4 20:35 Follow up: Response: No adverse reaction; Marked relief of symptoms jb4 20:12 Drug: Ondansetron IVP 4 mg IVP once; over 2 minutes Route: IVP; Site: right antecubital;jb4 22:28 Follow up: Response: No adverse reaction; Marked relief of symptoms jb4 20:12 Drug: NS 0.9% IV 1000 ml IV at 1000 ml once; to be given as a bolus over 60 minutes jb4 Route: IV; Rate: 1000 ml; Site: right antecubital; 21:32 Drug: morphine IVP or IV 4 mg IVP once over 4 mins Route: IVP; Infused Over: 4 mins; jj7 Site: right antecubital; 22:26 Follow up: Response: No adverse reaction; Marked relief of symptoms jb4 21:32 Drug: Diazepam IVP 5 mg IVP once Route: IVP; Site: right antecubital; jj7 22:26 Follow up: Response: No adverse reaction; Marked relief of symptoms jb4 22:20 Drug: Ketorolac IVP 15 mg IVP once Route: IVP; Site: right antecubital; jb4 Medication: 19:55 VIS not applicable for this client. jb4 Outcome: 23:29 Discharge ordered by . cp 23:43 Discharged to home via wheelchair, with family, jb4 23:43 Condition: stable 23:43 Discharge instructions given to patient, family, Instructed on discharge instructions, follow up and referral plans. no drinking with medication, no driving heavy equipment, medication usage, Demonstrated understanding of instructions, follow-up care, medications, Prescriptions given X 2, 23:43 Patient left the ED. jb4 Signatures: Dispatcher [employer] EDMS Sarwat Mehta PA-C PAHomer Guzman cp, RN RN jb4 Daniela Austin RN RN jj7 CHANEL STEINER RN RN dd2 Shawna Valle
--- NOTE | 2025-02-10 23:29 | EDPHYS ---
Physician Documentation [facility] Name: Augustina Cade Age: 50 yrs Sex: Female : 1975 Arrival Date: 02/10/2025 Time: 19:27 Bed 12 Private MD: ED Physician Josh García HPI: 02/10 19:45 This 50 yrs old Female presents to ER via Wheelchair with complaints of Fall cp Injury. 19:45 Details of fall: The patient fell from an upright position, while standing. cp 19:45 Patient is a 50-year-old female with past medical history significant for diabetes who cp presents to the emergency department after a fall from standing. Patient reports she lost her balance, fell, causing her to strike her left lower rib area. Patient presents in considerable discomfort complaining of pain and shortness of breath. Historical: - Allergies: 19:43 No Known Allergies; dd2 - PMHx: 19:43 diabetes mellitus; hypotension; Kidney stones; NIDDM; dd2 - PSHx: 19:43 renal stent (NIDD); Cholecystectomy; dd2 - Immunization history:: Adult Immunizations unknown. - Infectious Disease History:: Denies. - Social history:: Smoking status: Patient denies any tobacco usage or history of. ROS: 19:50 Constitutional: Negative for body aches, chills, fever, poor PO intake, cp 19:50 Eyes: Negative for injury, pain, redness, and discharge, cp 19:50 ENT: Negative for drainage from ear(s), ear pain, sore throat, difficulty swallowing, difficulty handling secretions, 19:50 Neck: Negative for pain with movement, pain at rest, stiffness, bony tenderness, 19:50 Cardiovascular: Positive for chest pain, of the left lateral anterior chest, 19:50 Respiratory: Positive for shortness of breath, Negative for cough, wheezing, 19:50 Abdomen/GI: Negative for vomiting, diarrhea, constipation, 19:50 Back: Negative for bony tenderness, 19:50 Neuro: Negative for altered mental status, dizziness, headache, syncope, near syncope, cp weakness, 19:50 All other systems are negative, cp Exam: 19:50 Head/Face: Normocephalic, atraumatic. cp 19:50 Constitutional: The patient appears in no acute distress, alert, awake, non-diaphoretic, non-toxic, well developed, well nourished, in obvious pain, uncomfortable, 19:50 Eyes: Periorbital structures: appear normal, Conjunctiva: normal, no exudate, no injection, Sclera: no appreciated abnormality, Lids and lashes: appear normal, bilaterally, 19:50 ENT: External ear(s): are unremarkable, Nose: is normal, Mouth: Lips: moist, Oral mucosa: moist, Posterior pharynx: Airway: no evidence of obstruction, patent, 19:50 Chest/axilla: Inspection: normal, Palpation: crepitus, is not appreciated, tenderness, that is severe, of the left lower lateral anterior chest wall, 19:50 Cardiovascular: Rate: normal, Rhythm: regular, Edema: is not appreciated, JVD: is not appreciated, 19:50 Respiratory: the patient does not display signs of respiratory distress, Respirations: normal, no use of accessory muscles, no retractions, labored breathing, is not present, Breath sounds: are clear throughout, no decreased breath sounds, no stridor, no wheezing, 19:50 Abdomen/GI: Inspection: abdomen appears normal, Bowel sounds: active, all quadrants, Palpation: soft, in all quadrants, moderate abdominal tenderness, in the left upper quadrant, involuntary guarding, is not appreciated, 19:50 Back: vertebral tenderness, is not appreciated, 19:50 Neuro: Orientation: to person, place \T\ time. Mentation: is normal, Motor: moves all fours, strength is normal, Sensation: is normal, Vital Signs: 19:41 BP 129 / 83; Pulse 84; Resp 18; Temp 98.3; Pulse Ox 100% ; Weight 52.16 kg; Pain 10/10; dd2 21:32 BP 131 / 78; Pulse 72; Resp 18; Pulse Ox 100% ; jj7 22:00 BP 116 / 75; Pulse 83; Resp 16; Pulse Ox 98% on R/A; jb4 23:26 BP 126 / 83; Pulse 86; Resp 16; Pulse Ox 99% ; jb4 19:41 Pain Scale: Adult dd2 MDM: 19:33 Medical Screening Exam initiated cp 23:28 Data reviewed: vital signs, nurses notes, lab test result(s), radiologic studies, CT cp scan, plain films, and as a result, I will discharge patient. 23:28 Differential diagnosis: closed head injury, contusion, fracture, multiple trauma. I cp considered the following discharge prescriptions or medication management in the emergency department Medications were administered in the Emergency Department. See MAR. Independent interpretation of the following test(s) in the Emergency Department X-Ray: My interpretation is chest xray negative for infiltrates. Counseling: I had a detailed discussion with the patient and/or guardian regarding the historical points, exam findings, and any diagnostic results supporting the discharge/admit diagnosis, lab results, radiology results, to return to the emergency department if symptoms worsen or persist or if there are any questions or concerns that arise at home. Response to treatment: the patient's symptoms have markedly improved after treatment, and as a result, I will discharge patient. 02/10 19:39 Order name: Basic Metabolic Panel; Complete Time: 21:02 cp 02/10 19:39 Order name: CBC with Diff; Complete Time: 21:02 cp 02/10 19:39 Order name: Type And Screen; Complete Time: 21:02 cp 02/10 19:39 Order name: PT-INR; Complete Time: 21:02 cp 02/10 19:39 Order name: XRAY Chest (1 view); Complete Time: 21:02 cp 02/10 19:39 Order name: CT Chest, Abdomen, Pelvis - W/Contrast; Complete Time: 22:11 cp 02/10 19:39 Order name: Labs collected and sent; Complete Time: 20:02 cp Administered Medications: 20:12 Drug: fentaNYL (PF) IVP 25 mcg IVP once Route: IVP; Site: right antecubital; jb4 20:35 Follow up: Response: No adverse reaction; Marked relief of symptoms jb4 20:12 Drug: Ondansetron IVP 4 mg IVP once; over 2 minutes Route: IVP; Site: right antecubital;jb4 22:28 Follow up: Response: No adverse reaction; Marked relief of symptoms jb4 20:12 Drug: NS 0.9% IV 1000 ml IV at 1000 ml once; to be given as a bolus over 60 minutes jb4 Route: IV; Rate: 1000 ml; Site: right antecubital; 21:32 Drug: morphine IVP or IV 4 mg IVP once over 4 mins Route: IVP; Infused Over: 4 mins; jj7 Site: right antecubital; 22:26 Follow up: Response: No adverse reaction; Marked relief of symptoms jb4 21:32 Drug: Diazepam IVP 5 mg IVP once Route: IVP; Site: right antecubital; jj7 22:26 Follow up: Response: No adverse reaction; Marked relief of symptoms jb4 22:20 Drug: Ketorolac IVP 15 mg IVP once Route: IVP; Site: right antecubital; jb4 Disposition Summary: 02/10/25 23:29 Discharge Ordered Notes: Location: Home cp Problem: new cp Symptoms: have improved cp Condition: Stable cp Diagnosis - Fall on same level from slipping, tripping and stumbling with subsequent striking cp against object - Contusion of left front wall of thorax cp Followup: cp - With: Private Physician - When: 2 - 3 days - Reason: Worsening of condition Discharge Instructions: - Discharge Summary Sheet cp - Rib Contusion cp Forms: - Medication Reconciliation Form cp - Antibiotic Education cp - Prescription Opioid Use cp - Patient Portal Instructions cp - Leadership Thank You Letter cp Prescriptions: - Ibuprofen 600 mg Oral Tablet - take 1 tablet ORAL route every 6 hours As needed take with food; 30 tablet; cp Refills: 0, Product Selection Permitted - Cyclobenzaprine 10 mg Oral Tablet - take 1 tablet ORAL route every 8 hours As needed; 30 tablet; Refills: 0, cp Product Selection Permitted Addendum: 02/14/2025 17:52 Co-signature as Attending Physician, Josh García DO I reviewed the patient's care t t7 provided by the Advanced Practice Provider and agree with the diagnosis and treatment plan. Signatures: Dispatcher [employer] EDNE Sarwat Mehta PA-C PA-C cp Bryson, James RN RN jb4 Daniela Austin RN RN jj7 CHANEL STEINER RN RN dd2 Josh García DO DO tt7 Corrections: (The following items were deleted from the chart) 02/10 19:40 19:40 BASIC METABOLIC PANEL+C.LAB.BRZ ordered. EDMS EDMS 19:40 19:40 CBC+H.LAB.BRZ ordered. EDMS EDMS 19:40 19:40 TYPE AND SCREEN+BB.LAB.BRZ ordered. EDMS EDMS 19:40 19:40 PROTIME (+INR)+COAG.LAB.BRZ ordered. EDMS EDMS 22:12 22:12 UA Rfx Mg Cult if indicated+U.LAB.BRZ ordered. EDMS EDMS
[2025-02-10 23:57] VITALS: TEMP 98.3
[2025-02-11 00:22] VITALS: BP 126/83; O2SAT 99
== END 2025-02-10 23:43 | disposition home or self-care (01) ==
LOC: ER 19:27
DX: S20.212A Contusion of left front wall of thorax, initial encounter (principal); W01.198A Fall on same level from slipping, tripping and stumbling with subsequent striking against other object, initial encounter
CPT/HCPCS: 36415; 71045; 71260; 74177; 80048; 85025; 85610; 86850; 86900; 86901; 96374; 96375; 99284; J1885; J2405; J3010; J3360; J7030; Q9967